=== PATIENT | male | born 1960 | race Caucasian/White ===

== ENCOUNTER → 2018-02-15 13:38 | Outpatient (CLI) | payer SELFPAY ==
--- NOTE | 2018-02-15 13:42 | ECHOD_ITS ---
Reason For Study: Murmur Procedure This was a 2D Doppler, Color Flow transthoracic echocardiogram. Exam performed in department. Left Ventricle Normal size and thickness. The estimated ejection fraction is 65 %. Stage 1 diastolic dysfunction. No regional wall motion abnormalities noted. Right Ventricle Normal size and thickness. Normal systolic function. Atria Normal left atrium. Normal right atrium. Normal atrial septum. Mitral Valve The mitral valve is structurally normal. No prolapse or stenosis seen. Trivial mitral valve insufficiency. Tricuspid Valve Normal tricuspid valve. Trivial tricuspid valve insufficiency. Right ventricular systolic pressure estimated to be 25 mmHg. Aortic Valve Trisinus/trileaflet aortic valve. Normal aortic valve. Pulmonic Valve Normal pulmonic valve. Trivial pulmonic valve insufficiency. Great Vessels Normal aortic root. Normal arch. Normal inferior vena cava. Inferior vena cava collapse with sniff. Pericardium/Pleural No pericardial effusion. MMode/2D Measurements & Calculations LVIDd: 4.8 cm IVSd: 0.84 cm Ao root diam: 3.8 cm LVIDs: 2.7 cm LVPWd: 1.0 cm LA dimension: 3.3 cm RVDd: 3.6 cm FS: 44.1 % LAV(MOD-sp4): 38.7 ml LVAd ap4: 34.8 cm2 SV(MOD-sp4): 64.2 ml EDV(MOD-sp4): 107.3 ml EDV(sp4-el): 111.2 ml LVAs ap4: 19.2 cm2 ESV(MOD-sp4): 43.0 ml ESV(sp4-el): 41.5 ml EF(MOD-sp4): 59.9 % EF(sp4-el): 62.7 % SV(sp4-el): 69.7 ml LA A4 area: 15.9 cm2 RA A4 area: 15.2 cm2 Time Measurements MV dec time: 0.20 sec Doppler Measurements & Calculations MV E max iván: 88.8 cm/sec Lat Peak E' Iván: 7.3 cm/sec Med Peak E' Iván: 10.5 cm/sec MV A max iván: 68.3 cm/sec E/E' lat: 12.2 E/E' med: 8.4 MV E/A: 1.3 MV V2 max: 100.2 cm/sec MV P1/2t max iván: 100.2 cm/sec Ao V2 max: 114.6 cm/sec MV max P.0 mmHg MV P1/2t: 63.7 msec Ao max P.3 mmHg MV V2 mean: 46.8 cm/sec MV dec slope: 460.8 cm/sec2 Ao V2 mean: 77.7 cm/sec MV mean P.1 mmHg MVA(P1/2t): 3.5 cm2 Ao mean P.7 mmHg MV V2 VTI: 34.1 cm Ao V2 VTI: 23.5 cm LV V1 max: 89.3 cm/sec PA V2 max: 109.8 cm/sec PI dec slope: 110.0 cm/sec2 LV V1 max P.2 mmHg LV V1 mean P.4 mmHg LV V1 mean: 56.1 cm/sec LV V1 VTI: 18.7 cm TR max iván: 220.9 cm/sec TR max P.5 mmHg Interpretation Summary The estimated ejection fraction is 65 %. Stage 1 diastolic dysfunction. Right ventricular systolic pressure estimated to be 25 mmHg. Trivial tricuspid valve insufficiency. In comparison to echo report dated 12/09/2012, no appreciable changes noted. Ordering Physician: Mariano Queen Referring Physician: Mariano Queen Performed By: Hunter Wise RCS
== END ==
PROVIDERS: Family Provider Family Medicine; PCP Family Medicine; Visit Provider Internal Medicine Cardiovascular Disease
DX: I45.10 Unspecified right bundle-branch block (principal); E78.5 Hyperlipidemia, unspecified; I10 Essential (primary) hypertension
CPT/HCPCS: 93306

== ENCOUNTER → 2020-04-17 10:00 | Outpatient (CLI) | payer SELFPAY ==
[2019-05-26 11:21] VITALS: BMI 27.7
[2020-04-17 11:22] LABS: AST(SGOT) 18 U/L (15-37); Alanine Aminotransfer ALT/SGPT 25 U/L (16-61); Albumin, Serum 4.1 g/dL (3.2-5.0); Alkaline Phosphatase 56 U/L (45-117); Bilirubin, Direct 0.27 mg/dL (0.00-0.30); Cholesterol 140 mg/dL (200); Globulin 3.3 g/dL (2.2-4.2); High Density Lipoprotein 52 mg/dL; Protein, Total 7.4 g/dL (6.4-8.2); Triglycerides 86 mg/dL; Very Low Density Lipoprotein 17 mg/dL (5-40)
== END ==
PROVIDERS: PCP Family Medicine; Referring Provider Internal Medicine Cardiovascular Disease; Visit Provider Internal Medicine Cardiovascular Disease
DX: E78.00 Pure hypercholesterolemia, unspecified (principal)
CPT/HCPCS: 36415; 80061; 80076

== ENCOUNTER → 2022-06-26 | Outpatient (CLI) | payer BC, SELFPAY ==
--- NOTE | 2022-06-26 08:04 | VDLE_ITS ---
Reason For Study: LEG SWELLING RIGHT LEFT GSV is normal. CFV is compressible, spontaneous, phasic, CFV is compressible, spontaneous, phasic, competent, and demonstrates normal competent and demonstrates normal augmentation. augmentation. FV is compressible, spontaneous, phasic, competent and demonstrates normal augmentation. POP V is compressible, spontaneous, phasic, competent and demonstrates normal augmentation. T/P Trunk is compressible. PTV is compressible. RT PerV is compressible. Procedure This is a venous duplex using B-mode, color flow and spectral Doppler. Exam performed in department. The exam was diagnostic. A preliminary report was called and/or faxed to Constantino Fitch. VL/Venous Duplex US, Unilateral Interpretation Summary Deep veins of the right lower extremity are patent and compressible segmentally . There is no evidence of right lower extremity deep vein thrombosis. Valvular competence maninder ears intact within the proximal deep venous system on the right . The right great saphenous vein a ppears patent and compressible segmentally. Ordering Physician: CONSTANTINO FITCH Referring Physician: Juan Diego Barrera Performed By: Hardy Koroma RVT
== END | disposition home or self-care (01) ==
PROVIDERS: PCP Family Medicine; Visit Provider Nurse Practitioner Family
DX: L03.115 Cellulitis of right lower limb (principal); M79.89 Other specified soft tissue disorders; R23.8 Other skin changes
CPT/HCPCS: 93971

== ENCOUNTER → 2023-03-14 | Outpatient (CLI) | payer BC, SELFPAY ==
--- NOTE | 2023-03-14 08:00 | RAD_ITS ---
STUDY: X-RAY - ESOPHAGUS (BARIUM SWALLOW) WITH FLUOROSCOPY REASON FOR EXAM: Male, 62 years old. DYSPHAGIA TECHNIQUE: 13 view(s) of the esophagus were obtained following swallowing of barium. FLUOROSCOPY TIME (if supplied): (26 seconds) minutes/seconds. 7.12 mGy COMPARISON: None. FINDINGS: There is no demonstrated esophageal foreign body. There is no demonstrated stricture or mucosal abnormality. Normal gastroesophageal junction, without a demonstrated hiatal hernia. The patient ingested a 12 mm tablet of barium without any difficulty. Normal visualized aortic arch and descending thoracic aorta. Normal visualized pulmonary parenchyma. Normal visualized osseous structures of the thorax. RAD/Esophagus Dual Contrast IMPRESSION: Normal plain film x-ray examination (barium swallow) of the esophagus. Electronically Signed: Luciano Cobos MD at 8:39 EDT ,
== END | disposition home or self-care (01) ==
PROVIDERS: PCP Family Medicine; Referring Provider Family Medicine; Visit Provider Family Medicine
DX: R13.10 Dysphagia, unspecified (principal)
CPT/HCPCS: 74221

== ENCOUNTER → 2023-11-28 | Outpatient (CLI) | payer BC, SELFPAY | END | disposition home or self-care (01) | PROVIDERS: PCP Family Medicine; Referring Provider Surgery; Visit Provider Surgery | DX: Z01.818 Encounter for other preprocedural examination (principal); K40.90 Unilateral inguinal hernia, without obstruction or gangrene, not specified as recurrent | CPT/HCPCS: 87081 ==

== ENCOUNTER 2023-12-11 08:27 | Day surgery (SDC) | payer BC, SELFPAY ==
[2023-12-11] VITALS (9 sets, daily range): BP systolic 110–139; BP diastolic 61–89; PULSE 65–78; RESP 16–18; TEMP 36.4–36.9; O2SAT 98–100; BMI 27.4
--- NOTE | 2023-12-11 08:40 | EKG12_ITS ---
Test Reason : preop Blood Pressure : / mmHG Vent. Rate : 071 BPM Atrial Rate : 071 BPM P-R Int : 138 ms QRS Dur : 140 ms QT Int : 418 ms P-R-T Axes : 063 033 029 degrees QTc Int : 454 ms Normal sinus rhythm Right bundle branch block Abnormal ECG No previous ECGs available Confirmed by IGNACIO FORD, VANDANA ([id number]), offline editor LETTY STAPLES ([id number]) on 12/12/2023 1:23:28 PM Referred By: Juan Diego Barrera Confirmed By:VANDANA PIERRE MD
[2023-12-11] MEDS: Lactated Ringers 1,000 ML 15 ML IV (09:07)
[2023-12-11 09:37] LABS: Thyroid Stim Hormone (TSH) 2.11 uIU/mL (0.358-3.74)
--- NOTE | 2023-12-11 10:41 | PCM.HP.BLA ---
History and Physical Date of Admission: 12/11/23 Date of Service: 11/28/23 MR#: [id number] Acct: [id number] Name: TRUPTI MOREIRA Rep #: [id number] : 1960 Provider: Dr. Dale Sunshine MD Age/Sex: 63/M Location: [facility] Status: Signed Intake Vital Signs 02/20/2312:58 11/27/2408:42 Height 5 ft 11 in 5 ft 10 in Weight: 201 lb 8 oz BMI 28.9 BP 147/85 H Blood Pressure Location Rt brachial Position Sitting Respiration 18 Pulse 63 Pulse Source Monitor Temp 98.0 F Temp Source Temporal Pulse Oximetry (%) 97 Oxygen Delivery Method room air Intake Visit Reasons: INGUINAL HERNIA Chief Complaint: right inguinal hernia Youth Care Professional Required: No Is patient in pain?: Yes Allergies Sulfa (Sulfonamide Antibiotics) Allergy (Verified 11/28/23 09:45) Other Medications atorvastatin 20 mg tablet 20 mg PO QHS 03/02/14 [History Confirmed 11/28/23] multivitamin,[id number]-xplpsaai 27 mg-0.4 mg tablet 1 tab PO DAILY 03/02/14 [History Confirmed 11/28/23] omega-3 fatty acids-fish oil 684 mg-1,200 mg capsule,delayed release 1 ea PO DAILY 03/02/14 [History Confirmed 11/28/23] ascorbic acid (vitamin C) 1,000 mg tablet 1 g PO QDAY 01/25/18 [History Confirmed 11/28/23] cyanocobalamin (vitamin B-12) 1,000 mcg tablet 1,000 mcg PO DAILY 12/19/21 [History Confirmed 11/28/23] levothyroxine 88 mcg tablet 88 mcg PO DAILY 12/19/21 [History Confirmed 11/28/23] betamethasone dipropionate 0.05 % topical cream 1 applic topical DAILY PRN 02/19/23 [History Confirmed 11/28/23] losartan 25 mg tablet 25 mg PO DAILY #90 tabs 05/08/23 [Rx Confirmed 11/28/23] PFSH Medical History (Reviewed 02/19/23 @ 13:37 by Eliazar Guzman RESPIRATORY ASSISTANT, RESPIRATORY ASSISTANT-C) Asthma Bilateral carpal tunnel syndrome Chest pain, unspecified Essential hypertension Essential tremor GI bleed Internal hemorrhoids Pure hypercholesterolemia TMJ Surgical History History of carpal tunnel repair History of mandibular surgery History of prostate biopsy History of umbilical hernia repair Hx of colonoscopy Family History Father Myocardial infarction Diabetes CAD (coronary artery disease) CABGMother LymphomaSister CLL (chronic lymphocytic leukemia) Social History (Updated 11/28/23 @ 09:42 by Emy Espinosa LPN) Smoking Status: Former smoker quit date: 09/17/85 alcohol intake: current substance use type: former substance user Date of last use: 80s and marijuana HPI HPI HPI: Patient is a 63-year-old male who presents for concern over possible new right inguinal hernia. He is referred from Dr. Barrera. This finding was first noticed by Mr. Moreira in September. Patient is able to recall how this occurred and shares that he was diagnosed with bronchitis in August and the symptoms lasted to September when he had a particular coughing fit where he felt as though he had ripped something. He shares that he has pain that goes down in the crease. This is associated also with some right testicle pain. He notes it to be a dull ache and denies explicitly any sharp pain. He states that this discomfort is particularly noticeable later in the day and it feels like things are dropping resulting in some bulging of his right groin. He does confirm that his bowel movements are normal in frequency but that there is some pain when he does have to defecate. He shares that there is a history of prostate growth but he denies any related urinary issues. Additionally, he makes mention of some periumbilical discomfort and potentially some bulging at that location. He does also state that he has fasted for today's visit just in case. 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 More directly, however, it is precluding him from being able to square dance which he enjoys as his hobby. Lastly, he shares that he is caring for his mother who is in a group home and occasionally tries to bring her home in a wheelchair and sees potential issues postoperatively with this recovery and this priority. Patient has a personal history of smoking, but states that it was greater than 20 years ago. Patient also has a personal history of recurrent cutaneous infections?most recently he describes right lower extremity cellulitis (in the past 6 months). Pertinent surgical history includes: Open umbilical hernia repair with onlay mesh placement by Dr. Talamantes in 2014. ROS General General: No weight change, appetite, fatigue, colon cancer, breast cancer or weakness HEENT HEENT: Yes difficulty swallowing; No eye injury, eye surgery, swollen glands or hoarseness Endo Endocrine: No thyroid disease, diabetes mellitus, thyroid cancer, Hair loss, heat intolerance or cold intolerance Skin Skin: No rash or changing moles Musc Musculoskeletal: Yes back problems; No arthritis, rheumatoid arthritis, gout or joint pain Cardio Cardiovascular: Yes high blood pressure; No murmur, pacemaker, heart disease, atrial fibrillation, heart attack, heart stent, palpitations, shortness of breat with exertion or chest pain Psych Psychiatric: Yes depression and anxiety; No hearing voices Resp Respiratory: Yes shortness of breath, No sleep apnea, No cough, No COPD, No asthma, No emphysema and No wheezing Gastro Gastrointestinal: Yes abdominal pain, No nausea or vomiting, No diarrhea, No constipation, Yes blood in stool, Yes acid reflux, Yes hemorrhoids, No ulcers, No gallbladder problem and No black,tarry stools Alo Hematologic: No blood thinners, No blood disorders, No bleeding, No anemia and No blood clots Neuro Neurologic: Yes numbness, Yes tingling and No weakness Exam Const General: cooperative and anxious Orientation: alert, awake and oriented x3 Resp Effort & Inspection: normal respiratory effort GI Other: Well-healed umbilical hernia repair with no signs of recurrence. There is no pain upon palpation. Patient denies any tenderness with palpation of the 4 abdominal quadrants. Other: Bilaterally descended testicles. Unremarkable left side exam. Significant tenderness on the right with a apparent indirect inguinal hernia defect Assessment and Plan Assessment and Plan (1) Right inguinal hernia: Status: Acute Comment: This is a 63-year-old, otherwise healthy, male who presents with signs and symptoms of a new right inguinal hernia. By exam this is an indirect?type inguinal hernia. He is symptomatic with progressive discomfort. It is also secondarily interfering with his ability to partake in his hobbies and square dancing. I held a lengthy conversation with him today regarding the hernias probable origin as well as my recommendation to pursue a minimally invasive inguinal hernia repair with mesh. Details of the procedure included postoperative expectations and preoperative prehabilitation. To this latter end I recommended he reinstate his use of tamsulosin for urinary retention and work to minimize any perioperative coughing or sneezing. Additionally, I have cautioned him against proceeding amidst any present cellulitis concerns. He denies any present concerns, but confirms his understanding for possible mesh translocation. Today a nasal swab was obtained to screen for MRSA and we will plan to treat accordingly if present. Lastly, patient is cautioned on activity restrictions and I have recommended no lifting greater than 10 pounds for 5 weeks postoperatively. He suggest this is longer than he had anticipated and is concerned about its impact on both his work schedule as well as his ability to care for his mother. I have encouraged him to speak with his employer directly about this and see how we might minimize the impact to him. I have also suggested that we may consider a light duty status 2 to 3 weeks postop and resume unrestricted physical activity following the 5-week pham. He seems pleased with this approach. Plan: ? Recommend robot-assisted right inguinal hernia repair with mesh ? Follow-up MRSA swab of nares and treat if indicated ? Resume tamsulosin 0.4 mg at least 2 weeks prior to surgery I have examined the patient the following changes are noted: Patient reports that he has had more discomfort and bulging that was less reducible in the past week. Today he states that he is doing well as he has been taking it easier. He also notes that his employer has been accommodating at work but he has now off for his postoperative recovery. Procedure and post procedure activity restrictions were reviewed and patient denies any further questions. Will now proceed to the operating room for planned robot-assisted right (possible bilateral) inguinal hernia repair with mesh
[2023-12-11] MEDS: Cefazolin 2 GM in 0.9% Normal Saline (100mL Bag) 100 ML IV (11:00)
--- NOTE | 2023-12-11 12:33 | OP.PCM_ITS ---
Report of Operation Date of Procedure: 12/11/23 Pre-Operative Diagnosis: Right inguinal hernia Post-Operative Diagnosis: Right indirect inguinal hernia Surgery/Procedure Performed:: Robot-assisted transabdominal preperitoneal repair of right inguinal hernia with mesh placement Description of Surgical Findings:: ? Clear evidence of a moderately large indirect right inguinal hernia ? Medium size cord lipoma ? Irregularity of the peritoneum but appeared secondary to attachment of the sigmoid colon and no definitive hernia on the left Surgeon: Dale Sunshine plater printed circuit board panels: Amilcar Lim Type of Anesthesia: General/Supplemental Anesthesiologist: Beny Lagos Specimen's removed: None Estimated Blood Loss (mL): 5 Description of Procedure: After appropriate identification in the preoperative holding area the patient was brought to the operating room where he was positioned supine on the operating table. Preoperative antibiotics were completed and the patient was administered a general anesthetic. Patient's abdomen was then prepped and draped in usual sterile fashion. Formal timeout followed to confirm patient and procedure. Procedure was begun with an optical entry facilitated by Veress insufflation at Conley's point. Once pneumoperitoneum reached a set point pressure of 15 mmHg the Veress needle was withdrawn and an optical entry was made with a robotic trocar. Laparoscopic visualization confirmed no inadvertent injury to the viscera below and 2 additional ports were placed in the right upper quadrant and paramedian positions, respectively, after instillation of local anesthetic. Patient was positioned in slight Trendelenburg and I performed a local block of the ilioinguinal nerves using 3 mL local anesthetic under laparoscopic visualization. It was initially difficult to discern if there was a indirect hernia defect present on the left because of a irregularity of the peritoneum caused by adhesions with the adjacent sigmoid colon. I thus resolved to assess this better once the robot could be used. The robot was docked in standard fashion. In this positioning I could visualize a indirect abdominal wall defect on the right but the left appeared intact. Robotically, a peritoneal flap was created on the right extending from the medial umbilical ligament to the level of the ASIS (external) and was bluntly dissected inferiorly to expose the medial parietal compartment and lateral visceral compartments. Medially I could visualize the pubic tubercle and Aldair's ligament while laterally I extended the dissection down to the level of the psoas musculature. The indirect hernia sac was identified and from the cord structures deeply with selective use of monopolar energy. A small cord lipoma was identified and removed with monopolar energy. Beyond this, I visualized a fatty cord with significant fat also in the space of Retzius. Not wanting to incur bleeding or damage to the cord structures the fatty cord was left undisturbed, however, to permit appropriate mesh placement I did feather out the fat coursing over the femoral vasculature and adjacent to the bladder with very careful blunt dissection and selective electrocautery. The peritoneal flap was inspected to ensure that cord was appropriately parietalized and there was no pulling of the cord structures or the viscera deeply over the psoas using the pull test. Once satisfied, a Bard 3D max, size large, mid weight mesh was placed into the abdomen along with suture. It was positioned within the preperitoneal pocket so that there was good medial and inferior overlap. It was then tacked to Aldair's ligament as well as the adminiculum of the linea alba just superior to the pubic tubercle, medially, and laterally in a partial- thickness bite of the abdominal wall using a 3-0 Vicryl suture. The peritoneal flap was then closed with a running 3-0 V-Loc suture taking care to conceal the barbs of the suture beneath the peritoneum. Once the flap closure was complete, I undertook repair of a small peritoneal defect overlying the area of the cord with 3-0 Vicryl. With the peritoneal defects closed, sutures were systematically removed from the peritoneum and the pneumoperitoneum was evacuated before removing the trocars. The port sites were closed at the skin with running 4-0 Monocryl in a subcuticular fashion. Steri-Strips and OpSite's were used as dressings. Patient's testicles were confirmed within the scrotum. Patient was then awoken from anesthetic and transferred to PACU for ongoing recovery. Grafts/Implants Used: 3D max mid LOT: [id number], reference: [id number] Complications None Admit VTE Documentation VTE Mechan Device Prophylaxis: SCD's Procedures Digestive 40xxx-49xxx: 44864 Lap ing hernia repair init
--- NOTE | 2023-12-11 12:36 | DCINST_ITS ---
Discharge Instructions Diet Discharge Diet: No restrictions Activity Discharge Activity: May Not Drive (While taking narcotic pain medication) and May Shower May shower in (days): 2 Ice area for (Minutes): 20 Lifting Restrictions: No lifting greater than 10 pounds for the next 5 weeks Dressing / Incision Call your doctor if your incision/area has: Continuous Slow Oozing, Increased Pain/ Swelling, Increased Redness, Foul Smelling Discharge and Swelling at the incision site Call your doctor if you observe: Fever of 101 or Higher, Inability to urinate and Inability to have a bowel movement Change Dressing in: 2 days (Please leave Steri-Strips intact until they fall off spontaneously or are taken off at your follow-up visit) Remove Dressing in: 2 days Cleanse incision/area with: Soap & Water and Keep Dressing Clean & Dry Follow Up Care Please Follow Up With: Dale Sunshine MD When: 10 to 14 days postop Test Results: Test results from this visit will be discussed in further detail at your follow- up appointment, if applicable. Discharge Plan Admission Primary Reason for Your Visit: Repair of right inguinal hernia Attending Provider: Dale Sunshine Primary Care Provider: Juan Diego Barrera Discharge Orders/Prescriptions Prescriptions: New oxycodone 5 mg tablet 5 mg PO Q6H PRN (Reason: pain) 3 Days Qty: 10 0RF No Action ascorbic acid (vitamin C) 1,000 mg tablet 1 g PO QDAY levothyroxine 88 mcg tablet 88 mcg PO SUMOTUWETHFR Rx Instructions: 88 mcg orally; 88 MCG ROJAS FR THEN ON SA 44 MCG cyanocobalamin (vitamin B-12) 1,000 mcg tablet 1,000 mcg PO DAILY betamethasone dipropionate 0.05 % cream 1 applic topical DAILY PRN (Reason: itching) atorvastatin 20 MG tablet 20 mg PO QHS Patient Comments: FOR HI CHOL omega-3 fatty acids-fish oil 1 EACH capsule,delayed release(DR/EC) 1 ea PO DAILY levothyroxine 44 mcg capsule 44 mcg PO SA losartan 100 mg tablet 100 mg PO DAILY loratadine [Allergy Relief (loratadine)] 10 mg tablet 10 mg PO DAILY omeprazole 20 mg capsule,delayed release(DR/EC) 20 mg PO PRN tamsulosin 0.4 mg capsule 0.4 mg PO DAILY Qty: 14 0RF Rx Instructions: Take one tablet by mouth daily for two weeks prior to surgery Referrals / Follow Up: Juan Diego Barrera MD [Primary Care Provider] - Disposition Disposition (needs filled in before D/C Order can be placed): Home, Self Care
[2023-12-11] MEDS: Bupiv/Epi 0.25% 30 ML Vial (12:40)
== END 2023-12-11 15:39 | disposition home or self-care (01) ==
LOC: SDC 08:31 → AC 08:31
PROVIDERS: Anesthesiology; PCP Family Medicine; Referring Provider Family Medicine; Visit Provider Surgery
PROC: (CPT 49650; principal; 2023-12-11 10:10)
DX: K40.90 Unilateral inguinal hernia, without obstruction or gangrene, not specified as recurrent (principal); E78.00 Pure hypercholesterolemia, unspecified; I10 Essential (primary) hypertension; K21.9 Gastro-esophageal reflux disease without esophagitis; E07.9 Disorder of thyroid, unspecified; Z79.899 Other long term (current) drug therapy; Z87.891 Personal history of nicotine dependence
CPT/HCPCS: 49650; S2900; 00840; 84443; 93005; J7120; J2405

== ENCOUNTER → 2024-05-24 | Outpatient (CLI) | payer BC, SELFPAY ==
[2024-05-24 11:36] LABS: Absolute Lymphocyte Count 2.44 X10^3/uL (0.83-4.51); Absolute Neutrophil Count 3.1 X10^3/uL (2.0-7.7); Basophil# 0.05 X10^3/uL; Basophil% 0.8 % (0-1); Eosinophils% 3.2 % (0-5); Hematocrit 39.1 % (40-54); Hemoglobin 13.4 g/dL (13.0-16.5); Lymphocyte # 2.44 X10^3/ul (0.83-4.51); Lymphocyte % 38.5 % (19-41); Mean Corp Hgb Conc 34.3 g/dL (32-36); Mean Corpuscular Hgb 31.5 pg (27.0-32.0); Mean Platelet Vol. 10.9 fl (6.2-12.0); Monocyte# 0.51 X10^3/uL; NRBC Flagged by Analyzer 0 % (0-5); Neutrophil # 3.09 X10^3/uL (2.7-7.7); Neutrophil % 48.7 % (47-70); Platelet Count 260 K/mm3 (150-450); RBC Distribution Width CV 13.7 % (11.6-14.6); RBC Distribution Width SD 46.3 fl (35.1-43.9); Red Blood Count 4.25 M/mm3 (4.6-6.2); White Blood Count 6.3 K/mm3 (4.4-11.0)
[2024-05-24 11:47] LABS: ALB/GLOB Ratio 1.3 RATIO (0.9-2.4); AST(SGOT) 24 U/L (15-37); Alanine Aminotransfer ALT/SGPT 36 U/L (16-61); Albumin, Serum 3.9 g/dL (3.2-5.0); Alkaline Phosphatase 59 U/L (45-117); Anion Gap 3 (5-15); BUN 17 mg/dL (7-18); BUN/Creat Ratio 15.2 RATIO (10-20); Calcium,Total 9.5 mg/dL (8.5-10.1); Chloride 107 mmol/L (98-107); Cholesterol 181 mg/dL (200); Creatinine, Serum 1.12 mg/dL (0.70-1.30); EST Glomerular Filtration Rate 70 mL/min (>60); Est Glom Filt Rate - Afr Amer 85 mL/min (>60); Glucose 103 mg/dL (74-106); High Density Lipoprotein 53 mg/dL; Potassium 4.2 mmol/L (3.5-5.1); Protein, Total 6.9 g/dL (6.4-8.2); Sodium Level 139 mmol/L (136-145); Triglycerides 111 mg/dL; Very Low Density Lipoprotein 22 mg/dL (5-40)
[2024-05-26 08:03] LABS: Hemoglobin A1c 5.8 % (3.8-5.6)
== END | disposition home or self-care (01) ==
LOC: LAB 10:49
PROVIDERS: PCP Family Medicine; Referring Provider Family Medicine; Visit Provider Family Medicine
DX: E78.5 Hyperlipidemia, unspecified (principal); R73.9 Hyperglycemia, unspecified
CPT/HCPCS: 36415; 80053; 80061; 83036; 85025

== ENCOUNTER → 2025-01-29 | Outpatient (CLI) | payer BC, SELFPAY ==
[2025-01-29 11:32] LABS: Absolute Lymphocyte Count 2.28 X10^3/uL (0.83-4.51); Absolute Neutrophil Count 2.6 X10^3/uL (2.0-7.7); Basophil# 0.04 X10^3/uL; Basophil% 0.7 % (0-1); Eosinophil# 0.21 X10^3/uL; Eosinophils% 3.7 % (0-5); Hematocrit 40.9 % (40-54); Hemoglobin 14.3 g/dL (13.0-16.5); Lymphocyte # 2.28 X10^3/ul (0.83-4.51); Lymphocyte % 40.4 % (19-41); Mean Corpuscular Hgb 31.6 pg (27.0-32.0); Mean Corpuscular Volume 90.3 fL (80-94); Mean Platelet Vol. 10.7 fl (6.2-12.0); Monocyte# 0.55 X10^3/uL; Monocyte% 9.8 % (0-10); NRBC Flagged by Analyzer 0 % (0-5); Neutrophil # 2.55 X10^3/uL (2.7-7.7); Neutrophil % 45.2 % (47-70); Platelet Count 276 K/mm3 (150-450); RBC Distribution Width CV 13.4 % (11.6-14.6); RBC Distribution Width SD 44.1 fl (35.1-43.9); Red Blood Count 4.53 M/mm3 (4.6-6.2); White Blood Count 5.6 K/mm3 (4.4-11.0)
[2025-01-29 12:12] LABS: ALB/GLOB Ratio 1.8 RATIO (0.9-2.4); AST(SGOT) 27 U/L (<=37); Alanine Aminotransfer ALT/SGPT 21 U/L (<=46); Albumin, Serum 4.4 g/dL (3.4-4.8); Alkaline Phosphatase 55 U/L (40-129); Anion Gap 10 (5-15); BUN 15 mg/dL (4-19); BUN/Creat Ratio 14.7 RATIO (10-20); Calcium,Total 9.4 mg/dL (7.6-11.0); Carbon Dioxide 25.5 mmol/L (21.0-32.0); Chloride 105 mmol/L (98-108); Creatinine, Serum 0.99 mg/dL (0.70-1.20); EST Glomerular Filtration Rate 85 (>60); Globulin 2.5 g/dL (2.2-4.2); Glucose 104 mg/dL (70-99); Potassium 4.2 mmol/L (3.3-5.1); Protein, Total 6.9 g/dL (5.9-8.4); Sodium Level 140 mmol/L (133-145)
[2025-01-29 12:36] LABS: Cholesterol 239 mg/dL (<=200); High Density Lipoprotein 48 mg/dL; Low Density Lipoprotein Calc. 164 mg/dL; Triglycerides 139 mg/dL; Very Low Density Lipoprotein 28 mg/dL (5-40); cholesterol:hdl ratio screen 5.01
== END | disposition home or self-care (01) ==
LOC: LAB 10:39
PROVIDERS: PCP Family Medicine; Referring Provider Family Medicine; Visit Provider Family Medicine
DX: E03.9 Hypothyroidism, unspecified (principal); R73.03 Prediabetes; I10 Essential (primary) hypertension
CPT/HCPCS: 36415; 80053; 80061; 83036; 84443; 85025

== ENCOUNTER 2025-08-01 01:18 | Emergency (ER) | payer BC, SELFPAY ==
[2025-08-01 01:20] VITALS: BP 152/82; PULSE 94; RESP 19; TEMP 36.9; O2SAT 100; BMI 26.4
[2025-08-01 01:38] VITALS: BP 145/80; PULSE 79; RESP 18; TEMP 36.9; O2SAT 100
--- OUTSIDE RECORDS SUMMARY | 2025-08-01 01:41 | XMS RPT_ITS | CCD ---
Author Organization [facility] ion Partnership [facility] Care Team Providers Care Preparole Counseling Aide Name Role Phone Manjula RN, Paula Cook Unavailable Sarah Croft RN, Allison A Unavailable Unavailable Stormy Locke Unavailable Stormy Locke Unavailable HOLLI Fair, Paula Cook Unavailable Sarah Croft RN, Allison A Unavailable Unavailable Magy Hodge Unavailable Milagro GARCIA MD, JUAN DIEGO Primary Care Physician RADHA FORD, JUAN DIEGO Primary Care Physician [phone] Juan Diego Garcia MD Primary Care Provider Juan Diego Garcia MD Primary Care Provider Juan Diego Garcia MD Primary Care Provider Juan Diego Garcia MD Primary Care Provider Dr. Juan Diego Garcia Primary Care Provider Radha, Dr. Adamson Referring Provider Megan SYSTEMS CHECKOUT MECHANIC, ALEJA Payton Attending Provider Dr. Juan Diego Garcia Primary Care Provider Dr. Juan Diego Garcia Referring Provider Dr. Dale Sunshine Attending Provider [phone] Dale Sunshine Other Provider Juan Diego Garcia MD Primary Care Provider [phone] ROSA MARIA FORD, DR FRIAS Attending Mat GARCIA MD, JUAN DIEGO Primary Care Unavailable ROSAM ARIA FORD, DR FRIAS Attending JUAN DIEGO Fernandez MD Primary Care Unavailable ROSA MARIA FORD, DR FRIAS Attending Mat GARCIA MD, JUAN DIEGO Primary Care Unavailable JUAN DIEGO GARCIA MD Primary Care Unavailable SUMMER FORD, REHANA Consulting Unavailable ROSA MARIA FORD, DR FRIAS Attending Unavailbeverly CRANE MD, DR FRIAS Consulting UnavailFRANCISCA Herr DO Consulting Unavail able RADHA FORD, JUAN DIEGO Primary Care Unavailable ROSA MARIA FORD, DR FRIAS Attending Unavailbeverly GARCIA MD, JUAN DIEGO Primary Care Unavailable DAVON DEWATERER OPERATOR-CARDROOM PLASTIC CARD GRADER, JUVENTINO Palomino Attending Miguel GARCIA MD, JUAN DIEGO Primary Care Unavailable ROSA MARIA FORD, DR FRIAS Attending Unavaila kenny MAYS DEWATERER OPERATOR-CARDROOM PLASTIC CARD GRADER, JUVENTINO Palomino Attending Miguel GARCIA MD, JUAN DIEGO Primary Care Unavailable Haagen 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, Lisa Unavailable Suppan 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, Clementina A Unavailable Suppan 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, Clementina A Unavailable Suppan 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, Clementina A Unavailable Dr. Juan Diego Garcia MD Primary Care Provider Dr. Juan Diego Garcia MD Referring Provider [facility] Eliazar MASTERSON Attending Provider Radha FORD, Dr. Adamson Attending Provider Dr. Dale Way MD Other Provider Rosa Maria FORD, Dr. Frias Other Provider JUAN DIEGO GARCIA Primary Care Unavailable JUAN DIEGO GARCIA Referring Unavailable JUAN DIEGO GARCIA Attending Unavailable JUAN DIEGO GARCIA Primary Care Unavailable CLEMENTINA CARROLL Attending Unavailable JUAN DIEGO GARCIA Referring Unavailable JUAN DIEGO GARCIA Primary Care Unavailable JUAN DIEGO GARCIA Attending Unavailable Dr. Juan Diego Garcia MD Primary Care Provider Dr. Juan Diego Garcia MD Referring Provider Marilee [place] Attending Provider Juan Diego Garcia Referring Unavailable Juan Diego Garcia Unavailable Dale Way Unavailable Juan Diego Garcia Primary Care Unavailable Rodriguez Crane Unavailable Juan Diego Garcia Referring Unavailable Juan Diego Garcia Attending Unavailable Juan Diego Garcia Primary Care Unavailable Juan Diego Garcia Attending Unavailable Juan Diego Garcia Primary Care Unavailable Juan Diego Garcia Referring Unavailable Megan SYSTEMS CHECKOUT MECHANIC, Eliazar Payton Attending Unavailable Juan Diego Garcia Primary Care Unavailable Juan Diego Garcia Referring Unavailable Marilee [place] Attending Unavail able Juan Diego Garcia Primary Care Unavailable ROSA MARIA FORD, DR FRIAS Attending Unavailbeverly GARCIA MD, JUAN DIEGO Primary Care Unavailable Allergies Allergy Classification Reported Allergen(s) Allergy Type Date of Onset Reaction(s) Facility (17 sources) Sulfonamides (Antibiotic); Translations: [sulfa drugs] drug allergy 4 anaphylaxis, [facility] Work Phone: (9 sources) Sulfonamides; Translations: [sulfonamides] Drug allergy [facility] [place] (20 sources) Sulfonamides (Antibiotic); Translations: [SULFA (SULFONAMIDE ANTIBIOTICS)] Propensity to adverse reactions 5 Anaphylaxis [facility] Work Phone: (6 sources) Sulfonamides (Antibiotic) Allergy to substance 2 Other [facility] (5 sources) Sulfonamide; Translations: [sulfa drugs] Drug allergy Leukopenia (disorder) [facility] (1 source) Sulfonamides (Antibiotic) Drug allergy (disorder) 5 [facility] Medications Current Medications Medication Drug Class(es) Dates Sig (Normalized) Sig (Original) ALOE VERA ORAL (2 sources) ALOE VERA ORAL Take by mouth. Juice Active amoxicillin 875 mg oral tablet (1 source) Penicillin-class Antibacterial Start: 09-03-2023 End: 09-13-2023 take 1 tablet by mouth twice daily amoxicillin (AMOXIL) 875 mg tablet Indications: Bacterial sinusitis Take 1 tablet by mouth two times a day for 10 days. 20 tablet 0 09/03/2023 09/13/2023 Active Comment on above: Take 1 tablet by maureen th two times a day for 10 days. Ascorbic Acid (20 sources) Vitamin C Start: 07-09-2020 Vitamin C qDay, 0 Refill(s) Start Date: 07/09/20 Status: Ordered Start: 01-25-2018 take 1 g by mouth once daily A scorbic Acid (Vitamin C) Active 1 GM PO daily January 25, 2018 12:00am Start: 03-02-2014 End: 01-25-2018 take 2 tablets by mouth once daily Ascorbic Acid (Vitamin C) 500 MG tablet Discontinued 1000 mg PO DAILY@0800 March 02, 2014 12:00am January 25, 2018 2:19pm Start: 03-02-2014 End: 01-25-2018 take 1000 mg by mouth once daily Ascorbic Acid (Vitamin C) Discontinued 1000 MG PO DAILY@0800 March 02, 2014 12:00am January 25, 2018 2:19pm Start: 05-24-2011 End: 02-13-2024 take 1 tablet by mouth once daily Ascorbic Acid 1,000 mg tablet Take 1 tablet by mouth once daily. 0 05/24/2011 Active Comment on above: Take 1 tablet by maureen th once daily. atorvastatin 20 mg oral tablet (20 sources) HMG-CoA Reductase Inhibitor Start: 014 End: atorvastatin 20 mg oral tablet Dose : 20 mg = 1 tab(s), Oral, qHS, Take 1 tablet by mouth daily at bedtime for cholesterol. Start Date: 07/09/20 Status: Ordered Medication Dispense Status: Completed Total Allowed Fills: 1 Fills Dispensed: 0 Comment on above: Take 1 tablet by maureen th daily at bedtime. For cholesterol. betamethasone 0.5 mg/ml topical cream (5 sources) Corticosteroid Start: Betamethasone Dipropionate 0.05 % cream Active 1 NMA TOPICAL DAILY as needed for itching February 19, 2023 12:00am calcium carbonate 250 mg / magnesium oxide 155 mg oral tablet (20 sources) Start: 012 take 1 tablet by mouth once daily calcium carbonate-mag oxide 250-155 mg Tab Take 1 tablet by mouth once daily. 0 03/25/2012 Active Comment on above: Take 1 tablet by maureen th once daily. CASTOR OIL ORAL (2 sources) CASTOR OIL ORAL Take by mouth. Tablets Active cholecalciferol 0.025 mg oral tablet (20 sources) Vitamin D take 2 tablets by mouth once daily cholecalciferol (VITAMIN D3) 1,000 unit tab tablet Take 2,000 Units by mouth once daily. Active Comment on above: Take 2,000 Units by mouth once daily. doxycycline hyclate 100 mg oral tablet (4 sources) Tetracycline-class Drug Start: End: 025 take 1 tablet by mouth twice daily doxycycline (VIBRA-TABS) 100 mg tablet Indications: Bacterial pneumonia Take 1 tablet by mouth two times a day for 10 days. 20 tablet 11/06/2024 11/16/2024 Active Start: 06-14-2022 End: 06-24-2022 take 1 tablet by mouth twice daily doxycycline (VIBRA-TABS) 100 mg tablet Indications: Cellulitis of right lower extremity , Redness and swelling of lower leg Take 1 tablet by mouth twice daily for 10 days. 20 tablet 0 06/14/2022 06/24/2022 Active Comment on above: Take 1 tablet by muareen twice daily for 10 days. fluticasone propionate 0.05 mg/actuat metered dose nasal spray (4 sources) Corticosteroid Start: 03-03-2025 Fluticasone Propionate 50 mcg/actuation spray,suspension Active 2 NMA INTRANASAL daily March 03, 2025 12:00am Start: 02-12-2025 take 2 spray(s) nasa l route once daily fluticasone (FLONASE) 50 mcg/actuation nasal spray Indications: Cough Use 2 sprays in each nostril once daily. 1 each 5 02/12/2025 Active Ginseng 250 mg cap (8 sources) take 1 tablet by mouth once daily Ginseng 250 mg cap Take 1 tablet by mouth once daily. Active ginseng preparation 250 mg oral capsule (20 sources) take 1 tablet by mouth once daily Ginseng 250 mg cap Take 1 tablet by mouth once daily. Active Comment on above: Take 1 tablet by [facility] once daily. LACTOBAC CMB #3/FOS/PANTETHINE (PROBIOTIC & ACIDOPHILUS ORAL) (20 sources) LACTOBAC CMB #3/FOS/PANTETHINE (PROBIOTIC & ACIDOPHILUS ORAL) Take by mouth once daily. Active LACTOBAC CMB #3/ FOS/PANTETHINE (PROBIOTIC & ACIDOPHILUS ORAL) Take by mouth once daily. 0 Active Comment on above: Take by mouth once d aily. levothyroxine sodium 0.088 mg oral tablet (20 sources) l-Thyroxine Start: 12-10-2023 Levothyroxine 44 mcg capsule Active 44 ug PO SA December 10, 2023 12:00am Start: 12-10-2023 Levothyroxine Active 44 MCG PO SA December 10, 2023 12:00am Start: 12-19-2021 Levothyroxine 88 mcg tablet Active 88 ug PO SUMOTUWETHFR December 19, 2021 12:00am 88 mcg orally; 88 MCG ROJAS MO TU WE TH FR THEN ON SA 44 MCG Start: 01-19-2021 End: 04-16-2025 levothyroxine (SYNTHROID) 88 mcg tablet Indications: Hypothyroidism, acquired Take 1 tablet by mouth once daily. Take on empty stomach. For Thyroid, except 1/2 pill on Sat 30 tablet 11 04/16/2025 Active Start: 12-20-2020 End: 12-19-2021 Levothyroxine 25 mcg capsule Discontinued 88 ug PO DAILY December 20, 2020 12:49pm December 19, 2021 1:03pm Start: 12-20-2020 End: 12-19-2021 take 88 ug by mouth once daily Levothyroxine Discontin ued 88 MCG PO DAILY December 20, 2020 12:49pm December 19, 2021 1:03pm Start: 07-09-2020 levothyroxine 88 mcg (0.088 mg) oral tablet Dose : 88 mcg = 1 tab(s), Oral, acBreakfast Start Date: 07/09/20 Status: Ordered Medication Dispense Status: Completed Total Allowed Fills: 1 Fills Dispensed: 0 Start: 09-13-2018 End: 12-20-2020 take 1 capsule by mouth once daily Levothyroxine 25 mcg capsule Discontinued 25 ug PO DAILY September 13, 2018 1:00am December 20, 2020 12:49pm Comment on above: Take 1 tablet by maureen th once daily. Take on empty stomach. For Thyroid, except 1/2 pill on Sat loratadine 10 mg oral tablet (20 sources) Start: 12-10-2023 End: 03-03-2025 loratadine 10 mg oral tablet Dose : 10 mg = 1 tab(s), Oral, qAM Start Date: 07/15/24 Status: Ordered Medication Dispense Status: Completed Total Allowed Fills: 1 Fills Dispensed: 0 Start: 03-05-2023 loratadine qDa y, 0 Refill(s) Start Date: 03/05/23 Status: Ordered take 1 capsule by mo wih once daily loratadine 10 mg cap Take 10 mg by mouth once daily. Active Comment on above: Take 10 mg by mouth once daily. losartan potassium 100 mg oral tablet (20 sources) Angiotensin 2 Receptor Angelia Start: 10-22-2023 End: 10-21-2025 losartan 100 mg oral tablet Dose : 100 mg = 1 tab(s), Oral, qAM Start Date: 07/15/24 Status: Ordered Medication Dispense Status: Completed Total Allowed Fills: 1 Fills Dispensed: 0 Start: 09-03-2023 End: 09-02-2024 take 1 tablet by mouth once daily losartan (COZAAR) 50 mg tablet Indications: Primary hypertension Take 1 tablet by mouth once daily. 90 tablet 3 09/03/2023 10/22/2023 Discontinued Start: 05-26-2019 End: 09-03-2023 take 1 tablet by mouth once daily Losartan 25 mg tablet Discontinued 25 mg PO DAILY May 12, 2022 4:20pm May 08, 2023 10:04am Comment on above: Take 25 mg by mouth once daily. Take 1 tablet by maureen th once daily. Multivitamin preparation (15 sources) Start: 07-09-2020 take 1 tablet by mouth once daily Multivitamin Dose = 1 tab(s), Oral, Daily, 0 Refill(s) Start Date: 07/09/20 Status: Ordered Medication Dispense Status: Completed Total Allowed Fills: 1 Fills Dispensed: 0 Start: 07-09-2020 take 1 tablet by maureen th once daily Multivitamin Dose = 1 tab(s), Oral, Daily, 0 Refill(s) Start Date: 07/09/20 Status: Ordered Multivitamin,Ps-Eqwd-Satvite s (3 sources) Start: 03-02-2014 take 1 tablet by mouth once daily Multivitamin,Rt-Libp-Xbxfmdqj Active 1 TABLET PO DAILY March 02, 2014 12:00am multivitamin,nh-rnrf-kfdexny s (THERAGRAN M) tab (20 sources) Start: 05-24-2011 take 1 tablet by mouth once daily multivitamin,gb-nikc-mdfgwklj (THERAGRAN M) tab Take 1 tablet by mouth once daily. 0 05/24/2011 Active Comment on above: Take 1 tablet by maureen th once daily. Azhivqyfubas-Oj-Jwna-Mineral s tablet (1 source) Start: 03-03-2025 Avqzktyrbmwl-Es-Vkra-Mineral s tablet Active 1 {tbl} PO daily March 03, 2025 12:00am [place]-3 Fatty Acids (FISH OI L) 500 mg Cap (20 sources) Start: 02-15-2012 take 2 capsules by mouth once daily [place]-3 Fatty Acids (FISH OIL) 500 mg Cap Indications: Hyperlipidemia Take 2 capsules by mouth once daily. 180 capsule 3 02/15/2012 Active Comment on above: Take 2 capsules by m out once daily. [place]-3 Fatty Acids-Fish Oil (4 sources) Start: 03-02-2014 [place]-3 Fatty Acids-Fish Oil Active 1 EACH PO DAILY March 02, 2014 12:00am [place]-3 Fatty Acids-Fish Oil 1 EACH capsule,delayed release(DR/EC) (2 sources) Start: 03-02-2014 [place]-3 Fatty Acids-Fish Oil 1 EACH capsule,delayed release(DR/EC) Active 1 NMA PO DAILY March 02, 2014 12:00am omeprazole 20 mg delayed release oral capsule (20 sources) Rowena n Pump Inhib itor Start: 03-12-2023 End: 02-20-2025 omeprazole 20 mg oral delaye d release capsule Dose : 20 mg = 1 cap(s), Oral, qDay, PRN acid reflux Start Date: 03/10/24 Status: Ordered Medication Dispense Status: Completed Total Allowed Fills: 1 Fills Dispensed: 0 Comment on above: Take 1 capsule by mo [facility] daily before breakfast. 1/2 hr before meal. tamsulosin hydrochloride 0.4 mg oral capsule (20 sources) alpha -Adre nergi c Block er Start: 07-15-2024 End: 07-29-2024 Flomax 0.4 mg oral capsule Dose : 0.4 mg = 1 cap(s), Oral, qDay, Take 7 days prior to procedure and 7 days after, # 14 cap(s), 0 Refill(s), Pharmacy: [id number], Benign prostatic hypertrophy (BPH) with weak urinary stream; 45cc in Oct [address] Padilla; trial of Flomax was not helpful, 177.8, cm, 07/15/24 9:10:00 EDT, Height, kg, 07/15/24 9:10:00 EDT, Dosing Weight Start Date: 07/15/24 Stop Date: 07/29/24 Status: Ordered Start: 11-28-2023 End: 02-13-2024 take 1 tablet by mouth once daily Tamsulosin 0.4 mg capsule Discontinued 0.4 mg PO DAILY November 28, 2023 12:00am February 13, 2024 2:08pm Take one tablet by mouth daily for two weeks prior to surgery Start: 02-07-2016 End: 02-19-2023 take 1 capsule by mouth once daily Tamsulosin 0.4 mg capsule,extended release 24hr Discontinued 0.4 mg PO daily January 25, 2018 12:00am February 19, 2023 12:57pm Comment on above: Take 1 capsule by [facility] once daily. Vitamin D3 25 mcg (1000 intl units) oral capsule (5 sources) Start: 07-15-2024 Vitamin D3 25 mcg (1000 intl units) oral capsule Dose : 25 mcg = 1 cap(s), Oral, Daily Start Date: 07/15/24 Status: Ordered Medication Dispense Status: Completed Total Allowed Fills: 1 Fills Dispensed: 0 Start: 07-15-2024 Vitamin D3 25 mcg (1000 intl units) oral capsule Dose : 25 mcg = 1 cap(s), Oral, Daily Start Date: 07/15/24 Status: Ordered Completed/Discontinued Medications Medication Drug Class(es) Dates Sig (Normalized) Sig (Original) acetaminophen 325 mg / HYDROcodone bitartrate 5 mg oral tablet (6 sources) Opioid Agonist Start: 03-09-2014 End: 01-25-2018 Hydrocodone-Acetami nophen 1 TABLET tablet Discontinued 1 {tbl} PO EVERY 4 HOURS NEEDED as needed for Pain March 09, 2014 12:00am January 25, 2018 2:20pm Start: 03-09-2014 End: 01-25-2018 take 1 tablet by mouth every four hours as needed Hydrocodone-Acetaminophen Discontinued 1 TABLET PO EVERY 4 HOURS NEEDED March 09, 2014 12:00am January 25, 2018 2:20pm amoxicillin 875 mg / clavulanate 125 mg oral tablet (6 sources) Penicillin-class Antibacterial Start: 03-09-2014 End: 01-25-2018 Amoxicillin-Pot Clavulanate 875 MG tablet Discontinued 1 {tbl} PO Q12H March 09, 2014 12:00am January 25, 2018 2:21pm brompheniramine maleate 0.4 mg/ml / dextromethorphan hydrobromide 2 mg/ml / pseudoephedrine hydrochloride 6 mg/ml oral solution (1 source) alpha-Adrenergic Agonist, Uncompetitive Y-sarxfc-Q-aspartate Receptor Antagonist, Sigma-1 Agonist Start: 08-28-2023 End: 09-03-2023 take 10 mL by mouth at bedtime Brompheniramine-Pse udoeph-DM 2-30-10 mg/5 mL syrup Take 10 mL (Oral) at bedtime for 5 days 0 08/28/2023 09/03/2023 Discontinued Comment on above: Take 10 mL (Oral) at bedtime for 5 days Ca Carb-Ca Gluc-Mg Ox-Mg Gluco (4 sources) Start: 03-02-2014 End: 12-19-2021 take 1 mg by mouth once daily Ca Carb-Ca Gluc-Mg Ox-Mg Gluco Discontinued 1 EACH PO DAILY March 02, 2014 12:00am December 19, 2021 1:04pm Calcium Carb,Gluc-Mag Gluc,Ox 1 EACH tablet (2 sources) Start: 03-02-2014 End: 12-19-2021 take 1 tablet by mouth once daily Calcium Carb,Gluc-Mag Gluc,Ox 1 EACH tablet Discontinued 1 NMA PO DAILY March 02, 2014 12:00am December 19, 2021 1:04pm CALCIUM-MAGNESIUM TABS (1 source) Start: 01-20-2014 take 1 tablet by mouth once daily CHAD-MAG TABS One tablet by mouth daily CALCIUM-MAGNESIUM TABS [id number] Allison Croft RN CALCIUM-MAGNESIUM TABS (6 sources) Start: 01-20-2014 take 1 tablet by mouth once daily CHAD-MAG TABS One tablet by mouth daily CALCIUM-MAGNESIUM TABS [id number] Allison Croft RN cephalexin 500 mg oral capsule (3 sources) Cephalosporin Antibacterial Start: 02-13-2024 End: 03-03-2025 take 1 capsule by mouth twice daily Cephalexin 500 mg capsule Discontinued 500 mg PO TWICE A DAY February 13, 2024 12:00am March 03, 2025 3:19pm Start: 02-10-2024 End: 02-15-2024 take 1 capsule by mouth four times daily cephALEXin (KEFLEX) 500 mg capsule Indications: Cellulitis of left lower leg Take 1 capsule by mouth four times daily for 5 days. 20 capsule 0 02/10/2024 02/15/2024 Active clindamycin 150 mg oral capsule (17 sources) Lincosamide Antibacterial Start: 08-08-2022 End: 11-06-2024 take 1 capsule by mouth four times daily clindamycin (CLEOCIN) 150 mg capsule Indications: Acute right ankle pain , Cellulitis of skin Take 1 capsule by mouth four times daily. 40 capsule 08/08/2022 11/06/2024 Discontinued (Course of therapy completed) Comment on above: Take 1 capsule by mo [facility] four times daily. ubidecarenone 200 mg oral capsule (20 sources) Start: 01-25-2018 End: 12-19-2021 take 10 capsules by mouth once daily Coenzyme Q10 200 mg capsule Discontinued 200 mg PO daily January 25, 2018 12:00am December 19, 2021 1:04pm Start: 02-01-2015 take 1 tablet by maureen once daily CO Q-10 200 MG CAPS One tablet by mouth daily COENZYME Q10 [id number] Mariano Queen MD Comment on above: Take by mouth. ipratropium bromide 0.042 mg/actuat metered dose nasal spray (19 sources) Anticholinergic Start: 01-25-2018 End: 01-28-2018 Ipratropium Waite 42 mcg (0.06 %) spray,non-aerosol Discontinued 2 NMA INTRANASAL .3x/day January 25, 2018 2:19pm January 28, 2018 1:08pm Start: 01-25-2018 End: 01-28-2018 Ipratropium Waite Disconti nued 2 SPRAY INTRANASAL .3x/day January 25, 2018 2:19pm January 28, 2018 1:08pm Start: 03-02-2014 End: 01-25-2018 Ipratropium Wa[place] 1 SPRAY spray,non-aerosol Discontinued 2 NMA NASAL 4 TIMES DAILY March 02, 2014 12:00am January 25, 2018 2:22pm Start: 03-02-2014 End: 01-25-2018 Ipratropium Waite Disconti nued 2 SPRAY NASAL 4 TIMES DAILY March 02, 2014 12:00am January 25, 2018 2:22pm Start: 01-26-2014 take 1 spray(s) nasa l route three times daily as needed ATROVENT 0.06 % SOLN sprays each nostril Three times a day, as needed IPRATROPIUM BROMIDE [id number] Mariano Queen MD Start: 01-26-2014 take 1 spray(s) nasa l route three times daily as needed ATROVENT 0.06 % SOLN sprays each nostril Three times a day, as needed IPRATROPIUM BROMIDE [id number] Mariano Queen MD Lactobacillus Combo No.11 (4 sources) Start: 03-02-2014 End: 01-25-2018 Lactobacillus Combo No.11 Discontinued 1 EACH PO DAILY March 02, 2014 12:00am January 25, 2018 2:20pm Lactobacillus Combo No.11 1 EACH capsule, sprinkle (2 sources) Start: 03-02-2014 End: 01-25-2018 take 1 capsule by mouth once daily Lactobacillus Combo No.11 1 EACH capsule, sprinkle Discontinued 1 NMA PO DAILY March 02, 2014 12:00am January 25, 2018 2:20pm MULTIPLE VITAMIN (7 sources) Start: 01-20-2014 take 1 tablet by mouth once daily MULTIVITAMINS TABS One tablet by mouth daily MULTIPLE VITAMIN Allison Croft RN multivitamin,tx-iro n-minerals (COMPLETE MULTIVITAMIN) ORAL Tab (6 sources) Start: 05-24-2011 take 1 tablet by mouth once daily multivitamin,tx-ir on-minerals (COMPLETE MULTIVITAMIN) ORAL Tab Take 1 tablet by mouth once daily. 0 05/24/2011 Active Comment on above: Take 1 tablet by maureen th once daily. OMEGA-3 FATTY ACIDS CPDR (1 source) Start: 01-20-2014 take 2 tablets by mouth once daily OMEGA 3 CPDR Two tablets by mouth daily OMEGA-3 FATTY ACIDS CPDR [id number] Allison Croft RN OMEGA-3 FATTY ACIDS CPDR (6 sources) Start: 01-20-2014 take 2 tablets by mouth once daily OMEGA 3 CPDR Two tablets by mouth daily OMEGA-3 FATTY ACIDS CPDR [id number] Allison Croft RN oseltamivir 75 mg oral capsule (2 sources) Neuraminidase Inhibitor Start: 10-05-2024 End: 10-10-2024 take 1 capsule by mouth every twelve hours Oseltamivir (Tamiflu) 75 mg capsule Discontinued 75 mg PO Q12H 10 5 October 05, 2024 1:00am October 09, 2024 1:00am October 10, 2024 1:11am oxyCODONE hydrochloride 5 mg oral tablet (3 sources) Opioid Agonist Start: 12-11-2023 End: 02-13-2024 take 1 tablet by mouth every six hours as needed for pain Oxycodone 5 mg tablet Discontinued 5 mg PO EVERY 6 HOURS as needed for pain 10 3 December 11, 2023 February 13, 2024 2:08pm raNITIdine 150 mg oral tablet (20 sources) Histamine-2 Receptor Antagonist Start: 01-28-2018 End: 04-27-2020 take 1 capsule by mouth once daily as needed Ranitidine Hcl 150 mg capsule Discontinued 150 mg PO daily as needed January 28, 2018 12:00am April 27, 2020 11:57am Start: 01-28-2018 End: 04-27-2020 take 1 capsule by mouth once daily ranitidine 150 mg capsule Discontinued 150 MG PO daily January 28, 2018 12:00am April 27, 2020 11:57am Start: 01-26-2014 End: 01-25-2018 take 1 tablet by mouth twice daily Ranitidine Hcl 150 MG tablet Discontinued 150 mg PO TWICE A DAY March 02, 2014 12:00am January 25, 2018 2:20pm Vitamin B Complex (11 sources) Start: 03-02-2014 End: 12-19-2021 Vitamin B Complex Discontinu ed 1 EACH PO DAILY March 02, 2014 12:00am December 19, 2021 1:04pm Start: 01-26-2014 take 1 tablet by maureen th once daily VITAMIN B COMPLEX TABS One tablet by mouth daily B COMPLEX VITAMINS [id number] Mariano Queen MD Vitamin B Complex 1 EACH capsule (2 sources) Start: 03-02-2014 End: 12-19-2021 Vitamin B Complex 1 EACH cap francia Discontinued 1 NMA PO DAILY March 02, 2014 12:00am December 19, 2021 1:04pm VITAMIN B COMPLEX NO.12-NIAC IN ORAL (2 sources) End: 02-06-2022 VITAMIN B COMPLEX NO.12-NIAC IN ORAL Take by mouth. 0 02/06/2022 Discontinued VITAMIN B COMPLE X NO.12-NIACIN ORAL Take by mouth. 0 Active Comment on above: Take by mouth. vitamin b12 1 mg oral tablet (20 sources) Vitamin B12 Start: 12-19-2021 End: 03-03-2025 take 1 tablet by mouth once daily Cyanocobalamin (Vitamin B-12) 1,000 mcg tablet Discontinued 1000 ug PO DAILY December 19, 2021 12:00am March 03, 2025 3:21pm Cyanocobalamin 2 ,500 mcg subl Dissolve under the tongue. Active End: 02-06-2022 cyanocobalamin, vitamin B-12 , (VITAMIN B-12) 5,000 mcg subl Dissolve under the tongue. 0 02/06/2022 Discontinued Comment on above: Dissolve under the t ongue. Problems Active Problems Problem Classification Problem Date Documented Date Episodic/Chronic Abdominal hernia (20 sources) Inguinal hernia; Translations: [Unilateral inguinal hernia, without obstruction or gangrene, not specified as recurrent] Onset: 4 Resolved: 7 11-26-2023 Episodic Comment on above: This is a 63-year-ol d, otherwise healthy, male who presents with signs and symptoms of a new right inguinal hernia. By exam this is an indirect type inguinal hernia. He is symptomatic with progressive discomfort. It is also secondarily interfering with his ability to partake in his hobbies and square dancing. I held a lengthy conversation with him today regarding the hernias probable origin as well as my recommendation to pursue a minimally invasive inguinal hernia repair with mesh. Details of the procedure included postoperative expectations and preoperative "prehabilitation". To this latter end I recommended he reinstate his use of tamsulosin for urinary retention and work to minimize any perioperative coughing or sneezing. Additionally, I have cautioned him against proceeding amidst any present cellulitis concerns. He denies any present concerns, but confirms his understanding for possible mesh translocation. Today a nasal swab was obtained to screen for MRSA and we will plan to treat accordingly if present. Lastly, patient is cautioned on activity restrictions and I have recommended no lifting greater than 10 pounds for 5 weeks postoperatively. He suggest this is longer than he had anticipated and is concerned about its impact on both his work schedule as well as his ability to care for his mother. I have encouraged him to speak with his employer directly about this and see how we might minimize the impact to him. I have also suggested that we may consider a light duty status 2 to 3 weeks postop and resume unrestricted physical activity following the 5-week pham. He seems pleased with this approach. Anxiety disorders (10 sources) Anxiety; Translations: [Claustrophobia] 07-15-2024 Chronic Coma; stupor; and brain damage (1 source) Daytime somnolence; Translations: [Somnolence] Episodic Conduction disorders (20 sources) Right bundle branch block; Translations: [Unspecified right bundle-branch block] Onset: 3 01-20-2014 Chronic Comment on above: Patient has a chroni c right bundle branch block. Prior structural evaluation was negative. Diabetes mellitus without complication (20 sources) Hyperglycemia; Translations: [Hyperglycemia, unspecified] Onset: 7 02-14-2017 Episodic Disorders of lipid metabolism (20 sources) Hyperlipidemia; Translations: [Hypercholesterolemia] Onset: 4 01-20-2014 Chronic Comment on above: Patient's lipids are managed through the primary service he is on atorvastatin 20 mg daily. The patient does not have any known coronary artery disease. He has no known atherosclerotic disease. Esophageal disorders (5 sources) Gastroesophageal reflux disease 07-15-2024 Chronic Essential hypertension (20 sources) Hypertensive disorder; Translations: [Essential (primary) hypertension] Onset: 3 01-20-2014 Chronic Comment on above: Blood pressure is fa irly well-controlled. He is 145/85 with a heart rate of 52 in the office today. If more aggressive therapy is indicated I would consider adding a thiazide diuretic to his losartan. Splitting his losartan dose to 50 mg twice daily with hydrochlorothiazide 12.5 mg twice daily may have a better effect in lowering his systolic pressures. Genitourinary symptoms and ill-defined conditions (20 sources) Dribbling of urine; Translations: [Post-micturition incontinence ] 07-09-2020 Chronic Genitourinary symptoms and ill-defined conditions (20 sources) Microscopic hematuria; Translations: [Delay when starting to pass urine] Onset: 4 07-09-2020 Episodic Hemorrhoids (5 sources) External hemorrhoids 07-15-2024 Episodic Hyperplasia of prostate (20 sources) Benign prostatic hyperplasia; Translations: [Benign prostatic hypertrophy with outflow obstruction] Onset: 6 07-09-2020 Chronic Comment on above: 45cc [place] Oct [address] Padilla Flomax; may trial coming off medication in 2018 Immunizations and screening for infectious disease (3 sources) Vaccination needed; Translations: [Encounter for immunization] Episodic Nonspecific chest pain (12 sources) Chest pain; Translations: [Chest pain, unspecified] Onset: 7 01-29-2017 Episodic Comment on above: RESOLVED Other circulatory disease (1 source) Raynaud's disease; Translations: [Raynaud's syndrome without gangrene] 02-20-2025 Chronic Other circulatory disease (1 source) Raynaud's syndrome without gangrene; Translations: [Raynaud's disease without gangrene] Onset: Chronic Other connective tissue disease (1 source) Swelling of lower leg; Translations: [Other specified soft tissue disorders] Episodic Other diseases of veins and lymphatics (15 sources) Varicocele 07-09-2020 Episodic Other ear and sense organ disorders (5 sources) Tinnitus 07-15-2024 Episodic Other eye disorders (1 source) Ptosis of eyelid; Translations: [Unspecified ptosis of bilateral eyelids] 02-20-2025 Episodic Other eye disorders (1 source) Unspecified ptosis of bilateral eyelids; Translations: [Ptosis of both eyelids] Onset: Episodic Other hereditary and degenerative nervous system conditions (7 sources) Essential tremor; Translations: [Essential tremor] Chronic Other liver diseases (1 source) Elevated liver enzymes level; Translations: [Abnormal levels of other serum enzymes] 09-03-2023 Episodic Other lower respiratory disease (1 source) Cough; Translations: [Cough] 02-12-2025 Episodic Other nervous system disorders (20 sources) Carpal tunnel syndrome of left wrist; Translations: [Carpal tunnel syndrome, left upper limb] Onset: 3 11-04-2012 Chronic Other nervous system disorders (20 sources) Carpal tunnel syndrome of right wrist; Translations: [Carpal tunnel syndrome, right upper limb] Onset: 3 11-04-2012 Chronic Other nervous system disorders (1 source) Paresthesia; Translations: [Paresthesia of skin] Episodic Other non-traumatic joint disorders (2 sources) Acute ankle pain; Translations: [Pain in right ankle and joints of right foot] Episodic Other nutritional; endocrine; and metabolic disorders (14 sources) Body mass index 25-29 - overweight 12-08-2021 Episodic Other nutritional; endocrine; and metabolic disorders (9 sources) History of hypercholesterolemia 12-08-2021 Episodic Other nutritional; endocrine; and metabolic disorders (14 sources) Overweight 12-08-2021 Episodic Other screening for suspected conditions (not mental disorders or infectious disease) (20 sources) Raised prostate specific antigen; Translations: [Elevated prostate specific antigen [PSA]] Onset: 6 07-09-2020 Episodic Comment on above: neg bx by Dr. Terrence pierce Oct 2015 Other skin disorders (2 sources) Skin lesion; Translations: [Disorder of the skin and subcutaneous tissue, unspecified] Episodic Other upper respiratory infections (1 source) Bacterial sinusitis; Translations: [Chronic sinusitis, unspecified] 09-03-2023 Chronic Pneumonia (except that caused by tuberculosis or sexually transmitted disease) (1 source) Bacterial pneumonia; Translations: [Unspecified bacterial pneumonia] 11-06-2024 Episodic Residual codes; unclassified (1 source) Edema of right lower leg; Translations: [Localized edema] Episodic Screening and history of mental health and substance abuse codes (7 sources) Ex-smoker; Translations: [Patient encounter status] Onset: 5 07-15-2024 Episodic Skin and subcutaneous tissue infections (8 sources) Cellulitis of right lower limb; Translations: [Cellulitis of right lower limb] Episodic Spondylosis; intervertebral disc disorders; other back problems (5 sources) Backache 07-15-2024 Episodic Thyroid disorders (20 sources) Acquired hypothyroidism; Translations: [Hypothyroidism, unspecified] Onset: 8 08-16-2018 Chronic Unclassified (6 sources) Long-term drug therapy; Translations: [Other snf (current) drug therapy] Onset: 6 02-10-2016 Unclassified (5 sources) Pharyngeal gag reflex finding 07-15-2024 Unclassified (1 source) Cough, unspecified; Translations: [Cough, unspecified] Onset: Past or Other Problems Problem Classification Problem Date Documented Date Episodic/Chronic Other aftercare (1 source) 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; Translations: [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] Onset: 02-10-2016 02-10-2016 Episodic Other and unspecified benign neoplasm (20 sources) Dysplastic nevus of skin; Translations: [Melanocytic nevi, unspecified] Onset: 03-13-2022 Episodic Other and unspecified benign neoplasm (10 sources) Neoplasm of soft tissue; Translations: [Other benign neoplasm of skin, unspecified] Onset: 03-13-2022 Episodic Other nervous system disorders (20 sources) Tremor; Translations: [Tremor, unspecified] Onset: 02-06-2022 Episodic Other nervous system disorders (1 source) Tremor, unspecified; Translations: [Tremor] Onset: 02-06-2022 Episodic Other nutritional; endocrine; and metabolic disorders (7 sources) Body mass index (BMI) 26.0-26.9, adult; Translations: [Body mass index (BMI) 26.0-26.9, adult] Onset: 01-26-2014 01-26-2014 Episodic Other nutritional; endocrine; and metabolic disorders (15 sources) Overweight in adulthood with body mass index of 25 or more but less than 30; Translations: [Body mass index (BMI) 28.0-28.9, adult] Onset: 09-03-2023 Resolved: 02-20-2025 09-03-2023 Episodic Other screening for suspected conditions (not mental disorders or infectious disease) (7 sources) Abnormal electrocardiogram [ECG] [EKG]; Translations: [Abnormal electrocardiogram [ECG] [EKG]] Onset: 02-01-2016 02-01-2016 Episodic Other skin disorders (13 sources) Sebaceous cyst of skin; Translations: [Sebaceous cyst] Onset: 02-05-2014 Resolved: 02-14-2017 02-14-2017 Episodic Other upper respiratory infections (6 sources) Upper respiratory infection; Translations: [Acute upper respiratory infection, unspecified] Onset: 10-13-2024 10-05-2024 Episodic Results Test Name Value Interpretation Reference Range Facility LABORATORYOrdered By: SYSTEM SYSTEM on 07-25-2025 Prostate specific Ag [Mass/Vol] 12.23 ng/mL High 0.00 - 4.00 ng/mL AO ADM SS PSAon 07-25-2025 Prostate Specific Antigen 12.23 ng/mL High 0.00-4.00 [facility] Comment on above: Performed By: #### P #### [facility] [address] [place], [place] [address] Cardiology Visit Reporton Cardiology Visit Report [facility] [address] [place] [address] OFFICE VISIT Date of Service: 03/03/25 MR#: [id number] Acct: [id number] Name: MARIANO BROWN Rep #: [id number] : 1960 Provider: NEPTALI Rebollar Age/Sex: 64/M Location: [facility] Status: Signed HPI HPI History of Present Illness Details: This is a 64-year-old white male who presents for an outpatient cardiovascular follow-up of a history of an underlying right bundle branch block, hyperlipidemia, and hypertension. The patient reports she has had some issues with anxiety. From a cardiac standpoint, patient is doing well. He does not have any chest discomfort/heaviness/tight ness. His exercise tolerance is stable for his age. He does not have any worsening symptoms of shortness of breath. He denies any PND. He does not have any orthopnea. He does not have any symptoms of congestive heart failure. He does not have any palpitations that he is aware of. He does not have any lightheadedness or dizziness. He does not have any near-syncope or syncope. He does not have any lower extremity edema. He does not have any symptoms of claudication. 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 Accompanied by: Self Is patient in pain?: No Allergies Sulfa (Sulfonamide Antibiotics) Allergy (Verified 03/03/25 15:18) Other Medications ???Medication ???Instructions ???Recorded ???Confirmed ???Type atorvastatin 20 mg tablet 20 mg PO QHS 03/02/14 03/03/25 His tory omega-3 fatty acids-fish oil 684 1 ea PO DAILY 03/02/14 03/03/25 Hi story mg-1,200 mg capsule,delayed release levothyroxine 88 mcg tablet 88 mcg PO SUMOTUWETHFR 12/19/21 History betamethasone dipropionate 0.05 % 1 applic topical DAILY PRN itchin g 02/19/23 03/03/25 History topical cream levothyroxine 44 mcg capsule 44 mcg PO SA 12/10/23 03/03/25 His tory losartan 100 mg tablet 100 mg PO DAILY 12/10/23 03/03/25 History omeprazole 20 mg capsule,delayed 20 mg PO PRN GERD 12/10/23 5 History release fluticasone propionate 50 2 spray intranasal QDAY 03/03/25 0 03/03/25 History mcg/actuation nasal spray,suspension [id number]-Xn-vpgj-ampoule examiner als 1 tab PO QDAY 03/03/25 03/03/25 Hi story Have you fallen in the past year?: No PFSH Medical History Wears glasses Enlarged prostate Anxiety Alcohol use History of steroid therapy Thyroid disease Arthritis High cholesterol Back pain Essential tremor Difficulty swallowing History of hiatal hernia Gastric reflux Former smoker Leg cramps Normal stress echocardiogram History of stress test History of echocardiogram Cardiology follow-up encounter History of irregular heartbeat Essential tremor Pure hypercholesterolemia Essential hypertension Internal hemorrhoids Bilateral carpal tunnel syndrome GI bleed TMJ Chest pain, unspecified Surgical History S/P inguinal hernia repair Hx of colonoscopy History of mandibular surgery History of prostate biopsy History of umbilical hernia repair History of carpal tunnel repair Family History Father Myocardial infarction Diabetes CAD (coronary artery disease) CABG Mother Lymphoma Sister CLL (chronic lymphocytic leukemia) Social History Smoking Status: Former smoker quit date: 09/17/85 alcohol intake: current substance use type: former substance user Date of last use: 80s and marijuana ROS Const Const: Negative for fatigue or weakness Eyes Eyes: Negative for change in vision ENT ENT: Negative for dizziness or balance problems Cardio Chest Pain: No Palpitations: No Edema: Bilateral Resp Respiratory: Negative for SOB with activity, SOB at rest or SOB orthopnea SOB lying down GI GI: Positive for Difficulty Swallowing; Negative nausea or heartburn Musc Musc: Negative for balance problems Neuro Neuro: Negative for dizziness, lightheadedness, near syncope, syncope or weakness Endo Endo: Negative for fatigue Cardiology Exam Const Appearance: cooperative, comfortable and well developed Head Head: normal to inspection Eyes General: appearance normal, both eyes and all related structures Neck Neck: no JVD Carotids: Negative bruit Chest Chest inspection: normal inspection of the chest Ausculta (more content not included)... Normal [facility] 02-20-2025 [facility] Office Visit ([facility] ) -- MARIANO BROWN ([id number]) 1960 M Date Time Provider Department 02/20/25 3:00 PM JUAN DIEGO GARCIA [facility] During your visit today, we recorded the following information about you: Pulse Blood pressure Weight 71/minute 138/72 91.6 kg Juan Diego Garcia MD 02/20/2025 4:46 PM Signed Mariano Danielsricks is a 64-year-old male with a history of hyperlipidemia, hypothyroidism, and BPH, presenting for an annual wellness visit, with additional concerns about eyelid ptosis, Raynaud's phenomenon, and a skin lesion on the left buttock. HPI Annual Wellness Exam: - Recent lab work reviewed. - Glucose: 104 mg/dL. - BUN: 15 mg/dL. - Creatinine: 0.99 mg/dL. - GFR: 85 mL/min/1.73 m?. - Cholesterol: 239 mg/dL. - Triglycerides: 139 mg/dL. - Sodium: 140 mmol/L. - Potassium: 4.2 mmol/L. - HDL: 48 mg/dL. - LDL: 164 mg/dL. - TSH: 1.660 microIU/mL. - Hemoglobin A1c: 6.0%. - CBC: Normal. - Denies changes in energy, hair, or skin. - Weight stable; no significant changes. - No chest pain or dyspnea. - Denies headaches or changes in eyes, ears, or throat. - No cough currently. - Denies heartburn or changes in bowel movements. - No ulcers or lesions on fingers. - No pain associated with Raynaud's phenomenon. - No issues with cardiology appointments; has an upcoming appointment. - Denies any issues with breathing or swallowing. - No issues with lung function reported by other doctors. - No significant changes in health status since last visit. Hyperlipidemia: - Stopped taking atorvastatin in September due to influenza A and sleep issues. - Noticed elevated cholesterol levels in recent lab work. - Resumed atorvastatin a couple of weeks ago. Hypothyroidism: - Taking thyroid medication in the morning. - Waits an hour before taking Flonase for nasal congestion. - No changes in energy, hair, or skin. BPH: - Taking an herbal supplement with turmeric for inflammation. - Reports improvement in urine flow. - Taking aloe vera juice and castor oil tablets. - No issues with liver function reported in recent lab work. Eyelid Ptosis: - Eyelids drooping, causing eyelashes to curl down and hit the eyeball. - Denies dry eyes. Raynaud's Phenomenon: - Reports episodes of fingers turning pale and cold, worse in cold or air-conditioned environments. - No ulcers or lesions on fingers. - No pain associated with Raynaud's phenomenon. - Shows me a photo that is classic for Raynaud's Skin Lesion on Left Buttock: - Noticed a lesion on the left buttock earlier this week. - Describes it as a "sore" that is not hot or very painful. - Has been cleaning it with alcohol. MEDICATIONS: Current Outpatient Medications Medication Sig ALOE VERA ORAL Take by mouth. Juice CASTOR OIL ORAL Take by mouth. Tablets fluticasone (FLONASE) 50 mcg/actuation nasal spray Use 2 sprays in each nostril once daily. losartan (COZAAR) 100 mg tablet Take 1 tablet by mouth once daily. levothyroxine (SYNTHROID) 88 mcg tablet Take 1 tablet by mouth once daily. Take on empty stomach. For Thyroid, except 1/2 pill on Sat calcium carbonate-mag oxide 250-155 mg Tab Take 1 tablet by mouth once daily. multivitamin,te-zbga-ofydt als (THERAGRAN M) tab Take 1 tablet by mouth once daily. atorvastatin (LIPITOR) 20 mg tablet Take 1 tablet by mouth daily at bedtime. For cholesterol. (Patient not taking: Reported on 02/20/2025) loratadine 10 mg cap Take 10 mg by mouth once daily. Cyanocobalamin 2,500 mcg subl Dissolve under the tongue. cholecalciferol (VITAMIN D3) 1,000 unit tab tablet Take 2,000 Units by mouth once daily. Ginseng 250 mg cap Take 1 tablet by mouth once daily. Coenzyme Q10 200 mg cap Take by mouth. LACTOBAC CMB #3/FOS/PANTETHINE (PROBIOTIC AND ACIDOPHILUS ORAL) Take by mouth once daily. [place]-3 Fatty Acids (FISH OIL) 500 mg Cap Take 2 capsules by mouth once daily. Ascorbic Acid 1,000 mg tablet Take 1 tablet by mouth once daily. No current facility-administered medications for this visit. ALLERGIES: ALLERGIES Allergen Reactions Sulfa (Sulfonamide * Anaphylaxis PAST MEDICAL HISTORY Diagnosis Date Elevated blood pressure 2011 Hemorrhage of gastrointestinal tract, unspecified Hyperglycemia Hyperlipidemia Internal hemorrhoids without mention of complication Low back pain [address] Queen Temporomandibular joint disorders, unspecified Unspecified asthma(493.90) PAST SURGICAL HISTORY Procedure Laterality Date COLONOSCOPY FLX DX W/COLLJ SPEC WHEN PFRMD 08/21/2011 ESOPHAGOGASTRODUODENOSCOPY TRANSORAL DIAGNOSTIC 07/03/2013 EGD INGUINAL HERNIA REPAIR HX Right 2023 INT REPAIR FACE,EAR,EYE <2.5CM 03/09/2014 PAST SURGICAL HISTORY OF 01/24/2013 left carpal tunnel release PROSTATE BIOPSY negative. REM LESION FACE,EAR,EYE 0.6-1CM 03/09/2014 RPR UMBILICAL HRNA 5 (more content not included)... Normal [facility] Absolute lymphocyte countOrd ered By: Juan Diego Garcia on 01-29-2025 Lymphocytes Auto (Unsp spec) [#/Vol] 2.28 10*3/uL 0.83-4.51 [facility] Absolute neutrophil countOrd ered By: Juan Diego Garcia on 01-29-2025 Neutrophils (Bld) [#/Vol] 2.6 10*3/uL 2.0-7.7 [facility] Anion gap in Serum or Plasma Ordered By: Juan Diego Garcia on 01-29-2025 Anion gap [Moles/Vol] 10 mmol/L 01-29 [facility] Automated lymphocyte count a s percentage of total leukocytesOrdered By: Juan Diego Garcia on 01-29-2025 Lymphocytes/100 WBC Auto (Unsp spec) 40.4 % [facility] BUN/creatinine ratioOrdered By: Juan Diego [place] on 01-29-2025 Urea nitrogen/Creatinine [Mass ratio] 14.7 mg/mg 07-06 [facility] Basophil percentageOrdered B y: Juan Diego Red Banks on 01-29-2025 Basophils/100 WBC (Bld) 0.7 % 0- [facility] Bilirubin, totalOrdered By: Juan Diego Red Banks on 01-29-2025 Bilirubin [Mass/Vol] 1.10 mg/dL 0.00-1.30 [facility] CBC W/Diff, Automatedon 01-15 Absolute Lymph 2.28 X10 3/uL Normal 0.83-4.51 [facility] Comment on above: Performed By: #### L 500.4100, L501.9520, L501.9985, L500.4050, L100.0100 #### [facility] [address] [place], [address] Absolute Neut 2.6 X10 3/uL Normal 2.0-7.7 [facility] Comment on above: Performed By: #### L 500.4100, [id number], L501.9985, L500.4050, L100.0100 #### [facility] [address] [place], [address] Basophils/100 WBC (Bld) 0.7 % Normal 0-1 [facility] Comment on above: Performed By: #### L 500.4100, [id number], L501.9985, L500.4050, L100.0100 #### [facility] [address] [place], [address] Eosinophils/100 WBC (Bld) 3.7 % Normal 0-5 [facility] Comment on above: Performed By: #### L 500.4100, [id number], L501.9985, L500.4050, L100.0100 #### [facility] [address] [place], [address] Erythrocyte distribution width (RBC) [Ratio] 13.4 % Normal 11.6-14.6 [facility] Comment on above: Performed By: #### L 500.4100, [id number], L501.9985, L500.4050, L100.0100 #### [facility] [address] [place], [address] Hematocrit (Bld) [Volume fraction] 40.9 % Normal 40-54 [facility] Comment on above: Performed By: #### L 500.4100, [id number], L501.9985, L500.4050, L100.0100 #### [facility] [address] [place], [address] Hemoglobin (Bld) [Mass/Vol] 14.3 g/dL Normal 13.0-16.5 [facility] Comment on above: Performed By: #### L 500.4100, [id number], L501.9985, L500.4050, L100.0100 #### [facility] [address] [place], [address] IG% 0.200 Normal 0.0-0.9 [facility] Comment on above: Result Comment: IG% - Immature Granulocytes (promyelocytes, myelocytes and metamyelocytes) > 1% indicates that a LEFT SHIFT is Present. Performed By: #### L 500.4100, [id number], L501.9985, L500.4050, L100.0100 #### [facility] [address] [place], [address] Lymphocytes/100 WBC (Bld) 40.4 % Normal 19-41 [facility] Comment on above: Performed By: #### L 500.4100, [id number], L501.9985, L500.4050, L100.0100 #### [facility] [address] [place], [address] MCH (RBC) [Entitic mass] 31.6 pg Normal 27.0-32.0 [facility] Comment on above: Performed By: #### L 500.4100, [id number], L501.9985, L500.4050, L100.0100 #### [facility] [address] [place], [address] MCHC (RBC) [Mass/Vol] 35.0 g/dL Normal 32-36 [facility] Comment on above: Performed By: #### L 500.4100, [id number], L501.9985, L500.4050, L100.0100 #### [facility] [address] [place], [address] MCV (RBC) [Entitic vol] 90.3 fL Normal 80-94 [facility] Comment on above: Performed By: #### L 500.4100, [id number], L501.9985, L500.4050, L100.0100 #### [facility] [address] [place], [address] Monocytes/100 WBC (Bld) 9.8 % Normal 0-10 [facility] Comment on above: Performed By: #### L 500.4100, [id number], L501.9985, L500.4050, L100.0100 #### [facility] [address] [place], [address] Neutrophils/100 WBC (Bld) 45.2 % Low 47-70 [facility] Comment on above: Performed By: #### L 500.4100, [id number], L501.9985, L500.4050, L100.0100 #### [facility] [address] [place], [address] Nucleated RBC (Bld) [#/Vol] 0 10*3/uL Normal 0-5 [facility] Comment on above: Performed By: #### L 500.4100, [id number], L501.9985, L500.4050, L100.0100 #### [facility] [address] [place], [address] Platelet mean volume (Bld) [Entitic vol] 10.7 fL Normal 6.2-12.0 [facility] Comment on above: Performed By: #### L 500.4100, L501.9520, L501.9985, L500.4050, L100.0100 #### [facility] [address] [place], [address] Platelets (Bld) [#/Vol] 276 10*3/uL Normal 150-450 [facility] Comment on above: Performed By: #### L 500.4100, L501.9520, L501.9985, L500.4050, L100.0100 #### [facility] [address] [place], [address] RBC (Bld) [#/Vol] 4.53 10*6/uL Low 4.6-6.2 [facility] Comment on above: Performed By: #### L 500.4100, L501.9520, L501.9985, L500.4050, L100.0100 #### [facility] [address] [place], [address] RDW SD 44.1 fl High 35.1-43.9 [facility] Comment on above: Performed By: #### L 500.4100, [id number], L501.9985, L500.4050, L100.0100 #### [facility] [address] [place], [address] WBC (Bld) [#/Vol] 5.6 10*3/uL Normal 4.4-11.0 [facility] Comment on above: Performed By: #### L 500.4100, L501.9520, L501.9985, L500.4050, L100.0100 #### [facility] [address] [place], [address] Calculated very low density lipoprotein (VLDL) cholesterol measurementOrdered By: Juan Diego Garcia on 01-29-2025 Calculated very low density lipoprotein (VLDL) cholesterol measurement 28 mg/dL 5-40 [facility] Carbon dioxide, total [Moles /volume] in Central venous bloodOrdered By: Juan Diego Garcia on 01-29-2025 CO2 [Moles/Vol] 25.5 mmol/L 21.0-32.0 [facility] Chloride assayOrdered By: Holly Garcia on 01-29-2025 Chloride [Moles/Vol] 105 mmol/L 98-108 [facility] Comprehensive Metabolic Prof ilon 01-29-2025 Albumin [Mass/Vol] 4.4 g/dL Normal 3.4-4.8 [facility] Comment on above: Performed By: #### L 500.4100, L501.9520, L501.9985, L500.4050, L100.0100 #### [facility] [address] [place], [address] Albumin/Globulin [Mass ratio] 1.8 {ratio} Normal 0.9-2.4 [facility] Comment on above: Performed By: #### L 500.4100, L501.9520, L501.9985, L500.4050, L100.0100 #### [facility] [address] [place], [address] ALK PHOS 55 U/L Normal 40-129 [facility] Comment on above: Performed By: #### L 500.4100, L501.9520, L501.9985, L500.4050, L100.0100 #### [facility] [address] [place], [address] ALT [Catalytic activity/Vol] 21 U/L Normal <=46 [facility] Comment on above: Performed By: #### L 500.4100, L501.9520, L501.9985, L500.4050, L100.0100 #### [facility] [address] [place], [address] AST [Catalytic activity/Vol] 27 U/L Normal <=37 [facility] Comment on above: Performed By: #### L 500.4100, L501.9520, L501.9985, L500.4050, L100.0100 #### [facility] [address] [place], [address] Bilirubin [Mass/Vol] 1.10 mg/dL Normal 0.00-1.30 [facility] Comment on above: Performed By: #### L 500.4100, [id number], L501.9985, L500.4050, L100.0100 #### [facility] [address] [place], [address] BUN/CRE 14.7 RATIO Normal 10-20 [facility] Comment on above: Performed By: #### L 500.4100, [id number], L501.9985, L500.4050, L100.0100 #### [facility] [address] [place], [address] Calcium [Mass/Vol] 9.4 mg/dL Normal 7.6-11.0 [facility] Comment on above: Performed By: #### L 500.4100, [id number], L501.9985, L500.4050, L100.0100 #### [facility] [address] [place], [address] Chloride [Moles/Vol] 105 mmol/L Normal 98-108 [facility] Comment on above: Performed By: #### L 500.4100, L501.9520, L501.9985, L500.4050, L100.0100 #### [facility] [address] [place], [address] CO2 [Moles/Vol] 25.5 mmol/L Normal 21.0-32.0 [facility] Comment on above: Performed By: #### L 500.4100, L501.9520, L501.9985, L500.4050, L100.0100 #### [facility] [address] [place], [address] Creatinine [Mass/Vol] 0.99 mg/dL Normal 0.70-1.20 [facility] Comment on above: Performed By: #### L 500.4100, [id number], L501.9985, L500.4050, L100.0100 #### [facility] [address] [place], [address] GAP 10 Normal 5-15 [facility] Comment on above: Performed By: #### L 500.4100, L501.9520, L501.9985, L500.4050, L100.0100 #### [facility] [address] [place], [address] GFR/1.73 sq M.predicted among non-blacks MDRD (S/P/Bld) [Vol rate/Area] 85 mL/min/{1.73_m2} Normal >60 [facility] Comment on above: Result Comment: mL/m in/1.73m2 CKD-EPI Creatinine Equation (2020) Performed By: #### L 500.4100, L501.9520, L501.9985, L500.4050, L100.0100 #### [facility] [address] [place], [address] Globulin (S) [Mass/Vol] 2.5 g/dL Normal 2.2-4.2 [facility] Comment on above: Performed By: #### L 500.4100, L501.9520, L501.9985, L500.4050, L100.0100 #### [facility] [address] [place], [address] Glucose [Mass/Vol] 104 mg/dL High 70-99 [facility] Comment on above: Performed By: #### L 500.4100, L501.9520, L501.9985, L500.4050, L100.0100 #### [facility] [address] [place], [address] Potassium [Moles/Vol] 4.2 mmol/L Normal 3.3-5.1 [facility] Comment on above: Performed By: #### L 500.4100, L501.9520, L501.9985, L500.4050, L100.0100 #### [facility] [address] [place], [address] Sodium [Moles/Vol] 140 mmol/L Normal 133-145 [facility] Comment on above: Performed By: #### L 500.4100, L501.9520, L501.9985, L500.4050, L100.0100 #### [facility] [address] [place], [address] T PROT 6.9 g/dL Normal 5.9-8.4 [facility] Comment on above: Performed By: #### L 500.4100, L501.9520, L501.9985, L500.4050, L100.0100 #### [facility] [address] [place], [address] Urea nitrogen [Mass/Vol] 15 mg/dL Normal 4-19 [facility] Comment on above: Performed By: #### L 500.4100, L501.9520, L501.9985, L500.4050, L100.0100 #### [facility] [address] [place], [address] Eosinophil percentageOrdered By: Juan Diego Garcia on 01-29-2025 Eosinophils/100 WBC (Bld) 3.7 % 0-5 [facility] Erythrocyte distribution wid th ratioOrdered By: Juan Diego Garcia on 01-29-2025 Erythrocyte distribution width (RBC) [Ratio] 13.4 % 11.6-14.6 [facility] Erythrocyte distribution wid th standard deviationOrdered By: Juan Diego Radha on 01-29-2025 Erythrocyte distribution width (RBC) [Ratio] 44.1 fl High 35.1-43.9 [facility] Glomerular filtration rate ( GFR) estimation/1.73 sq m using serum, plasma, or whole bOrdered By: Juan Diego Garcia on 01-29-2025 GFR/1.73 sq M.predicted among non-blacks MDRD (S/P/Bld) [Vol rate/Area] 85 mL/min/{1.73_m2} >60 [facility] Comment on above: mL/min/1.73m2 CKD-EP I Creatinine Equation (2020) Hematocrit Auto (Bld) [Volum e fraction]Ordered By: Juan Diego Garcia on 01-29-2025 Hematocrit (Bld) [Volume fraction] 40.9 % 40-54 [facility] Hemoglobin A1con 01-29-2025 HbA1c (Bld) [Mass fraction] 6.0 % High <=5.6 [facility] Comment on above: Result Comment: Norm al < 5.7 % Prediabetic 5.7 - 6.4 % Diabetic >or= 6.5 % Please note range changes. Performed By: #### L 500.4100, L501.9520, L501.9985, L500.4050, L100.0100 #### [facility] [address] [place], [address] Hemoglobin A1c percentageOrd ered By: Juan Diego Mcallistero on 01-29-2025 HbA1c (Bld) [Mass fraction] 6.0 % High <5.7 [facility] Comment on above: Normal < 5.7 % Predi abetic 5.7 - 6.4 % Diabetic >or= 6.5 % Please note range changes. Hemoglobin measurementOrdere d By: Juan Diego Radha on 01-29-2025 Hemoglobin (Bld) [Mass/Vol] 14.3 g/dL 13.0-16.5 [facility] Immature granulocytes/100 WB C Auto (Bld)Ordered By: Juan Diego Mcallistero on 01-29-2025 Immature granulocytes/100 WBC (Bld) 0.200 % 0.0-0.9 [facility] Comment on above: IG% - Immature Granu locytes (promyelocytes, myelocytes and metamyelocytes) > 1% indicates that a LEFT SHIFT is Present. LDL calc ser/plasOrdered By: Juan Diego [place] Banks on 01-29-2025 Cholesterol in LDL [Mass/Vol] 164 mg/dL [facility] Comment on above: Yzqmohazki=259-595 m g/dL & Higher Akkf=850 mg/dL or greater Laboratory - Chemistry and C hemistry - challengeOrdered By: Juan Diego Radha on 01-29-2025 AST [Catalytic activity/Vol] 27 U/L <38 [facility] Lipid Profileon 01-29-2025 CHOL:HDL 5.01 Normal [facility] Comment on above: Performed By: #### L 500.4100, L501.9520, L501.9985, L500.4050, L100.0100 #### [facility] [address] [place], [address] Cholesterol [Mass/Vol] 239 mg/dL High <=200 [facility] Comment on above: Result Comment: Chol esterol level, Desirable <200 mg/dL Borderline high cholesterol 200-239 mg/dL High cholesterol >=240 mg/dL Recommendations of the NCEP Adult Treatment Panel for the following risk-cutoff thresholds for the [place] population. Performed By: #### L 500.4100, L501.9520, L501.9985, L500.4050, L100.0100 #### [facility] [address] [place], [address] Cholesterol in HDL [Mass/Vol] 48 mg/dL Normal [facility] Comment on above: Result Comment: Elizabeth onal Cholesterol Education Program (NCEP) guidelines: <40 mg/dL: Low HDL-cholesterol (major risk factor for CHD) >= 60 mg/dL: High HDL-cholesterol (negative risk factor for CHD) HDL-cholesterol is affected by a number of factors, e.g. smoking, exercise, hormones, sex and age. Performed By: #### L 500.4100, L501.9520, L501.9985, L500.4050, L100.0100 #### [facility] [address] [place], [address] Cholesterol in LDL [Mass/Vol] 164 mg/dL Normal [facility] Comment on above: Result Comment: Bord mfjjrn=144-886 mg/dL Higher Limk=127 mg/dL or greater Performed By: #### L 500.4100, L501.9520, L501.9985, L500.4050, L100.0100 #### [facility] [address] [place], [address] Cholesterol in VLDL [Mass/Vol] 28 mg/dL Normal 5-40 [facility] Comment on above: Performed By: #### L 500.4100, L501.9520, L501.9985, L500.4050, L100.0100 #### [facility] [address] [place], [address] Triglyceride [Mass/Vol] 139 mg/dL Normal [facility] Comment on above: Result Comment: The drugs N-Acetylcysteine and Metamizole may falsely depress this assay. Normal range: <150 mg/dL Borderline High: 150-199 mg/dL High: 200-499 mg/dL Very High: >500 mg/dL Performed By: #### L 500.4100, L501.9520, L501.9985, L500.4050, L100.0100 #### [facility] [place], [address] MCV (mean corpuscular volume ) determinationOrdered By: Juan Diego Garcia on 01-29-2025 MCV (RBC) [Entitic vol] 90.3 fL 80-94 [facility] Mean corpuscular hemoglobin (MCH) determinationOrdered By: Juan Diego Garcia on 01-29-2025 MCH (RBC) [Entitic mass] 31.6 pg 27.0-32.0 [facility] Mean corpuscular hemoglobin concentration (MCHC) determinationOrdered By: Juan Diego Garcia on 01-29-2025 MCHC (RBC) [Mass/Vol] 35.0 g/dL 32-36 [facility] Mean platelet volume determi nationOrdered By: Juan Diego Garcia on 01-29-2025 Platelet mean volume (Bld) [Entitic vol] 10.7 fL 6.2-12.0 [facility] Monocyte percentageOrdered B y: Juan Diego Garcia on 01-29-2025 Monocytes/100 WBC (Bld) 9.8 % 0-10 [facility] Neutrophil percentageOrdered By: Juan Diego Garcia on 01-29-2025 Neutrophils/100 WBC (Bld) 45.2 % Low 47-70 [facility] Nucleated red blood cell per centageOrdered By: Juan Diego Garcia on 01-29-2025 Nucleated RBC/100 WBC (Bld) [Ratio] 0 % 0-5 [facility] Platelet countOrdered By: Holly Garcia on 01-29-2025 Platelets (Bld) [#/Vol] 276 10*3/uL 150-450 [facility] Potassium measurement (mass/ volume)Ordered By: Juan Diego Garcia on 01-29-2025 Potassium (Unsp spec) [Mass/Vol] 4.2 mmol/L 3.3-5.1 [facility] RBC Auto (Bld) [#/Vol]Ordere d By: Juan Diego Garcia on 01-29-2025 RBC (Bld) [#/Vol] 4.53 10*6/uL Low 4.6-6.2 [facility] Screening total cholesterol/ high density lipoprotein (HDL) cholesterol ratioOrdered By: Juan Diego Garcia on 01-29-2025 Cholesterol.total/Chol esterol in HDL [Mass ratio] 5.01 {ratio} [facility] Serum creatinine measurement (mass/volume)Ordered By: Juan Diego Garcia on 01-29-2025 Creatinine [Mass/Vol] 0.99 mg/dL 0.70-1.20 [facility] Serum globulin measurementOr dered By: Juan Diego Garcia on 01-29-2025 Globulin (S) [Mass/Vol] 2.5 g/dL 2.2-4.2 [facility] Serum glucose measurement (m ass/volume)Ordered By: Juan Diego Garcia on 01-29-2025 Glucose [Mass/Vol] 104 mg/dL High 70-99 [facility] Serum or plasma alanine muniz otransferase (ALT) measurementOrdered By: Juan Diego Garcia on 01-29-2025 ALT [Catalytic activity/Vol] 21 U/L <47 [facility] Serum or plasma albumin nette urement (mass/volume)Ordered By: Juan Diego Garcia on 01-29-2025 Albumin [Mass/Vol] 4.4 g/dL 3.4-4.8 [facility] Serum or plasma albumin/glob ulin mass ratioOrdered By: Juan Diego Garcia on 01-29-2025 Albumin/Globulin [Mass ratio] 1.8 {ratio} 0.9-2.4 [facility] Serum or plasma alkaline karen sphatase measurementOrdered By: Juan Diego Garcia 01-29-2025 ALP [Catalytic activity/Vol] 55 U/L 40-129 [facility] Serum or plasma calcium nette urement (mass/volume)Ordered By: Juan Diego Garcia on 01-29-2025 Calcium [Mass/Vol] 9.4 mg/dL 7.6-11.0 [facility] Serum or plasma cholesterol in HDL measurement (mass/volume)Ordered By: Juan Diego Garcia on 01-29-2025 Cholesterol in HDL [Mass/Vol] 48 mg/dL >40 [facility] Comment on above: National Cholesterol Education Program (NCEP) guidelines:<40 mg/dL: Low HDL-cholesterol (major risk factor for CHD)>= 60 mg/dL: High HDL-cholesterol (negative risk factor for CHD)HDL-cholesterol is affected by a number of factors, e.g. smoking, exercise, hormones, sex and age. Serum or plasma cholesterol measurement (mass/volume)Ordered By: Juan Diego Garcia on 01-29-2025 Cholesterol [Mass/Vol] 239 mg/dL High <201 [facility] Comment on above: Cholesterol level, D esirable <200 mg/dLBorderline high cholesterol 200-239 mg/dLHigh cholesterol >=240 mg/dLRecommendations of the NCEP Adult Treatment Panel for the following risk-cutoff thresholds for the [place] population. Serum or plasma urea nitroge n measurement (mass/volume)Ordered By: Juan Diego Garcia on 01-29-2025 Urea nitrogen [Mass/Vol] 15 mg/dL 4-19 [facility] Sodium levelOrdered By: Dick Garcia on 01-29-2025 Sodium [Moles/Vol] 140 mmol/L 133-145 [facility] TSH DL <= 0.005 mIU/L QnOrde red By: Juan Diego Garcia on 01-29-2025 TSH Qn 1.660 uIU/mL 0.300-4.20 0 [facility] Thyroid Stim Hormone (TSH)on 01-29-2025 TSH 1.660 uIU/mL Normal 0.300-4.20 0 [facility] Comment on above: Performed By: #### L 500.4100, L501.9520, L501.9985, L500.4050, L100.0100 #### [facility] [address] [place] [address], [address] Total proteinOrdered By: Patrick Garcia on 01-29-2025 Protein [Mass/Vol] 6.9 g/dL 5.9-8.4 [facility] Triglycerides measurementOrd ered By: Juan Diego Garcia on 01-29-2025 Triglyceride [Mass/Vol] 139 mg/dL <199 [facility] Comment on above: The drugs N-Acetylcy steine and Metamizole may falsely depress this assay. 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 Patient presents with: Cough: Continued cough, worse at night Dx. With influenza A 10/05. Then last week started with head congestion. Some chest congestion- coughing. Mostly upper part of throat with mucus. Hasn't had chills No body aches. Sleeping better Some nausea- has to watch what he eats. No headaches. PAST MEDICAL HISTORY: PAST MEDICAL HISTORY Diagnosis Date Elevated blood pressure 2011 Hemorrhage of gastrointestinal tract, unspecified Hyperglycemia Hyperlipidemia Internal hemorrhoids without mention of complication Low back pain [address] Queen Temporomandibular joint disorders, unspecified Unspecified asthma(493.90) PAST SURGICAL HISTORY Procedure Laterality Date COLONOSCOPY FLX DX W/COLLJ SPEC WHEN PFRMD 08/21/2011 ESOPHAGOGASTRODUODENOSCOPY TRANSORAL DIAGNOSTIC 07/03/2013 EGD INGUINAL HERNIA REPAIR HX Right 2023 INT REPAIR FACE,EAR,EYE <2.5CM 03/09/2014 PAST SURGICAL HISTORY OF 01/24/2013 left carpal tunnel release PROSTATE BIOPSY negative. REM LESION FACE,EAR,EYE 0.6-1CM 03/09/2014 RPR UMBILICAL HRNA 5 YRS/> REDUCIBLE 03/09/2014 UNLISTED PROCEDURE DENTOALVEOLAR STRUCTURES jaw realignment ALLERGIES Sulfa (Sulfonamide Antibiotics) MEDICATIONS Current Outpatient Medications Medication Sig losartan (COZAAR) 100 mg tablet Take 1 tablet by mouth once daily. atorvastatin (LIPITOR) 20 mg tablet Take 1 tablet by mouth daily at bedtime. For cholesterol. levothyroxine (SYNTHROID) 88 mcg tablet Take 1 tablet by mouth once daily. Take on empty stomach. For Thyroid, except 1/2 pill on Sat omeprazole (PRILOSEC) 20 mg capsule Take 1 capsule by mouth daily before breakfast. 1/2 hr before meal. (Patient not taking: Reported on 10/10/2024) loratadine 10 mg cap Take 10 mg by mouth once daily. clindamycin (CLEOCIN) 150 mg capsule Take 1 capsule by mouth four times daily. Cyanocobalamin 2,500 mcg subl Dissolve under the tongue. cholecalciferol (VITAMIN D3) 1,000 unit tab tablet Take 2,000 Units by mouth once daily. Ginseng 250 mg cap Take 1 tablet by mouth once daily. Coenzyme Q10 200 mg cap Take by mouth. LACTOBAC CMB #3/FOS/PANTETHINE (PROBIOTIC AND ACIDOPHILUS ORAL) Take by mouth once daily. calcium carbonate-mag oxide 250-155 mg Tab Take 1 tablet by mouth once daily. [place]-3 Fatty Acids (FISH OIL) 500 mg Cap Take 2 capsules by mouth once daily. multivitamin,tw-fllm-jpfne als (THERAGRAN M) tab Take 1 tablet by mouth once daily. Ascorbic Acid 1,000 mg tablet Take 1 tablet by mouth once daily. No current facility-administered medications for this visit. FAMILY HISTORY Problem Relation Age of Onset other (htn, athritis) Mother Heart Father other (dm,) Father Social History Tobacco Use Smoking status: Former Current packs/day: 0.00 Average packs/day: 0.5 packs/day for 10.0 years (5.0 ttl pk-yrs) Types: Cigarettes, Cigars Start date: 09/17/1975 Quit date: 09/17/1985 Years since quittin.1 Smokeless tobacco: Never Tobacco comments: quit 1987 Substance Use Topics Alcohol use: Yes Comment: occasionally Drug use: No Types: Marijuana Comment: Past history EXAM: BP 128/74 Pulse 70 Temp 36.4 ?C (97.6 ?F) (Left Tympanic) Wt 88.9 kg (196 lb) SpO2 100% BMI 29.16 kg/m? PHYSICAL EXAM: Physical Exam Vitals reviewed. Constitutional: Appearance: Normal appearance. HENT: Head: Normocephalic. Right Ear: Tympanic membrane, ear canal and external ear normal. There is no impacted cerumen. Left Ear: Tympanic membrane, ear canal and external ear normal. There is no impacted cerumen. Nose: Congestion present. No rhinorrhea. Mouth/Throat: Pharynx: Oropharyngeal exudate present. No posterior oropharyngeal erythema. Cardiovascular: Rate and Rhythm: Normal rate and regular rhythm. Pulses: Normal pulses. Heart sounds: Normal heart sounds. Pulmonary: Effort: Pulmonary effort is normal. Breath sounds: Rhonchi present. Comments: RAMILA rhonchi that partially clears with cough Musculoskeletal: General: Normal range of motion. Right lower leg: No edema. Left lower leg: No edema. Skin: General: Skin is warm and dry. Neurological: Mental Status: He is alert and oriented to person, place, and time. LABS: reviewed last labs ASSESSMENT/PLAN: 1. Bacterial pneumonia - (more content not included)... Normal [facility] CNOVon 10-10-2024 CNOV Office Visit (FAMPWS ) -- MARIANO BROWN ([id number]) 1960 M Date Time Provider Department 10/10/24 4:00 PM JUAN DIEGO GARCIA During your visit today, we recorded the following information about you: Pulse Blood pressure Weight Height 54/minute 124/70 91.2 kg 1.746 m Juan Diego Garcia MD 10/10/2024 4:44 PM Signed Patient presents with: Follow Up HPI: Patient presents today for office visit for routine follow up. Tested positive for Influenza A on 10/05/24. Feeling much better. Completed Tamiflu. Worried about possible pneumonia. Has occasional cough. Overall feeling well. No fever or chills. HLD: No myalgias GERD: No longer taking omeprazole Worried about snf side effects HTN: Denies chest pain No new or worsening shortness of breath THYROID: No energy, hair or skin changes. Mentions he still chokes very easily on food or while drinking anything. Had swallowing study. Has a sensitive gag reflex Had prostate biopsy which was ok. Had hernia repair. Mother is on hospice due to her dementia. Feeling stressed. Red flags for re-assessment reviewed with patient in detail. MEDICATIONS: Current Outpatient Medications Medication Sig atorvastatin (LIPITOR) 20 mg tablet Take 1 tablet by mouth daily at bedtime. For cholesterol. levothyroxine (SYNTHROID) 88 mcg tablet Take 1 tablet by mouth once daily. Take on empty stomach. For Thyroid, except 1/2 pill on Sat losartan (COZAAR) 100 mg tablet Take 1 tablet by mouth once daily. loratadine 10 mg cap Take 10 mg by mouth once daily. Cyanocobalamin 2,500 mcg subl Dissolve under the tongue. cholecalciferol (VITAMIN D3) 1,000 unit tab tablet Take 2,000 Units by mouth once daily. Ginseng 250 mg cap Take 1 tablet by mouth once daily. Coenzyme Q10 200 mg cap Take by mouth. LACTOBAC CMB #3/FOS/PANTETHINE (PROBIOTIC AND ACIDOPHILUS ORAL) Take by mouth once daily. calcium carbonate-mag oxide 250-155 mg Tab Take 1 tablet by mouth once daily. [place]-3 Fatty Acids (FISH OIL) 500 mg Cap Take 2 capsules by mouth once daily. multivitamin,ac-zein-hvgke als (THERAGRAN M) tab Take 1 tablet by mouth once daily. Ascorbic Acid 1,000 mg tablet Take 1 tablet by mouth once daily. omeprazole (PRILOSEC) 20 mg capsule Take 1 capsule by mouth daily before breakfast. 1/2 hr before meal. (Patient not taking: Reported on 10/10/2024) clindamycin (CLEOCIN) 150 mg capsule Take 1 capsule by mouth four times daily. (Patient not taking: Reported on 02/10/2024) No current facility-administered medications for this visit. ALLERGIES: ALLERGIES Allergen Reactions Sulfa (Sulfonamide * Anaphylaxis PAST MEDICAL HISTORY Diagnosis Date Elevated blood pressure 2011 Hemorrhage of gastrointestinal tract, unspecified Hyperglycemia Hyperlipidemia Internal hemorrhoids without mention of complication Low back pain [address] Queen Temporomandibular joint disorders, unspecified Unspecified asthma(493.90) PAST SURGICAL HISTORY Procedure Laterality Date COLONOSCOPY FLX DX W/COLLJ SPEC WHEN PFRMD 08/21/11 ESOPHAGOGASTRODUODENOSCOPY TRANSORAL DIAGNOSTIC 07/03/2013 EGD INT REPAIR FACE,EAR,EYE <2.5CM 03-09-14 PAST SURGICAL HISTORY OF 01/24/2013 left carpal tunnel release REM LESION FACE,EAR,EYE 0.6-1CM 03-09-14 RPR UMBILICAL HRNA 5 YRS/> REDUCIBLE 03-09-14 UNLISTED PROCEDURE DENTOALVEOLAR STRUCTURES jaw realignment FAMILY HISTORY Problem Relation Age of Onset other (htn, athritis) Mother Heart Father other (dm,) Father Social History Tobacco Use Smoking status: Former Current packs/day: 0.00 Average packs/day: 0.5 packs/day for 10.0 years (5.0 ttl pk-yrs) Types: Cigarettes, Cigars Start date: 09/17/1975 Quit date: 09/17/1985 Years since quittin.0 Smokeless tobacco: Never Tobacco comments: quit 1987 Substance Use Topics Alcohol use: Yes Comment: occasionally Drug use: No Types: Marijuana Comment: Past history Reviewed current medications, allergies, past medical history, surgical history, family history and social history today. REVIEW OF SYSTEMS All other reviewed and negative other than HPI. HEALTH MAINTENANCE: Reviewed health maintenance issues today and recommended the following in detail. Depression Screening Never done Anxiety Screening Never done Pneumococcal Vaccine: 50+(2 of 2 - PCV) due on 08/11/2017 Influenza Vaccine(1) due on 05/18/2024 Covid-19 Vaccine(2023- season) due on 05/18/2024 VITALS: BP 124/70 Pulse (!) 54 Ht 174.6 cm (5' 8.75") Wt 91.2 kg (201 lb) SpO2 98% BMI 29.90 kg/m? Last 4 Encounter Wt Readings: Date: Wt: 10/10/2024 91.2 kg (201 lb) 02/10/2024 91.4 kg (201 lb 8 oz) 10/22/2023 92.5 kg (204 lb) 09/03/2023 89.7 kg (197 lb 12.8 oz) PHYSICAL EXAMINATION: General appearance: Well appearing, alert, in no acute distress, well-hydrated, (more content not included)... Normal [facility] - Microbiology an d Antimicrobial susceptibilityon 10-05-2024 SARS-CoV-2 (COVID-19) RNA INDU+probe Ql (Unsp spec) Not detected [facility] No Panel Informationon 10-05 Influenza Types A,B Rapid (Clinic) Detected [facility] Urgent Care Visit Reporton 0 10-05-2024 Urgent Care Visit Report [facility] [address], [address] [place] [address] OFFICE VISIT Date of Service: 10/05/24 MR#: [id number] Acct: [id number] Name: MARIANO BROWN Rep #: [id number] : [id number] Provider: [facility] Self Schedule Age/Sex: 64/M Location: [facility] Status: Signed Intake Vital Signs 02/13/24 14:07 10/05/24 10:33 Height 5 ft 11 in Weight: 198 lb BMI 27.6 BP 145/85 H 122/78 H Blood Pressure Location Lt brachial Lt brachial Position Sitting Sitting Respiration 18 12 Pulse 52 L 96 Pulse Source Monitor Palpation Temp 99.6 F H Temp Source Oral Pulse Oximetry (%) 96 Intake Visit Reasons: FEVER, SORE THROAT, COUGH Chief Complaint: fever, sore throat, cough 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 Is patient in pain?: No Allergies Sulfa (Sulfonamide Antibiotics) Allergy (Verified 10/05/24 10:35) Other Medications ???Medication ???Instructions ???Recorded ???Confirmed ???Type atorvastatin 20 mg tablet 20 mg PO QHS 03/02/14 10/05/24 History omega-3 fatty acids-fish oil 684 1 ea PO DAILY 03/02/14 10/05/24 History mg-1,200 mg capsule,delayed release cyanocobalamin (vitamin B-12) 1,000 mcg PO DAILY 12/19/21 10/05/24 History 1,000 mcg tablet levothyroxine 88 mcg tablet 88 mcg PO SUMOTUWETHFR 12/19/21 10/05/24 History betamethasone dipropionate 0.05 % 1 applic topical DAILY PRN itching 02/19/23 10/05/24 History topical cream levothyroxine 44 mcg capsule 44 mcg PO SA 12/10/23 10/05/24 History loratadine 10 mg tablet (Allergy 10 mg PO DAILY 12/10/23 10/05/24 History Relief (loratadine)) losartan 100 mg tablet 100 mg PO DAILY 12/10/23 10/05/24 History omeprazole 20 mg capsule,delayed 20 mg PO PRN GERD 12/10/23 10/05/24 History release cephalexin 500 mg capsule 500 mg PO BID 02/13/24 10/05/24 History oseltamivir 75 mg capsule (Tamiflu) 75 mg PO Q12H 5 days #10 caps 10/05/24 10/05/24 Rx PFSH Medical History Wears glasses Enlarged prostate Anxiety Alcohol use History of steroid therapy Thyroid disease Arthritis High cholesterol Back pain Essential tremor Difficulty swallowing History of hiatal hernia Gastric reflux Former smoker Leg cramps Normal stress echocardiogram History of stress test History of echocardiogram Cardiology follow-up encounter History of irregular heartbeat Essential tremor Pure hypercholesterolemia Essential hypertension Internal hemorrhoids Bilateral carpal tunnel syndrome GI bleed TMJ Chest pain, unspecified Surgical History S/P inguinal hernia repair Hx of colonoscopy History of mandibular surgery History of prostate biopsy History of umbilical hernia repair History of carpal tunnel repair Family History Father Myocardial infarction Diabetes CAD (coronary artery disease) CABG Mother Lymphoma Sister CLL (chronic lymphocytic leukemia) Social History Smoking Status: Former smoker quit date: 09/17/85 alcohol intake: current substance use type: former substance user Date of last use: 80s and marijuana HPI HPI Chief Complaint: fever, sore throat, cough Details: MARIANO BROWN, is a 64 M who presents to the office today for fever, sore throat, hands trembling and very cold since yesterday. He states his cold extremities has been ongoing for years. He states getting these symptoms typically this time a year, once a year. He did a home COVID-19 that was negative, yesterday. ROS Const Constitutional: Positive for body ache, chills and fever(s); No fatigue, headache(s) or change in appetite Eyes Eyes: No blurry vision, change in vision, double vision, irritation, discharge, vision loss, dry eyes, bulging eyes, floaters, visual disturbances, eye pain, Light sensitivity, spots in vision, tunnel vision or other ENT ENT: Positive for sore throat; No ear or mastoid pain, ear discharge, ear pressure, tinnitus, dizziness/vertigo, nosebleed/epistaxis, nasal congestion, nose pain, sinus pressure, sinus pain, nasal discharge, post nasal drip, headache(s), facial pain, dental pain, difficulty swallowing, bad breath, hoarseness, lip swelling, mouth lesions, mouth pain, neck pain, tongue swelling or throat swelling Resp Respiratory: No cough, change in phlegm color, chest congestion, hemoptysis, pain on inspiration, shortness of breath, pain with cough, stridor or wheezing Cardio Cardiology: No chest pain at rest, chest pain with exertion, shortness of breath, dyspnea on exertion or lightheadedness Gastro GI: No abdominal pain, change in bowel habits or difficulty swallowing Suzy (more content not included)... Normal [facility] 08-11-2024 [facility] Telephone (UCWSTR) -- MARIANO BROWN ([id number]) 1960 M Date Time Provider Department 08/11/24 JUAN DIEGO GARCIA [facility] During your visit today, we recorded the following information about you: Vivian Gutiérrez 08/11/2024 10:15 AM Signed Pt requesting lab orders to be faxed to [facility]. Please advise. Thank you Ruddy Fuentes LPN 08/11/2024 10:28 AM Signed Asking for lab orders for Oct 10 visit. Juan Diego Garcia MD 08/11/2024 12:18 PM Signed He just had labs two months ago. We should be ok. Ruddy Fuentes LPN 08/11/2024 12:48 PM Signed Patient notified. Allergies As of Date: 08/11/2024 Noted Allergy Reaction SULFA (SULFONAMIDE ANTIBIOTICS) 07/25/2005 10 - Anaphylaxis Date Reviewed: 02/10/2024 Reviewed by: Ousmane Nicole, JORGE.CARDROOM PLASTIC CARD GRADER - Fully Assessed Reason for Visit: Orders [681] Prescriptions as of 08/11/2024 - atorvastatin (LIPITOR) 20 mg tablet Take 1 tablet by mouth daily at bedtime. For cholesterol. - levothyroxine (SYNTHROID) 88 mcg tablet Take 1 tablet by mouth once daily. Take on empty stomach. For Thyroid, except 1/2 pill on Sat - losartan (COZAAR) 100 mg tablet Take 1 tablet by mouth once daily. - omeprazole (PRILOSEC) 20 mg capsule Take 1 capsule by mouth daily before breakfast. 1/2 hr before meal. - loratadine 10 mg cap Take 10 mg by mouth once daily. - clindamycin (CLEOCIN) 150 mg capsule Take 1 capsule by mouth four times daily. - Cyanocobalamin 2,500 mcg subl Dissolve under the tongue. - cholecalciferol (VITAMIN D3) 1,000 unit tab tablet Take 2,000 Units by mouth once daily. - Ginseng 250 mg cap Take 1 tablet by mouth once daily. - Coenzyme Q10 200 mg cap Take by mouth. - LACTOBAC CMB #3/FOS/PANTETHINE (PROBIOTIC AND ACIDOPHILUS ORAL) Take by mouth once daily. - calcium carbonate-mag oxide 250-155 mg Tab Take 1 tablet by mouth once daily. - [place]-3 Fatty Acids (FISH OIL) 500 mg Cap Take 2 capsules by mouth once daily. - multivitamin,bp-uzec-hdewc als (THERAGRAN M) tab Take 1 tablet by mouth once daily. - Ascorbic Acid 1,000 mg tablet Take 1 tablet by mouth once daily. Meds Comments as of 03/01/2015: Problem List As Of Date 08/11/2024 Noted Resolved Hypertension [I10] 11/04/2012 Left carpal tunnel syndrome [G56.02] 11/04/2012 Right carpal tunnel syndrome [G56.01] 11/04/2012 Right bundle branch block [I45.10] 12/04/2012 Umbilical hernia without mention of obstruction*02/05/2014 02/14/2017 Sebaceous cyst [L72.3] 02/05/2014 02/14/2017 Hyperlipidemia [E78.5] 12/21/2014 Benign non-nodular prostatic hyperplasia with l*09/28/2015 Elevated PSA [R97.20] 09/28/2015 Hyperglycemia [R73.9] Hypothyroidism, acquired [E03.9] 08/16/2018 Tremor [R25.1] 02/06/2022 Atypical nevus [D22.9] 03/13/2022 Dysplastic nevus [D23.9] 03/13/2022 BMI 28.0-28.9,adult [Z68.28] 09/03/2023 Diagnosed: 09/03/2023 Prediabetes [R73.03] 10/22/2023 Encounter Status:Closed by RUDDY FUENTES on 08/11/24 [facility] Final Surgical Pathology Rep [facility] 07-24-2024 Final Surgical Pathology Report . Pathology Reports Accession: Collected Date/Time: Received Date/Time: Pathologist: [id number] 07/23/2024 10:52 EST 07/23/2024 11:14 EST MONICA LEVIN MD Final Surgical Pathology Report DIAGNOSIS: PROSTATE, NEEDLE CORE BIOPSIES: A. RIGHT POSTEROMEDIAL APEX: - FOCAL CHRONIC INFLAMMATION B. RIGHT POSTEROMEDIAL BASE: - FOCAL ACUTE AND CHRONIC INFLAMMATION C. RIGHT POSTEROLATERAL APEX: - BENIGN PROSTATIC TISSUE AND SKELETAL MUSCLE D. RIGHT POSTEROLATERAL BASE: - FOCAL CHRONIC INFLAMMATION E. RIGHT LATERAL: - BENIGN PROSTATIC TISSUE F. RIGHT ANTERIOR: - BENIGN PROSTATIC TISSUE G. LEFT POSTEROMEDIAL APEX: - BENIGN PROSTATIC TISSUE H. LEFT POSTEROMEDIAL BASE: - BENIGN PROSTATIC TISSUE I. LEFT POSTEROLATERAL APEX: - BENIGN PROSTATIC TISSUE J. LEFT POSTEROLATERAL BASE: - BENIGN PROSTATIC TISSUE K. LEFT LATERAL: - FOCAL ACUTE AND CHRONIC INFLAMMATION L. LEFT ANTERIOR: - BENIGN PROSTATIC TISSUE CLINICAL INFORMATION: Procedure: TRANSPERINEAL ULTRASOUND-GUIDED PROSTATE BIOPSY Preoperative diagnosis: ELEVATED PROSTATE-SPECIFIC ANTIGEN Postoperative diagnosis: ELEVATED PROSTATE-SPECIFIC ANTIGEN SPECIMEN: A RIGHT POSTEROMEDIAL APEX B RIGHT POSTEROMEDIAL BASE C RIGHT POSTEROLATERAL APEX D RIGHT POSTEROLATERAL BASE E RIGHT LATERAL F RIGHT ANTERIOR G LEFT POSTEROMEDIAL APEX H LEFT POSTEROMEDIAL BASE I LEFT POSTEROLATERAL APEX Pathology Reports Accession: Collected Date/Time: Received Date/Time: Pathologist: [id number] 07/23/2024 10:52 EST 07/23/2024 11:14 EST MONICA LEVIN MD SPECIMEN: J LEFT POSTEROLATERAL BASE K LEFT LATERAL L LEFT ANTERIOR GROSS DESCRIPTION: All parts labelled with patient name and [id number] A. Received in formalin labelled "Right posteromedial apex" two liz-white cylindrical prostate cores measuring 0.6 and 0.8cm. B. Received in formalin labelled "Right posteromedial base" one liz-white cylindrical prostate core measuring 1.0cm. C. Received in formalin labelled "Right posterolateral apex" two liz-white cylindrical prostate cores measuring 0.2 and 0.3cm. D. Received in formalin labelled "Right posterolateral base" two liz-white cylindrical prostate cores measuring 0.3 and 0.4cm. E. Received in formalin labelled "Right lateral" two liz-white cylindrical prostate cores measuring 0.1 and 0.2cm. F. Received in formalin labelled "Right anterior" two liz-white cylindrical prostate cores measuring 0.2 and 0.4cm. G. Received in formalin labelled "Left posteromedial apex" one liz-white cylindrical prostate core measuring 0.5cm. H. Received in formalin labelled "Left posteromedial base" two liz-white cylindrical prostate cores measuring 0.4 and 1.1cm. I. Received in formalin labelled "Left posterolateral apex" one liz-white cylindrical prostate core measuring 0.7cm. J. Received in formalin labelled "Left posterolateral base" one liz-white cylindrical prostate core measuring 0.9cm. K. Received in formalin labelled "Left lateral" two liz-white cylindrical prostate cores measuring 0.4 and 0.7cm. L. Received in formalin labelled "Left anterior" one liz-white cylindrical prostate core measuring 0.6cm. Mya Lopez, Grossing Hedis Abstractor/ Dr. Mariano Pak, Pathologist Performed by Mya Lopez MICROSCOPIC DESCRIPTION: The microscopic examination is performed, except in the case of Gross Only. Electronically Signed by Pathology Report verified by [facility] MONICA LEVIN Sign out Date: 07/24/2024 09:45 Performing Lab: [facility], [address] [place], [place] [id number] [facility] Pathology Dept Disclaimer If ancillary studies were utilized, the following Laboratory Developed Test (LDT) disclaimer will apply: Pathology Reports Accession: Collected Date/Time: Received Date/Time: Pathologist: [id number] 07/23/2024 10:52 EST 07/23/2024 11:14 MONICA HART MD Disclaimer Under CLIA requirements, [facility]ology Laboratory is qualified to perform high complexity testing. For all ancillary stains, positive and negative controls stain appropriately. Performance characteristics of immunohistochemical and chromogenic in-situ hybridization tests have been determined by [facility]. These tests are used for clinical purposes, They should not be regarded as investigational or for research. Normal [facility] .Auto Diffon 07-15-2024 Basophil, Absolute 0.0 10 3/mcL Normal 0.0-0.3 [facility] Comment on above: Performed By: #### A DIFF, ANEU, GFR, CBC, BMP #### [address] [address] Basophils/100 WBC (Bld) 0.8 % Normal 0.0-2.5 [facility] Comment on above: Performed By: #### A DIFF, ANEU, GFR, CBC, BMP #### [address] [address] Eosinophil, Absolute 0.2 10 3/mcL Normal 0.0-0.7 [facility] Comment on above: Performed By: #### A DIFF, ANEU, GFR, CBC, BMP #### [address] [address] Eosinophils/100 WBC (Bld) 3.2 % Normal 0.0-6.0 [facility] Comment on above: Performed By: #### A DIFF, ANEU, GFR, CBC, BMP #### [address] [address] Lymphocyte, Absolute 2.0 10 3/mcL Normal 0.9-4.3 [facility] Comment on above: Performed By: #### A DIFF, ANEU, GFR, CBC, BMP #### [address] [address] Lymphocytes/100 WBC (Bld) 32.7 % Normal 20.0-40.0 [facility] Comment on above: Performed By: #### A DIFF, ANEU, GFR, CBC, BMP #### [address] [address] Monocyte, Absolute 0.5 10 3/mcL Normal 0.1-1.4 [facility] Comment on above: Performed By: #### A DIFF, ANEU, GFR, CBC, BMP #### [address] [address] Monocytes/100 WBC (Bld) 8.1 % Normal 2.0-13.0 [facility] Comment on above: Performed By: #### A DIFF, ANEU, GFR, CBC, BMP #### [address] [address] Neutrophils/100 WBC (Bld) 55.2 % Normal 50.0-75.0 [facility] Comment on above: Performed By: #### A DIFF, ANEU, GFR, CBC, BMP #### [address] [address] .GFRon 07-15-2024 GFR >60 Normal [facility] Comment on above: Result Comment: GFR Population mean for , Non- Americans Ages 20-29 = 116 mL/min/1.73 sq.m. Ages 30-39 = 107 mL/min/1.73 sq.m. Ages 40-49 = 99 mL/min/1.73 sq.m. Ages 50-59 = 93 mL/min/1.73 sq.m. Ages 60-69 = 85 mL/min/1.73 sq.m. Ages 70+ = 75 mL/min/1.73 sq.m. Chronic Kidney Disease: Less than 60 mL/min/1.73 square meters End Stage Renal Disease: Less than 15 mL/min/1.73 square meters Performed By: #### A DIFF, ANEU, GFR, CBC, BMP #### [address] [address] GFR Non- >60 Normal [facility] Comment on above: Result Comment: GFR Population mean for , Non- Americans Ages 20-29 = 116 mL/min/1.73 sq.m. Ages 30-39 = 107 mL/min/1.73 sq.m. Ages 40-49 = 99 mL/min/1.73 sq.m. Ages 50-59 = 93 mL/min/1.73 sq.m. Ages 60-69 = 85 mL/min/1.73 sq.m. Ages 70+ = 75 mL/min/1.73 sq.m. Chronic Kidney Disease: Less than 60 mL/min/1.73 square meters End Stage Renal Disease: Less than 15 mL/min/1.73 square meters Performed By: #### A DIFF, ANEU, GFR, CBC, BMP #### [address] [address] .NEUABSon 07-15-2024 Neutrophil, Absolute 3.4 10 3/mcL Normal 2.3-8.1 [facility] Comment on above: Performed By: #### A DIFF, ANEU, GFR, CBC, BMP #### [address] [address] [facility] 07-15-2024 BUN/Creatinine Ratio 18.3 ratio Normal 10.0-22.0 [facility] Comment on above: Performed By: #### A DIFF, ANEU, GFR, CBC, BMP #### [address] [address] Calcium [Mass/Vol] 10.1 mg/dL Normal 8.7-10.4 [facility] Comment on above: Performed By: #### A DIFF, ANEU, GFR, CBC, BMP #### [address] [address] Chloride [Moles/Vol] 106 mmol/L Normal 98-110 [facility] Comment on above: Performed By: #### A DIFF, ANEU, GFR, CBC, BMP #### [address] [address] CO2 [Moles/Vol] 28 mmol/L Normal 22-32 [facility] Comment on above: Performed By: #### A DIFF, ANEU, GFR, CBC, BMP #### [address] [address] Creatinine [Mass/Vol] 0.93 mg/dL Normal 0.60-1.40 [facility] Comment on above: Result Comment: Test ing performed on [employer] analyzer using enzymatic creatinine methodology. Performed By: #### A DIFF, ANEU, GFR, CBC, BMP #### [address] [address] Electrolyte Balance 8.0 mEq/L Normal 4.0-15.0 [facility] Comment on above: Performed By: #### A DIFF, ANEU, GFR, CBC, BMP #### [address] [address] Glucose [Mass/Vol] 105 mg/dL Normal 82-115 [facility] Comment on above: Performed By: #### A DIFF, ANEU, GFR, CBC, BMP #### [address] [address] Potassium [Moles/Vol] 4.5 mmol/L Normal 3.5-5.0 [facility] Comment on above: Performed By: #### A DIFF, ANEU, GFR, CBC, BMP #### [address] [address] Sodium [Moles/Vol] 142 mmol/L Normal 136-145 [facility] Comment on above: Performed By: #### A DIFF, ANEU, GFR, CBC, BMP #### [address] [address] Urea nitrogen [Mass/Vol] 17.0 mg/dL Normal 8.0-22.0 [facility] Comment on above: Performed By: #### A DIFF, ANEU, GFR, CBC, BMP #### [address] [address] CBCon 07-15-2024 Erythrocyte distribution width (RBC) [Ratio] 13.1 % Normal 11.5-15.5 [facility] Comment on above: Performed By: #### A DIFF, ANEU, GFR, CBC, BMP #### [address] [address] Hematocrit (Bld) [Volume fraction] 41.1 % Normal 40.0-52.0 [facility] Comment on above: Performed By: #### A DIFF, ANEU, GFR, CBC, BMP #### [place] [address] Hgb 14.0 G/dL Normal 13.0-17.5 [facility] Comment on above: Performed By: #### A DIFF, ANEU, GFR, CBC, BMP #### [place] [address] MCH (RBC) [Entitic mass] 32.0 pg Normal 27.0-33.0 [facility] Comment on above: Performed By: #### A DIFF, ANEU, GFR, CBC, BMP #### [place] [address] MCHC 34.1 G/dL Normal 32.0-36.0 [facility] Comment on above: Performed By: #### A DIFF, ANEU, GFR, CBC, BMP #### [place] [address] MCV (RBC) [Entitic vol] 93.8 fL Normal 81.0-100.0 [facility] Comment on above: Performed By: #### A DIFF, ANEU, GFR, CBC, BMP #### [place] [address] Platelet 234 10 3/mcL Normal 150-450 [facility] Comment on above: Performed By: #### A DIFF, ANEU, GFR, CBC, BMP #### [place] [address] Platelet mean volume (Bld) [Entitic vol] 9.1 fL Normal 6.4-10.5 [facility] Comment on above: Performed By: #### A DIFF, ANEU, GFR, CBC, BMP #### [place] [address] RBC 4.38 10 6/mcL Low 4.50-6.00 [facility] Comment on above: Performed By: #### A DIFF, ANEU, GFR, CBC, BMP #### [place] [id number] WBC 6.1 10 3/mcL Normal 4.5-10.8 [facility] Comment on above: Performed By: #### A DIFF, ANEU, GFR, CBC, BMP #### [place] [id number] [address] [place] [address] LABORATORYOrdered By: SYSTEM SYSTEM on 07-15-2024 Basophils (Bld) [#/Vol] 0.0 103/mcL Normal 0.0 - 0.3 10^3/mcL Workflow SS Basophils/100 WBC (Bld) 0.8 % Normal 0.0 - 2.5 % Workflow SS Calcium [Mass/Vol] 10.1 mg/dL Normal 8.7 - 10. 4 mg/dL ADM SS Chloride [Moles/Vol] 106 mmol/L Normal 98 - 11 0 mEq/L ADM SS CO2 [Moles/Vol] 28 mmol/L Normal 22 - 32 mEq/L ADM SS Creatinine [Mass/Vol] 0.93 mg/dL Normal 0.60 - 1.40 mg/dL ADM SS Comment on above: Interpretive Data: T esting performed on [employer] analyzer using enzymatic creatinine methodology. Electrolyte Balance 8.0 mEq/L Normal 4.0 - 15 .0 mEq/L ADM SS Eosinophils (Bld) [#/Vol] 0.2 103/mcL Normal 0.0 - 0.7 10^3/mcL Workflow SS Eosinophils/100 WBC (Bld) 3.2 % Normal 0.0 - 6.0 % Workflow SS Erythrocyte distribution width (RBC) [Ratio] 13.1 % Normal 11.5 - 15.5 % Workflow SS GFR/1.73 sq M.predicted among blacks MDRD (S/P/Bld) [Vol rate/Area] ml/min/1.73sqm Invalid Interpretation Code Chemistry S Comment on above: Interpretive Data: GFR Population mean for , Non- Americans Ages 20-29 = 116 mL/min/1.73 sq.m. Ages 30-39 = 107 mL/min/1.73 sq.m. Ages 40-49 = 99 mL/min/1.73 sq.m. Ages 50-59 = 93 mL/min/1.73 sq.m. Ages 60-69 = 85 mL/min/1.73 sq.m. Ages 70+ = 75 mL/min/1.73 sq.m. Chronic Kidney Disease: Less than 60 mL/min/1.73 square meters End Stage Renal Disease: Less than 15 mL/min/1.73 square meters GFR/1.73 sq M.predicted among non-blacks MDRD (S/P/Bld) [Vol rate/Area] ml/min/1.73sqm Invalid Interpretation Code Chemistry S Comment on above: Interpretive Data: GFR Population mean for , Non- Americans Ages 20-29 = 116 mL/min/1.73 sq.m. Ages 30-39 = 107 mL/min/1.73 sq.m. Ages 40-49 = 99 mL/min/1.73 sq.m. Ages 50-59 = 93 mL/min/1.73 sq.m. Ages 60-69 = 85 mL/min/1.73 sq.m. Ages 70+ = 75 mL/min/1.73 sq.m. Chronic Kidney Disease: Less than 60 mL/min/1.73 square meters End Stage Renal Disease: Less than 15 mL/min/1.73 square meters Glucose [Mass/Vol] 105 mg/dL Normal 82 - 115 mg/dL ADM SS Hematocrit (Bld) [Volume fraction] 41.1 % Normal 40.0 - 52.0 % AH Workflow SS Hemoglobin (Bld) [Mass/Vol] 14.0 G/dL Normal 13.0 - 17.5 G/dL AH Workflow SS Lymphocytes (Bld) [#/Vol] 2.0 103/mcL Normal 0.9 - 4.3 10^3/mcL AH Workflow SS Lymphocytes/100 WBC (Bld) 32.7 % Normal 20.0 - 40.0 % AH Workflow SS MCH (RBC) [Entitic mass] 32.0 pg Normal 27.0 - 33.0 pg AH Workflow SS MCHC 34.1 G/dL Normal 32.0 - 36.0 G/dL AH Workflow SS MCV (RBC) [Entitic vol] 93.8 fL Normal 81.0 - 100.0 fL AH Workflow SS Monocytes (Bld) [#/Vol] 0.5 103/mcL Normal 0.1 - 1.4 10^3/mcL AH Workflow SS Monocytes/100 WBC (Bld) 8.1 % Normal 2.0 - 13.0 % AH Workflow SS Neutrophils (Bld) [#/Vol] 3.4 103/mcL Normal 2.3 - 8.1 10^3/mcL AH Workflow SS Neutrophils/100 WBC (Bld) 55.2 % Normal 50.0 - 75.0 % AH Workflow SS Platelet mean volume (Bld) [Entitic vol] 9.1 fL Normal 6.4 - 10.5 fL AH Workflow SS Platelets (Bld) [#/Vol] 234 103/mcL Normal 150 - 450 10^3/mcL AH Workflow SS Potassium [Moles/Vol] 4.5 mmol/L Normal 3.5 - 5.0 mEq/L AH ADM SS RBC (Bld) [#/Vol] 4.38 106/mcL Low 4.50 - 6.00 10^6/mcL AH Workflow SS Sodium [Moles/Vol] 142 mmol/L Normal 136 - 145 mEq/L AH ADM SS Urea nitrogen [Mass/Vol] 17.0 mg/dL Normal 8.0 - 22.0 mg/dL AH ADM SS Urea nitrogen/Creatinine [Mass ratio] 18.3 ratio Normal 10.0 - 22.0 ratio AH ADM SS WBC (Bld) [#/Vol] 6.1 103/mcL Normal 4.5 - 10.8 10^3/mcL AH Workflow SS CNPNon 05-26-2024 CNPN Telephone (FAMWS) -- MARIANO BROWN ([id number]) 1960 M Date Time Provider Department 05/26/24 JUAN DIEGO GARCIA [facility] During your visit today, we recorded the following information about you: Sol Licona MA 05/26/2024 1:29 PM Signed Pt had labs completed at [facility] on 05/24/24 as ordered by PCP. Please review scanned links below and advise. No appt currently setup. Did update HM (Lipid/Glucose screening). View External Labs - Chemistry [ID [id number]] View External Labs - Miscellaneous Lab [ID [id number]] SolREE Don Rilee, MA 09/29/2024 6:11 PM Signed Provider sent Eko message to pt to update on lab results. Sol Licona MA Allergies As of Date: 05/26/2024 Noted Allergy Reaction SULFA (SULFONAMIDE ANTIBIOTICS) 07/25/2005 10 - Anaphylaxis Date Reviewed: 02/10/2024 Reviewed by: Ousmane Nicole APRN.CARDROOM PLASTIC CARD GRADER - Fully Assessed Reason for Visit: Results [95] Order(s):LIPID PANEL (EXTERNAL) [6581089] Order #: [id number] HEMOGLOBIN (HGB) (FOR REMOTE COUNT INCLUDES THE [facility] USE) [SQRHGB] Order #: [id number] Prescriptions as of 09/29/2024 - atorvastatin (LIPITOR) 20 mg tablet Take 1 tablet by mouth daily at bedtime. For cholesterol. - levothyroxine (SYNTHROID) 88 mcg tablet Take 1 tablet by mouth once daily. Take on empty stomach. For Thyroid, except 1/2 pill on Sat - losartan (COZAAR) 100 mg tablet Take 1 tablet by mouth once daily. - omeprazole (PRILOSEC) 20 mg capsule Take 1 capsule by mouth daily before breakfast. 1/2 hr before meal. - loratadine 10 mg cap Take 10 mg by mouth once daily. - clindamycin (CLEOCIN) 150 mg capsule Take 1 capsule by mouth four times daily. - Cyanocobalamin 2,500 mcg subl Dissolve under the tongue. - cholecalciferol (VITAMIN D3) 1,000 unit tab tablet Take 2,000 Units by mouth once daily. - Ginseng 250 mg cap Take 1 tablet by mouth once daily. - Coenzyme Q10 200 mg cap Take by mouth. - LACTOBAC CMB #3/FOS/PANTETHINE (PROBIOTIC AND ACIDOPHILUS ORAL) Take by mouth once daily. - calcium carbonate-mag oxide 250-155 mg Tab Take 1 tablet by mouth once daily. - [place]-3 Fatty Acids (FISH OIL) 500 mg Cap Take 2 capsules by mouth once daily. - multivitamin,re-afpi-yhpsp als (THERAGRAN M) tab Take 1 tablet by mouth once daily. - Ascorbic Acid 1,000 mg tablet Take 1 tablet by mouth once daily. Meds Comments as of 03/01/2015: Problem List As Of Date 05/26/2024 Noted Resolved Hypertension [I10] 11/04/2012 Left carpal tunnel syndrome [G56.02] 11/04/2012 Right carpal tunnel syndrome [G56.01] 11/04/2012 Right bundle branch block [I45.10] 12/04/2012 Umbilical hernia without mention of obstruction*02/05/2014 02/14/2017 Sebaceous cyst [L72.3] 02/05/2014 02/14/2017 Hyperlipidemia [E78.5] 12/21/2014 Benign non-nodular prostatic hyperplasia with l*09/28/2015 Elevated PSA [R97.20] 09/28/2015 Hyperglycemia [R73.9] Hypothyroidism, acquired [E03.9] 08/16/2018 Tremor [R25.1] 02/06/2022 Atypical nevus [D22.9] 03/13/2022 Dysplastic nevus [D23.9] 03/13/2022 BMI 28.0-28.9,adult [Z68.28] 09/03/2023 Diagnosed: 09/03/2023 Prediabetes [R73.03] 10/22/2023 Encounter Status:Closed by SOL LICONA on 09/29/24 Normal [facility] Hemoglobin A1con 05-26-2024 HbA1c (Bld) [Mass fraction] 5.8 % High 3.8-5.6 [facility] Comment on above: Result Comment: Norm al < 5.7 % Prediabetic 5.7 - 6.4 % Diabetic >or= 6.5 % Please note range changes. Performed By: #### L 500.4100, L501.9520, L501.9985, L500.4050, L100.0100 #### [facility] [address] [place], [address] CBC W/Diff, Automatedon Absolute Lymph 2.44 X10 3/uL Normal 0.83-4.51 [facility] Comment on above: Performed By: #### L 500.4100, L501.9985, L100.0100, L500.4050 #### [facility] [address] [place], [address] Absolute Neut 3.1 X10 3/uL Normal 2.0-7.7 [facility] Comment on above: Performed By: #### L 500.4100, L501.9985, L100.0100, L500.4050 #### [facility] [address] [place], [address] Basophils/100 WBC (Bld) 0.8 % Normal 0-1 [facility] Comment on above: Performed By: #### L 500.4100, L501.9985, L100.0100, L500.4050 #### [facility] [address] [place], [address] Eosinophils/100 WBC (Bld) 3.2 % Normal 0-5 [facility] Comment on above: Performed By: #### L 500.4100, L501.9985, L100.0100, L500.4050 #### [facility] [address] [place], [address] Erythrocyte distribution width (RBC) [Ratio] 13.7 % Normal 11.6-14.6 [facility] Comment on above: Performed By: #### L 500.4100, L501.9985, L100.0100, L500.4050 #### [facility] [address] [place], [address] Hematocrit (Bld) [Volume fraction] 39.1 % Low 40-54 [facility] Comment on above: Performed By: #### L 500.4100, L501.9985, L100.0100, L500.4050 #### [facility] [address] [place], [address] Hemoglobin (Bld) [Mass/Vol] 13.4 g/dL Normal 13.0-16.5 [facility] Comment on above: Performed By: #### L 500.4100, L501.9985, L100.0100, L500.4050 #### [facility] [address] [place], [address] IG% 0.800 Normal 0.0-0.9 [facility] Comment on above: Result Comment: IG% - Immature Granulocytes (promyelocytes, myelocytes and metamyelocytes) > 1% indicates that a LEFT SHIFT is Present. Performed By: #### L 500.4100, L501.9985, L100.0100, L500.4050 #### [facility] [address] [place], [address] Lymphocytes/100 WBC (Bld) 38.5 % Normal 19-41 [facility] Comment on above: Performed By: #### L 500.4100, L501.9985, L100.0100, L500.4050 #### [facility] [address] [place], [address] MCH (RBC) [Entitic mass] 31.5 pg Normal 27.0-32.0 [facility] Comment on above: Performed By: #### L 500.4100, L501.9985, L100.0100, L500.4050 #### [facility] [address] [place], [address] MCHC (RBC) [Mass/Vol] 34.3 g/dL Normal 32-36 [facility] Comment on above: Performed By: #### L 500.4100, L501.9985, L100.0100, L500.4050 #### [facility] [address] [place], [address] MCV (RBC) [Entitic vol] 92.0 fL Normal 80-94 [facility] Comment on above: Performed By: #### L 500.4100, L501.9985, L100.0100, L500.4050 #### [facility] [address] [place], [address] Monocytes/100 WBC (Bld) 8.0 % Normal 0-10 [facility] Comment on above: Performed By: #### L 500.4100, L501.9985, L100.0100, L500.4050 #### [facility] [address] [place], [address] Neutrophils/100 WBC (Bld) 48.7 % Normal 47-70 [facility] Comment on above: Performed By: #### L 500.4100, L501.9985, L100.0100, L500.4050 #### [facility] [address] [place], [address] Nucleated RBC (Bld) [#/Vol] 0 10*3/uL Normal 0-5 [facility] Comment on above: Performed By: #### L 500.4100, L501.9985, L100.0100, L500.4050 #### [facility] [address] [place], [address] Platelet mean volume (Bld) [Entitic vol] 10.9 fL Normal 6.2-12.0 [facility] Comment on above: Performed By: #### L 500.4100, L501.9985, L100.0100, L500.4050 #### [facility] [address] [place], [address] Platelets (Bld) [#/Vol] 260 10*3/uL Normal 150-450 [facility] Comment on above: Performed By: #### L 500.4100, L501.9985, L100.0100, L500.4050 #### [facility] [address] [place], [address] RBC (Bld) [#/Vol] 4.25 10*6/uL Low 4.6-6.2 [facility] Comment on above: Performed By: #### L 500.4100, L501.9985, L100.0100, L500.4050 #### [facility] [address] [place], [address] RDW SD 46.3 fl High 35.1-43.9 [facility] Comment on above: Performed By: #### L 500.4100, L501.9985, L100.0100, L500.4050 #### [facility] [address] [place], [address] WBC (Bld) [#/Vol] 6.3 10*3/uL Normal 4.4-11.0 [facility] Comment on above: Performed By: #### L 500.4100, L501.9985, L100.0100, L500.4050 #### [facility] [address] [place], [address] Comprehensive Metabolic Prof [facility] 05-24-2024 Albumin [Mass/Vol] 3.9 g/dL Normal 3.2-5.0 [facility] Comment on above: Performed By: #### L 500.4100, L501.9985, L100.0100, L500.4050 #### [facility] [address] [place], [address] Albumin/Globulin [Mass ratio] 1.3 {ratio} Normal 0.9-2.4 [facility] Comment on above: Performed By: #### L 500.4100, L501.9985, L100.0100, L500.4050 #### [facility] [address] [place], [address] ALK P 59 U/L Normal 45-117 [facility] Comment on above: Performed By: #### L 500.4100, L501.9985, L100.0100, L500.4050 #### [facility] [address] [place], [address] ALT [Catalytic activity/Vol] 36 U/L Normal 16-61 [facility] Comment on above: Performed By: #### L 500.4100, L501.9985, L100.0100, L500.4050 #### [facility] [address] [place], [address] AST [Catalytic activity/Vol] 24 U/L Normal 15-37 [facility] Comment on above: Performed By: #### L 500.4100, L501.9985, L100.0100, L500.4050 #### [facility] [address] [place], [address] Bilirubin [Mass/Vol] 1.00 mg/dL Normal 0.20-1.00 [facility] Comment on above: Result Comment: For patients on eltrombopag therapy, use of Dimension [place] TBIL is not recommended. Performed By: #### L 500.4100, L501.9985, L100.0100, L500.4050 #### [facility] [address] [place], [address] BUN/CRE 15.2 RATIO Normal 10-20 [facility] Comment on above: Performed By: #### L 500.4100, L501.9985, L100.0100, L500.4050 #### [facility] [address] [place], [address] CA,Total 9.5 mg/dL Normal 8.5-10.1 [facility] Comment on above: Performed By: #### L 500.4100, L501.9985, L100.0100, L500.4050 #### [facility] [address] [place], [address] Chloride [Moles/Vol] 107 mmol/L Normal 98-107 [facility] Comment on above: Performed By: #### L 500.4100, L501.9985, L100.0100, L500.4050 #### [facility] [address] [place], [address] CO2 [Moles/Vol] 29.0 mmol/L Normal 21.0-32.0 [facility] Comment on above: Performed By: #### L 500.4100, L501.9985, L100.0100, L500.4050 #### [facility] [address] [place], [address] Creatinine [Mass/Vol] 1.12 mg/dL Normal 0.70-1.30 [facility] Comment on above: Result Comment: The validity of the calculated GFR GFRAA in patients over 70 years has not been determined. Clinical correlation is essential. Performed By: #### L 500.4100, L501.9985, L100.0100, L500.4050 #### [facility] [address] [place], [address] EST GFR - AA 85 mL/min Normal >60 [facility] Comment on above: Result Comment: Afri can [place] GFR Calc Performed By: #### L 500.4100, L501.9985, L100.0100, L500.4050 #### [facility] [address] [place], [address] GAP 3 Low 5-15 [facility] Comment on above: Performed By: #### L 500.4100, L501.9985, L100.0100, L500.4050 #### [facility] [address] [place], [address] GFR/1.73 sq M.predicted among non-blacks MDRD (S/P/Bld) [Vol rate/Area] 70 mL/min/{1.73_m2} Normal >60 [facility] Comment on above: Result Comment: Non- GFR Calc Performed By: #### L 500.4100, L501.9985, L100.0100, L500.4050 #### [facility] [address] [place], [address] Globulin (S) [Mass/Vol] 3.0 g/dL Normal 2.2-4.2 [facility] Comment on above: Performed By: #### L 500.4100, L501.9985, L100.0100, L500.4050 #### [facility] [address] [place], [address] Glucose [Mass/Vol] 103 mg/dL Normal 74-106 [facility] Comment on above: Result Comment: Fast ing Glucose result from 100 to 125 mg/dL suggests IMPAIRED HOMEOSTASIS per A.D.A. criteria. Performed By: #### L 500.4100, L501.9985, L100.0100, L500.4050 #### [facility] [address] [place], [address] Potassium [Moles/Vol] 4.2 mmol/L Normal 3.5-5.1 [facility] Comment on above: Performed By: #### L 500.4100, L501.9985, L100.0100, L500.4050 #### [facility] [address] [place], [address] Sodium [Moles/Vol] 139 mmol/L Normal 136-145 [facility] Comment on above: Performed By: #### L 500.4100, L501.9985, L100.0100, L500.4050 #### [facility] [address] [place], [address] T PROT 6.9 g/dL Normal 6.4-8.2 [facility] Comment on above: Performed By: #### L 500.4100, L501.9985, L100.0100, L500.4050 #### [facility] [address] [place], [address] Urea nitrogen [Mass/Vol] 17 mg/dL Normal 7-18 [facility] Comment on above: Performed By: #### L 500.4100, L501.9985, L100.0100, L500.4050 #### [facility] [address] [place], [address] HEMOGLOBIN (HGB) (FOR REMOTE COUNT INCLUDES THE [facility] USE)on 05-24-2024 HbA1c (Bld) [Mass fraction] 5.8 % 4.8 - 5.9 % [facility] Comment on above: [facility] spital LIPID PANEL (EXTERNAL)on HDC-L 53 mg/dL Abnormal - 41 mg/dL [facility] Interpretation and review of laboratory results Abnormal [facility] LDL Chol, calculated 106 [facility] Lipid Profileon 05-24-2024 Cholesterol [Mass/Vol] 181 mg/dL Normal 200 Cl [facility] Comment on above: Result Comment: <200 mg/dL Desirable 200-240 mg/dL Borderline >240 mg/dL High Risk Performed By: #### L 500.4100, L501.9985, L100.0100, L500.4050 #### [facility] [address] [place], [address] Cholesterol in HDL [Mass/Vol] 53 mg/dL Normal [facility] Comment on above: Result Comment: The drugs N-Acetylcysteine and Metamizole may falsely depress this assay. Reference Range HDL <40 mg/dL Low HDL Cholesterol HDL >or= 60 mg/dL High HDL Cholesterol Performed By: #### L 500.4100, L501.9985, L100.0100, L500.4050 #### [facility] [address] [place], [address] Cholesterol in LDL [Mass/Vol] 106 mg/dL Normal 0-130 [facility] Comment on above: Performed By: #### L 500.4100, L501.9985, L100.0100, L500.4050 #### [facility] [address] [place], [address] Cholesterol in VLDL [Mass/Vol] 22 mg/dL Normal 5-40 [facility] Comment on above: Performed By: #### L 500.4100, L501.9985, L100.0100, L500.4050 #### [facility] [address] [place], [place], [address] Triglyceride [Mass/Vol] 111 mg/dL Normal [facility] Comment on above: Result Comment: The drugs N-Acetylcysteine and Metamizole may falsely depress this assay. Serum Triglycerides Reference Interval Normal <150 mg/dL Borderline high 150 - 199 mg/dL High 200 - 499 mg/dL Very High > or = 500 mg/dL Performed By: #### L 500.4100, L501.9985, L100.0100, L500.4050 #### [facility] [address] [place], [place], [address] No Panel Informationon 05-24 [facility] 05-14-2024 [facility] Telephone ([facility]) -- MARIANO BROWN ([id number]) 1960 M Date Time Provider Department 05/14/24 JUAN DIEGO GARCIA During your visit today, we recorded the following information about you: Oksana Parisi 05/14/2024 3:26 PM Signed Mariano is calling Juan Diego Garcia MD today to request lab orders to be sent to [facility] for blood work to be drawn due to per patient his insurance does not cover our lab at our [facility] facility. Please fax to them when provider agrees to order those labs for patient. Patient will call back to schedule an appointment with PCP Patient has been identified by name and birthdate. Duration of symptoms: N/A Person calling: self Call patient at: on cell [phone] (home) [phone] (cell) Was an appointment scheduled: No Closing statement: Results or non-symptom based questions: Thank you for calling [facility], your call will be returned within the next business day. Oksana Salas [facility] Juan Diego Garcia MD 05/14/2024 4:51 PM Signed Orders placed Ruddy Fuentes LPN 05/14/2024 5:04 PM Signed Orders faxed as requested. Allergies As of Date: 05/14/2024 Noted Allergy Reaction SULFA (SULFONAMIDE ANTIBIOTICS) 07/25/2005 10 - Anaphylaxis Date Reviewed: 02/10/2024 Reviewed by: Ousmane Nicole, JORGE.CARDROOM PLASTIC CARD GRADER - Fully Assessed Reason for Visit: Orders [681] Primary Visit Diagnosis:Hyperlipidemia, unspecified hyperlipidemia type [E78.5] Other Visit Diagnoses:Hypothyroidism, acquired [E03.9] Hyperglycemia [R73.9] Order(s):COMPLETE BLOOD COUNT AND DIFFERENTIAL [SQCBCDIF] Order #: [id number] FUTURE COMPREHENSIVE METABOLIC PANEL [SQCMP] Order #: [id number] FUTURE LIPID PANEL BASIC [SQLIPB] Order #: [id number] FUTURE HEMOGLOBIN A1C [LIMFH9C] Order #: [id number] FUTURE Prescriptions as of 05/14/2024 - atorvastatin (LIPITOR) 20 mg tablet Take 1 tablet by mouth daily at bedtime. For cholesterol. - levothyroxine (SYNTHROID) 88 mcg tablet Take 1 tablet by mouth once daily. Take on empty stomach. For Thyroid, except 1/2 pill on Sat - losartan (COZAAR) 100 mg tablet Take 1 tablet by mouth once daily. - omeprazole (PRILOSEC) 20 mg capsule Take 1 capsule by mouth daily before breakfast. 1/2 hr before meal. - loratadine 10 mg cap Take 10 mg by mouth once daily. - clindamycin (CLEOCIN) 150 mg capsule Take 1 capsule by mouth four times daily. - Cyanocobalamin 2,500 mcg subl Dissolve under the tongue. - cholecalciferol (VITAMIN D3) 1,000 unit tab tablet Take 2,000 Units by mouth once daily. - Ginseng 250 mg cap Take 1 tablet by mouth once daily. - Coenzyme Q10 200 mg cap Take by mouth. - LACTOBAC CMB #3/FOS/PANTETHINE (PROBIOTIC AND ACIDOPHILUS ORAL) Take by mouth once daily. - calcium carbonate-mag oxide 250-155 mg Tab Take 1 tablet by mouth once daily. - [place]-3 Fatty Acids (FISH OIL) 500 mg Cap Take 2 capsules by mouth once daily. - multivitamin,gw-kbik-yifuz als (THERAGRAN M) tab Take 1 tablet by mouth once daily. - Ascorbic Acid 1,000 mg tablet Take 1 tablet by mouth once daily. Meds Comments as of 03/01/2015: Problem List As Of Date 05/14/2024 Noted Resolved Hypertension [I10] 11/04/2012 Left carpal tunnel syndrome [G56.02] 11/04/2012 Right carpal tunnel syndrome [G56.01] 11/04/2012 Right bundle branch block [I45.10] 12/04/2012 Umbilical hernia without mention of obstruction*02/05/2014 02/14/2017 Sebaceous cyst [L72.3] 02/05/2014 02/14/2017 Hyperlipidemia [E78.5] 12/21/2014 Benign non-nodular prostatic hyperplasia with l*09/28/2015 Elevated PSA [R97.20] 09/28/2015 Hyperglycemia [R73.9] Hypothyroidism, acquired [E03.9] 08/16/2018 Tremor [R25.1] 02/06/2022 Atypical nevus [D22.9] 03/13/2022 Dysplastic nevus [D23.9] 03/13/2022 BMI 28.0-28.9,adult [Z68.28] 09/03/2023 Diagnosed: 09/03/2023 Prediabetes [R73.03] 10/22/2023 Encounter Status:Closed by RUDDY FUENTES on 05/14/24 Normal [facility] PSAFon 03-04-2024 % Free PSA 16.7 % Normal [facility] ([place]) Comment on above: Result Comment: The table below lists the probability of prostate cancer for men with non-suspicious DANAY results and total PSA between 4 and 10 ng/mL, by patient age (Derek et al, GOLDIE 1998, 279:1542). % Free PSA 50-64 yr 65-75 yr 0.00-10.00% 56% 55% 10.01-15.00% 24% 35% 15.01-20.00% 17% 23% 20.01-25.00% 10% 20% >25.00% 5% 9% Please note: Derek et al did not make specific recommendations regarding the use of percent free PSA for any other population of men. Performed At: [facility] [id number] Issamercystephanie Ruiz PhD Ph:[phone] Performed By: #### 4 [id number] #### [address] [place], [place] [address] PSA Free 1.90 ng/mL Normal N/A [facility] ([place]) Comment on above: Result Comment: Alo orona ECLIA methodology. Performed By: #### 4 [id number] #### [address] [place], [place] [address] Serum or plasma thyroid stim ulating hormone (TSH) measurement (units/volume)Ordered By: Chencho Cheek on 12-11-2023 TSH Qn 2.11 uIU/mL 0.358-3.74 [facility] No Panel InformationOrdered By: Dale Sunshine on 11-28-2023 Nasal Screen MRSA/MSSA [facility] LABORATORYOrdered By: MARTIN XIMENA CONTRIBUTOR_SYSTEM on 02-17-2023 PSA, % Free 21 1 Invalid Interpretation Code AO [facility] SS Comment on above: Result Comment: Tota l and free PSA test methodology used is the Electrochemiluminescence Immunoassay by [employer]. Total or free PSA values by differing methodologies cannot be interchanged. The below table lists the probability of finding prostate cancer upon needle biopsy, for men 50 years or older and total PSA concentrations from 4.0-10.0 ng/mL. Results should be interpreted within the broader clinical context. Free PSA(%) 50-59 years 60-69 years >69 years <11 49.2% 57.5% 64.5% 11-18 26.9% 33.9% 40.8% 19-25 18.3% 23.9% 29.7% >25 9.1% 12.2% 15.8% Performed By: [facility] [address] [place] [address] Scrap Preparation Supervisor: Catalino Woodruff III, M.D. CLIA#: [id number] PSA, Diagnostic 6.69 ng/mL Invalid Interpretation Code <2.60ng/mL AO [facility]outs SS Comment on above: Result Comment: Tota l PSA test methodology used is the Electrochemiluminescence Immunoassay by [employer]. Total PSA values by differing methodologies cannot be interchanged. For an individual patient, the significance of a PSA level should be interpreted in a broad clinical context, including age, race, family history, digital rectal exam, prostate size, results of prior testing (prostate biopsy, free PSA, PCA3), and use of 5-alpha reductase inhibitors. Considering the high incidence of asymptomatic cancer in the general population that may not pose an ultimate risk to a patient, the decision to recommend urological evaluation or prostate biopsy should be individualized after consideration of all these factors. REFERENCE: Karina Briceno M.D., M.P.H., Rodney Phan M.D., Ph.D., Juan Diego Benson M.D., Emy Nicholas, M.P.H., Alaina Rogers, Sc.D. Effect of Verification Bias on Screening for Prostate Cancer by Measurement of Prostatic Specific Antigen. N Engl J Med 2003,349:335-42. Performed By: [place] [address] Scrap Preparation Supervisor: Catalino Woodruff III, M.D. [facility]#: [id number] LABORATORYOrdered By: MARTIN BUENO CONTRIBUTOR_SYSTEM on 12-09-2022 PSA, % Free 14 1 Invalid Interpretation Code [facility] Comment on above: Result Comment: Tota l and free PSA test methodology used is the Electrochemiluminescence Immunoassay by [employer]. Total or free PSA values by differing methodologies cannot be interchanged. The below table lists the probability of finding prostate cancer upon needle biopsy, for men 50 years or older and total PSA concentrations from 4.0-10.0 ng/mL. Results should be interpreted within the broader clinical context. Free PSA(%) 50-59 years 60-69 years >69 years <11 49.2% 57.5% 64.5% 11-18 26.9% 33.9% 40.8% 19-25 18.3% 23.9% 29.7% >25 9.1% 12.2% 15.8% Performed By: [place] [id number] Scrap Preparation Supervisor: Catalino Woodruff III, M.D. CLIA#: [id number] PSA, Diagnostic 12.48 ng/mL Invalid Interpretation Code <2.60ng/mL AO Sendouts SS Comment on above: Result Comment: Gianfranco mclaughlin PSA test methodology used is the Electrochemiluminescence Immunoassay by [employer]. Total PSA values by differing methodologies cannot be interchanged. For an individual patient, the significance of a PSA level should be interpreted in a broad clinical context, including age, race, family history, digital rectal exam, prostate size, results of prior testing (prostate biopsy, free PSA, PCA3), and use of 5-alpha reductase inhibitors. Considering the high incidence of asymptomatic cancer in the general population that may not pose an ultimate risk to a patient, the decision to recommend urological evaluation or prostate biopsy should be individualized after consideration of all these factors. REFERENCE: Karina Briceno M.D., M.P.H., Rodney Phan M.D., Ph.D., Juan Diego Benson M.D., Emy Nicholas, M.P.H., Alaina Rogers, Sc.D. Effect of Verification Bias on Screening for Prostate Cancer by Measurement of Prostatic Specific Antigen. N Engl J Med 2003,349:335-42. Performed By: [facility] [address] [id number] Scrap Preparation Supervisor: Catalino Woodurff III, M.D. CLIA#: [id number] XR Ankle - right AP and Late ral and obliqueon 08-09-2022 IMPRESSION: Soft tissue swelling without radiographic evidence of acute abnormality. Project Portfolio Analyst: CASTRO Transcribe Date/Time: Aug 09 2022 11:01A Dictated by : SINDY NORTH MD This examination was interpreted and the report reviewed and electronically signed by: SINDY NORTH MD on Aug 09 2022 11:02AM [facility] DIVISION OF RADIOLOGY * * *Final Report* * * DATE OF EXAM: Aug 08 2022 7:14PM WOX 5297 - XR ANKLE 3V AP/LAT/OBL RT / PROCEDURE REASON: Acute right ankle pain * * * * Physician Interpretation * * * * CLINICAL INDICATION: Ankle pain TECHNIQUE: 3 view radiographic study of the right ankle COMPARISON: None FINDINGS: Soft tissue swelling. No acute fracture or dislocation identified. No radiographic evidence of destructive osseous lesion. Plantar and miniscule dorsal calcaneal enthesophytes. DIVISION OF RADIOLOGY Provider, Shara Biggs - 08/09/2022 * * *Final Report* * * DATE OF EXAM: Aug 08 2022 7:14PM WOX 5297 - XR ANKLE 3V AP/LAT/OBL RT / PROCEDURE REASON: Acute right ankle pain * * * * Physician Interpretation * * * * CLINICAL INDICATION: Ankle pain TECHNIQUE: 3 view radiographic study of the right ankle COMPARISON: None FINDINGS: Soft tissue swelling. No acute fracture or dislocation identified. No radiographic evidence of destructive osseous lesion. Plantar and miniscule dorsal calcaneal enthesophytes. IMPRESSION IMPRESSION: Soft tissue swelling without radiographic evidence of acute abnormality. Project Portfolio Analyst: CASTRO Transcribe Date/Time: Aug 09 2022 11:01A Dictated by : SINDY NORTH MD This examination was interpreted and the report reviewed and electronically signed by: SINDY NORTH MD on Aug 09 2022 11:02AM EST [facility] XR Ankle - right AP and Late ral and obliqueOrdered By: Ccf Provider on 08-09-2022 [facility] XR Ankle - right AP and Late ral and obliqueon 08-08-2022 Radiology Study observation (narrative) [facility] LABORATORYOrdered By: MARTIN BEUNO CONTRIBUTOR_SYSTEM on 07-23-2021 PSA, % Free 20 1 Invalid Interpretation Code AO Sendouts SS Comment on above: Result Comment: Less than 11% suggestive of prostate cancer. Greater than 23% suggestive of benign condition. Performed By: [facility] [address] [place] [address] Scrap Preparation Supervisor: Nurys Elias III#: [id number] Phone#: PSA, Diagnostic 7.47 ng/mL Invalid Interpretation Code 0.00-2.59n g/mL AO Sendouts SS Comment on above: Result Comment: Tota l PSA test methodology used is the Electrochemiluminescence Immunoassay. For an individual patient, the significance of a PSA level should be interpreted in a broad clinical context, including age, race, family history, digital rectal exam, prostate size, results of prior testing (prostate biopsy, free PSA, PCA3), and use of 5-alpha reductase inhibitors. Considering the high incidence of asymptomatic cancer in the general population that may not pose an ultimate risk to a patient, the decision to recommend urological evaluation or prostate biopsy should be individualized after consideration of all these factors. REFERENCE: Karina Briceno M.D., M.P.H., Rodney Phan M.D., Ph.D., Juan Diego Benson M.D., Emy Nicholas, M.P.H., Alaina Rogers Sc.D. Effect of Verification Bias on Screening for Prostate Cancer by Measurement of Prostatic Specific Antigen. N Engl J Med 2003,349:335-42. Performed By: [facility] [address] [place] [address] Scrap Preparation Supervisor: Catalino Woodruff III, M.D. 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 Albumin [Mass/Vol] 4.2 g/dL [facility] Work Phone: Alkaline phosphatase (ALP) 51 U/L Invalid Interpretation Code [facility] Work Phone: ) ALP (Bld) [Catalytic activity/Vol] 51 U/L [facility] Work Phone: ) ALT [Catalytic activity/Vol] 26 U/L [facility] Work Phone: ) AST [Catalytic activity/Vol] 30 U/L [facility] Work Phone: ) Bilirubin [Mass/Vol] 1.0 mg/dL [facility] Work Phone: ) Bilirubin.direct [Mass/Vol] 0.2 mg/dL High [facility] Work Phone: ) Cholesterol [Mass/Vol] 147 mg/dL [facility] Work Phone: Cholesterol in HDL [Mass/Vol] 47 mg/dL [facility] Work Phone: [phone] Cholesterol in LDL [Mass/Vol] 78 mg/dL [facility] Work Phone: [phone] Cholesterol in LDL/Cholesterol in HDL [Mass ratio] 1.66 [facility] Work Phone: [phone] Cholesterol.total/Chol esterol in HDL [Mass ratio] 3.13 {ratio} [employer] [facility] Work Phone: [phone] HbA1c (Bld) [Mass fraction] 5.8 % High [facility] Work Phone: [phone] Lipoprotein.pre-beta [Mass/Vol] 22 mg/dL [facility] Work Phone: [phone] Protein [Mass/Vol] 7.0 g/dL [facility] Work Phone: [phone] Triglyceride [Mass/Vol] 109 mg/dL [facility] Work Phone: [phone] Office Visiton 01-29-2017 Dietary management education, guidance, and counseling (procedure) yes Invalid Interpretation Code [facility] Work Phone: [phone] Documentation of current medications (procedure) Done Invalid Interpretation Code [facility] Work Phone: [phone] Protein mass conc Done [facility] Work Phone: [phone] Clinical Lists Update: Prelo 01-26-2017 Left ventricular Ejection fraction 55 % [facility] Work Phone: [phone] Office Visiton 02-07-2016 Protein mass conc Done [facility] Work Phone: [phone] Tobacco smoking status NHIS Former smoker [facility] Work Phone: [phone] Tobacco use CPHS Former smoker Invalid Interpretation Code [facility] Work Phone: [phone] Clinical Lists 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: 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 Albumin mass conc 4.5 g/dL [facility] Work Phone: [phone] ALP enzyme act/vol (Bld) 54 U/L [facility] Work Phone: [phone] ALT enzyme act/vol 37 U/L [facility] Work Phone: [phone] AST enzyme act/vol 30 U/L [facility] Work Phone: [phone] Bilirubin mass conc 0.9 mg/dL [facility] Work Phone: [phone] Bilirubin.direct mass conc mg/dL [facility] Work Phone: [phone] Cholesterol in HDL mass conc 47 mg/dL [facility] Work Phone: [phone] Cholesterol in LDL mass conc 91 mg/dL [facility] Work Phone: [phone] Cholesterol in LDL/Cholesterol in HDL mass ratio 1.94 [facility] Work Phone: [phone] Cholesterol mass conc 167 mg/dL [facility] Work Phone: [phone] Cholesterol.total/Chol esterol in HDL mass ratio 3.55 {ratio} [facility] Work Phone: [phone] Lipoprotein.pre-beta mass conc 29 mg/dL [facility] Work Phone: [phone] Protein mass conc 6.9 g/dL [facility] Work Phone: [phone] Triglyceride mass conc 146 mg/dL [facility] Work Phone: [phone] Office Visiton 02-01-2015 cardiac risk group B [facility] Work Phone: [phone] General cardiovascular disease 10Y risk [#] [place]D'Agostvir[place] Not enough information [facility] Work Phone: [phone] EKG Report: [facility] ECG Obse rvationson 01-26-2014 GE use only - for [employer] import when terms are not otherwise specified 417 ms Invalid Interpretation Code [facility] Work Phone: [phone] QTc Tong 417 ms [facility] Work Phone: [phone] Replaced Document: [facility] E CG Observationson 01-26-2014 BUN (urea nitrogen) Sinus Rhythm -With r ate variation cv = 11.-Right bundle branch block . ABNORMAL Invalid Interpretation Code [facility] Work Phone: [phone] EKG QRS axis 21 deg [facility] Work Phone: [phone] Interpretation Sinus Rhythm -With r ate variation cv = 11.-Right bundle branch block . ABNORMAL [facility] Work Phone: [phone] P [place] 67 deg [facility] Work Phone: [phone] P wave axis, electrocardiogram 67 deg Invalid Interpretation Code [facility] Work Phone: [phone] HI Interval 128 ms [facility] Work Phone: HI interval, electrocardiogram 128 ms Invalid Interpretation Code [facility] Work Phone: Pulse (Heart Rate) 418 ms Invalid Interpretation Code [facility] Work Phone: Pulse (Heart Rate) 71 /min Invalid Interpretation Code [facility] Work Phone: [phone] QRS axis, electrocardiogram 21 deg Invalid Interpretation Code [facility] Work Phone: [phone] QRS Duration 144 ms [facility] Work Phone: [phone] QRS duration, electrocardiogram 144 ms Invalid Interpretation Code [facility] Work Phone: [phone] QT Interval new path ms [facility] Work Phone: [phone] QT interval, electrocardiogram new path ms Invalid Interpretation Code [facility] Work Phone: [phone] T [place] 17 deg [facility] Work Phone: [phone] T wave axis, electrocardiogram 17 deg Invalid Interpretation Code [facility] Work Phone: [phone] Vital Signs Date Time Vital Sign Value Performing Clinician Facility 03-03-2025 15:17-0400 Body height 180.[address] Juan Diego Garcia MD Work Phone: [facility] 03-03-2025 15:17-0400 Body mass index (BMI) [Ratio] 28.1 kg/m2 Dr. Juan Diego Garcia MD Work Phone: [facility] 03-03-2025 15:17-0400 Body weight 91.[address] Juan Diego Garcia MD Work Phone: [facility] 03-03-2025 15:17-0400 Diastolic blood pressure 75 mm[Hg] Dr. Juan Diego Garcia MD Work Phone: [facility] 03-03-2025 15:17-0400 Heart rate 55 /min Dr. Juan Diego Garcia MD Work Phone: [facility] 03-03-2025 15:17-0400 Respiratory rate 18 /min Dr. Juan Diego Garcia MD Work Phone: [facility] 03-03-2025 15:17-0400 Systolic blood pressure 134 mm[Hg] Dr. Juan Diego Garcia MD Work Phone: [facility] 02-20-2025 14:56-0400 Body mass index (BMI) [Ratio] 30.05 kg/m2 Juan Diego Garcia MD Work Phone: [facility] 02-20-2025 14:56-0400 Body weight 91.63 kg Juan Diego Garcia MD Work Phone: [facility] 02-20-2025 14:56-0400 Diastolic blood pressure 72 mm[Hg] Juan Diego Garcia MD Work Phone: [facility] 02-20-2025 14:56-0400 Heart rate 71 /min Juan Diego Garcia MD Work Phone: [facility] 02-20-2025 14:56-0400 SaO2% (BldA) [Mass fraction] 96 % Juan Diego Garcia MD Work Phone: [facility] 02-20-2025 14:56-0400 Systolic blood pressure 138 mm[Hg] Juan Diego Garcia MD Work Phone: [facility] 11-06-2024 11:27-0500 Body mass index (BMI) [Ratio] 29.16 kg/m2 Clementina Carroll 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 Work Phone: [facility] 11-06-2024 11:27-0500 Body temperature 97.59 [degF] Clementina Suppan 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 Work Phone: [facility] 11-06-2024 11:27-0500 Body weight 88.91 kg Clementina Suppan 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 Work Phone: [facility] 11-06-2024 11:27-0500 Diastolic blood pressure 74 mm[Hg] Clementina Suppan 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 Work Phone: [facility] 11-06-2024 11:27-0500 Heart rate 70 /min Clementina Scottan 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 Work Phone: [facility] 11-06-2024 11:27-0500 SaO2% (BldA) [Mass fraction] 100 % Clementina Suppan 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 Work Phone: [facility] 11-06-2024 11:27-0500 Systolic blood pressure 128 mm[Hg] Clementina Suppan 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 Work Phone: [facility] 10-10-2024 16:11-0500 Body height 174.6 cm Juan Diego Garcia MD Work Phone: [facility] 10-10-2024 16:11-0500 Body mass index (BMI) [Ratio] 29.9 kg/m2 Juan Diego Garcia MD Work Phone: [facility] 10-10-2024 16:11-0500 Body weight 91.17 kg Juan Diego Garcia MD Work Phone: [facility] 10-10-2024 16:11-0500 Diastolic blood pressure 70 mm[Hg] Juan Diego Garcia MD Work Phone: [facility] 10-10-2024 16:11-0500 Heart rate 54 /min Juan Diego Garcia MD Work Phone: [facility] 10-10-2024 16:11-0500 SaO2% (BldA) [Mass fraction] 98 % Juan Diego Garcia MD Work Phone: [facility] 10-10-2024 16:11-0500 Systolic blood pressure 124 mm[Hg] Juan Diego Garcia MD Work Phone: [facility] 10-05-2024 10:33-0500 Body temperature 99.6 [degF] Dr. Juan Diego Garcia MD Work Phone: [facility] 10-05-2024 10:33-0500 Diastolic blood pressure 78 mm[Hg] Dr. Juan Diego Garcia MD Work Phone: [facility] 10-05-2024 10:33-0500 Heart rate 96 /min Dr. Juan Diego Garcia MD Work Phone: [facility] 10-05-2024 10:33-0500 Respiratory rate 12 /min Dr. Juan Diego Garcia MD Work Phone: [facility] 10-05-2024 10:33-0500 SaO2% (BldA) [Mass fraction] 96 % Dr. Juan Diego Garcia MD Work Phone: [facility] 10-05-2024 10:33-0500 Systolic blood pressure 122 mm[Hg] Dr. Juan Diego Garcia MD Work Phone: [facility] 07-23-2024 12:35-0500 Diastolic Blood Pressure Non-Invasive 70 mm[Hg] DR RODRIGUEZ CRANE MD [facility] 07-23-2024 12:35-0500 Heart rate 68 /min DR RODRIGUEZ CRANE MD [facility] 07-23-2024 12:35-0500 Respiratory rate 18 /min DR RODRIGUEZ CRANE MD [facility] 07-23-2024 12:35-0500 Systolic Blood Pressure Non-Invasive 122 mm[Hg] DR RODRIGUEZ CRANE MD [facility] 07-23-2024 11:31-0500 Body temperature 96.98 [degF] DR RODRIGUEZ CRANE MD [facility] 07-23-2024 11:31-0500 Diastolic Blood Pressure Non-Invasive 66 mm[Hg] DR RODRIGUEZ CRANE MD [facility] 07-23-2024 11:31-0500 Heart rate 70 /min DR RODRIGUEZ CRANE MD [facility] 07-23-2024 11:31-0500 Respiratory rate 18 /min DR RODRIGUEZ CRANE MD [facility] 07-23-2024 11:31-0500 Systolic Blood Pressure Non-Invasive 121 mm[Hg] DR RODRIGUEZ CRANE MD [facility] 07-23-2024 11:10-0500 Body temperature 97.16 [degF] DR RODRIGUEZ CRANE MD [facility] 07-23-2024 11:10-0500 Diastolic Blood Pressure Non-Invasive 79 mm[Hg] DR RODRIGUEZ CRANE MD [facility] 07-23-2024 11:10-0500 Heart rate 78 /min DR RODRIGUEZ CRANE MD [facility] 07-23-2024 11:10-0500 Mean blood pressure 92 mm[Hg] DR RODRIGUEZ CRANE MD [facility] 07-23-2024 11:10-0500 Respiratory rate 18 /min DR RODRIGUEZ CRANE MD [facility] 07-23-2024 11:10-0500 Systolic Blood Pressure Non-Invasive 126 mm[Hg] DR RODRIGUEZ CRANE MD [facility] 07-23-2024 10:54-0500 Body temperature 96.8 [degF] DR RDORIGUEZ CRANE MD [facility] 07-23-2024 10:54-0500 Heart rate 85 /min DR RODRIGUEZ CRANE MD [facility] 07-23-2024 10:54-0500 Mean blood pressure 69 mm[Hg] DR RODRIGUEZ CRANE MD [facility] 07-23-2024 10:50-0500 Respiratory Rate - Anes 14 br/min DR RODRIGUEZ CRANE MD [facility] 07-23-2024 10:45-0500 Body temperature 96.8 [degF] DR RODRIGUEZ CRANE MD [facility] 07-23-2024 10:45-0500 Heart rate 75 /min DR RODRIGUEZ CRANE MD [facility] 07-23-2024 10:45-0500 Respiratory Rate - Anes 13 br/min DR RODRIGUEZ CRANE MD [facility] 07-23-2024 10:40-0500 Body temperature 96.8 [degF] DR RODRIGUEZ CRANE MD [facility] 07-23-2024 10:40-0500 Respiratory Rate - Anes 16 br/min DR RODRIGUEZ CRANE MD [facility] 07-23-2024 08:53-0500 Body height 176.[address] RODRIGUEZ CRANE MD [facility] 07-23-2024 08:53-0500 Body weight 87.[address] RODRIGUEZ CRANE MD [facility] 07-23-2024 08:53-0500 Heart rate 74 /min DR RODRIGUEZ CRANE MD [facility] 07-15-2024 10:27-0400 Blood Pressure Cuff Size DR RODRIGUEZ CRANE MD [facility] 07-15-2024 10:27-[address] RODRIGUEZ CRANE MD [facility] 07-15-2024 10:27-[address] RODRIGUEZ Winters MD [facility] 07-15-2024 10:27-0400 Body height [address] RODRIGUEZ CRANE MD [facility] 07-15-2024 10:27-0400 Body temperature 97.7 [degF] DR RODRIGUEZ CRANE MD [facility] 07-15-2024 10:27-0400 Body weight 90.[address] RODRIGUEZ CRANE MD [facility] 07-15-2024 10:27-0400 Body weight 29.65 kg/m2 DR RODRIGUEZ CRANE MD [facility] 07-15-2024 10:27-0400 Diastolic Blood Pressure Non-Invasive 75 mm[Hg] DR RODRIGUEZ CRANE MD [facility] 07-15-2024 10:27-0400 Heart rate 56 /min DR RODRIGUEZ CRANE MD [facility] 07-15-2024 10:27-0400 Systolic Blood Pressure Non-Invasive 118 mm[Hg] DR RODRIGUEZ CRANE MD [facility] 02-10-2024 08:49-0400 Body mass index (BMI) [Ratio] 29.97 kg/m2 Ousmane Moomaw 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 Work Phone: [facility] 02-10-2024 08:49-0400 Body temperature 96.69 [degF] Ousmane Moomaw 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 Work Phone: [facility] 02-10-2024 08:49-0400 Body weight 91.4 kg Ousmane Moomaw 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 Work Phone: [facility] 02-10-2024 08:49-0400 Diastolic blood pressure 74 mm[Hg] Ousmane Moomaw 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 Work Phone: [facility] 02-10-2024 08:49-0400 Heart rate 72 /min Ousmane Moomaw 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 Work Phone: [facility] 02-10-2024 08:49-0400 Respiratory rate 21 /min Ousmane Moomaw 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 Work Phone: [facility] 02-10-2024 08:49-0400 SaO2% (BldA) [Mass fraction] 98 % Ousmane Moomaw 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 Work Phone: [facility] 02-10-2024 08:49-0400 Systolic blood pressure 122 mm[Hg] Ousmane Moomaw 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 Work Phone: [facility] 12-11-2023 15:01-0400 Body temperature 97.6 [degF] Dr. Juan Diego Garcia Work Phone: [facility] 12-11-2023 15:01-0400 Diastolic blood pressure 87 mm[Hg] Dr. Juan Diego Garcia Work Phone: [phone](708)896-218801 [place] [address] 12-11-2023 15:01-0400 Heart rate 66 /min Dr. Juan Diego Garcia Work Phone: 3(038)154-202301 [place] [address] 12-11-2023 15:01-0400 Respiratory rate 17 /min Dr. Juan Diego Garcia Work Phone: 8(257)125-812401 [place] [address] 12-11-2023 15:01-0400 SaO2% (BldA) [Mass fraction] 100 % Dr. Juan Diego Garcia Work Phone: 3(787)943-486701 [place] [address] 12-11-2023 15:01-0400 Systolic blood pressure 139 mm[Hg] Dr. Juan Diego Garcia Work Phone: 9(363)733-253801 [place] [address] 12-11-2023 09:08-0400 Body height 180.[address] Juan Diego Garcia Work Phone: 6(354)017-373001 [place] [address] 12-11-2023 09:08-0400 Body mass index (BMI) [Ratio] 27.4 kg/m2 Dr. Juan Diego Garcia Work Phone: 8(948)724-455801 [place] [address] 12-11-2023 09:08-0400 Body weight 89.[address] Juan Diego Garcia Work Phone: 8(094)660-364601 [place] [address] 11-28-2023 09:42-0400 Body height 177.[address] Juan Diego Garcia Work Phone: 8(510)755-371401 [place] [address] 11-28-2023 09:42-0400 Body mass index (BMI) [Ratio] 28.9 kg/m2 Dr. Juan Diego Garcia Work Phone: 7(423)725-416501 [place] [address] 11-28-2023 09:42-0400 Body temperature 98 [degF] Dr. Juan Diego Garcia Work Phone: 5(519)956-284101 [place] [address] 11-28-2023 09:42-0400 Body weight 91.[address] Juan Diego Garcia Work Phone: 9(999)319-861801 [place] [address] 11-28-2023 09:42-0400 Diastolic blood pressure 85 mm[Hg] Dr. Juan Diego Garcia Work Phone: [facility] 11-28-2023 09:42-0400 Heart rate 63 /min Dr. Juan Diego Garcia Work Phone: [facility] 11-28-2023 09:42-0400 Respiratory rate 18 /min Dr. Juan Diego Garcia Work Phone: [facility] 11-28-2023 09:42-0400 SaO2% (BldA) [Mass fraction] 97 % Dr. Juan Diego Garcia Work Phone: [facility] 11-28-2023 09:42-0400 Systolic blood pressure 147 mm[Hg] Dr. Juan Diego Garcia Work Phone: [facility] 10-22-2023 14:58-0500 Body height 174.6 cm Juan Diego Garcia MD Work Phone: [facility] 10-22-2023 14:58-0500 Body weight 92.53 kg Juan Diego Garcia MD Work Phone: [facility] 10-22-2023 14:58-0500 Diastolic blood pressure 77 mm[Hg] Juan Diego Garcia MD Work Phone: [facility] 10-22-2023 14:58-0500 Heart rate 59 /min Juan Diego Garcia MD Work Phone: [facility] 10-22-2023 14:58-0500 Systolic blood pressure 148 mm[Hg] Juan Diego Garcia MD Work Phone: [facility] 09-03-2023 13:15-0500 Body height 174.6 cm Juan Diego Garcia MD Work Phone: [facility] 09-03-2023 13:15-0500 Body weight 89.72 kg Juan Diego Garcia MD Work Phone: [facility] 09-03-2023 13:15-0500 Diastolic blood pressure 88 mm[Hg] Juan Diego Garcia MD Work Phone: [facility] 09-03-2023 13:15-0500 Heart rate 66 /min Juan Diego Garcia MD Work Phone: [facility] 09-03-2023 13:15-0500 SaO2% (BldA) [Mass fraction] 96 % Juan Diego Garcia MD Work Phone: [facility] 09-03-2023 13:15-0500 Systolic blood pressure 160 mm[Hg] Juan Diego Garcia MD Work Phone: [facility] 02-19-2023 12:58-0400 Body height 180.[address] Juan Diego Garcia Work Phone: [facility] 02-19-2023 12:54-0400 Body mass index (BMI) [Ratio] 27.8 kg/m2 Dr. Juan Diego Garcia Work Phone: [facility] 02-19-2023 12:54-0400 Body weight 90.[address] Juan Diego Garcia Work Phone: [facility] 02-19-2023 12:54-0400 Diastolic blood pressure 88 mm[Hg] Dr. Juan Diego Garcia Work Phone: [facility] 02-19-2023 12:54-0400 Heart rate 54 /min Dr. Juan Diego Garcia Work Phone: [facility] 02-19-2023 12:54-0400 Respiratory rate 18 /min Dr. Juan Diego Garcia Work Phone: [facility] 02-19-2023 12:54-0400 Systolic blood pressure 134 mm[Hg] Dr. Juan Diego Garcia Work Phone: [facility] 08-08-2022 16:19-0500 Body height 174.6 cm Juan Diego Garcia MD Work Phone: [facility] 08-08-2022 16:19-0500 Body weight 91.35 kg Juan Diego Garcia MD Work Phone: [facility] 08-08-2022 16:19-0500 Diastolic blood pressure 78 mm[Hg] Juan Diego Garcia MD Work Phone: [facility] 08-08-2022 16:19-0500 Heart rate 64 /min Juan Diego Garcia MD Work Phone: [facility] 08-08-2022 16:19-0500 SaO2% (BldA) [Mass fraction] 97 % Juan Diego Garcia MD Work Phone: [facility] 08-08-2022 16:19-0500 Systolic blood pressure 134 mm[Hg] Juan Diego Garcia MD Work Phone: [facility] 06-19-2022 15:07-0400 Body weight 90.45 kg Carly Zurawick 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 Work Phone: [facility] 06-19-2022 15:07-0400 Diastolic blood pressure 64 mm[Hg] Carly Zurawick 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 Work Phone: [facility] 06-19-2022 15:07-0400 Heart rate 68 /min Carly Zurawick 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 Work Phone: [facility] 06-19-2022 15:07-0400 Respiratory rate 16 /min Carly Zurawick 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 Work Phone: [facility] 06-19-2022 15:07-0400 Systolic blood pressure 120 mm[Hg] Carly Zurawick 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 Work Phone: [facility] 06-14-2022 14:55-0400 Diastolic blood pressure 78 mm[Hg] Carly Zurawick 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 Work Phone: [facility] 06-14-2022 14:55-0400 Systolic blood pressure 138 mm[Hg] Carly Zurawick 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 Work Phone: [facility] 06-14-2022 14:52-0400 Body temperature 97.81 [degF] Carly Zurawick 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 Work Phone: [facility] 06-14-2022 14:52-0400 Body weight 90.72 kg Carly Zurawick 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 Work Phone: [facility] 06-14-2022 14:52-0400 Heart rate 72 /min Carly Zurawick 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 Work Phone: [facility] 06-14-2022 14:52-0400 Respiratory rate 16 /min Carly Zurawick 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 Work Phone: [facility] 06-14-2022 14:52-0400 SaO2% (BldA) [Mass fraction] 98 % Carly Zurawick 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 Work Phone: [facility] 03-09-2022 13:00-0400 Body weight 88 kg Juan Diego Garcia MD Work Phone: [facility] 03-09-2022 13:00-0400 Diastolic blood pressure 62 mm[Hg] Juan Diego Garcia MD Work Phone: [facility] 03-09-2022 13:00-0400 Heart rate 56 /min Juan Diego Garcia MD Work Phone: [facility] 03-09-2022 13:00-0400 Systolic blood pressure 102 mm[Hg] Juan Diego Garcia MD Work Phone: [facility] 02-06-2022 14:23-0400 Body weight 91.17 kg Juan Diego Garcia MD Work Phone: [facility] 02-06-2022 14:23-0400 Diastolic blood pressure 72 mm[Hg] Juan Diego Garcia MD Work Phone: [facility] 02-06-2022 14:23-0400 Heart rate 56 /min Juan Diego Garcia MD Work Phone: [facility] 02-06-2022 14:23-0400 Systolic blood pressure 110 mm[Hg] Juan Diego Garcia MD Work Phone: [facility] 01-20-2022 15:21-0400 Body temperature 99 [degF] Juan Diego Magana Jr., MD Work Phone: [facility] 01-20-2022 15:21-0400 Body weight 91.63 kg Juan Diego Magana Jr., MD Work Phone: [facility] 01-20-2022 15:21-0400 Diastolic blood pressure 68 mm[Hg] Juan Diego Magana Jr., MD Work Phone: [facility] 01-20-2022 15:21-0400 Heart rate 67 /min Juan Diego Magana Jr., MD Work Phone: [facility] 01-20-2022 15:21-0400 Respiratory rate 18 /min Juan Diego Magana Jr., MD Work Phone: [facility] 01-20-2022 15:21-0400 SaO2% (BldA) [Mass fraction] 96 % Juan Diego Magana Jr., MD Work Phone: [facility] 01-20-2022 15:21-0400 Systolic blood pressure 110 mm[Hg] Juan Diego Magana Jr., MD Work Phone: [facility] 04-23-2017 17:22-0400 BP Diastolic 85 mm[Hg] [facility] Work Phone: 04-23-2017 17:22-0400 BP Systolic 122 mm[Hg] Paula Fair RN [facility] Work Phone: 04-23-2017 17:22-0400 Pulse (Heart Rate) 65 /min [facility] Work Phone: 01-29-2017 13:06-0400 BMI (Body Mass Index) 28.03 kg/m2 Stormy [facility] Work Phone: 01-29-2017 13:06-0400 Body weight 91.17 kg Magy Hodge [facility] Work Phone: 01-29-2017 13:06-0400 BP Diastolic 68 mm[Hg] Stormy Locke [facility] Work Phone: 01-29-2017 13:06-0400 BP Systolic 116 mm[Hg] Stormy Olcke [facility] Work Phone: 01-29-2017 13:06-0400 Height 180.34 cm Stormy Locke [facility] Work Phone: 01-29-2017 13:06-0400 Pulse (Heart Rate) 58 /min [facility] Work Phone: 01-29-2017 13:06-0400 Respiratory Rate 18 /min Stormy [facility] Work Phone: 01-29-2017 13:06-0400 Weight 91.17 kg Stormy [facility] Work Phone: 02-07-2016 09:01-0400 BMI (Body Mass Index) 28.03 kg/m2 Allison [facility] Work Phone: 02-07-2016 09:01-0400 BP Diastolic 78 mm[Hg] Allison Croft RN [facility] Work Phone: 02-07-2016 09:01-0400 BP Systolic 116 mm[Hg] Allison Croft RN [facility] Work Phone: 02-07-2016 09:01-0400 BSA (Body Surface Area) 2.12 m2 Allison Croft RN [facility] Work Phone: 02-07-2016 09:01-0400 Height 180.34 cm Allison [facility] Work Phone: 02-07-2016 09:01-0400 Pulse (Heart Rate) 66 /min Allison Croft RN [facility] Work Phone: 02-07-2016 09:01-0400 Respiratory Rate 18 /min Allison Croft RN [facility] Work Phone: 02-07-2016 09:01-0400 Weight 91.17 kg Allison [facility] Work Phone: 01-26-2014 10:45-0400 Heart rate 418 ms Allison Croft RN [facility] Work Phone: 01-26-2014 10:45-0400 Heart rate 71 /min Allison [facility] Work Phone: Encounters Encounter Date Encounter Type Care Provider Facility Start: 07-25-2025 End: 07-25-[address] RODRIGUEZ CRANE MD Facility[facility] Start: 07-25-2025 End: 07-25-[address] RODRIGUEZ CRANE MD [facility] Start: 04-16-2025 End: 04-16-2025 Refill Juan Diego Garcia MD Work Phone: [facility] Comment on above: Refill Request Start: 03-03-2025 End: 03-03-2025 [facility] Work Phone: Start: 03-03-2025 End: 03-03-[address] Juan Diego Garcia MD Work Phone: [facility] Work Phone: Start: 02-20-2025 End: 02-20-2025 Patient encounter procedure [facility] Comment on above: Well adult exam (Adelaide shira Dx); Screening for depression; Primary hypertension; Hyperlipidemia, unspecified hyperlipidemia type; Benign non-nodular prostatic hyperplasia with lower urinary tract symptoms; Hypothyroidism, acquired; Elevated PSA; Prediabetes; RBBB; Ptosis of both eyelids; Raynaud's disease without gangrene; Postnasal drip Start: 02-20-2025 End: 02-20-2025 Patient encounter status Juan Diego Garcia MD Work Phone: [facility] Work Phone: Start: 02-20-2025 End: 02-20-2025 ambulatory JUAN DIEGO GARCIA Facility:[facility] Start: 02-20-2025 Encounter for genera l adult medical examination without abnormal findings JUAN DIEGO GARCIA [facility] Start: 02-12-2025 End: 02-12-2025 Refill Juan Diego Garcia MD [facility] Comment on above: Refill Request Start: 01-29-2025 End: 01-29-[address] Juan Diego Garcia MD Work Phone: [facility] Work Phone: Start: 01-29-2025 End: 01-29-[address] Juan Diego Garcia MD -Laboratory Work Phone: Start: 01-29-2025 End: 01-29-2025 ambulatory [facility] Facility:[facility] Start: 11-06-2024 End: 11-06-2024 ambulatory [facility] Facility:[facility] Start: 11-06-2024 End: 11-06-2024 Office outpatient visit 15 minutes Clementina Carroll 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 Work Phone: [facility] Comment on above: Bacterial pneumonia (Primary Dx) Start: 10-21-2024 End: 10-21-2024 Refill Juan Diego Garcia MD Work Phone: [address] [place] [address] Comment on above: Refill Request Start: 10-10-2024 End: 10-10-2024 Patient encounter procedure Juan Diego Garcia MD Work Phone: [facility] Comment on above: Primary hypertension (Primary Dx); Hyperlipidemia, unspecified hyperlipidemia type; Benign non-nodular prostatic hyperplasia with lower urinary tract symptoms; Hypothyroidism, acquired; Hyperglycemia; Elevated PSA; Prediabetes; Tremor Start: 10-10-2024 End: 10-10-2024 ambulatory [facility] Facility:[facility] Start: 10-05-2024 End: 10-05-2024 Patient encounter procedure Eliazar Guzman SYSTEMS CHECKOUT MECHANIC-C -[facility] Work Phone: Start: 10-05-2024 End: 10-05-2024 ambulatory [facility] Facility:[facility] Start: 08-11-2024 End: 08-11-2024 Telephone encounter Juan Diego Garcia MD Work Phone: [facility] Comment on above: Orders Start: 08-04-2024 End: 08-04-[address] RODRIGUEZ CRANE MD Facility:[facility] Start: 08-04-2024 End: 08-04-[address] RODRIGUEZ CRANE MD [facility] Start: 07-23-2024 End: 07-23-2024 ambulatory JUAN DIEGO GARCIA MD Facility:[facility] Start: 07-23-2024 End: 07-23-[address] RODRIGUEZ CRANE MD [facility] Start: 07-15-2024 End: 07-15-[address] RODRIGUEZ CRANE MD [facility] Start: 07-15-2024 End: 07-19-2024 ambulatory JUAN DIEGO GARCIA MD Facility:[facility] Start: 07-15-2024 End: 07-15-2024 ambulatory JUVENTINO MAYS DEWATERER OPERATOR-CARDROOM PLASTIC CARD GRADER Facility:[facility] Start: 07-15-2024 End: 07-15-2024 Patient encounter procedure JUVENTINO MAYS DEWATERER OPERATOR-CARDROOM PLASTIC CARD GRADER [facility] Start: 06-09-2024 End: 06-09-2024 ambulatory JUAN DIEGO GARCIA MD Facility:[facility] Start: 06-09-2024 End: 06-09-[address] RODRIGUEZ CRANE MD [facility] Start: 05-31-2024 End: 05-31-[address] RODRIGUEZ CRANE MD [facility] Start: 05-26-2024 End: 09-29-2024 Telephone encounter Juan Diego Garcia MD Work Phone: [facility] Comment on above: Results Start: 05-24-2024 End: 05-24-2024 ambulatory Juan Diego Garcia Facility:[facility] Start: 05-14-2024 End: 05-14-2024 Refill Juan Diego Gracia MD Work Phone: [facility] Comment on above: Refill Request Orders Start: 03-27-2024 Refnico Garcia MD Work Phone: [facility] Comment on above: Refill Request Start: 03-10-2024 End: 03-10-[address] RODRIGUEZ CRANE MD Facility:[facility] Start: 03-10-2024 End: 03-10-[address] RODRIGUEZ CRANE MD [facility] Start: 03-03-2024 End: 03-03-[address] RODRIGUEZ CRANE MD Facility:[facility] Start: 03-03-2024 End: 03-03-[address] RODRIGUEZ CRANE MD [facility] Start: 02-10-2024 End: 02-10-2024 Patient encounter procedure Ousmane Nicole CARDROOM PLASTIC CARD GRADER Work Phone: [facility] Comment on above: Cellulitis of left l ower leg (Primary Dx) Start: 12-11-2023 Non-patient / Non-visit Dr. Holly Garcia Work Phone: [facility] Start: 12-11-2023 End: 12-11-2023 Admission to same day surgery center Dr. Juan Diego Garcia Work Phone: [facility] Start: 12-11-2023 End: 12-11-[address] Juan Diego Garcia Work Phone: [facility] Work Phone: Start: 11-28-2023 End: 11-28-[address] Juan Diego Garcia Work Phone: [facility] Work Phone: Start: 11-28-2023 End: 11-28-[address] Juan Diego Garcia Work Phone: [facility]Laboratory, Specimen Work Phone: Start: 11-28-2023 End: 11-28-[address] Juan Diego Garcia Work Phone: [facility] Work Phone: Start: 11-26-2023 Telephone encounter Juan Diego Garcia MD Work Phone: [facility] Comment on above: Hernia / patient que stion Start: 10-22-2023 End: 10-22-2023 Patient encounter procedure Juan Diego Garcia MD Work Phone: [facility] Comment on above: Primary hypertension (Primary Dx); Prediabetes; Hyperlipidemia, unspecified hyperlipidemia type; Hypothyroidism, acquired Start: 09-03-2023 End: 09-03-2023 Patient encounter procedure Juan Diego Garcia MD Work [facility]: [facility] Comment on above: Primary hypertension (Primary Dx); Hyperlipidemia, unspecified hyperlipidemia type; Hypothyroidism, acquired; Elevated PSA; Hyperglycemia; Elevated liver enzymes; Bacterial sinusitis Start: 08-18-2023 Telephone encounter Juan Diego Garcia MD Work Phone: [facility] Comment on above: Results Start: 03-14-2023 End: 03-14-[address] Juan Diego Garcia Work Phone: [facility] Work Phone: Start: 03-14-2023 End: 03-14-[address] Juan Diego Garcia Work Phone: [facility]Rad[facility], [facility] Work Phone: Start: 03-05-2023 End: 03-05-[address] RODRIGUEZ CRANE MD [facility] Start: 02-27-2023 Refill Juan Diego Garcia MD Work Phone: [facility] Comment on above: Refill Request Start: 02-19-2023 End: 02-19-[address] Juan Diego Garcia Work Phone: [facility] Work Phone: Start: 02-17-2023 End: 02-17-[address] RODRIGUEZ CRANE MD [facility] Start: 12-09-2022 End: 12-09-[address] RODRIGUEZ CRANE MD [facility] Start: 11-20-2022 Telephone encounter Juan Diego Garcia MD Work Phone: [facility] Comment on above: Dermatolgy Dr Tuan Clay needs records Start: 08-08-2022 End: 08-08-2022 Subsequent hospital visit by physician Xr [facility] Work Phone: Radiology Comment on above: Acute right ankle pa in [M25.571] Start: 08-08-2022 End: 08-08-2022 Patient encounter procedure Juan Diego Garcia MD Work Phone: [facility] Comment on above: Acute right ankle pa in (Primary Dx); Cellulitis of skin; Tremor; Primary hypertension; Hyperlipidemia, unspecified hyperlipidemia type; Benign non-nodular prostatic hyperplasia with lower urinary tract symptoms; Hyperglycemia; Hypothyroidism, acquired; Elevated PSA; Screening for colon cancer; Screening for HIV (human immunodeficiency virus) Start: 06-26-2022 End: 06-26-2022 ambulatory [facility] Work Phone: Start: 06-26-2022 End: 06-26-2022 Patient encounter procedure [facility] Start: 06-23-2022 Telephone encounter Carly nagy APRN.CARDROOM PLASTIC CARD GRADER Work Phone: [facility] Comment on above: stat US apt (Was to be scheduled thru [facility]) Start: 06-19-2022 End: 06-19-2022 Patient encounter procedure Carly Hernandez APRN.CARDROOM PLASTIC CARD GRADER Work Phone: [facility] Comment on above: Edema of right lower leg (Primary Dx); Encounter for immunization Start: 06-14-2022 End: 06-14-2022 Patient encounter procedure Carly Hernandez APRN.CARDROOM PLASTIC CARD GRADER Work Phone: [facility] Comment on above: Cellulitis of right lower extremity (Primary Dx); Redness and swelling of lower leg Start: 04-25-2022 Telephone encounter Juan Diego Garcia MD Work Phone: [facility] Comment on above: Release Of Medical R ecords Start: 03-31-2022 Refill Juan Diego Garcia MD Work Phone: [facility] Comment on above: Refill Request Start: 03-13-2022 Telephone encounter Juan Diego Garcia MD Work Phone: [facility] Comment on above: Results Start: 03-09-2022 End: 03-09-2022 Patient encounter procedure Juan Diego Garcia MD Work Phone: [facility] Comment on above: Skin lesion (Primary Dx) Start: 02-06-2022 End: 02-06-2022 Patient encounter procedure Juan Diego Garcia MD Work Phone: [facility] Comment on above: Hypothyroidism, acqu ired (Primary Dx); Need for vaccination; Hyperglycemia; Elevated PSA; Primary hypertension; Hyperlipidemia, unspecified hyperlipidemia type; Screening for colon cancer; Skin lesion; Tremor Start: 01-20-2022 End: 01-20-2022 Patient encounter procedure Juan Diego Magana MD Work Phone: Neurology Comment on above: Essential tremor (Pr imary Dx); Daytime sleepiness; Paresthesia of skin Start: 12-23-2021 End: 12-23-[address] RODRIGUEZ CRANE MD [facility] Start: 12-10-2021 End: 12-10-[address] RODRIGUEZ CRANE MD [facility] Start: 07-23-2021 End: 07-23-[address] RODRIGUEZ CRANE MD [facility] Procedures Date Procedure Procedure Detail Performing Clinician Start: 02-20-2025 Adult depression scr eening assessment Juan Diego Garcia MD Work Phone: Start: 01-29-2025 Lipid 1995 panel - S kaylee or Plasma Juan Diego Garcia MD Work Phone: Start: 05-24-2024 Blood count hemoglobin Juan Diego Garcia MD Work Phone: Start: 05-24-2024 Lipid panel Juan Diego Garcia MD Work Phone: Start: 05-24-2024 Lipid 1996 panel - S kaylee or Plasma [facility] Work Phone: Start: 03-04-[address] MARCELINA CRANE MD Comment on above: Result Comment: Alo orona ECLIA methodology. According to the [employer], Serum PSA should decrease and remain at undetectable levels after radical prostatectomy. The AUA defines biochemical recurrence as an initial PSA value 0.2 ng/mL or greater followed by a subsequent confirmatory PSA value 0.2 ng/mL or greater. Values obtained with different assay methods or kits cannot be used interchangeably. Results cannot be interpreted as absolute evidence of the presence or absence of malignant disease. Performed By: #### [id number] #### Reynold [address] [address] Start: 12-11-2023 Lap Robotic Inguinal Hernia (Right) Dr. Juan Diego Garcia Work Phone: Start: 11-28-2023 Nasal Screen MRSA/MSSA Dr. Juan Diego Garcia Work Phone: Start: 11-16-[address] MARCELINA CRANE MD Start: 08-28-2023 Lipid 1995 panel - S kaylee or Plasma Juan Diego Garcia MD Work Phone: Start: 03-14-[address] Juan Diego Gacria Work Phone: Start: 02-24-2023 Lipid 1996 panel - S kaylee or Plasma Juan Diego Garcia MD Work Phone: Start: 08-08-2022 Radex ankle complete minimum 3 views Juan Diego Garcia MD Work Phone: Start: 06-19-2022 INFLUENZA VACCINE QUADRIVALENT 6 MO - 64 YRS IM Carly Hernandez 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 Work Phone: Start: 03-08-2022 Adult depression scr eening assessment Juan Diego Garcia MD Work Phone: Start: 01-29-2017 End: 01-29-2017 Dietary management education, guidance, and counseling Stormy Locke Start: 01-29-2017 End: 01-29-2017 Documentation of current medications Magy Naveen Start: 01-29-2017 End: 01-29-2017 JONY Queen MD Work Phone: Start: 01-29-2017 End: 01-29-2017 Follow Up Appt 6 months Mariano Queen MD Work Phone: Start: 01-29-2017 End: 03-28-2017 Stress Echocardiogram (treadmill) Mariano Queen MD Work Phone: Start: 08-11-2016 Adult depression scr eening assessment Juan Diego Magana Jr., MD Work Phone: Start: 08-10-2016 End: 01-26-2017 *Hepatic Function Panel Mariano Queen MD Work Phone: Start: 08-10-2016 End: 01-26-2017 Lipid panel [AGGREGATE] Mariano Queen MD Work Phone: Start: 02-07-2016 End: 02-07-2016 Dietary management education, guidance, and counseling Allison Croft RN Start: 02-07-2016 End: 02-07-2016 JONY Queen MD Work Phone: Start: 02-07-2016 End: 02-07-2016 Follow Up Appt 1 year Joyce Maya Work Phone: Start: 08-17-2015 End: 02-08-2016 *Hepatic Function Panel Mariano Queen MD Work Phone: Start: 08-17-2015 End: 02-08-2016 Lipid panel [AGGREGATE] Mariano Queen MD Work Phone: Start: 02-25-2015 Prostate biopsy pascale holguin (specimen) DR RODRIGUEZ CRANE MD Start: 02-01-2015 End: 01-20-2016 JONY Queen MD Work Phone: Start: 02-01-2015 End: 01-20-2016 Follow Up Appt 1 year Joyce Maya Work Phone: Start: 01-26-2014 End: 01-26-2014 JONY Queen MD Work Phone: Start: 01-26-2014 End: 01-26-2014 Follow Up Appt 1 year Joyce Maya Work Phone: Start: 09-17-2013 Carpal tunnel syndro me (disorder) DR RODRIGUEZ CRANE MD Start: 09-17-2013 Repair of umbilical hernia DR RODRIGUEZ CRANE MD Start: 08-21-2011 Colonoscopy Juan Diego thompson Jr., MD Work Phone: Carpal tunnel syndro me (disorder) DR RODRIGUEZ CRANE MD Extraction of wisdom tooth D R RODRIGUEZ CRANE MD History of repair of inguinal hernia S/P right inguinal hernia repair Dr. Juan Diego Garcia MD Work Phone: Oral surgery (qualif ier value) DR RODRIGUEZ CRANE MD Umbilical hernia (disorder) DR RODRIGUEZ CRANE MD Plan of Treatment Date Care Activity Detail Author Start: 2035 RSV Vaccine (1 - 1-d ose 75+ series) RSV Vaccine (1 - 1-dose 75+ series) [facility] Start: 02-07-2032 Urine microalbumin profile [facility] Start: 01-29-2030 Lipid panel Lipid Screening [facility] Start: 06-01-2029 Prostate specific antigen measurement Prostate Cancer Screening Discussion [facility] Start: 05-24-2029 Lipid panel Lipid Screening [facility] Start: 08-28-2028 Lipid panel Lipid Screening [facility] Start: 02-25-2028 Lipid 1996 panel - S kaylee or Plasma Lipid Screening [facility] Start: 02-25-2028 LIPID SCREEN LIPID SCREEN [facility] Start: 02-18-2028 PROSTATE CANCER SCREENING DISCUSSION PROSTATE CANCER SCREENING DISCUSSION [facility] Start: 02-18-2028 Prostate specific antigen measurement Prostate Cancer Screening Discussion [facility] Start: 07-29-2027 LIPID SCREEN LIPID SCREEN [facility] Start: 12-10-2026 PROSTATE CANCER SCREENING DISCUSSION PROSTATE CANCER SCREENING DISCUSSION [facility] Start: 09-29-2026 Diabetes Screening Diabetes Screenin g [facility] Start: 09-03-2026 LIPID SCREEN LIPID SCREEN [facility] Start: 08-28-2026 Diabetes Screening Diabetes Screenin g [facility] Start: 02-24-2026 DIABETES SCREEN DIABETES SCREEN [facility] Start: 02-24-2026 Diabetes Screening Diabetes Screenin g [facility] Start: 02-20-2026 Annual PCP Team Ultrason[employer] Solderer morgan Disease Visit Annual PCP Team Chronic Disease Visit [facility] Start: 02-20-2026 Anxiety Screening Anxiety Screening [facility] Start: 02-20-2026 Depression Screening Depression Scre ing [facility] Start: 11-06-2025 Annual PCP Team [employer] Solderer morgan Disease Visit Annual PCP Team Chronic Disease Visit [facility] Start: 11-06-2025 BP Controlled (<130/80) BP Controlle d (<130/80) [facility] Start: 10-10-2025 Annual PCP Team Ultrason[employer] Solderer morgan Disease Visit Annual PCP Team Chronic Disease Visit [facility] Start: 10-10-2025 Anxiety Screening Anxiety Screening [facility] Comment on above: Postponed from 08/30 (Declined at this time) Start: 10-10-2025 BP Controlled (<130/80) BP Controlle d (<130/80) [facility] Start: 10-10-2025 Covid-19 Vaccine () Covid-19 Vaccine () [facility] Comment on above: Postponed from 05/18 (Declined at this time) Start: 10-10-2025 Pneumococcal Vaccine : 50+ (2 of 2 - PCV) Pneumococcal Vaccine: 50+ (2 of 2 - PCV) [facility] Comment on above: Postponed from 08/11 (Declined at this time) Start: 08-25-2025 End: 08-25-2025 Patient encounter procedure 08/25/2025 2:40 PM EST Office Visit Family Ludy Crandall [address] [place] [place], [place] [id number] Juan Diego Garcia MD [address] [address] 6 month follow up [facility] Ludy Crandall Comment on above: 6 month follow up Start: 08-23-2025 COLOGUARD (FIT-DNA) COLOGUARD (FIT-D NA) [facility] Start: 08-23-2025 Colorectal Cancer Screening Colorectal Cancer Screening [facility] Start: 08-23-2025 Screening for malign ant neoplasm of colon [facility] Start: 08-22-2025 End: 11-21-2025 Hemoglobin A1c in Blood HEMOGLOBIN A1C Lab Routine Prediabetes Expected: 08/22/2025, Expires: 11/21/2025 [facility] Work Phone: Comment on above: Expected: 08/22/2025 , Expires: 11/21/2025 Start: 07-29-2025 DIABETES SCREEN DIABETES SCREEN [facility] Start: 05-18-2025 Influenza vaccination [facility] Start: 03-16-2025 Influenza vaccination Influenza Vacc ine (#1) [facility] Comment on above: Postponed from 05/18 (Declined at this time) Start: 02-20-2025 End: 02-20-2025 Patient encounter procedure 02/20/2025 3:00 PM EDT Office Visit Family Ludy Crandall [address] [place] [address] Juan Diego Garcia MD [address] [facility] [place] [place] [address] Wellness check [facility] Ludy Crandall Comment on above: Wellness check Start: 02-09-2025 BP Controlled (<130/80) BP Controlle d (<130/80) [facility] Start: 01-28-2025 DIABETES SCREEN DIABETES SCREEN [facility] Start: 01-15-2025 End: 04-16-2025 CBC W Auto Differential panel - Blood COMPLETE BLOOD COUNT AND DIFFERENTIAL Lab Routine Primary hypertension Expected: 01/15/2025, Expires: 04/16/2025 [facility] Work Phone: Comment on above: Expected: 01/15/2025 , Expires: 04/16/2025 Start: 01-15-2025 End: 04-16-2025 Comprehensive metabolic 2000 panel - Serum or Plasma COMPREHENSIVE METABOLIC PANEL Lab Routine Primary hypertension Expected: 01/15/2025, Expires: 04/16/2025 [facility] Comment on above: Expected: 01/15/2025 , Expires: 04/16/2025 Start: 01-15-2025 End: 04-16-2025 Hemoglobin A1c in Blood HEMOGLOBIN A1C Lab Routine Hyperglycemia Prediabetes Expected: 01/15/2025, Expires: 04/16/2025 [facility] Comment on above: Expected: 01/15/2025 , Expires: 04/16/2025 Start: 01-15-2025 End: 04-16-2025 Lipid 1996 panel - Serum or Plasma LIPID PANEL BASIC Lab Routine Primary hypertension Expected: 01/15/2025, Expires: 04/16/2025 [facility] Comment on above: Expected: 01/15/2025 , Expires: 04/16/2025 Start: 10-22-2024 Annual PCP Team [employer] morgan Disease Visit Annual PCP Team Chronic Disease Visit [facility] Start: 10-10-2024 End: 10-10-2024 Patient encounter procedure 10/10/2024 4:00 PM EST Office Visit Family Ludy Crandall [address] [place] [address] Juan Diego Garcia MD [address] [place] [address] 6m f/u Family [facility] Comment on above: 6m f/u Start: 10-10-2024 [facility] above: Postponed from 08/30 (Declined at this time) Start: 10-10-2024 End: 01-15-2025 Thyrotropin [Units/volume] in Serum or Plasma THYROID STIMULATING HORMONE Lab Routine Hypothyroidism, acquired Expected: 10/10/2024, Expires: 01/15/2025 [facility] Comment on above: Expected: 10/10/2024 , Expires: 01/15/2025 Start: 09-03-2024 Annual PCP Team [employer] morgan Disease Visit Annual PCP Team Chronic Disease Visit [facility] Start: 09-03-2024 DIABETES SCREEN DIABETES SCREEN [facility] Start: 05-18-2024 Covid-19 Vaccine () Covid-19 Vaccine () [facility] Start: 05-18-2024 Influenza vaccination Influenza Vacc ine (#1) [facility] Start: 05-14-2024 End: 08-13-2024 CBC W Auto Differential panel - Blood COMPLETE BLOOD COUNT AND DIFFERENTIAL Lab Routine Hyperlipidemia, unspecified hyperlipidemia type Hyperglycemia Expected: 05/14/2024, Expires: 08/13/2024 [facility] Work Phone: Comment on above: Expected: 05/14/2024 , Expires: 08/13/2024 Start: 05-14-2024 End: 08-13-2024 Comprehensive metabolic 2000 panel - Serum or Plasma COMPREHENSIVE METABOLIC PANEL Lab Routine Hyperlipidemia, unspecified hyperlipidemia type Expected: 05/14/2024, Expires: 08/13/2024 [facility] Comment on above: Expected: 05/14/2024 , Expires: 08/13/2024 Start: 05-14-2024 End: 08-13-2024 Hemoglobin A1c in Blood HEMOGLOBIN A1C Lab Routine Hyperglycemia Expected: 05/14/2024, Expires: 08/13/2024 [facility] Comment on above: Expected: 05/14/2024 , Expires: 08/13/2024 Start: 05-14-2024 End: 08-13-2024 Lipid 1996 panel - Serum or Plasma LIPID PANEL BASIC Lab Routine Hyperlipidemia, unspecified hyperlipidemia type Expected: 05/14/2024, Expires: 08/13/2024 [facility] Comment on above: Expected: 05/14/2024 , Expires: 08/13/2024 Start: 03-12-2024 Annual PCP Team [employer] Sol[employer] morgan Disease Visit Annual PCP Team Chronic Disease Visit [facility] Start: 12-11-2023 Patient discharge [facility] Start: 09-17-2023 Behavioral Health Screening Behavioral Health Screening [facility] Start: 09-17-2023 Depression Assessment Depression Ass essment [facility] Start: 09-03-2023 End: 12-03-2023 Hemoglobin A1c in Blood HGB A1C Lab Routine Hyperglycemia Expected: 09/03/2023, Expires: 12/03/2023 [facility] Work Phone: Comment on above: Expected: 09/03/2023 , Expires: 12/03/2023 Start: 09-03-2023 End: 09-03-2024 HEP ACUTE PANEL/RNA HEP ACUTE PANEL/RNA Lab Routine Elevated liver enzymes Expected: 09/03/2023, Expires: 09/03/2024 [facility] Work Phone: Comment on above: Expected: 09/03/2023 , Expires: 09/03/2024 Start: 09-03-2023 End: 09-03-2024 Hepatic function 2000 panel - Serum or Plasma HEPATIC FUNCTION PNL Lab Routine Elevated liver enzymes Expected: 09/03/2023, Expires: 09/03/2024 [facility] Work Phone: Comment on above: Expected: 09/03/2023 , Expires: 09/03/2024 Start: 08-18-2023 End: 11-17-2023 Comprehensive metabolic 2000 panel - Serum or Plasma COMP METABOLIC PANEL Lab Routine Hyperlipidemia, unspecified hyperlipidemia type Expected: 08/18/2023, Expires: 11/17/2023 [facility] Work Phone: Comment on above: Expected: 08/18/2023 , Expires: 11/17/2023 Start: 08-18-2023 End: 11-17-2023 Lipid 1996 panel - Serum or Plasma LIPID PANEL BASIC Lab Routine Hyperlipidemia, unspecified hyperlipidemia type Expected: 08/18/2023, Expires: 11/17/2023 [facility] Work Phone: Comment on above: Expected: 08/18/2023 , Expires: 11/17/2023 Start: 08-08-2023 ANNUAL PCP TEAM PUBLIC RELATIONS ANALYST MORGAN DISEASE VISIT ANNUAL PCP TEAM CHRONIC DISEASE VISIT [facility] Start: 06-19-2023 ANNUAL PCP TEAM PUBLIC RELATIONS ANALYST MORGAN DISEASE VISIT ANNUAL PCP TEAM CHRONIC DISEASE VISIT [facility] Start: 06-19-2023 BP CONTROLLED (<130/80) BP CONTROLLE D (<130/80) [facility] Start: 06-14-2023 ANNUAL PCP TEAM PUBLIC RELATIONS ANALYST MORGAN DISEASE VISIT ANNUAL PCP TEAM CHRONIC DISEASE VISIT [facility] Start: 05-18-2023 Covid-19 Vaccine ( season) Covid-19 Vaccine () [facility] Start: 05-18-2023 Influenza vaccination Influenza Vacc ine (#1) [facility] Start: 03-09-2023 ANNUAL PCP TEAM PUBLIC RELATIONS ANALYST MORGAN DISEASE VISIT ANNUAL PCP TEAM CHRONIC DISEASE VISIT [facility] Start: 03-09-2023 BP CONTROLLED (<130/80) BP CONTROLLE D (<130/80) [facility] Start: 03-08-2023 Adult depression screening assessment DEPRESSION SCREENING [facility] Start: 02-06-2023 ANNUAL PCP TEAM PUBLIC RELATIONS ANALYST MORGAN DISEASE VISIT ANNUAL PCP TEAM CHRONIC DISEASE VISIT [facility] Start: 02-06-2023 BP CONTROLLED (<130/80) BP CONTROLLE D (<130/80) [facility] Start: 01-20-2023 BP CONTROLLED (<130/80) BP CONTROLLE D (<130/80) [facility] Start: 09-17-2022 DEPRESSION ASSESSMENT DEPRESSION ASS ESSMENT [facility] Start: 09-13-2022 ANNUAL PCP TEAM PUBLIC RELATIONS ANALYST MORGAN DISEASE VISIT ANNUAL PCP TEAM CHRONIC DISEASE VISIT [facility] Start: 08-24-2022 COLORECTAL CANCER SCREENING COLORECTAL CANCER SCREENING [facility] Start: 08-09-2022 End: 10-09-2022 CBC W Auto Differential panel - Blood CBC + DIFF Lab Routine Primary hypertension Expected: 08/09/2022, Expires: 10/09/2022 [facility] Work Phone: Comment on above: Expected: 08/09/2022 , Expires: 10/09/2022 Start: 08-09-2022 End: 10-09-2022 Comprehensive metabolic 2000 panel - Serum or Plasma COMP METABOLIC PANEL Lab Routine Primary hypertension Expected: 08/09/2022, Expires: 10/09/2022 [facility] Work Phone: Comment on above: Expected: 08/09/2022 , Expires: 10/09/2022 Start: 08-09-2022 End: 10-09-2022 Hemoglobin A1c/Hemoglobin.total in Blood HGB A1C Lab Routine Hyperglycemia Expected: 08/09/2022, Expires: 10/09/2022 [facility] Work Phone: Comment on above: Expected: 08/09/2022 , Expires: 10/09/2022 Start: 08-09-2022 End: 10-09-2022 LIPID PANEL BASIC LIPID PANEL BASIC Lab Routine Hyperlipidemia, unspecified hyperlipidemia type Expected: 08/09/2022, Expires: 10/09/2022 [facility] Work Phone: Comment on above: Expected: 08/09/2022 , Expires: 10/09/2022 Start: 08-08-2022 End: 10-08-2022 CBC W Auto Differential panel - Blood CBC + DIFF Lab Routine Acute right ankle pain Expected: 08/08/2022, Expires: 10/08/2022 [facility] Work Phone: Comment on above: Expected: 08/08/2022 , Expires: 10/08/2022 Start: 08-08-2022 End: 10-08-2022 Erythrocyte sedimentation rate SED RATE WESTERGREN Lab Routine Acute right ankle pain Expected: 08/08/2022, Expires: 10/08/2022 [facility] Work Phone: Comment on above: Expected: 08/08/2022 , Expires: 10/08/2022 Start: 08-08-2022 End: 10-08-2022 HIV 1+2 Ab [Presence] in Serum or Plasma by Immunoassay HIV 1 2 COMBO(AG/AB),WITH REFLEX TO DIFFERENTIATION Lab Routine Screening for HIV (human immunodeficiency virus) Expected: 08/08/2022, Expires: 10/08/2022 [facility] Work Phone: Comment on above: Expected: 08/08/2022 , Expires: 10/08/2022 Start: 08-08-2022 End: 10-08-2022 Urate [Mass/volume] in Serum or Plasma URIC ACID BLOOD Lab Routine Acute right ankle pain Expected: 08/08/2022, Expires: 10/08/2022 [facility] [employer] Work Phone: Comment on above: Expected: 08/08/2022 , Expires: 10/08/2022 Start: 05-18-2022 Influenza vaccination INFLUENZA (#1) [facility] Start: 02-02-2022 COVID-19 VACCINE (4 - Booster for Pfizer series) COVID-19 VACCINE (4 - Booster for Pfizer series) [facility] Start: 11-30-2021 COVID-19 VACCINE (4 - Booster for Pfizer series) COVID-19 VACCINE (4 - Booster for Pfizer series) [facility] Start: 08-21-2021 Colonoscopy COLONOSCOPY [facility] Start: 08-21-2021 COLORECTAL CANCER SCREENING COLORECTAL CANCER SCREENING [facility] Start: 05-24-2021 Urine microalbumin profile DTAP,TDAP,TD (2 - Td or Tdap) [facility] Start: 2020 RSV Vaccine (1 - 1-d ose 60+ series) RSV Vaccine (1 - 1-dose 60+ series) [facility] Start: 01-28-2018 End: 01-28-2018 Appointment Appointment [employer] Work Phone: Start: 08-11-2017 Adult depression screening assessment DEPRESSION SCREENING [facility] Start: 08-11-2017 Pneumococcal Vaccine : 50+ (2 of 2 - PCV) Pneumococcal Vaccine: 50+ (2 of 2 - PCV) [facility] Start: 01-29-2017 End: 01-29-2017 Appointment Appointment [employer] Work Phone: Start: 01-29-2017 End: 01-29-2017 JONY BORGES [employer] Work Phone: Start: 01-29-2017 End: 01-29-2017 Follow Up Appt 6 months Follow Up Appt 6 months [employer] Phone: Start: 01-29-2017 End: 01-31-2017 Stress Echocardiogram (treadmill) Stress Echocardiogram (treadmill) [employer] Phone: Start: 08-10-2016 End: 01-26-2017 *Hepatic Function Panel *Hepatic Function Panel [employer] Phone: Start: 08-10-2016 End: 01-26-2017 Lipid panel [AGGREGATE] *Lipid Profile CC PCP [facility] Work Phone: Start: 02-07-2016 End: 02-07-2016 DJN DJN [facility] Work Phone: Start: 02-07-2016 End: 02-07-2016 Follow Up Appt 1 year Follow Up Appt 1 year [facility] Work Phone: Start: 08-17-2015 End: 02-08-2016 *Hepatic Function Panel *Hepatic Function Panel [facility] Work Phone: Start: 08-17-2015 End: 02-08-2016 Lipid panel [AGGREGATE] *Lipid Profile CC PCP [facility] Work Phone: Start: 02-01-2015 End: 01-20-2016 DJN DJN [facility] Work Phone: Start: 02-01-2015 End: 01-20-2016 Follow Up Appt 1 year Follow Up Appt 1 year [facility] Work Phone: Start: 01-26-2014 End: 01-26-2014 DJN DJN [facility] Work Phone: Start: 01-26-2014 End: 01-26-2014 Follow Up Appt 1 year Follow Up Appt 1 year [facility] Work Phone: Start: 08-21-2012 Colonoscopy Colonoscopy [facility] Start: 08-21-2012 Screening for malign ant neoplasm of colon Colonoscopy [facility] Start: 2010 SHINGRIX VACCINE (1 of 2) SHINGRIX VACCINE (1 of 2) [facility] Start: 2005 COLOGUARD (FIT-DNA) COLOGUARD (FIT-D NA) [facility] Start: [address] COLONOGRAPHY [facility] Start: 2005 FECAL OCCULT BLOOD FECAL OCCULT BLOO D [facility] Start: 2005 Screening for malign ant neoplasm of colon [facility] Start: 2005 SIGMOIDOSCOPY SIGMOIDOSCOPY [facility] Start: 1978 Anxiety Screening Anxiety Screening [facility] Start: 1978 BP CONTROLLED (<130/80) BP CONTROLLE D (<130/80) [facility] Start: 1978 Depression Screening Depression Scre ening [facility] Start: 1978 HIV SCREENING HIV SCREENING [facility] COLOGUARD COLOGUARD Lab Ro utine Screening for colon cancer Ordered: 08/08/2022 [facility] Work Phone: Comment on above: Ordered: 08/08/2022 End: 07-14-2023 Dup-scan xtr veins unilateral/limited study US DVT LOWER RT Radiology Routine Cellulitis of right lower extremity Redness and swelling of lower leg 1 Occurrences starting 06/14/2022 until 07/14/2023 [facility] Work Phone: Comment on above: 1 Occurrences starti ng 06/14/2022 until 07/14/2023 End: 07-19-2023 Dup-scan xtr veins unilateral/limited study US DVT LOWER RT Radiology STAT Edema of right lower leg 1 Occurrences starting 06/19/2022 until 07/19/2023 [facility] Work Phone: Comment on above: 1 Occurrences starti ng 06/19/2022 until 07/19/2023 Patient Education HOW%20TO%20TAK E%20A%20PUL SE, HYPERLIPIDEMIA, HYPERTENSION [facility] Work Phone: Patient referral [facility] Work Phone: SURGICAL PATHOLOGY SURGICAL PATH OLOGY Lab Routine Skin lesion 03/09/2022 1:43 PM EDT [facility] Work Phone: End: 09-07-2023 XR ANKLE GENERAL 3V AP/LAT/OBL RIGHT XR ANKLE GENERAL 3V AP/LAT/OBL RIGHT Radiology Routine Acute right ankle pain 1 Occurrences starting 08/08/2022 until 09/07/2023 [facility] Work Phone: Comment on above: 1 Occurrences starti ng 08/08/2022 until 09/07/2023 XR ANKLE GENERAL 3V AP/LAT/OBL RIGHT XR ANKLE GENERAL 3V AP/LAT/OBL RIGHT Radiology Routine Acute right ankle pain 08/08/2022 7:14 PM EST [facility] Work Phone: [facility] Immunizations Immunization Date Immunization Notes Care Provider Eusebio bajwa 07-13-2023 influenza, injectabl e, quadrivalent, preservative free Juan Diego Garcia MD Work Phone: [facility] 07-13-2023 influenza virus vacc ine, unspecified formulation Juan Diego Garcia MD Work Phone: [facility] 01-11-2023 zoster vaccine recombinant Juan Diego Garcia MD Work Phone: [facility] 08-08-2022 zoster vaccine recombinant Juan Diego Garcia MD Work Phone: [facility] 06-19-2022 influenza, injectabl e, quadrivalent, contains preservative 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 Work Phone: [facility] 06-19-2022 influenza virus vacc ine, unspecified formulation Juan Diego Garcia MD Work Phone: [facility] 02-06-2022 tetanus toxoid, redu seun diphtheria toxoid, and acellular pertussis vaccine, adsorbed Juan Diego Garcia MD Work Phone: [facility] 10-05-2021 SARS-CoV-2 mRNA ([id number] ) vaccine DR RODRIGUEZ CRANE MD [facility] 05-30-2021 influenza virus vacc ine, unspecified formulation DR RODRIGUEZ CRANE MD [facility] 05-30-2021 influenza, injectabl e, quadrivalent, preservative free Juan Diego Magana Jr., MD Work Phone: [facility] 01-06-2021 COVID-19 vaccine, ag e 12+ yr (Xero-Fish Nature - [facility]) Juan Diego Magana Jr., MD Work Phone: [facility] 12-18-2020 SARS-CoV-2 mRNA (tozinameran) vaccine DR RODRIGUEZ CRANE MD [facility] 12-16-2020 COVID-19 vaccine, ag e 12+ yr (Xero-Fish Nature - PURPLE TOP) Juan Diego Magaan Jr., MD Work Phone: [facility] 06-18-2020 influenza virus vacc ine, unspecified formulation DR RODRIGUEZ CRAEN MD [facility] 06-18-2020 influenza, injectabl e, quadrivalent, preservative free Juan Diego Magana Jr., MD Work Phone: [facility] 06-18-2020 influenza, seasonal, injectable Juan Diego Magana Jr., MD Work Phone: [facility] 06-21-2019 influenza virus vacc ine, unspecified formulation Juan Diego Magana Jr., MD Work Phone: [facility] 06-21-2019 influenza, injectabl e, quadrivalent, preservative free Juan Diego Magana Jr., MD Work Phone: [facility] 06-21-2019 influenza, seasonal, injectable Juan Diego Magana Jr., MD Work Phone: [facility] 07-09-2018 influenza, injectabl e, quadrivalent, preservative free Juan Diego Magana Jr., MD Work Phone: [facility] 06-22-2017 influenza virus vacc ine, unspecified formulation DR RODRIGUEZ CRANE MD [facility] 06-22-2017 influenza, seasonal, injectable Juan Diego Magana Jr., MD Work Phone: [facility] 08-11-2016 pneumococcal polysaccharide vaccine, 23 valent Juan Diego Magana Jr., MD Work Phone: [facility] 07-01-2016 influenza, seasonal, injectable Juan Diego Magana Jr., MD Work Phone: [facility] 05-31-2014 influenza virus vacc ine, unspecified formulation DR RODRIGUEZ CRANE MD [facility] 05-31-2014 influenza, seasonal, injectable Juan Diego Magana Jr., MD Work Phone: [facility] 07-13-2013 influenza virus vacc ine, unspecified formulation Juan Diego Magana Jr., MD Work Phone: [facility] 05-24-2011 tetanus toxoid, redu seun diphtheria toxoid, and acellular pertussis vaccine, adsorbed Juan Diego Magana Jr., MD Work Phone: [facility] Payers Date Payer Category Payer Private Health Insurance [id number] 2024 Self-pay [id number] [address] [facility] [id number] 2021 Unknown [facility] [id number] 2021-Present [phone] [address] [place] [address] [facility] [id number] 2021 Unknown [id number] 2021 Unknown [id number] 2012 Unknown [facility] [id number] 1960 Unknown [id number] [id number] 1960 Unknown [id number]. [id number] 1960 Unknown [id number]. [id number] 1960 Unknown [id number] [id number]. [id number] 1960 Unknown [id number]. [id number] 1960 Unknown [id number]. [id number] 1960 Unknown [id number]. [id number] 1960 Unknown [id number] [id number]. [id number] 1960 Unknown [id number] [id number] Unknown [facility] [employer] [id number] Unknown [id number] Unknown [id number] Unknown [id number] Unknown [id number] Unknown [id number] Social History Date Type Detail Facility Start: 07-09-2020 End: 07-15-2024 Ex-smoker (finding) [facility] Start: 1960 Sex Assigned At Male [facility] Start: 09-17-1975 End: 09-17-1985 History of tobacco use Current smoker [facility] Work Phone: Start: 09-17-1975 End: 09-17-1985 History of tobacco use Cigarette Smoker [facility] Work Phone: End: 09-17-1985 History of tobacco use Cigar Smoker [facility] Work Phone: Start: 01-20-2022 End: 02-20-2025 Alcohol intake Current drinker of alcohol (finding) [facility] Start: 05-24-2011 End: 06-14-2022 Tobacco Comment quit 1988 [facility] Start: 01-10-2022 End: 08-08-2022 Exposure to SARS-CoV-2 (event) Not sure [facility] Start: 03-08-2022 End: 08-08-2022 History SDOH Alcohol Frequency 2 [facility] Start: 03-08-2022 End: 08-08-2022 History SDOH Alcohol Std Drinks 1 [facility] Start: 03-08-2022 End: 08-08-2022 History SDOH Social Connections Phone 5 [facility] Start: 03-08-2022 End: 08-08-2022 History SDOH Social Connections Get Together 4 [facility] Start: 03-08-2022 End: 08-08-2022 History SDOH Social Connections Jehovah'S Witness 3 [facility] Start: 03-08-2022 End: 08-08-2022 History SDOH Social Connections Living 7 [facility] Start: 12-04-2012 End: 03-12-2023 Cigarettes smoked current (pack per day) - Reported 0.5 [facility] Start: 12-04-2012 End: 10-10-2024 Tobacco use and exposure Smokeless tobacco non-user [facility] Start: 12-19-2021 End: 12-10-2023 Tobacco smoking status NHIS Unknown if ever smoked [facility] Start: 11-22-2022 History SDOH Physical Activity MPS 6 [facility] Start: 08-08-2022 End: 03-12-2023 Social connection and isolation panel [facility] Do you belong to any clubs or organizations such as mormonism groups, unions, fraternal or athletic groups, or school groups? Yes [facility] Are you now , , , , never or living with a partner? Never [facility] How often to you hav e a drink containing alcohol? 2-4 times a month [facility] How many standard dr inks containing alcohol do you have on a typical day? 1 or 2 [facility] How often do you hav e 6 or more drinks on 1 occasion? Never [facility] How hard is it for y ou to pay for the very basics like food, housing, medical care, and heating Not very hard [facility] Adult Depression Screening Assessment 1 [facility] Work Phone: Do you feel stress - tense, restless, nervous, or anxious, or unable to sleep at night because your mind is troubled all the time - these days [OSQ] To some extent [facility] (I/We) worried susy er (my/our) food would run out before (I/we) got money to buy more. Never true [facility] In the past 12 month s, was there a time when you were not able to pay the mortgage or rent on time? No [facility] Start: 08-23-2021 Gender identity Identifies as male gender (finding) [facility] Start: 08-23-2021 Sexual orientation Heterosexual (finding) [facility] How hard is it for y ou to pay for the very basics like food, housing, medical care, and heating Somewhat hard [facility] Sexual Orientation Reynold H vaibhav [facility] Start: 05-11-2020 Sex Male (finding) [facility] Medical Equipment Procedure Code Equipment Code Equipment Origin al Text Equipment Identifier Dates Extra-gynaecolog ical surgical mesh, synthetic polymer, non-bioabsorbable [id number] FDA Start: 12-11-2023 Goals Date Patient Goal Desired Activity /State Functional Status Date Assessment Result Facility 07-23-2024 Functional Status Activity Daryn tance Independent [facility] 07-23-2024 Functional Status [facility] 07-23-2024 Functional Status Maintained [facility] 07-15-2024 Functional Status Sensory Deficits None A [facility] 03-01-2015 Are you deaf, or do you have serious difficulty hearing No 03/01/2015 10:34 AM EDT Ruddy Fuentes LPN No [facility] 03-01-2015 Are you blind, or do you have serious difficulty seeing, even when wearing glasses No 03/01/2015 10:34 AM EDT Ruddy Fuentes LPN No [facility] 03-01-2015 Do you have serious difficulty walking or climbing stairs No 03/01/2015 10:34 AM EDT Ruddy Fuentes LPN No [facility] 03-01-2015 Do you have difficul ty dressing or bathing No 03/01/2015 10:34 AM Ruddy Combs LPN No [facility] 03-01-2015 Because of a physica l, mental, or emotional condition, do you have difficulty doing errands alone such as visiting a physician's office or shopping No 03/01/2015 10:34 AM EDRuddy Mendoza LPN No [facility] Mental Status Date Assessment Result Facility 07-23-2024 Mental Status Orientation Oriented x 4 [facility] 07-23-2024 Mental Status [facility] 12-11-2023 Cognitive function Voice/Name [facility] Work Phone: 03-01-2015 Because of a physica l, mental, or emotional condition, do you have serious difficulty concentrating, remembering, or making decisions No 03/01/2015 10:34 AM EDT Ruddy Fuentes LPN No [facility] Clinical Notes 02-05-2014 to 04-16-2025 Telephone Encounter - Izabela Ch LPN - 04/16/2025 4:34 PM EDTTelephone Encounter - Izabela Ch LPN - 04/16/2025 4:34 PM Juan Diego Galloway MD - 02/20/2025 4:44 PM EDT Note Date & Type Note Facility 04-16-2025 Telephone encounter Note The patient has been identified by name and date of : Yes Caregiver verified no other encounters exist for this prescription request: Yes Caregiver confirmed with patient/requestor that no other refills are due, in the near future, with this provider at this time: Yes The last office visit in the department: 02/20/2025 Does the patient have a future office visit with this provider/department: Yes 08/25/2025 Requested Prescriptions Pending Prescriptions Disp Refills levothyroxine (SYNTHROID) 88 mcg tablet 30 tablet 11 Sig: Take 1 tablet by mouth once daily. Take on empty stomach. For Thyroid, except 1/2 pill on Sat atorvastatin (LIPITOR) 20 mg tablet 30 tablet 11 Sig: Take 1 tablet by mouth daily at bedtime. For cholesterol. Izabela Ch LPN April 16, 2025 4:35 PM [facility] 04-16-2025 Miscellaneous Notes The patient has been identified by name and date of : Yes Caregiver verified no other encounters exist for this prescription request: Yes Caregiver confirmed with patient/requestor that no other refills are due, in the near future, with this provider at this time: Yes The last office visit in the department: 02/20/2025 Does the patient have a future office visit with this provider/department: Yes 08/25/2025 Requested Prescriptions Pending Prescriptions Disp Refills levothyroxine (SYNTHROID) 88 mcg tablet 30 tablet 11 Sig: Take 1 tablet by mouth once daily. Take on empty stomach. For Thyroid, except 1/2 pill on Sat atorvastatin (LIPITOR) 20 mg tablet 30 tablet 11 Sig: Take 1 tablet by mouth daily at bedtime. For cholesterol. Izabela Ch LPN April 16, 2025 4:35 PM documented in this encounter [facility] 02-20-2025 Note HNO ID: [id number] Author: JUAN DIEGO GARCIA MD Service: ? Author Type: Physician Type: Progress Notes Filed: 02/20/2025 16:46 Note Text: Mariano Brown is a 64-year-old male with a history of hyperlipidemia, hypothyroidism, and BPH, presenting for an annual wellness visit, with additional concerns about eyelid ptosis, Raynaud's phenomenon, and a skin lesion on the left buttock. HPI Annual Wellness Exam: - Recent lab work reviewed. - Glucose: 104 mg/dL. - BUN: 15 mg/dL. - Creatinine: 0.99 mg/dL. - GFR: 85 mL/min/1.73 m?. - Cholesterol: 239 mg/dL. - Triglycerides: 139 mg/dL. - Sodium: 140 mmol/L. - Potassium: 4.2 mmol/L. - HDL: 48 mg/dL. - LDL: 164 mg/dL. - TSH: 1.660 microIU/mL. - Hemoglobin A1c: 6.0%. - CBC: Normal. - Denies changes in energy, hair, or skin. - Weight stable; no significant changes. - No chest pain or dyspnea. - Denies headaches or changes in eyes, ears, or throat. - No cough currently. - Denies heartburn or changes in bowel movements. - No ulcers or lesions on fingers. - No pain associated with Raynaud's phenomenon. - No issues with cardiology appointments; has an upcoming appointment. - Denies any issues with breathing or swallowing. - No issues with lung function reported by other doctors. - No significant changes in health status since last visit. Hyperlipidemia: - Stopped taking atorvastatin in September due to influenza A and sleep issues. - Noticed elevated cholesterol levels in recent lab work. - Resumed atorvastatin a couple of weeks ago. Hypothyroidism: - Taking thyroid medication in the morning. - Waits an hour before taking Flonase for nasal congestion. - No changes in energy, hair, or skin. BPH: - Taking an herbal supplement with turmeric for inflammation. - Reports improvement in urine flow. - Taking aloe vera juice and castor oil tablets. - No issues with liver function reported in recent lab work. Eyelid Ptosis: - Eyelids drooping, causing eyelashes to curl down and hit the eyeball. - Denies dry eyes. Raynaud's Phenomenon: - Reports episodes of fingers turning pale and cold, worse in cold or air-conditioned environments. - No ulcers or lesions on fingers. - No pain associated with Raynaud's phenomenon. - Shows me a photo that is classic for Raynaud's Skin Lesion on Left Buttock: - Noticed a lesion on the left buttock earlier this week. - Describes it as a "sore" that is not hot or very painful. - Has been cleaning it with alcohol. MEDICATIONS: Current Outpatient Medications Medication Sig ALOE VERA ORAL Take by mouth. Juice CASTOR OIL ORAL Take by mouth. Tablets fluticasone (FLONASE) 50 mcg/actuation nasal spray Use 2 sprays in each nostril once daily. losartan (COZAAR) 100 mg tablet Take 1 tablet by mouth once daily. levothyroxine (SYNTHROID) 88 mcg tablet Take 1 tablet by mouth once daily. Take on empty stomach. For Thyroid, except 1/2 pill on Sat calcium carbonate-mag oxide 250-155 mg Tab Take 1 tablet by mouth once daily. multivitamin,eu-balo-khppupac (THERAGRAN M) tab Take 1 tablet by mouth once daily. atorvastatin (LIPITOR) 20 mg tablet Take 1 tablet by mouth daily at bedtime. For cholesterol. (Patient not taking: Reported on 02/20/2025) loratadine 10 mg cap Take 10 mg by mouth once daily. Cyanocobalamin 2,500 mcg subl Dissolve under the tongue. cholecalciferol (VITAMIN D3) 1,000 unit tab tablet Take 2,000 Units by mouth once daily. Ginseng 250 mg cap Take 1 tablet by mouth once daily. Coenzyme Q10 200 mg cap Take by mouth. LACTOBAC CMB #3/FOS/PANTETHINE (PROBIOTIC AND ACIDOPHILUS ORAL) Take by mouth once daily. [place]-3 Fatty Acids (FISH OIL) 500 mg Cap Take 2 capsules by mouth once daily. Ascorbic Acid 1,000 mg tablet Take 1 tablet by mouth once daily. No current facility-administered medications for this visit. ALLERGIES: ALLERGIES Allergen Reactions Sulfa (Sulfonamide * Anaphylaxis PAST MEDICAL HISTORY Diagnosis Date Elevated blood pressure 2011 Hemorrhage of gastrointestinal tract, unspecified Hyperglycemia Hyperlipidemia Internal hemorrhoids without mention of complication Low back pain [address] Queen Temporomandibular joint disorders, unspecified Unspecified asthma(493.90) PAST SURGICAL HISTORY Procedure Laterality Date COLONOSCOPY FLX DX W/COLLJ SPEC WHEN PFRMD 08/21/2011 ESOPHAGOGASTRODUODENOSCOPY TRANSORAL DIAGNOSTIC 07/03/2013 EGD INGUINAL HERNIA REPAIR HX Right 2023 INT REPAIR FACE,EAR,EYE <2.5CM 03/09/2014 PAST SURGICAL HISTORY OF 01/24/2013 left carpal tunnel release PROSTATE BIOPSY negative. REM LESION FACE,EAR,EYE 0.6-1CM 03/09/2014 RPR UMBILICAL HRNA 5 YRS/> REDUCIBLE 03/09/2014 UNLISTED PROCEDURE DENTOALVEOLAR STRUCTURES jaw realignment FAMILY HISTORY Problem Relation Age of Onset other (htn, athritis) Mother Heart Father other (dm,) Father Social History Tobacco Use Smoking statu (more content not included)... [facility] 02-20-2024 History of Presen t illness Narrative Mariano Brown is a 64-year-old male with a history of hyperlipidemia, hypothyroidism, and BPH, presenting for an annual wellness visit, with additional concerns about eyelid ptosis, Raynaud's phenomenon, and a skin lesion on the left buttock. HPI Annual Wellness Exam: - Recent lab work reviewed. - Glucose: 104 mg/dL. - BUN: 15 mg/dL. - Creatinine: 0.99 mg/dL. - GFR: 85 mL/min/1.73 m . - Cholesterol: 239 mg/dL. - Triglycerides: 139 mg/dL. - Sodium: 140 mmol/L. - Potassium: 4.2 mmol/L. - HDL: 48 mg/dL. - LDL: 164 mg/dL. - TSH: 1.660 microIU/mL. - Hemoglobin A1c: 6.0%. - CBC: Normal. - Denies changes in energy, hair, or skin. - Weight stable; no significant changes. - No chest pain or dyspnea. - Denies headaches or changes in eyes, ears, or throat. - No cough currently. - Denies heartburn or changes in bowel movements. - No ulcers or lesions on fingers. - No pain associated with Raynaud's phenomenon. - No issues with cardiology appointments; has an upcoming appointment. - Denies any issues with breathing or swallowing. - No issues with lung function reported by other doctors. - No significant changes in health status since last visit. Hyperlipidemia: - Stopped taking atorvastatin in September due to influenza A and sleep issues. - Noticed elevated cholesterol levels in recent lab work. - Resumed atorvastatin a couple of weeks ago. Hypothyroidism: - Taking thyroid medication in the morning. - Waits an hour before taking Flonase for nasal congestion. - No changes in energy, hair, or skin. BPH: - Taking an herbal supplement with turmeric for inflammation. - Reports improvement in urine flow. - Taking aloe vera juice and castor oil tablets. - No issues with liver function reported in recent lab work. Eyelid Ptosis: - Eyelids drooping, causing eyelashes to curl down and hit the eyeball. - Denies dry eyes. Raynaud's Phenomenon: - Reports episodes of fingers turning pale and cold, worse in cold or air-conditioned environments. - No ulcers or lesions on fingers. - No pain associated with Raynaud's phenomenon. - Shows me a photo that is classic for Raynaud's Skin Lesion on Left Buttock: - Noticed a lesion on the left buttock earlier this week. - Describes it as a "sore" that is not hot or very painful. - Has been cleaning it with alcohol. MEDICATIONS: Current Outpatient Medications Medication Sig ALOE VERA ORAL Take by mouth. Juice CASTOR OIL ORAL Take by mouth. Tablets fluticasone (FLONASE) 50 mcg/actuation nasal spray Use 2 sprays in each nostril once daily. losartan (COZAAR) 100 mg tablet Take 1 tablet by mouth once daily. levothyroxine (SYNTHROID) 88 mcg tablet Take 1 tablet by mouth once daily. Take on empty stomach. For Thyroid, except 1/2 pill on Sat calcium carbonate-mag oxide 250-155 mg Tab Take 1 tablet by mouth once daily. multivitamin,gy-utpy-ksfszodi (THERAGRAN M) tab Take 1 tablet by mouth once daily. atorvastatin (LIPITOR) 20 mg tablet Take 1 tablet by mouth daily at bedtime. For cholesterol. (Patient not taking: Reported on 02/20/2025) loratadine 10 mg cap Take 10 mg by mouth once daily. Cyanocobalamin 2,500 mcg subl Dissolve under the tongue. cholecalciferol (VITAMIN D3) 1,000 unit tab tablet Take 2,000 Units by mouth once daily. Ginseng 250 mg cap Take 1 tablet by mouth once daily. Coenzyme Q10 200 mg cap Take by mouth. LACTOBAC CMB #3/FOS/PANTETHINE (PROBIOTIC & ACIDOPHILUS ORAL) Take by mouth once daily. [place]-3 Fatty Acids (FISH OIL) 500 mg Cap Take 2 capsules by mouth once daily. Ascorbic Acid 1,000 mg tablet Take 1 tablet by mouth once daily. No current facility-administered medications for this visit. ALLERGIES: ALLERGIES Allergen Reactions Sulfa (Sulfonamide * Anaphylaxis PAST MEDICAL HISTORY Diagnosis Date Elevated blood pressure 2011 Hemorrhage of gastrointestinal tract, unspecified Hyperglycemia Hyperlipidemia Internal hemorrhoids without mention of complication Low back pain [address] Queen Temporomandibular joint disorders, unspecified Unspecified asthma(493.90) PAST SURGICAL HISTORY Procedure Laterality Date COLONOSCOPY FLX DX W/COLLJ SPEC WHEN PFRMD 08/21/2011 ESOPHAGOGASTRODUODENOSCOPY TRANSORAL DIAGNOSTIC 07/03/2013 EGD INGUINAL HERNIA REPAIR HX Right 2023 INT REPAIR FACE,EAR,EYE <2.5CM 03/09/2014 PAST SURGICAL HISTORY OF 01/24/2013 left carpal tunnel release PROSTATE BIOPSY negative. REM LESION FACE,EAR,EYE 0.6-1CM 03/09/2014 RPR UMBILICAL HRNA 5 YRS/> REDUCIBLE 03/09/2014 UNLISTED PROCEDURE DENTOALVEOLAR STRUCTURES jaw realignment FAMILY HISTORY Problem Relation Age of Onset other (htn, athritis) Mother Heart Father other (dm,) Father Social History Tobacco Use Smoking status: Former Current packs/day: 0.00 Average packs/day: 0.5 packs/day for 10.0 years (5.0 ttl pk-yrs) Types: Cigarettes, Cigars Start date: 09/17/1975 Quit date: 09/17/1985 Years since quittin.4 Smokeless tobacco: Never Tobacco comments: quit 1987 Substance Use Topics Alcohol use: Yes Comment: occasionally Drug use: No Types: Marijuana Comment: Past history Reviewed current medications, allergies, past medical history, surgical history, family history and social history today. REVIEW OF SYSTEMS Constitutional: (-) fatigue Eyes: (+) eyelid drooping, (+) foreign body sensation Ears/Nose/Mouth/Throat: (+) clear nasal drainage, (+) postnasal drip, (+) right ear bleeding Neck: (-) neck pain Cardiovascular: (-) chest pain Respiratory: (-) shortness of breath, (-) cough Gastrointestinal: (+) dysphagia, (+) choking during swallowing, (-) heartburn, (-) bowel habit changes Skin: (+) left buttock abrasion, (-) digital ulcers Neurological: (-) headache Endocrine: (-) hair changes HEALTH MAINTENANCE: Reviewed health maintenance issues today and recommended the following in detail. BP Controlled (<130/80) Never done LAB REVIEWED: Labs: (01/29/25) - Glucose: 104 mg/dL - BUN: 15 mg/dL - Creatinine: 0.99 mg/dL - GFR: 85 - Cholesterol: 239 mg/dL (elevated) - Triglycerides: 139 mg/dL - HDL: 48 mg/dL - LDL: 164 mg/dL (elevated) - TSH: 1.66 - A1c: 6.0% (slightly elevated) - RBC: Flagged as low, clinically insignificant - Hemoglobin: Normal - MCV: Normal - MCH: Normal (No date) - LDL: 106 mg/dL (previous reading) - A1c: 5.9% (previous reading) Imaging: (No date) - Barium Swallow: Normal Tests: (No date) - Prostate Biopsy: Negative for malignancy; inflammation noted VITALS: BP 138/72 Pulse 71 Wt 91.6 kg (202 lb) SpO2 96% BMI 30.05 kg/m Last 4 Encounter Wt Readings: Date: Wt: 02/20/2025 91.6 kg (202 lb) 11/06/2024 88.9 kg (196 lb) 10/10/2024 91.2 kg (201 lb) 02/10/2024 91.4 kg (201 lb 8 oz) PHYSICAL EXAMINATION: GENERAL: NAD, alert and oriented. SKIN: Unremarkable, no rash or skin lesions. Healing abrasion on the left buttock. HEAD: Normocephalic. EYES: PERRLA, EOMI, conjunctiva clear. EARS: External ears normal, canals clear, TM's normal. Small scab noted on the left ear canal. NOSE/SINUSES: Nares normal. Septum midline. OROPHARYNX: Lips, mucosa, and tongue normal, good dentition. No oral lesions noted. NECK: Supple, no lymphadenopathy, normal thyroid, no carotid bruits. LUNGS: Clear to auscultation bilaterally, no wheezes/rhonchi/rales. HEART: Regular rate and rhythm, no murmurs. No ectopy. EXTREMITIES: Normal, No deformities, No skin discoloration, No edema. Normal capillary refill, pulses intact. ABDOMEN: Soft, non-tender, no masses. Diastasis recti noted. Normal bowel sounds. NEURO: Awake, alert and oriented x3, cranial nerves II-XII grossly intact, normal gait, no involuntary motions. ASSESSMENT AND PLAN 1. Well adult exam (Z00.00) - Conducted comprehensive physical examination; no significant abnormalities noted. - Reviewed recent lab results from 01/29/25: Glucose 104 mg/dL, BUN 15 mg/dL, Creatinine 0.99 mg/dL, GFR 85 mL/min/1.73m , Sodium 140 mmol/L, Potassium 4.2 mmol/L, TSH 1.660 microIU/mL, CBC within normal limits. - Discussed dietary habits and lifestyle modifications. - Scheduled follow-up in 6 months. 2. Screening for depression (Z13.31) - No signs of depression observed or reported during the visit. 3. Primary hypertension (I10) - Blood pressure readings stable. - Continue current antihypertensive medication regimen. 4. Hyperlipidemia, unspecified hyperlipidemia type (E78.5) - Recent labs show total cholesterol 239 mg/dL, LDL 164 mg/dL, HDL 48 mg/dL, triglycerides 139 mg/dL. - Patient had discontinued atorvastatin but has since resumed therapy. - Reinforced the importance of medication adherence. 5. Benign non-nodular prostatic hyperplasia with lower urinary tract symptoms (N40.1) - Patient reports improvement in urinary flow with the use of turmeric supplements. - Continue current management; follow-up with urology in the fall. 6. Hypothyroidism, acquired (E03.9) - TSH levels within normal range. - No changes in energy levels, hair, or skin reported. - Continue current thyroid medication regimen. 7. Elevated PSA (R97.20) - Recent biopsy by Dr. Ledezma showed no malignancy. - Patient taking turmeric supplements for inflammation. - Continue monitoring; follow-up with urology in the fall. 8. Prediabetes (R73.03) - Recent A1c 6.0%, previous A1c 5.9%. - Discussed dietary modifications and regular exercise. - Recheck A1c in 6 months. 9. RBBB (I45.10) - No new symptoms reported. - Continue annual follow-ups with cardiology at [facility]. 10. 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 - Advised consultation with an half section ironer for further evaluation and potential surgical intervention. 11. Raynaud's disease without gangrene (I73.00) - Patient reports episodes of digital pallor and coldness, exacerbated by cold temperatures. - Advised keeping hands warm and using gloves in cold environments. - Monitor symptoms; consider further evaluation if condition worsens. - Offered rheum studies and vascular studies. 12. Postnasal drip (R09.82) - Symptoms managed with Flonase; patient reports improvement. - Continue current treatment. - Monitor for any worsening symptoms; consider ENT referral if necessary. (See patient after visit summary for additional instructions to patient) Juan Diego Garcia MD Recording using [employer] software for draft documentation of the visit was discussed with the patient/authorized career services representative; all questions welcomed and answered. Patient/authorized career services representative agreed to proceed documented in this encounter [facility] 02-12-2025 Telephone encounter Note Pt has not had Flonase refilled since [id number]. He states he has been taking Nanette for years for clear mucus in the morning and it had stopped working. Pt states he had the old Flonase in his medicine cabinet and he started using that and it has been helping. He reports the Flonase in 2021. Please let Pt know if you will refill the Flonase, otherwise he has an appointment coming up on 02/20/25. The patient has been identified by name and date of : Yes Caregiver verified no other encounters exist for this prescription request: Yes Caregiver confirmed with patient/requestor that no other refills are due, in the near future, with this provider at this time: Yes The last office visit in the department: 11/06/2024 Does the patient have a future office visit with this provider/department: Yes 02/20/2025 Requested Prescriptions Pending Prescriptions Disp Refills fluticasone (FLONASE) 50 mcg/actuation nasal spray Sig: Use 2 sprays in each nostril once daily. Shanika Rosenberg RN February 12, 2025 9:03 AM [facility] 02-12-2025 Miscellaneous Notes Pt has not had Flonase refilled since . He states he has been taking Nanette for years for clear mucus in the morning and it had stopped working. Pt states he had the old Flonase in his medicine cabinet and he started using that and it has been helping. He reports the Flonase in 2021. Please let Pt know if you will refill the Flonase, otherwise he has an appointment coming up on 02/20/25. The patient has been identified by name and date of : Yes Caregiver verified no other encounters exist for this prescription request: Yes Caregiver confirmed with patient/requestor that no other refills are due, in the near future, with this provider at this time: Yes The last office visit in the department: 11/06/2024 Does the patient have a future office visit with this provider/department: Yes 02/20/2025 Requested Prescriptions Pending Prescriptions Disp Refills fluticasone (FLONASE) 50 mcg/actuation nasal spray Sig: Use 2 sprays in each nostril once daily. Shanika Rosenberg RN February 12, 2025 9:03 AM documented in this encounter [facility] 11-06-2024 Instructions Clementina Carroll APRN.CNP - 11/06/2024 12:06 PM EST 1) doxycycline 100 mg 2 x day for 10 days 2) Follow up if not resolved for 10 days documented in this encounter [facility] 11-06-2024 Note HNO ID: [id number] Author: CLEMENTINA CARROLL APRN.CNP Service: ? Author Type: Nurse Practitioner Type: Progress Notes Filed: 11/06/2024 12:06 Note Text: This is a 64 year old male who presents today with: Patient presents with: Cough: Continued cough, worse at night HISTORY OF PRESENT ILLNESS: Mariano Brown is a 64 year old male. Patient presents with: Cough: Continued cough, worse at night Dx. With influenza A 10/05. Then last week started with head congestion. Some chest congestion- coughing. Mostly upper part of throat with mucus. Hasn't had chills No body aches. Sleeping better Some nausea- has to watch what he eats. No headaches. PAST MEDICAL HISTORY: PAST MEDICAL HISTORY Diagnosis Date Elevated blood pressure 2011 Hemorrhage of gastrointestinal tract, unspecified Hyperglycemia Hyperlipidemia Internal hemorrhoids without mention of complication Low back pain [address] Queen Temporomandibular joint disorders, unspecified Unspecified asthma(493.90) PAST SURGICAL HISTORY Procedure Laterality Date COLONOSCOPY FLX DX W/COLLJ SPEC WHEN PFRMD 08/21/2011 ESOPHAGOGASTRODUODENOSCOPY TRANSORAL DIAGNOSTIC 07/03/2013 EGD INGUINAL HERNIA REPAIR HX Right 2023 INT REPAIR FACE,EAR,EYE <2.5CM 03/09/2014 PAST SURGICAL HISTORY OF 01/24/2013 left carpal tunnel release PROSTATE BIOPSY negative. REM LESION FACE,EAR,EYE 0.6-1CM 03/09/2014 RPR UMBILICAL HRNA 5 YRS/> REDUCIBLE 03/09/2014 UNLISTED PROCEDURE DENTOALVEOLAR STRUCTURES jaw realignment ALLERGIES Sulfa (Sulfonamide Antibiotics) MEDICATIONS Current Outpatient Medications Medication Sig losartan (COZAAR) 100 mg tablet Take 1 tablet by mouth once daily. atorvastatin (LIPITOR) 20 mg tablet Take 1 tablet by mouth daily at bedtime. For cholesterol. levothyroxine (SYNTHROID) 88 mcg tablet Take 1 tablet by mouth once daily. Take on empty stomach. For Thyroid, except 1/2 pill on Sat omeprazole (PRILOSEC) 20 mg capsule Take 1 capsule by mouth daily before breakfast. 1/2 hr before meal. (Patient not taking: Reported on 10/10/2024) loratadine 10 mg cap Take 10 mg by mouth once daily. clindamycin (CLEOCIN) 150 mg capsule Take 1 capsule by mouth four times daily. Cyanocobalamin 2,500 mcg subl Dissolve under the tongue. cholecalciferol (VITAMIN D3) 1,000 unit tab tablet Take 2,000 Units by mouth once daily. Ginseng 250 mg cap Take 1 tablet by mouth once daily. Coenzyme Q10 200 mg cap Take by mouth. LACTOBAC CMB #3/FOS/PANTETHINE (PROBIOTIC AND ACIDOPHILUS ORAL) Take by mouth once daily. calcium carbonate-mag oxide 250-155 mg Tab Take 1 tablet by mouth once daily. [place]-3 Fatty Acids (FISH OIL) 500 mg Cap Take 2 capsules by mouth once daily. multivitamin,lp-nwdb-sdxvnekx (THERAGRAN M) tab Take 1 tablet by mouth once daily. Ascorbic Acid 1,000 mg tablet Take 1 tablet by mouth once daily. No current facility-administered medications for this visit. FAMILY HISTORY Problem Relation Age of Onset other (htn, athritis) Mother Heart Father other (dm,) Father Social History Tobacco Use Smoking status: Former Current packs/day: 0.00 Average packs/day: 0.5 packs/day for 10.0 years (5.0 ttl pk-yrs) Types: Cigarettes, Cigars Start date: 09/17/1975 Quit date: 09/17/1985 Years since quittin.1 Smokeless tobacco: Never Tobacco comments: quit 1987 Substance Use Topics Alcohol use: Yes Comment: occasionally Drug use: No Types: Marijuana Comment: Past history EXAM: BP 128/74 Pulse 70 Temp 36.4 ?C (97.6 ?F) (Left Tympanic) Wt 88.9 kg (196 lb) SpO2 100% BMI 29.16 kg/m? PHYSICAL EXAM: Physical Exam Vitals reviewed. Constitutional: Appearance: Normal appearance. HENT: Head: Normocephalic. Right Ear: Tympanic membrane, ear canal and external ear normal. There is no impacted cerumen. Left Ear: Tympanic membrane, ear canal and external ear normal. There is no impacted cerumen. Nose: Congestion present. No rhinorrhea. Mouth/Throat: Pharynx: Oropharyngeal exudate present. No posterior oropharyngeal erythema. Cardiovascular: Rate and Rhythm: Normal rate and regular rhythm. Pulses: Normal pulses. Heart sounds: Normal heart sounds. Pulmonary: Effort: Pulmonary effort is normal. Breath sounds: Rhonchi present. Comments: RAMILA rhonchi that partially clears with cough Musculoskeletal: General: Normal range of motion. Right lower leg: No edema. Left lower leg: No edema. Skin: General: Skin is warm and dry. Neurological: Mental Status: He is alert and oriented to person, place, and time. LABS: reviewed last labs ASSESSMENT/PLAN: 1. Bacterial pneumonia - ICD9: 482.9, ICD10: J15.9 - Treat with doxycyline 100 mg 2 x day for 10 days - Occurred as a residual to influenza Discussed treatment plan and patient voices understanding. Patient's questions answered appropriately. Medications and potential side effects were discus (more content not included)... [facility] 11-06-2024 History of Presen t illness Narrative This is a 64 year old male who presents today with: Patient presents with: Cough: Continued cough, worse at night HISTORY OF PRESENT ILLNESS: Mariano Brown is a 64 year old male. Patient presents with: Cough: Continued cough, worse at night Dx. With influenza A 10/05. Then last week started with head congestion. Some chest congestion- coughing. Mostly upper part of throat with mucus. Hasn't had chills No body aches. Sleeping better Some nausea- has to watch what he eats. No headaches. PAST MEDICAL HISTORY: PAST MEDICAL HISTORY Diagnosis Date Elevated blood pressure 2011 Hemorrhage of gastrointestinal tract, unspecified Hyperglycemia Hyperlipidemia Internal hemorrhoids without mention of complication Low back pain [address] Queen Temporomandibular joint disorders, unspecified Unspecified asthma(493.90) PAST SURGICAL HISTORY Procedure Laterality Date COLONOSCOPY FLX DX W/COLLJ SPEC WHEN PFRMD 08/21/2011 ESOPHAGOGASTRODUODENOSCOPY TRANSORAL DIAGNOSTIC 07/03/2013 EGD INGUINAL HERNIA REPAIR HX Right 2023 INT REPAIR FACE,EAR,EYE <2.5CM 03/09/2014 PAST SURGICAL HISTORY OF 01/24/2013 left carpal tunnel release PROSTATE BIOPSY negative. REM LESION FACE,EAR,EYE 0.6-1CM 03/09/2014 RPR UMBILICAL HRNA 5 YRS/> REDUCIBLE 03/09/2014 UNLISTED PROCEDURE DENTOALVEOLAR STRUCTURES jaw realignment ALLERGIES Sulfa (Sulfonamide Antibiotics) MEDICATIONS Current Outpatient Medications Medication Sig losartan (COZAAR) 100 mg tablet Take 1 tablet by mouth once daily. atorvastatin (LIPITOR) 20 mg tablet Take 1 tablet by mouth daily at bedtime. For cholesterol. levothyroxine (SYNTHROID) 88 mcg tablet Take 1 tablet by mouth once daily. Take on empty stomach. For Thyroid, except 1/2 pill on Sat omeprazole (PRILOSEC) 20 mg capsule Take 1 capsule by mouth daily before breakfast. 1/2 hr before meal. (Patient not taking: Reported on 10/10/2024) loratadine 10 mg cap Take 10 mg by mouth once daily. clindamycin (CLEOCIN) 150 mg capsule Take 1 capsule by mouth four times daily. Cyanocobalamin 2,500 mcg subl Dissolve under the tongue. cholecalciferol (VITAMIN D3) 1,000 unit tab tablet Take 2,000 Units by mouth once daily. Ginseng 250 mg cap Take 1 tablet by mouth once daily. Coenzyme Q10 200 mg cap Take by mouth. LACTOBAC CMB #3/FOS/PANTETHINE (PROBIOTIC & ACIDOPHILUS ORAL) Take by mouth once daily. calcium carbonate-mag oxide 250-155 mg Tab Take 1 tablet by mouth once daily. [place]-3 Fatty Acids (FISH OIL) 500 mg Cap Take 2 capsules by mouth once daily. multivitamin,lk-odar-mdnbeaxa (THERAGRAN M) tab Take 1 tablet by mouth once daily. Ascorbic Acid 1,000 mg tablet Take 1 tablet by mouth once daily. No current facility-administered medications for this visit. FAMILY HISTORY Problem Relation Age of Onset other (htn, athritis) Mother Heart Father other (dm,) Father Social History Tobacco Use Smoking status: Former Current packs/day: 0.00 Average packs/day: 0.5 packs/day for 10.0 years (5.0 ttl pk-yrs) Types: Cigarettes, Cigars Start date: 09/17/1975 Quit date: 09/17/1985 Years since quittin.1 Smokeless tobacco: Never Tobacco comments: quit 1987 Substance Use Topics Alcohol use: Yes Comment: occasionally Drug use: No Types: Marijuana Comment: Past history EXAM: BP 128/74 Pulse 70 Temp 36.4 C (97.6 F) (Left Tympanic) Wt 88.9 kg (196 lb) SpO2 100% BMI 29.16 kg/m PHYSICAL EXAM: Physical Exam Vitals reviewed. Constitutional: Appearance: Normal appearance. HENT: Head: Normocephalic. Right Ear: Tympanic membrane, ear canal and external ear normal. There is no impacted cerumen. Left Ear: Tympanic membrane, ear canal and external ear normal. There is no impacted cerumen. Nose: Congestion present. No rhinorrhea. Mouth/Throat: Pharynx: Oropharyngeal exudate present. No posterior oropharyngeal erythema. Cardiovascular: Rate and Rhythm: Normal rate and regular rhythm. Pulses: Normal pulses. Heart sounds: Normal heart sounds. Pulmonary: Effort: Pulmonary effort is normal. Breath sounds: Rhonchi present. Comments: RAMILA rhonchi that partially clears with cough Musculoskeletal: General: Normal range of motion. Right lower leg: No edema. Left lower leg: No edema. Skin: General: Skin is warm and dry. Neurological: Mental Status: He is alert and oriented to person, place, and time. LABS: reviewed last labs ASSESSMENT/PLAN: 1. Bacterial pneumonia - ICD9: 482.9, ICD10: J15.9 - Treat with doxycyline 100 mg 2 x day for 10 days - Occurred as a residual to influenza Discussed treatment plan and patient voices understanding. Patient's questions answered appropriately. Medications and potential side effects were discussed and patient voices understanding. Return to the office as scheduled or as needed for worsening/no improvement. Clementina Carroll APRN.CNP documented in this encounter [facility] 10-21-2024 Telephone encounter Note The following approved medication requests have been transmitted electronically. Requested Prescriptions Pending Prescriptions Disp Refills losartan (COZAAR) 100 mg tablet 90 tablet 3 Sig: Take 1 tablet by mouth once daily. Clementina Carroll APRN.CNP [facility] 10-21-2024 Miscellaneous Notes The following approved medication requests have been transmitted electronically. Requested Prescriptions Pending Prescriptions Disp Refills losartan (COZAAR) 100 mg tablet 90 tablet 3 Sig: Take 1 tablet by mouth once daily. Clementina Carroll APRN.CNP Prescription Refill Information The patient has been identified by name and date of : Yes Caregiver verified no other encounters exist for this prescription request: Yes Caregiver confirmed with patient/requestor that no other refills are due, in the near future, with this provider at this time: Yes The last office visit in the department: 10/10/24 Does the patient have a future office visit with this provider/department: No Requested Prescriptions Pending Prescriptions Disp Refills losartan (COZAAR) 100 mg tablet 90 tablet 3 Sig: Take 1 tablet by mouth once daily. Vivian Gutiérrez October 21, 2024 9:54 AM documented in this encounter [facility] 10-21-2024 Telephone encounter Note Prescription Refill Information The patient has been identified by name and date of : Yes Caregiver verified no other encounters exist for this prescription request: Yes Caregiver confirmed with patient/requestor that no other refills are due, in the near future, with this provider at this time: Yes The last office visit in the department: 10/10/24 Does the patient have a future office visit with this provider/department: No Requested Prescriptions Pending Prescriptions Disp Refills losartan (COZAAR) 100 mg tablet 90 tablet 3 Sig: Take 1 tablet by mouth once daily. Vivian Gutiérrez October 21, 2024 9:54 AM [facility] 10-10-2024 Note HNO ID: [id number] Author: JUAN DIGEO GARCIA MD Service: ? Author Type: Physician Type: Progress Notes Filed: 10/10/2024 16:44 Note Text: Patient presents with: Follow Up HPI: Patient presents today for office visit for routine follow up. Tested positive for Influenza A on 10/05/24. Feeling much better. Completed Tamiflu. Worried about possible pneumonia. Has occasional cough. Overall feeling well. No fever or chills. 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 Mentions he still chokes very easily on food or while drinking anything. Had swallowing study. Has a sensitive gag reflex Had prostate biopsy which was ok. Had hernia repair. Mother is on hospice due to her dementia. Feeling stressed. Red flags for re-assessment reviewed with patient in detail. MEDICATIONS: Current Outpatient Medications Medication Sig atorvastatin (LIPITOR) 20 mg tablet Take 1 tablet by mouth daily at bedtime. For cholesterol. levothyroxine (SYNTHROID) 88 mcg tablet Take 1 tablet by mouth once daily. Take on empty stomach. For Thyroid, except 1/2 pill on Sat losartan (COZAAR) 100 mg tablet Take 1 tablet by mouth once daily. loratadine 10 mg cap Take 10 mg by mouth once daily. Cyanocobalamin 2,500 mcg subl Dissolve under the tongue. cholecalciferol (VITAMIN D3) 1,000 unit tab tablet Take 2,000 Units by mouth once daily. Ginseng 250 mg cap Take 1 tablet by mouth once daily. Coenzyme Q10 200 mg cap Take by mouth. LACTOBAC CMB #3/FOS/PANTETHINE (PROBIOTIC AND ACIDOPHILUS ORAL) Take by mouth once daily. calcium carbonate-mag oxide 250-155 mg Tab Take 1 tablet by mouth once daily. [place]-3 Fatty Acids (FISH OIL) 500 mg Cap Take 2 capsules by mouth once daily. multivitamin,if-ndrp-xmxrwgjp (THERAGRAN M) tab Take 1 tablet by mouth once daily. Ascorbic Acid 1,000 mg tablet Take 1 tablet by mouth once daily. omeprazole (PRILOSEC) 20 mg capsule Take 1 capsule by mouth daily before breakfast. 1/2 hr before meal. (Patient not taking: Reported on 10/10/2024) clindamycin (CLEOCIN) 150 mg capsule Take 1 capsule by mouth four times daily. (Patient not taking: Reported on 02/10/2024) No current facility-administered medications for this visit. ALLERGIES: ALLERGIES Allergen Reactions Sulfa (Sulfonamide * Anaphylaxis PAST MEDICAL HISTORY Diagnosis Date Elevated blood pressure 2011 Hemorrhage of gastrointestinal tract, unspecified Hyperglycemia Hyperlipidemia Internal hemorrhoids without mention of complication Low back pain [address] Queen Temporomandibular joint disorders, unspecified Unspecified asthma(493.90) PAST SURGICAL HISTORY Procedure Laterality Date COLONOSCOPY FLX DX W/COLLJ SPEC WHEN PFRMD 08/21/11 ESOPHAGOGASTRODUODENOSCOPY TRANSORAL DIAGNOSTIC 07/03/2013 EGD INT REPAIR FACE,EAR,EYE <2.5CM 03-09-14 PAST SURGICAL HISTORY OF 01/24/2013 left carpal tunnel release REM LESION FACE,EAR,EYE 0.6-1CM 03-09-14 RPR UMBILICAL HRNA 5 YRS/> REDUCIBLE 03-09-14 UNLISTED PROCEDURE DENTOALVEOLAR STRUCTURES jaw realignment FAMILY HISTORY Problem Relation Age of Onset other (htn, athritis) Mother Heart Father other (dm,) Father Social History Tobacco Use Smoking status: Former Current packs/day: 0.00 Average packs/day: 0.5 packs/day for 10.0 years (5.0 ttl pk-yrs) Types: Cigarettes, Cigars Start date: 09/17/1975 Quit date: 09/17/1985 Years since quittin.0 Smokeless tobacco: Never Tobacco comments: quit 1987 Substance Use Topics Alcohol use: Yes Comment: occasionally Drug use: No Types: Marijuana Comment: Past history Reviewed current medications, allergies, past medical history, surgical history, family history and social history today. REVIEW OF SYSTEMS All other reviewed and negative other than HPI. HEALTH MAINTENANCE: Reviewed health maintenance issues today and recommended the following in detail. Depression Screening Never done Anxiety Screening Never done Pneumococcal Vaccine: 50+(2 of 2 - PCV) due on 08/11/2017 Influenza Vaccine(1) due on 05/18/2024 Covid-19 Vaccine(2023- season) due on 05/18/2024 VITALS: BP 124/70 Pulse (!) 54 Ht 174.6 cm (5' 8.75") Wt 91.2 kg (201 lb) SpO2 98% BMI 29.90 kg/m? Last 4 Encounter Wt Readings: Date: Wt: 10/10/2024 91.2 kg (201 lb) 02/10/2024 91.4 kg (201 lb 8 oz) 10/22/2023 92.5 kg (204 lb) 09/03/2023 89.7 kg (197 lb 12.8 oz) PHYSICAL EXAMINATION: General appearance: Well appearing, alert, in no acute distress, well-hydrated, well nourished. Skin: Skin color, texture, turgor normal, no suspicious rashes or lesions Head: Normocephalic, no masses, lesions, tenderness or abnormalities Lungs: Lungs clear to auscultation. No wheezing, rhonchi, rales Heart: RRR without murmur, gallop, o (more content not included)... [facility] 10-10-2024 History of Presen t illness Narrative Patient presents with: Follow Up HPI: Patient presents today for office visit for routine follow up. Tested positive for Influenza A on 10/05/24. Feeling much better. Completed Tamiflu. Worried about possible pneumonia. Has occasional cough. Overall feeling well. No fever or chills. 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 Mentions he still chokes very easily on food or while drinking anything. Had swallowing study. Has a sensitive gag reflex Had prostate biopsy which was ok. Had hernia repair. Mother is on hospice due to her dementia. Feeling stressed. Red flags for re-assessment reviewed with patient in detail. MEDICATIONS: Current Outpatient Medications Medication Sig atorvastatin (LIPITOR) 20 mg tablet Take 1 tablet by mouth daily at bedtime. For cholesterol. levothyroxine (SYNTHROID) 88 mcg tablet Take 1 tablet by mouth once daily. Take on empty stomach. For Thyroid, except 1/2 pill on Sat losartan (COZAAR) 100 mg tablet Take 1 tablet by mouth once daily. loratadine 10 mg cap Take 10 mg by mouth once daily. Cyanocobalamin 2,500 mcg subl Dissolve under the tongue. cholecalciferol (VITAMIN D3) 1,000 unit tab tablet Take 2,000 Units by mouth once daily. Ginseng 250 mg cap Take 1 tablet by mouth once daily. Coenzyme Q10 200 mg cap Take by mouth. LACTOBAC CMB #3/FOS/PANTETHINE (PROBIOTIC & ACIDOPHILUS ORAL) Take by mouth once daily. calcium carbonate-mag oxide 250-155 mg Tab Take 1 tablet by mouth once daily. [place]-3 Fatty Acids (FISH OIL) 500 mg Cap Take 2 capsules by mouth once daily. multivitamin,iu-eksy-htputwog (THERAGRAN M) tab Take 1 tablet by mouth once daily. Ascorbic Acid 1,000 mg tablet Take 1 tablet by mouth once daily. omeprazole (PRILOSEC) 20 mg capsule Take 1 capsule by mouth daily before breakfast. 1/2 hr before meal. (Patient not taking: Reported on 10/10/2024) clindamycin (CLEOCIN) 150 mg capsule Take 1 capsule by mouth four times daily. (Patient not taking: Reported on 02/10/2024) No current facility-administered medications for this visit. ALLERGIES: ALLERGIES Allergen Reactions Sulfa (Sulfonamide * Anaphylaxis PAST MEDICAL HISTORY Diagnosis Date Elevated blood pressure 2012 Hemorrhage of gastrointestinal tract, unspecified Hyperglycemia Hyperlipidemia Internal hemorrhoids without mention of complication Low back pain [address] Queen Temporomandibular joint disorders, unspecified Unspecified asthma(493.90) PAST SURGICAL HISTORY Procedure Laterality Date COLONOSCOPY FLX DX W/COLLJ SPEC WHEN PFRMD 08/21/11 ESOPHAGOGASTRODUODENOSCOPY TRANSORAL DIAGNOSTIC 07/03/2013 EGD INT REPAIR FACE,EAR,EYE <2.5CM 03-09-14 PAST SURGICAL HISTORY OF 01/24/2013 left carpal tunnel release REM LESION FACE,EAR,EYE 0.6-1CM 03-09-14 RPR UMBILICAL HRNA 5 YRS/> REDUCIBLE 03-09-14 UNLISTED PROCEDURE DENTOALVEOLAR STRUCTURES jaw realignment FAMILY HISTORY Problem Relation Age of Onset other (htn, athritis) Mother Heart Father other (dm,) Father Social History Tobacco Use Smoking status: Former Current packs/day: 0.00 Average packs/day: 0.5 packs/day for 10.0 years (5.0 ttl pk-yrs) Types: Cigarettes, Cigars Start date: 09/17/1975 Quit date: 09/17/1985 Years since quittin.0 Smokeless tobacco: Never Tobacco comments: quit 1987 Substance Use Topics Alcohol use: Yes Comment: occasionally Drug use: No Types: Marijuana Comment: Past history Reviewed current medications, allergies, past medical history, surgical history, family history and social history today. REVIEW OF SYSTEMS All other reviewed and negative other than HPI. HEALTH MAINTENANCE: Reviewed health maintenance issues today and recommended the following in detail. Depression Screening Never done Anxiety Screening Never done Pneumococcal Vaccine: 50+(2 of 2 - PCV) due on 08/11/2017 Influenza Vaccine(1) due on 05/18/2024 Covid-19 Vaccine( - 2023- season) due on 05/18/2024 VITALS: BP 124/70 Pulse (!) 54 Ht 174.6 cm (5' 8.75") Wt 91.2 kg (201 lb) SpO2 98% BMI 29.90 kg/m Last 4 Encounter Wt Readings: Date: Wt: 10/10/2024 91.2 kg (201 lb) 02/10/2024 91.4 kg (201 lb 8 oz) 10/22/2023 92.5 kg (204 lb) 09/03/2023 89.7 kg (197 lb 12.8 oz) PHYSICAL EXAMINATION: General appearance: Well appearing, alert, in no acute distress, well-hydrated, well nourished. Skin: Skin color, texture, turgor normal, no suspicious rashes or lesions Head: Normocephalic, no masses, lesions, tenderness or abnormalities Lungs: Lungs clear to auscultation. No wheezing, rhonchi, rales Heart: RRR without murmur, gallop, or rubs. No ectopy Abdomen: Normal abdominal exam, Abdomen soft, non-tender. Bowel sounds normal. No masses, organomegaly Extremities: No deformities, edema, skin discoloration, clubbing or cyanosis. Good capillary refill. ASSESSMENT/PLAN: 1. Primary hypertension - ICD9: 401.9, ICD10: I10 (primary diagnosis) - Controlled - Continue current medications - COMPLETE BLOOD COUNT AND DIFFERENTIAL - COMPREHENSIVE METABOLIC PANEL - LIPID PANEL BASIC 2. Hyperlipidemia, unspecified hyperlipidemia type - ICD9: 272.4, ICD10: E78.5 - Controlled - Continue current medications 3. Benign non-nodular prostatic hyperplasia with lower urinary tract symptoms - ICD9: 600.91, ICD10: N40.1 - stable 4. Hypothyroidism, acquired - ICD9: 244.9, ICD10: E03.9 - THYROID STIMULATING HORMONE 5. Hyperglycemia - ICD9: 790.29, ICD10: R73.9 - HEMOGLOBIN A1C 6. Elevated PSA - ICD9: 790.93, ICD10: R97.20 - per urology 7. Prediabetes - ICD9: 790.29, ICD10: R73.03 - HEMOGLOBIN A1C 8. Tremor - ICD9: 781.0, ICD10: R25.1 - stable. Saw neurology. Dx as essential tremor Juan Diego Garcia MD documented in this encounter [facility] 10-05-2024 Evaluation note Diagnosis Onset Date Resolution URI (upper respiratory infection) acute October 05 10:06am [facility] Work Phone: 1(791) 518-144701-13-2025 Telephone encounter Note* Telephone Encounter - Sol Licona MA - 09/29/2024 6:11 PM EST Provider sent [employer] message to pt to update on lab results. Sol Licona MA [facility]01-13-2025 Miscellaneous Notes* Telephone Encounter - Sol Licona MA - 09/29/2024 6:11 PM EST Provider sent [employer] message to pt to update on lab results. Sol Licona MA * Telephone Encounter - Sol Licona MA - 05/26/2024 1:21 PM EDT Pt had labs completed at [facility] on 05/24/24 as ordered by PCP. Please review scanned links below and advise. No appt currently setup. Did update HM (Lipid/Glucose screening). View External Labs - Chemistry [ID [id number]] View External Labs - Miscellaneous Lab [ID [id number]] Sol Licona MA [facility] Telephone encounter Note * Telephone Encounter - Ruddy Fuentes LPN - 08/11/2024 12:46 PM EST Patient notified. [facility]11-25-2024 Miscellaneous Notes* Telephone Encounter - Ruddy Fuentes LPN - 08/11/2024 12:46 PM EST Patient notified. * Telephone Encounter - Juan Diego Garcia MD - 08/11/2024 12:17 PM EST He just had labs two months ago. We should be ok. * Telephone Encounter - Ruddy Fuentes LPN - 08/11/2024 10:27 AM EST Asking for lab orders for Oct 10 visit. * Telephone Encounter - Vivian Gutiérrez - 08/11/2024 10:15 AM EST Pt requesting lab orders to be faxed to [facility]. Please advise. Thank you [facility] Telephone encounter Note * Telephone Encounter - Juan Diego Garcia MD - 08/11/2024 12:17 PM EST He just had labs two months ago. We should be ok. [facility]11-25-2024 Telephone encounter Note* Telephone Encounter - Ruddy Fuentes LPN - 08/11/2024 10:27 AM EST Asking for lab orders for Oct 10 visit. [facility]11-25-2024 Telephone encounter Note* Telephone Encounter - Vivian Gutiérrez - 08/11/2024 10:15 AM EST Pt requesting lab orders to be faxed to [facility]. Please advise. Thank you [facility]11-06-2024 Hospital Discharge instructions Patient Education 07/23/2024 11:41:02 [facility] Discharge Instructions Template (06/2018)(CUSTOM) [facility] SAME DAY SURGERY DISCHARGE INSTRUCTIONS PLEASE FOLLOW THE INSTRUCTIONS BELOW MARKED WITH AN X: _x__ Regular Diet: Start with clear liquids, then soup and crackers and gradually add other foods. _x__ Drink extra fluids. ___ Special Diet Instructions: ___ ACTIVITY: _x__ Avoid stress to suture line. Since you have had an anesthetic, it would be advisable not to drive, drink alcohol, or make major decisions over the next 24 hours. You may require more rest tonight and tomorrow. ___ May resume regular activity as tolerated. ___ Restrict activity as follows: ___ ___ Walk Only ___ ___ Do not go up and down stairs. ___ Do not ride in car until ___ ___ Do not drive car. ___ Do not have sexual intercourse. ___ No heavy lifting, pushing or straining. ___ Other: ___ BATHING/SHOWERING: ___ Sponge bathe until office visit. ___ Sitting in tub of warm water may relieve discomfort. ___ May tub bathe ___ May shower ___ On day after surgery sit in tub of warm water to soak off dressing. DRESSING: ___ Keep operative area dry and clean for ___ ___ Check the operative area for signs of bleeding. Apply pressure to the bleeding site if necessary and call your physician. ___ Change dressing as necessary using sterile dressing material or bandaid. ___ Reinforce dressing as necessary. ___ Change and care for wound as follows: ___ ___ Wear bra for ___ days following breast surgery for comfort. ___ Change drip pad as needed. ___ Wear scrotal support for comfort. WATCH FOR SIGNS OF INFECTION: (Usually appears 36-48 hours after surgery) Increased temperature (101 degrees Fahrenheit or higher) Redness or swelling Increased pain Foul odor or drainage. If you have any questions, please call your doctor at the number listed on your follow up instructions. Follow all instructions given to you by your physician. Please complete and return the survey you will be receiving in the mail to help us better serve our patients. Form: 1522 ([id number]) R: 12/2407/23/2024 11:39:40 1-SDS Prostate Biopsy [facility] Instructions(07/2022)(CUSTOM) DESCRIPTION OF PROSTATE ULTRASOUND AND TRANSPERINEAL BIOPSY: Ultrasound uses harmless sound waves to give us pictures of the prostate and allows us to accurately guide a biopsy needle to areas of the concern. Indications for prostatic biopsy include suspicion of cancer either by suspicious finger exam of the prostate or by elevation of a prostatic cancer screening blood test (PSA). The procedure is done in the operating room with general anesthesia. Initially, a complete finger examination is done. Next the ultrasound probe, finger-like in size and shape, is placed into the rectum. With slight movement of the probe many different views are obtained. A needle is inserted into the prostate through the skin below the scrotum to take biopsies. 12 or morebiopsies are usually taken from the insertion sites. The entire exam takes 20-30 minutes. You may have some soreness around the rectum and biopsy area for several hour. You may also note blood in theurine and stool for a few days and in the semen for up to a month. We will not have the biopsies results for one to two weeks, so be patient. POSSIBLE RISKS OF PROSTATE ULTRASOUND AND TRANSPERINEAL BIOPSY: Blood may be noted in the stool and urine for a few days and in the semen for up to a month. Infection of the prostate or in the urine can occur even with the antibiotic preparation. You should call if you develop fever, chills, severe pain or have continuous or significant bleeding PREPARATION FOR PROSTATE ULTRASOUND AND TRANSPERINEAL BIOPSY: 1.No dietary restrictions on the day before the procedure. Nothing by mouth after midnight. 2.Medications will be reviewed by [facility] pre-test clinic and you will be notified either at pre-test visit or by telephone if any medications need to be taken the morning of surgery. 3.Blood thinners to be held 7 days prior to procedure. A list of medications that need to be held will be given. 4.A Fleets enema should be administered 2 hours prior to arrival to hospital. 5.You will be given antibiotics while in the operating room. FOLLOW-UP INSTRUCTIONS: Follow-up instructions will be given the day of your procedure. Follow Up Care 06/25/2024 10:20:20 With:RODRIGUEZ CRANE MD, [facility] Address: [address] [place] [phone] [phone] When: Unknown Comments:Follow-up as scheduled With:RODRIGUEZ CRANE MD, [facility], Urology Service Address: [address] [place] [address] [address] [place] [address] [phone] When: Unknown [facility] 11-06-2024 Anesthesiology Consult note Patient: MARIANO BROWN Age: 63 years Sex: Male : 1960 Associated Diagnoses: None Author: FRANCISCA HENAO DO Postoperative Information Post Operative Info: Post op day: Post Anesthesia Care Unit. Patient location: PACU. Assessment Postanesthesia assessment Vitals. Mental status: at preoperative baseline. Respiratory function: respirations are non-labored. Respiratory support: oxygen room air. CV function: stable. Cardiovascular support: none. Pain: satisfactory. Nausea status: satisfactory. Postoperative hydration status: within normal limits. Notes: Patient sufficiently recovered from anesthesia to participate in the evaluation. No follow-up needed. No post-anesthesia complications.. Digitally Signed by FRANCISCA HENAO DO on 07/23/2024 11:49 AM [id number] Summary of episode note Discharge Instructions Thank you for allowing [facility] to assist you with your healthcare needs. The following is importantdischarge information regarding your hospital visit. Your Care Team JUAN DIEGO GARCIA MD Your Diagnosis Elevated PSA; neg bx by Dr. Padilla Oct 2015 Benign prostatic hypertrophy (BPH) with weak urinary stream; 45cc in Oct [address] Padilla; trialof Flomax was not helpful; 76mL by TRUS 2023 What to do next Instructions From Your Doctor Expect blood in the urine and blood in the semen. If unable to urinate, please call the [facility] office and/or go to the [facility] hospital emergency department. Scheduled Follow-Up Appointments Appointment Type When With Where Contact Information StatusURO OV Talk 08/04/2024 03:40 PM EST RODRIGUEZ CRANE MD [facility] Confirmed Follow Up Appointments Follow Up with RODRIGUEZ CRANE MD, [facility] [employer], Urology Service Where:[facility] [address] [place] [address] [phone] Additional Information: Follow-up as scheduled Follow Up with RODRIGUEZ CRANE MD, [facility], Urology Service Where:[address] [facility] [address] [place] [address]- [phone] The Following Activity and Diet Have Been Ordered for You Discharge Activity - Ordered -- Lifting Restricted less than 10 pounds, 2 days, 07/23/24 11:35:00 EST Discharge Driving Restrictions - Ordered -- No driving until pain-free, 07/23/24 11:35:00 EST Discharge Diet - Ordered -- No changes were made to your diet during your hospital stay. Please resume your pre hospitalization diet on discharge., 07/23/24 11:35:00 EST The Following Equipment Has Been Ordered for You Discharge Home Equipment Discharge Wound Care - Ordered -- Expect some blood at the perineum. You may shower 24 hours after the biopsy., 07/23/24 11:35:00 EST Allergies sulfa drugs Leukopenia Medications Please ask your primary doctor or pharmacist before taking any other medication not listed, including over the counter drugs, herbal medications, vitamins and or supplements as they may interact withyour home medications. What How Much When Why Instructions Last Dose Unchanged atorvastatin (atorvastatin 20 mg oral tablet) 1 tab(s) by mouth Daily at bedtime Take 1 tablet by mouth daily at bedtime for cholesterol. Unchanged cholecalciferol (Vitamin D3 25 mcg (1000 intl units) oral capsule) 1 cap by mouth Every day Unchanged levothyroxine (levothyroxine 88 mcg (0.088 mg) oral tablet) 1 tab(s) by mouth Before breakfast Unchanged loratadine (loratadine 10 mg oral tablet) 1 tab(s) by mouth Once a day (in the morning) Unchanged losartan (losartan 100 mg oral tablet) 1 tab(s) by mouth Once a day (in the morning) Unchanged multivitamin (Multivitamin) 1 tab(s) by mouth Every day Unchanged omeprazole (omeprazole 20 mg oral delayed release capsule) 1 cap by mouth Once a day as needed for acid reflux Unchanged tamsulosin (Flomax 0.4 mg oral capsule) 1 cap by mouth Once a day Benign prostatic hypertrophy (BPH) with weak urinary stream; 45cc in Oct [address] Padilla; trialof Flomax was not helpful Duration: 14 Days Take 7 days prior to procedure and 7 days after Please take this list to your next doctor s visit. Bring all medications you take, including over the counter medications, herbals and other supplements with you to your doctor s visit. Patients and families are reminded to discard old lists and to update any records with all medication providers or retail pharmacies. Education Materials [facility] SAME DAY SURGERY DISCHARGE INSTRUCTIONS PLEASE FOLLOW THE INSTRUCTIONS BELOW MARKED WITH AN X: _x__ Regular Diet: Start with clear liquids, then soup and crackers and gradually add other foods. _x__ Drink extra fluids. ___ Special Diet Instructions: ___ ACTIVITY: _x__ Avoid stress to suture line. Since you have had an anesthetic, it would be advisable not to drive, drink alcohol, or make major decisions over the next 24 hours. You may require more rest tonight and tomorrow. ___ May resume regular activity as tolerated. ___ Restrict activity as follows: ___ ___ Walk Only ___ ___ Do not go up and down stairs. ___ Do not ride in car until ___ ___ Do not drive car. ___ Do not have sexual intercourse. ___ No heavy lifting, pushing or straining. ___ Other: ___ BATHING/SHOWERING: ___ Sponge bathe until office visit. ___ Sitting in tub of warm water may relieve discomfort. ___ May tub bathe ___ May shower ___ On day after surgery sit in tub of warm water to soak off dressing. DRESSING: ___ Keep operative area dry and clean for ___ ___ Check the operative area for signs of bleeding. Apply pressure to the bleeding site if necessary and call your physician. ___ Change dressing as necessary using sterile dressing material or bandaid. ___ Reinforce dressing as necessary. ___ Change and care for wound as follows: ___ ___ Wear bra for ___ days following breast surgery for comfort. ___ Change drip pad as needed. ___ Wear scrotal support for comfort. WATCH FOR SIGNS OF INFECTION: (Usually appears 36-48 hours after surgery) Increased temperature (101 degrees Fahrenheit or higher) Redness or swelling Increased pain Foul odor or drainage. If you have any questions, please call your doctor at the number listed on your follow up instructions. Follow all instructions given to you by your physician. Please complete and return the survey you will be receiving in the mail to help us better serve our patients. Form: 1522 ([id number]) R: 12/24 DESCRIPTION OF PROSTATE ULTRASOUND AND TRANSPERINEAL BIOPSY: Ultrasound uses harmless sound waves to give us pictures of the prostate and allows us to accurately guide a biopsy needle to areas of the concern. Indications for prostatic biopsy include suspicion of cancer either by suspicious finger exam of the prostate or by elevation of a prostatic cancer screening blood test (PSA). The procedure is done in the operating room with general anesthesia. Initially, a complete finger examination is done. Next the ultrasound probe, finger-like in size and shape, is placed into the rectum. With slight movement of the probe many different views are obtained. A needle is inserted into the prostate through the skin below the scrotum to take biopsies. 12 or morebiopsies are usually taken from the insertion sites. The entire exam takes 20-30 minutes. You may have some soreness around the rectum and biopsy area for several hour. You may also note blood in theurine and stool for a few days and in the semen for up to a month. We will not have the biopsies results for one to two weeks, so be patient. POSSIBLE RISKS OF PROSTATE ULTRASOUND AND TRANSPERINEAL BIOPSY: Blood may be noted in the stool and urine for a few days and in the semen for up to a month. Infection of the prostate or in the urine can occur even with the antibiotic preparation. You should call if you develop fever, chills, severe pain or have continuous or significant bleeding PREPARATION FOR PROSTATE ULTRASOUND AND TRANSPERINEAL BIOPSY: 1. No dietary restrictions on the day before the procedure. Nothing by mouth after midnight. 2. Medications will be reviewed by [facility] pre-test clinic and you will be notified either at pre-testvisit or by telephone if any medications need to be taken the morning of surgery. 3. Blood thinners to be held 7 days prior to procedure. A list of medications that need to be held will be given. 4. A Fleets enema should be administered 2 hours prior to arrival to hospital. 5. You will be given antibiotics while in the operating room. FOLLOW-UP INSTRUCTIONS: Follow-up instructions will be given the day of your procedure. Additional Information VACCINATE! IT SAVES LIVES! Members of the community who have not yet received the COVID-19 vaccine and would like to receive it can visit one of [facility] vaccine clinics. There are many vaccine clinic locations within the [facility]. For locations and available times, please visit [email or web address].[email or web address] It is important to note that some COVID mobile vaccine clinics are held outdoors and may be canceled in rainy or stormy conditions. To learn more about pediatric vaccinations (ages 5-11), we invite you to visit the [facility] webpage. [email or web address] learn more about the COVID-19 vaccine, we invite you to visit the CDC website for a list of frequently asked questions.https://www.cdc.gov/coronavirus/2019-ncov/vaccines/faq.html [email or web address] Patient Portal Access Instructions: Stay connected with your healthcare team and access your personal medical information anytime with the [email or web address] Patient Portal. Please follow the directions below to create your [email or web address] account: 1.Access the email account you provided upon registration to the hospital/physician office.2.Look for an invitation email from [facility].3.Open the email and access the invitation link: AcceptInvitation to [email or web address].4.Fill in the required rodrigez to create your account. To access your account, visit [email or web address]. Click the blue button labeled "Access Patient Portal" and then log in with the username and password that you created in the steps above. You will be able to view your test results, lab results, a summary of your visits, upcoming appointments and more. There is also a convenient messaging option where you can send secure messages to your p Schedule C System[employer]. In addition, you will have the ability to download any documents or summaries to your computer and/or send the information securely to a physician. Remember that your healthcare information is confidential, so carefully consider who you will allowto register on the [email or web address] Patient Portal for access to your information. You can also access the [email or web address] Patient Portal on the [facility] maninder. Simply click on "Patient Portal" and then log into your account. If you would like to receive a full copy of your medical records, please contact the [facility] Medical Records Department by calling [phone], Sunday through Sunday between 8 a.m. and 4:30 p.m. HOW TO SAFELY DISPOSE OF PRESCRIPTION MEDICATIONS Please use one of the following methods to safely dispose of your unused medications. 1.Use a drug disposal kit: the drug disposal pouch allows you to safely discard your old and unuseddrugs. Ask your nurse to give you one when you are discharged.2.Visit a local take-back location: Many local pharmacies and police departments have programs that collect old and unwanted prescriptiondrugs. Call your local pharmacy or go to http://Periscape/2V6Cs4a to find one close to you.3.Make use of household items: Use cat litter or old coffee grounds to dispose medications if other options arenot available. Mix your drugs with these household products, seal them in an airtight container andthrow it into the garbage. Call [facility]: [phone] to be sure your drugs can be disposed of in this way. Some medicines may require a different approach.4.Never flush your medications down the toilet. IF YOU HAVE BEEN PRESCRIBED AN OPIOID FOR PAIN If you have been prescribed an opioid (such as hydrocodone, oxycodone or morphine), it is critical to understand the possible side effects and risks of opioid pain medications. Even when taken as directed, opioids can have several side effects including: Tolerance, meaning you might need to take more of a medication for the same pain relief. Nausea, vomiting and/or constipation. Sleepiness, dizziness, dry mouth, confusion, depression or itching. Physical dependence, meaning you have withdrawal symptoms when a medication is stopped, can develop within a few days. KNOW YOUR RESPONSIBILITIES It is important to know exactly how much and how often to take the opioid pain medications you are prescribed. Never take opioids in higher amounts or more often than prescribed. Do not combine opioids with alcohol or other drugs that cause drowsiness, such as benzodiazepines, also known as benzos, including diazepam and alprazolam, muscle relaxants or sleep aids. Never sell or share prescription opioids. This is illegal. Store opioids in a secure place and out of reach of others (including children, family, friends and visitors). The last page of this document has been signed and retained as a CHART COPY. Signatures Patient Education Materials 1-SDS Discharge Instructions Template (06/2018)(CUSTOM) 1-SDS Prostate Biopsy [facility] Hospital Instructions(07/2022)(CUSTOM) Medication Leaflets My discharge plan and instructions have been reviewed and explained to me and I,MARIANO BROWN Jacobeditashalondad my current condition and have read and understand these discharge instructions. I have received a written copy of the plan/instructions. If I have questions, I am aware that I should contact my doctor. Patient/Rag Willow Operator Signature: Date/Time: Relationship to Patient: Witness Name/Signature: [facility]Time: [id number] Anesthesiology Consult note Patient: MARIANO BROWN Age: 63 years Sex: Male : 1960 Associated Diagnoses: None Author: REHANA WHEELER MD Preoperative Information NPO >8 hours food >2hours clear liqiods Anesthesia history Patient's history: negative. Health Status Allergies: Allergic Reactions (Selected) Severity Not Documented Sulfa drugs- Leukopenia., Allergies (1) ActiveSeverityReaction sulfa drugsLeukopenia Current medications: (Selected) Inpatient Medications Ordered lidocaine 1% preservative-free injectable solution: Start: 07/23/24 5:00:00 EST, Dose = 2.5 mg, = 0.25 mL, Intradermal, prep pharm, 0, 07/23/24 5:00:00 EST Prescriptions Prescribed Flomax 0.4 mg oral capsule: Dose : 0.4 mg = 1 cap(s), Oral, qDay, Take 7 days prior to procedure and 7 days after, # 14 cap(s), 0 Refill(s), Pharmacy: [id number], Benign prostatic hypertrophy (BPH) with weak urinary stream; 45cc in Oct [address] Padilla; trial... Documented Medications Documented Multivitamin: Dose = 1 tab(s), Oral, Daily, 0 Refill(s) Vitamin D3 25 mcg (1000 intl units) oral capsule: Dose : 25 mcg = 1 cap(s), Oral, Daily atorvastatin 20 mg oral tablet: Dose : 20 mg = 1 tab(s), Oral, qHS, Take 1 tablet by mouth daily atbedtime for cholesterol. levothyroxine 88 mcg (0.088 mg) oral tablet: Dose : 88 mcg = 1 tab(s), Oral, acBreakfast loratadine 10 mg oral tablet: Dose : 10 mg = 1 tab(s), Oral, qAM losartan 100 mg oral tablet: Dose : 100 mg = 1 tab(s), Oral, qAM omeprazole 20 mg oral delayed release capsule: Dose : 20 mg = 1 cap(s), Oral, qDay, PRN acid reflux, Medications (1) Active Scheduled: (1) lidocaine 1% (MPF) 2 mL vial pf 2.5 mg 0.25 mL, Intradermal, prep pharm Continuous: (0) PRN: (0) Problem list: Medical Anxiety / SNOMED CT 96642883 / Confirmed Back pain / SNOMED CT 5622033686 / Confirmed BMI 28.0-28.9,adult / SNOMED CT 3430299376 / Confirmed Cellulitis / SNOMED CT 539758846 / Confirmed Claustrophobia / SNOMED CT 81031112 / Confirmed Hesitancy (Renamed from Urinary hesitancy) / SNOMED CT 497610009 / Confirmed Dribbling of urine- post void / SNOMED CT 974757045 / Confirmed Former smoker, stopped smoking many years ago / SNOMED CT 58295691 / Confirmed External hemorrhoids / SNOMED CT 70489375 / Confirmed Esophageal reflux / SNOMED CT 553627073 / Confirmed Hiatal hernia / SNOMED CT 332619294 / Confirmed Hypercholesterolemia / SNOMED CT 55937918 / Confirmed Hypothyroidism / SNOMED CT 38148232 / Confirmed MICROSCOPIC HEMATURIA / SNOMED CT 781598719 / Confirmed Increased BMI 23-30 (Renamed from Overweight) / SNOMED CT 503875202 / Confirmed Hyperactive gag reflex / SNOMED CT 897654545 / Confirmed Post-void dribbling / SNOMED CT 058265603 / Confirmed Elevated PSA; neg bx by Dr. Padilla Oct 2015 / SNOMED CT 7715474276 / Confirmed Bundle branch block, right / SNOMED CT 55654733 / Confirmed Tinnitus / SNOMED CT 118284189 / Confirmed Varicocele / SNOMED CT 21611651 / Confirmed Benign prostatic hypertrophy (BPH) with weak urinary stream; 45cc in Oct [address] Padilla; trialof Flomax was not helpful / SNOMED CT 2791568181 / Confirmed Resolved: Benign prostatic hypertrophy / SNOMED CT 825806063 Resolved: Enlarged prostate with urinary obstruction / SNOMED CT 5997751091 Resolved: Elevated PSA / SNOMED CT 9231673550 Canceled: Hypercholesterolemia / SNOMED CT 2092935675, Active Problems (23) Anxiety Back pain Benign prostatic hypertrophy (BPH) with weak urinary stream; 45cc in Oct [address] Padilla; trial BMI 28.0-28.9,adult Bundle branch block, right Cellulitis Claustrophobia Dribbling of urine- post void Elevated PSA; neg bx by Dr. Padilla Oct 2015 Esophageal reflux External hemorrhoids Former smoker, stopped smoking many years ago Glasses Hesitancy (Renamed from Urinary hesitancy) Hiatal hernia Hyperactive gag reflex Hypercholesterolemia Hypothyroidism Increased BMI 23-30 (Renamed from Overweight) MICROSCOPIC HEMATURIA Post-void dribbling Tinnitus Varicocele Histories Past Medical History: Resolved Elevated PSA (0394741017): Resolved. Benign prostatic hypertrophy (395796249): Resolved. Enlarged prostate with urinary obstruction (2739676729): Resolved. Family History: CLL - Chronic lymphocytic leukemia Sister Kidney stone Mother Heart disease Mother Heart failure Mother Abdominal aortic aneurysm Father Enlarged prostate Father Coronary artery disease Father Alzheimer disease Mother Diabetes Father Procedure history: Repair of inguinal hernia (50386123) in the month of 11/2023 at 63 Years. Prostate biopsy sample ([id number]) on 02/25/2015 at 54 Years. Carpal tunnel (426417215) in 2014 at 54 Years. Repair of umbilical hernia (37949663) in 2013 at 54 Years. Extraction of wisdom tooth (911434824). Social History: Social & Psychosocial Habits Alcohol 07/23/2024 Use: Current Frequency: 1-2 times per month 07/23/2024isk Assessment: No Risk Substance Abuse 07/23/2024 Use: Past Type: Marijuana 07/23/2024isk Assessment: No Risk Tobacco 07/23/2024 Tobacco Use: Former smoker, quit more, quit 2004 07/23/2024isk Assessment: No Risk Home/Environment 07/23/2024 Living situation: Home/Independent Safe place to go: Yes Domestic Concerns None Current Home Treatments None Special Services and Community Resources None Marital Status of Patient if Patient Independent Adult: Unmarried Physical Examination Vital Signs (last 24 hrs) Last Charted Temp Ghvoualh94 DegC (JUL 23 10:54) Heart Rate Miyclimfg13 bpm (JUL 23 10:54) SBP94 mmHg (JUL 23 10:54) DBPL 58 mmHg (JUL 23 10:54) Measurements from flowsheet : Measurements 07/23/2024 8:53 EST Height 176.5 cm Height in inches 69.5 inch(es) Admission Weight 87.5 kg Weight Lbs 192.5 lb Weight Method Actual [place] Body Weight 71.82 kg Type of Scale Used Bed scale Admission Body Mass Index 28.09 m2 General: Alert and oriented. Airway: Mallampati classification: II (soft palate, fauces, uvula visible). Dentition Evaluation: Intact. Respiratory: Lungs are clear to auscultation, Respirations are non-labored. Cardiovascular: Normal rate, Regular rhythm. Heart Sounds: Normal. Neurologic: Alert, Oriented. Review / Management Results review: No qualifying data available . Documentation reviewed: Current records. Assessment and Plan [place] [employer] Anesthesiologists (ASA) physical status classification: Class II. Anesthetic Preoperative Plan Premedication: intravenous. Anesthetic technique: MAC. Induction: intravenously. Maintenance airway. Postoperative pain management: Per surgeon. Informed consent: signed by patient. Notes: This is a late entry documentation due to involvement in patient care and inability to document prior to the start of the anesthetic. I completed my preoperative assessment, discussion of anesthetic plan and risks with the patient prior to this documentation. However, I was not able to complete the documentation until a later time.. Digitally Signed by REHANA WHEELER MD on 07/23/2024 11:09 AM [id number] History and physical note Date of Service July 23, 2024 History and Physical Update I have examined the patient; reviewed the History and Physical and there are no changes to the History and Physical unless noted below. Digitally Signed by RODRIGUEZ CRANE MD on 07/23/2024 10:05 AM [id number] Note. MICRO - Microbiology PROCEDURE: Urine Culture [*1] SOURCE: Urine, Clean Catch BODY SITE: COLLECTED DATE/TIME: 07/15/2024 09:12 EDT RECEIVED DATE/TIME: 07/15/2024 13:18 EDT START DATE/TIME: 07/15/2024 13:18 EDT FREE TEXT SOURCE: FINAL REPORTS Final Report [] Verified Date/Time/Personnel: 07/17/2024 07:57 EDT No growth at 48 hours. PRELIMINARY REPORTS Preliminary Report [] Verified Date/Time/Personnel: 07/16/2024 08:48 EDT No growth to date Performing Locations *1: This test was performed at: [facility], [address] [place] [address], [id number] , [facility]09-23-2024 Evaluation + Plan note Future Scheduled Tests Laboratory* Basic Metabolic Panel 06/09/24 * Complete Blood Count 06/09/24 [facility] 09-09-2024 Telephone encounter Note* Telephone Encounter - Sol Licona MA - 05/26/2024 1:21 PM EDT Pt had labs completed at [facility] on 05/24/24 as ordered by PCP. Please review scanned links below and advise. No appt currently setup. Did update HM (Lipid/Glucose screening). View External Labs - Chemistry [ID [id number]] View External Labs - Miscellaneous Lab [ID [id number]] Sol Licona MA [facility]08-28-2024 Telephone encounter Note* Telephone Encounter - Ruddy Fuentes LPN - 05/14/2024 5:03 PM EDT Orders faxed as requested. [facility]08-28-2024 Miscellaneous Notes* Telephone Encounter - Ruddy Fuentes LPN - 05/14/2024 5:03 PM EDT Orders faxed as requested. * Telephone Encounter - Juan Diego Garcia MD - 05/14/2024 4:51 PM EDT Orders placed * Telephone Encounter - Oksana Parisi - 05/14/2024 3:19 PM EDT Mariano is calling Juan Diego Garcia MD today to request lab orders to be sent to [facility] for blood work to be drawn due to per patient his insurance does not cover our lab at our [facility] facility. Please fax to them when provider agrees to order those labs for patient. Patient will call back to schedule an appointment with PCP Patient has been identified by name and birthdate. Duration of symptoms: N/A Person calling: self Call patient at: on cell [phone] (home) [phone] (cell) Was an appointment scheduled: No Closing statement: Results or non-symptom based questions: Thank you for calling [facility], your call will be returned within the next business day. Oksana Saunders documented in this encounterF[facility]08-28-2024 Telephone encounter Note * Telephone Encounter - Juan Diego Garcia MD - 05/14/2024 4:51 PM EDT Orders placed [facility]08-28-2024 Telephone encounter Note* Telephone Encounter - Oksana Parisi - 05/14/2024 3:19 PM EDT Mariano is calling Juan Diego Garcia MD today to request lab orders to be sent to [facility] for blood work to be drawn due to per patient his insurance does not cover our lab at our [facility] facility. Please fax to them when provider agrees to order those labs for patient. Patient will call back to schedule an appointment with PCP Patient has been identified by name and birthdate. Duration of symptoms: N/A Person calling: self Call patient at: on cell [phone] (home) [phone] (cell) Was an appointment scheduled: No Closing statement: Results or non-symptom based questions: Thank you for calling [facility], your call will be returned within the next business day. Oksana Saunders [facility]08-28-2024 Telephone encounter Note* Telephone Encounter - Oksana Parisi - 05/14/2024 3:13 PM EDT Prescription Refill Information The patient has been identified by name and date of : Yes Caregiver verified no other encounters exist for this prescription request: Yes Caregiver confirmed with patient/requestor that no other refills are due, in the near future, with this provider at this time: Yes The last office visit in the department: 10/22/2023 Does the patient have a future office visit with this provider/department: Yes Requested Prescriptions Pending Prescriptions Disp Refills atorvastatin (LIPITOR) 20 mg tablet 30 tablet 11 Sig: Take 1 tablet by mouth daily at bedtime. For cholesterol. Oksana Saunders May 14, 2024 3:13 PM T [facility]08-28-2024 Miscellaneous Notes* Telephone Encounter - Oksana Parisi - 05/14/2024 3:13 PM EDT Prescription Refill Information The patient has been identified by name and date of : Yes Caregiver verified no other encounters exist for this prescription request: Yes Caregiver confirmed with patient/requestor that no other refills are due, in the near future, with this provider at this time: Yes The last office visit in the department: 10/22/2023 Does the patient have a future office visit with this provider/department: Yes Requested Prescriptions Pending Prescriptions Disp Refills atorvastatin (LIPITOR) 20 mg tablet 30 tablet 11 Sig: Take 1 tablet by mouth daily at bedtime. For cholesterol. Oksana Saunders May 14, 2024 3:13 PM documented in this encounterFayette [facility]07-11-2024 Telephone encounter Note * Telephone Encounter - Ary Denis - 03/27/2024 9:52 AM EDT Prescription Refill Information The patient has been identified by name and date of : Yes Caregiver verified no other encounters exist for this prescription request: Yes Caregiver confirmed with patient/requestor that no other refills are due, in the near future, with this provider at this time: Yes The last office visit in the department: 10-22-23 Does the patient have a future office visit with this provider/department: No Requested Prescriptions Pending Prescriptions Disp Refills levothyroxine (SYNTHROID) 88 mcg tablet 30 tablet 11 Sig: Take 1 tablet by mouth once daily. Take on empty stomach. For Thyroid, except 1/2 pill on Sat Ary Denis March 27, 2024 9:53 AM [facility]07-11-2024 Miscellaneous Notes* Telephone Encounter - Ary Denis - 03/27/2024 9:52 AM EDT Prescription Refill Information The patient has been identified by name and date of : Yes Caregiver verified no other encounters exist for this prescription request: Yes Caregiver confirmed with patient/requestor that no other refills are due, in the near future, with this provider at this time: Yes The last office visit in the department: 10-22-23 Does the patient have a future office visit with this provider/department: No Requested Prescriptions Pending Prescriptions Disp Refills levothyroxine (SYNTHROID) 88 mcg tablet 30 tablet 11 Sig: Take 1 tablet by mouth once daily. Take on empty stomach. For Thyroid, except 1/2 pill on Sat Ary Denis March 27, 2024 9:53 AM documented in this encounterFayette County [facility] Hospital05-26-2024 History of Present illness Narrative* Ousmane Nicole APRN.CARDROOM PLASTIC CARD GRADER - 02/10/2024 8:51 AM EDT Images from the original note were not included. This note was created using [employer]. Subjective Mariano Brwon is a 63 year old male. HPI About 6 days ago pt was bitten by several mosquitoes. Two days ago he was bit by a deer fly on his left leg. He has noticed a large erythematous area on his left lower leg that has since developed. Review of Systems Constitutional: Negative for fatigue and fever. Skin: Positive for color change. Objective BP 122/74 Pulse 72 Temp (!) 35.9 C (96.7 F) Resp 21 Wt 91.4 kg (201 lb 8 oz) SpO2 98% BMI 29.97 kg/m Physical Exam Vitals and nursing note reviewed. Constitutional: General: He is not in acute distress. Appearance: Normal appearance. He is not ill-appearing. HENT: Head: Normocephalic. Mouth/Throat: Mouth: Mucous membranes are moist. Eyes: Conjunctiva/sclera: Conjunctivae normal. Cardiovascular: Rate and Rhythm: Normal rate and regular rhythm. Pulmonary: Effort: Pulmonary effort is normal. Breath sounds: Normal breath sounds. Musculoskeletal: General: Normal range of motion. Cervical back: Normal range of motion. Skin: General: Skin is warm and dry. Comments: Area of erythema to left lower leg Neurological: General: No focal deficit present. Mental Status: He is alert. Psychiatric: Mood and Affect: Mood normal. Behavior: Behavior normal. Assessment and Plan ASSESSMENT/PLAN: 1. Cellulitis of left lower leg - ICD9: 682.6, ICD10: L03.116 Patient notes a chronic history of cellulitis with any breaks in the skin. He was started on Keflex. He was encouraged to follow-up with PCP and return for any new or worsening concerns. I did not appreciate any streaking of the skin and vital signs were unremarkable other than temp of 35.9 - CEPHALEXIN 500 MG CAPSULE Ousmane Nicole APRN.CNP documented in this encounterFayette County [facility]03-26-2024 History and physical note Author Dale [facility] December 11, 2023 10:42am Note Date/Time December 11, 2023 10: 42am [facility] Medical Records Department [address] [place] [address] History & Physical Exam 12/11/23 1041 MR#: [id number] Acct: [id number] Name: BROWN,MARIANODESIRAE GOODRICH Rep #:[id number] : 1960 63 From: Dale Rangel PCP: Dr. Juan Diego Garcia MD Status:REG S RI Location: [place] [address] History and Physical Date of Admission: 12/11/23 Date of Service: 11/28/23 MR#: [id number] Acct: [id number] Name: MARIANO BROWN KP Rep #: [id number] : 1960 Provider: Dr. Dale Sunshine MD Age/Sex: 63/M Location: [facility] Status: Signed Intake Vital Signs 02/20/2312:58 11/27/2408:42 Height 5 ft 11 in 5 ft 10 in Weight: 201 lb 8 oz BMI 28.9 BP 147/85 H Blood Pressure Location Rt brachial Position Sitting Respiration 18 Pulse 63 Pulse Source Monitor Temp 98.0 F Temp Source Temporal Pulse Oximetry (%) 97 Oxygen Delivery Method room air Intake Visit Reasons: INGUINAL HERNIA Chief Complaint: right inguinal hernia 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 Is patient in pain?: Yes Allergies Sulfa (Sulfonamide Antibiotics) Allergy (Verified 11/28/23 09:45) Other Medications atorvastatin 20 mg tablet 20 mg PO QHS 03/02/14 [History Confirmed 11/28/23] multivitamin,qx-msox-pgfjzhbk 27 mg-0.4 mg tablet 1 tab PO DAILY 03/02/14 [History Confirmed 11/28/23] omega-3 fatty acids-fish oil 684 mg-1,200 mg capsule,delayed release 1 ea PO DAILY 03/02/14 [History Confirmed 11/28/23] ascorbic acid (vitamin C) 1,000 mg tablet 1 g PO QDAY 01/25/18 [History Confirmed 11/28/23] cyanocobalamin (vitamin B-12) 1,000 mcg tablet 1,000 mcg PO DAILY 12/19/21 [History Confirmed 11/28/23] levothyroxine 88 mcg tablet 88 mcg PO DAILY 12/19/21 [History Confirmed 11/28/23] betamethasone dipropionate 0.05 % topical cream 1 applic topical DAILY PRN 02/19/23 [History Confirmed 11/28/23] losartan 25 mg tablet 25 mg PO DAILY #90 tabs 05/08/23 [Rx Confirmed 11/28/23] PFSH Medical History (Reviewed 02/19/23 @ 13:37 by Eliazar Guzman SYSTEMS CHECKOUT MECHANIC, SYSTEMS CHECKOUT MECHANIC-C) Asthma Bilateral carpal tunnel syndrome Chest pain, unspecified Essential hypertension Essential tremor GI bleed Internal hemorrhoids Pure hypercholesterolemia TMJ Surgical History History of carpal tunnel repair History of mandibular surgery History of prostate biopsy History of umbilical hernia repair Hx of colonoscopy Family History Father Myocardial infarction Diabetes CAD (coronary artery disease) CABGMother LymphomaSister CLL (chronic lymphocytic leukemia) Social History (Updated 11/28/23 @ 09:42 by Emy Espinosa LPN) Smoking Status: Former smoker quit date: 09/17/85 alcohol intake: current substance use type: former substance user Date of last use: 80s and marijuana HPI HPI HPI: Patient is a 63-year-old male who presents for concern over possible new right inguinal hernia. He is referred from Dr. Garcia. This finding was first noticed by Mr. Brown in September. Patient is able to recall how this occurred and shares that he was diagnosed with bronchitis in August and the symptoms lasted1 to September when he had a particular coughing fit where he felt as though he had ripped something. He shares that he has pain that "goes down in the crease". This is associated also with some "right testicle pain". He notes it to be a "dull ache" and denies explicitly any sharp pain. He states that this discomfort is particularly noticeable later in the day and it feels like "thingsare dropping" resulting in some bulging of his right groin. He does confirm that his bowel movements are normal in frequency but that there is some pain when he does have to defecate. He shares that there is a history of prostate growth but he denies any related urinary issues. Additionally, he makes mention of some periumbilical discomfort and potentially some bulging at that location. He does also state that he has fasted for today's visit just in case. 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 More directly, however, it is precluding him from being able to square dance which he enjoys as his hobby. Lastly, he shares that he is caring for his mother who is in a alf and occasionally tries to bring her home in a wheelchair and sees potential issues postoperatively with this recovery and this priority. Patient has a personal history of smoking, but states that it was greater than 20 years ago. Patient also has a personal history of recurrent cutaneous infections?most recently he describes right lower extremity cellulitis (in the past 6 months). Pertinent surgical history includes: Open umbilical hernia repair with onlay mesh placement by Dr. Talamantes in 2014. ROS General General: No weight change, appetite, fatigue, colon cancer, breast cancer or weakness HEENT HEENT: Yes difficulty swallowing; No eye injury, eye surgery, swollen glands or hoarseness Endo Endocrine: No thyroid disease, diabetes mellitus, thyroid cancer, Hair loss, heat intolerance or cold intolerance Skin Skin: No rash or changing moles Musc Musculoskeletal: Yes back problems; No arthritis, rheumatoid arthritis, gout or joint pain Cardio Cardiovascular: Yes high blood pressure; No murmur, pacemaker, heart disease, atrial fibrillation, heart attack, heart stent, palpitations, shortness of breat with exertion or chest pain Psych Psychiatric: Yes depression and anxiety; No hearing voices Resp Respiratory: Yes shortness of breath, No sleep apnea, No cough, No COPD, No asthma, No emphysema and No wheezing Gastro Gastrointestinal: Yes abdominal pain, No nausea or vomiting, No diarrhea, No constipation, Yes blood in stool, Yes acid reflux, Yes hemorrhoids, No ulcers, No gallbladder problem and No black,tarry stools Alo Hematologic: No blood thinners, No blood disorders, No bleeding, No anemia and No blood clots Neuro Neurologic: Yes numbness, Yes tingling and No weakness Exam Const General: cooperative and anxious Orientation: alert, awake and oriented x3 Resp Effort & Inspection: normal respiratory effort GI Other: Well-healed umbilical hernia repair with no signs of recurrence. There is no pain upon palpation. Patient denies any tenderness with palpation of the 4 abdominal quadrants. Other: Bilaterally descended testicles. Unremarkable left side exam. Significant tenderness on the right with a apparent indirect inguinal hernia defect Assessment and Plan Assessment and Plan (1) Right inguinal hernia: Status: Acute Comment: This is a 63-year-old, otherwise healthy, male who presents with signs and symptoms of a new right inguinal hernia. By exam this is an indirect?type inguinal hernia. He is symptomatic with progressive discomfort. It is also secondarily interfering with his ability to partake in his hobbies and square dancing. I held a lengthy conversation with him today regarding the hernias probable origin as well as my recommendation to pursue a minimally invasive inguinal hernia repair with mesh. Details of the procedure included postoperative expectations and preoperative "prehabilitation". To this latter end I recommended he reinstate his use of tamsulosin for urinary retention and work to minimize any perioperative coughing or sneezing. Additionally, I have cautioned him against proceeding amidst any present cellulitis concerns. He denies any present concerns, but confirms his understanding for possible mesh translocation. Today a nasal swab was obtained to screen for MRSA and we will plan to treat accordingly if present. Lastly, patient is cautioned on activity restrictions and I have recommended no lifting greater than 10 pounds for 5 weeks postoperatively. He suggest this is longer than he had anticipated and isconcerned about its impact on both his work schedule as well as his ability to care for his mother. I have encouraged him to speak with his employer directly about this and see how we might minimize the impact to him. I have also suggested that we may consider a light duty status 2 to 3 weeks postop and resume unrestricted physical activity following the 5-week pham. He seems pleased with this approach. Plan: ? Recommend robot-assisted right inguinal hernia repair with mesh ? Follow-up MRSA swab of nares and treat if indicated ? Resume tamsulosin 0.4 mg at least 2 weeks prior to surgery I have examined the patient the following changes are noted: Patient reports that he has had more discomfort and bulging that was less reducible in the past week. Today he states that he is doing well as he has been taking it easier. He also notes that his employer has been accommodating at work but he has now off for his postoperative recovery. Procedure and post procedure activity restrictions were reviewed and patient denies any further questions. Will now proceed to the operating room for planned robot-assisted right (possible bilateral) inguinal hernia repair with mesh 12/11/23 1042 <Electronically signed by Dale Sunshine MD> Cosigner Signature (if applicable): CC: Dr. Dale Sunshine MD; Dr. Juan Diego Garcia MD~ Signed [facility] Work Phone: 1(455) 511-952203-11-2024 Miscellaneous Notes* Telephone Encounter - Clementina Wilson LPN - 11/26/2023 1:17 PM EDT Patient notified. Verbalized understanding. Consult faxed to [facility] * Telephone Encounter - Juan Diego Garcia MD - 11/26/2023 1:03 PM EDT If severe pain, nause or vomiting, to ER. Its an urgent, emergent condition. If not see surgeon. * Telephone Encounter - Joyce Hutchinson RN - 11/26/2023 12:54 PM EDT Patient reports he has a hernia in right groin area. Reports he tried to push it back in, but that made it more painful. Reports it is a constant ache in his testicle. He is able to work and get around, but knows he needs to see a surgeon to get it fixed. States he's "trying not to be stupid" and knows he needs to have something done, but his insurance doesn't cover [facility], it covers [facility], and he cannot afford to schedule an appt with Dr. Garcia. States "it's not that I don't want him to see him, but I get more bills, when I do." Patient states he will schedule an appt with you if you think he needs to. Asking if pcp can send a referral to a surgeon at [facility]? Please phone patient with reply: [phone] documented in this encounterFayette [facility]02-05-2024 History of Present illness Narrative* Juan Diego Garcia MD - 10/22/2023 2:58 PM EST Patient presents with: Follow Up HPI: Patient presents today for office visit for 6 week follow up. Losartan increased to 50 mg daily at last OV. Has been monitoring BP at home. States his readings started to come down a couple weeks after starting increased Losartan but have since gone back up. Denies chest pain and shortness of breath. Denies headaches and dizziness. Denies palpitations. Denies syncope. Denies edema. Component Latest Ref Rng & Units 08/28/2023 09/29/2023 Protein, Total 6.3 - 8.0 g/dL 6.8 6.8 Albumin 3.9 - 4.9 g/dL 4.3 4.5 Calcium 8.5 - 10.2 mg/dL 9.5 Bilirubin, Total 0.2 - 1.3 mg/dL 0.9 1.0 Alkaline Phosphatase 38 - 113 U/L 85 59 AST 14 - 40 U/L 40 31 ALT 10 - 54 U/L 59 (H) 41 Glucose 74 - 99 mg/dL 116 (H) BUN 9 - 24 mg/dL 14 Creatinine 0.73 - 1.22 mg/dL 1.11 Sodium 136 - 144 mmol/L 142 Potassium 3.7 - 5.1 mmol/L 4.3 Chloride 97 - 105 mmol/L 104 CO2 22 - 30 mmol/L 27 Anion Gap 9 - 18 mmol/L 11 eGFR >=60 mL/min/1.73m 75 Cholesterol, Total <200 mg/dL 183 Triglyceride <150 mg/dL 97 HDL Cholesterol >39 mg/dL 50 Non HDL Cholesterol <130 mg/dL 133 (H) Fasting Time hrs 11 VLDL Cholesterol <30 mg/dL 19 TC:HDL Ratio <5.10 3.66 LDL Cholesterol <100 mg/dL 114 (H) LDL:HDL Ratio <2.54 2.28 Bilirubin, Conjug <0.2 mg/dL 0.2 (H) Hemoglobin A1C 4.3 - 5.6 % 5.9 (H) Estimated Average Glucose mg/dL 123 HCV RNA by PCR HCV RNA not detected by PCR. HCV RNA not detected by PCR. Hep B Surface Ag Negative Negative Hep A Ab, IgM Negative Negative Hep B Core Ab, IgM Negative Negative Component Latest Ref Rng & Units 09/29/2023 Albumin 3.9 - 4.9 g/dL 4.5 Bilirubin, Total 0.2 - 1.3 mg/dL 1.0 Bilirubin, Conjug <0.2 mg/dL 0.2 (H) Alkaline Phosphatase 38 - 113 U/L 59 AST 14 - 40 U/L 31 ALT 10 - 54 U/L 41 Protein, Total 6.3 - 8.0 g/dL 6.8 Hemoglobin A1C 4.3 - 5.6 % 5.9 (H) Estimated Average Glucose mg/dL 123 HCV RNA by PCR HCV RNA not detected by PCR. HCV RNA not detected by PCR. Hep B Surface Ag Negative Negative Hep A Ab, IgM Negative Negative Hep B Core Ab, IgM Negative Negative MEDICATIONS: Current Outpatient Medications Medication Sig losartan (COZAAR) 50 mg tablet Take 1 tablet by mouth once daily. atorvastatin (LIPITOR) 20 mg tablet Take 1 tablet by mouth daily at bedtime. For cholesterol. omeprazole (PRILOSEC) 20 mg capsule Take 1 capsule by mouth daily before breakfast. 1/2 hr before meal. levothyroxine (SYNTHROID) 88 mcg tablet Take 1 tablet by mouth once daily. Take on empty stomach. For Thyroid, except 1/2 pill on Sat loratadine 10 mg cap Take 10 mg by mouth once daily. clindamycin (CLEOCIN) 150 mg capsule Take 1 capsule by mouth four times daily. Cyanocobalamin 2,500 mcg subl Dissolve under the tongue. cholecalciferol (VITAMIN D3) 1,000 unit tab tablet Take 2,000 Units by mouth once daily. Ginseng 250 mg cap Take 1 tablet by mouth once daily. Coenzyme Q10 200 mg cap Take by mouth. LACTOBAC CMB #3/FOS/PANTETHINE (PROBIOTIC & ACIDOPHILUS ORAL) Take by mouth once daily. calcium carbonate-mag oxide 250-155 mg Tab Take 1 tablet by mouth once daily. [place]-3 Fatty Acids (FISH OIL) 500 mg Cap Take 2 capsules by mouth once daily. multivitamin,zo-wfkv-ofnxuxjn (THERAGRAN M) tab Take 1 tablet by mouth once daily. Ascorbic Acid 1,000 mg tablet Take 1 tablet by mouth once daily. No current facility-administered medications for this visit. ALLERGIES: ALLERGIES Allergen Reactions Sulfa (Sulfonamide * Anaphylaxis PAST MEDICAL HISTORY Diagnosis Date Elevated blood pressure 2011 Hemorrhage of gastrointestinal tract, unspecified Hyperglycemia Hyperlipidemia Internal hemorrhoids without mention of complication Low back pain [address] Queen Temporomandibular joint disorders, unspecified Unspecified asthma(493.90) PAST SURGICAL HISTORY Procedure Laterality Date COLONOSCOPY FLX DX W/COLLJ SPEC WHEN PFRMD 08/21/11 ESOPHAGOGASTRODUODENOSCOPY TRANSORAL DIAGNOSTIC 07/03/2013 EGD INT REPAIR FACE,EAR,EYE <2.5CM 03-09-14 PAST SURGICAL HISTORY OF 01/24/2013 left carpal tunnel release REM LESION FACE,EAR,EYE 0.6-1CM 03-09-14 RPR UMBILICAL HRNA 5 YRS/> REDUCIBLE 03-09-14 UNLISTED PROCEDURE DENTOALVEOLAR STRUCTURES jaw realignment FAMILY HISTORY Problem Relation Age of Onset other (htn, athritis) Mother Heart Father other (dm,) Father Social History Tobacco Use Smoking status: Former Packs/day: 0.50 Years: 10.00 Additional pack years: 0.00 Total pack years: 5.00 Types: Cigarettes, Cigars Quit date: 09/17/1985 Years since quittin.1 Smokeless tobacco: Never Tobacco comments: quit 1987 Substance Use Topics Alcohol use: Yes Comment: occasionally Drug use: No Types: Marijuana Comment: Past history Reviewed current medications, allergies, past medical history, surgical history, family history andsocial history today. REVIEW OF SYSTEMS Had pain after coughing in suprapubic area. Now seems better. All other reviewed and negative other than HPI. VITALS: BP 148/77 Pulse (!) 59 Ht 174.6 cm (5' 8.75") Wt 92.5 kg (204 lb) BMI 30.35 kg/m Last 4 Encounter Wt Readings: Date: Wt: 09/03/2023 89.7 kg (197 lb 12.8 oz) 03/12/2023 91.6 kg (202 lb) 08/08/2022 91.4 kg (201 lb 6.4 oz) 06/19/2022 90.4 kg (199 lb 6.4 oz) PHYSICAL EXAMINATION: General appearance: Well appearing, alert, in no acute distress, well-hydrated, well nourished. Skin: Skin color, texture, turgor normal, no suspicious rashes or lesions Lungs: Lungs clear to auscultation. No wheezing, rhonchi, rales Heart: RRR without murmur, gallop, or rubs. No ectopy Abdomen: Normal abdominal exam, Abdomen soft, non-tender. Bowel sounds normal. No masses, organomegaly Extremities: No deformities, edema, skin discoloration, clubbing or cyanosis. Good capillary refill. ASSESSMENT/PLAN: 1. Primary hypertension - ICD9: 401.9, ICD10: I10 (primary diagnosis) - Controlled - Continue current medications - LOSARTAN 100 MG TABLET 2. Prediabetes - ICD9: 790.29, ICD10: R73.03 - watch diet. 3. Hyperlipidemia, unspecified hyperlipidemia type - ICD9: 272.4, ICD10: E78.5 - stable. 4. Hypothyroidism, acquired - ICD9: 244.9, ICD10: E03.9 - stable. Juan Diego Garcia MD documented in this encounterF[facility]12[facility]23 History of Present illness Narrative* Juan Diego Garcia MD - 09/03/2023 1:16 PM EST Patient presents with: 6 Month Exam HPI: Patient presents today for office visit for follow up. Was seen at [facility] on 08/27/23. Started to feel sick 08/23/23. Symptoms started with ear burning sensation. Refers to feeling like a cold was coming on but didn't have any symptoms to speak of. Biggest complaint is constant sinus drainage. Coughs to get the mucus out but doesn't have a constant cough. No nasal or chest congestion. No sore throat. Completed course of medrol dose pack as well as given Quoikhxtdvvkefa-Rbppyvqth-WW. Not taking cough syrup. He states this is too strong for him. Had negative covid test. Had sinus pressure. Still does not feel well. HLD: Continues on Atorvastatin No myalgias HTN: Continues on Losartan Monitors BP at home States his BP has been really high the past two months Denies chest pain and shortness of breath No headaches or dizziness Denies palpitations or syncopal episodes No edema Due for cardiology follow up Taking Omeprazole prn. Has hiatal hernia. No issues. Component Latest Ref Rng & Units 08/28/2023 Protein, Total 6.3 - 8.0 g/dL 6.8 Albumin 3.9 - 4.9 g/dL 4.3 Calcium 8.5 - 10.2 mg/dL 9.5 Bilirubin, Total 0.2 - 1.3 mg/dL 0.9 Alkaline Phosphatase 38 - 113 U/L 85 AST 14 - 40 U/L 40 ALT 10 - 54 U/L 59 (H) Glucose 74 - 99 mg/dL 116 (H) BUN 9 - 24 mg/dL 14 Creatinine 0.73 - 1.22 mg/dL 1.11 Sodium 136 - 144 mmol/L 142 Potassium 3.7 - 5.1 mmol/L 4.3 Chloride 97 - 105 mmol/L 104 CO2 22 - 30 mmol/L 27 Anion Gap 9 - 18 mmol/L 11 eGFR >=60 mL/min/1.73m 75 Cholesterol, Total <200 mg/dL 183 Triglyceride <150 mg/dL 97 HDL Cholesterol >39 mg/dL 50 Non HDL Cholesterol <130 mg/dL 133 (H) Fasting Time hrs 11 VLDL Cholesterol <30 mg/dL 19 TC:HDL Ratio <5.10 3.66 LDL Cholesterol <100 mg/dL 114 (H) LDL:HDL Ratio <2.54 2.28 MEDICATIONS: Current Outpatient Medications Medication Sig Tyuyiadkzuivkzz-Voswmhbok-CV 2-30-10 mg/5 mL syrup Take 10 mL (Oral) at bedtime for 5 days atorvastatin (LIPITOR) 20 mg tablet Take 1 tablet by mouth daily at bedtime. For cholesterol. omeprazole (PRILOSEC) 20 mg capsule Take 1 capsule by mouth daily before breakfast. 1/2 hr before meal. levothyroxine (SYNTHROID) 88 mcg tablet Take 1 tablet by mouth once daily. Take on empty stomach. For Thyroid, except 1/2 pill on Sat loratadine 10 mg cap Take 10 mg by mouth once daily. clindamycin (CLEOCIN) 150 mg capsule Take 1 capsule by mouth four times daily. Cyanocobalamin 2,500 mcg subl Dissolve under the tongue. losartan (COZAAR) 25 mg tablet Take 25 mg by mouth once daily. cholecalciferol (VITAMIN D3) 1,000 unit tab tablet Take 2,000 Units by mouth once daily. Ginseng 250 mg cap Take 1 tablet by mouth once daily. Coenzyme Q10 200 mg cap Take by mouth. LACTOBAC CMB #3/FOS/PANTETHINE (PROBIOTIC & ACIDOPHILUS ORAL) Take by mouth once daily. calcium carbonate-mag oxide 250-155 mg Tab Take 1 tablet by mouth once daily. [place]-3 Fatty Acids (FISH OIL) 500 mg Cap Take 2 capsules by mouth once daily. multivitamin,su-ppjz-kxronpeg (THERAGRAN M) tab Take 1 tablet by mouth once daily. Ascorbic Acid 1,000 mg tablet Take 1 tablet by mouth once daily. No current facility-administered medications for this visit. ALLERGIES: ALLERGIES Allergen Reactions Sulfa (Sulfonamide * Anaphylaxis PAST MEDICAL HISTORY Diagnosis Date Elevated blood pressure 2011 Hemorrhage of gastrointestinal tract, unspecified Hyperglycemia Hyperlipidemia Internal hemorrhoids without mention of complication Low back pain [address] Queen Temporomandibular joint disorders, unspecified Unspecified asthma(493.90) PAST SURGICAL HISTORY Procedure Laterality Date COLONOSCOPY FLX DX W/COLLJ SPEC WHEN PFRMD 08/21/11 ESOPHAGOGASTRODUODENOSCOPY TRANSORAL DIAGNOSTIC 07/03/2013 EGD INT REPAIR FACE,EAR,EYE <2.5CM 03-09-14 PAST SURGICAL HISTORY OF 01/24/2013 left carpal tunnel release REM LESION FACE,EAR,EYE 0.6-1CM 03-09-14 RPR UMBILICAL HRNA 5 YRS/> REDUCIBLE 03-09-14 UNLISTED PROCEDURE DENTOALVEOLAR STRUCTURES jaw realignment FAMILY HISTORY Problem Relation Age of Onset other (htn, athritis) Mother Heart Father other (dm,) Father Social History Tobacco Use Smoking status: Former Packs/day: 0.50 Years: 10.00 Additional pack years: 0.00 Total pack years: 5.00 Types: Cigarettes, Cigars Quit date: 09/17/1985 Years since quittin.9 Smokeless tobacco: Never Tobacco comments: quit 1987 Substance Use Topics Alcohol use: Yes Comment: occasionally Drug use: No Types: Marijuana Comment: Past history Reviewed current medications, allergies, past medical history, surgical history, family history andsocial history today. REVIEW OF SYSTEMS All other reviewed and negative other than HPI. HEALTH MAINTENANCE: Reviewed health maintenance issues today and recommended the following in detail. BP Controlled (<130/80) Never done RSV Vaccine(1 - 1-dose 60+ series) Never done Covid-19 Vaccine( season) due on 05/18/2023 VITALS: BP 160/88 Pulse 66 Ht 174.6 cm (5' 8.75") Wt 89.7 kg (197 lb 12.8 oz) SpO2 96% BMI 29.42 kg/m Last 4 Encounter Wt Readings: Date: Wt: 09/03/2023 89.7 kg (197 lb 12.8 oz) 03/12/2023 91.6 kg (202 lb) 08/08/2022 91.4 kg (201 lb 6.4 oz) 06/19/2022 90.4 kg (199 lb 6.4 oz) PHYSICAL EXAMINATION: General appearance: Well appearing, alert, in no acute distress, well-hydrated, well nourished. Skin: Skin color, texture, turgor normal, no suspicious rashes or lesions Head: Normocephalic, no masses, lesions, tenderness or abnormalities Eyes: Anicteric sclera. Pupils are equally round and reactive to light. Extraocular movements are intact. Ears: External ears normal, canals clear Nose/Sinuses: Nares normal, septum midline, mucosa normal, no drainage or sinus tenderness Oropharynx: Lips, mucosa, and tongue normal, teeth and gums normal, oropharynx normal Neck: Supple, no adenopath Lungs: Lungs clear to auscultation. No wheezing, rhonchi, rales Heart: RRR without murmur, gallop, or rubs. No ectopy Abdomen: Normal abdominal exam, Abdomen soft, non-tender. Bowel sounds normal. No masses, organomegaly Extremities: No deformities, edema, skin discoloration, clubbing or cyanosis. Good capillary refill. ASSESSMENT/PLAN: 1. Primary hypertension - ICD9: 401.9, ICD10: I10 (primary diagnosis) - Worsening control - increasing meds. Recheck in six weeks. - LOSARTAN 50 MG TABLET 2. Hyperlipidemia, unspecified hyperlipidemia type - ICD9: 272.4, ICD10: E78.5 - Controlled - Continue current medications 3. Hypothyroidism, acquired - ICD9: 244.9, ICD10: E03.9 - stable 4. Elevated PSA - ICD9: 790.93, ICD10: R97.20 - per urology 5. Hyperglycemia - ICD9: 790.29, ICD10: R73.9 - HGB A1C 6. Elevated liver enzymes - ICD9: 790.5, ICD10: R74.8 - HEPATIC FUNCTION PNL - HEP ACUTE PANEL/RNA Discussed risks and benefits of new medication with the patient. Advised them to call if any side effects or questions. Red flags for re-assessment reviewed with patient in detail. Call if symptoms worsen at all or if not better in one to two weeks Reviewed diagnosis and treatment options in detail. Questions were answered. Patient expressed understanding of treatment plan. 7. Bacterial sinusitis - ICD9: 473.9, 041.9, ICD10: J32.9, B96.89 - AMOXICILLIN 875 MG TABLET Juan Diego Garcia MD RTO in six weeks after labs and bp med change. documented in this encounterF[facility]12-04-2023 Miscellaneous Notes* Telephone Encounter - Traci Ta Ma - 08/20/2023 10:38 AM EST Pt notified. Traci Ta Ma * Telephone Encounter - Juan Diego Garcia MD - 08/18/2023 11:59 AM EST Placed. * Telephone Encounter - Komal Story - 08/18/2023 11:13 AM EST Patient came in requesting lab work to be placed before his appt on 09/03/23. Please review and advise patient once placed. Komal Story August 18, 2023 11:13 AM documented in this encounterFayette [facility]06-13-2023 Miscellaneous Notes* Telephone Encounter - Beatriz Lovell Pss - 02/27/2023 11:17 AM EDT Patient has been identified by name and date of : Yes Requested Prescriptions Pending Prescriptions Disp Refills levothyroxine (SYNTHROID) 88 mcg tablet 30 tablet 11 Sig: Take 1 tablet by mouth once daily. Take on empty stomach. For Thyroid, except 1/2 pill on Sat RX INSTRUCTIONS: Patient aware RX will be sent to pharmacy. No need to notify patient. Beatriz Lovell Pss documented in this encounterFayette [facility]03-06-2023 Miscellaneous Notes* Telephone Encounter - Izabela Ch LPN - 11/20/2022 9:23 AM EST Patient calling he has appt with Dermatology, Dr Tuan Clay this afternoon and the office needs his records from last February faxed to [phone]. Printed office notes, referral and pathology report and faxed as requested. documented in this encounterFayette [facility]11-22-2022 History of Present illness Narrative* Yasmine Tee, RT(R) - 08/08/2022 7:10 PM EST Radiology Service Progress Note PATIENT NAME: Mariano Brown DATE OF SERVICE: August 08, 2022 TIME: 7:06 PM PATIENT IDENTITY VERIFICATION COMPLETED USING TWO (2) IDENTIFIERS: Name and Date of confirmedby patient verbally. FALL SCREENING: Has the patient had 2 falls in the last year or 1 fall with injury or currently using an Ambulatory Assistive Device (Walker, Cane, Wheelchair, Crutches, etc.)? No PATIENT GENDER DATA: Male PATIENT RELEVANT IMPLANT DATA REVIEWED: Yes RADIOLOGY DEPARTMENT: General X-ray: Exam(s) Completed: Lower Extremity X- Ray(s): Ankle, Right and Wt. Bearing PERIPHERAL IV DATA: Not applicable SIGNED BY: RT Xavier(R) August 08, 2022 7:06 PM documented in this encounterFayette [facility]11-22-2022 History of Present illness Narrative* Juan Diego Garcia MD - 08/08/2022 4:19 PM EST Patient presents with: 6 Month Exam HPI: Patient presents today for office visit for follow up. Still has complaints of edema and pain to the right ankle. Saw Carly Hernandez on 06/14 and again on 06/19. Round of Doxycycline for 10 days completed. Cellulitis cleared Was running a fever. Duplex was negative. Has some chronic venous stasis. Sleeps in a recliner most of the time. HTN: BP stable. Checks at home. No chest pain No shortness of breath No dizziness No headaches HLD: No myalgias. Tolerating Atorvastatin 20 mg daily. HYPERGLYCEMIA: labs are stable TREMOR: follows neurology. On sublingual b12. Still seeing urology Just checked thyroid in the spring. Component Latest Ref Rng & Units 07/29/2022 WBC 3.70 - 11.00 k/uL 5.81 RBC 4.20 - 6.00 m/uL 4.28 Hemoglobin 13.0 - 17.0 g/dL 13.4 Hematocrit 39.0 - 51.0 % 41.0 MCV 80.0 - 100.0 fL 95.8 MCH 26.0 - 34.0 pg 31.3 MCHC 30.5 - 36.0 g/dL 32.7 RDW-CV 11.5 - 15.0 % 13.0 Platelet Count 150 - 400 k/uL 256 MPV 9.0 - 12.7 fL 11.6 Neut% % 51.9 Abs Neut (ANC) 1.45 - 7.50 k/uL 3.02 Lymph% % 34.6 Abs Lymph 1.00 - 4.00 k/uL 2.01 [place]% % 9.6 Abs [place] <0.87 k/uL 0.56 Eosin% % 2.8 Abs Eosin <0.46 k/uL 0.16 Baso% % 0.9 Abs Baso <0.11 k/uL 0.05 Immature Gran % % 0.2 IMMATURE GRANS (ABS) <0.10 k/uL <0.03 NRBC /100 WBC 0.0 Absolute nRBC <0.01 k/uL <0.01 DTYPE Auto Protein, Total 6.3 - 8.0 g/dL 6.7 Albumin 3.9 - 4.9 g/dL 4.4 Calcium 8.5 - 10.2 mg/dL 9.5 Bilirubin, Total 0.2 - 1.3 mg/dL 0.7 Alkaline Phosphatase 38 - 113 U/L 61 AST 14 - 40 U/L 26 ALT 10 - 54 U/L 26 Glucose 74 - 99 mg/dL 97 BUN 9 - 24 mg/dL 15 Creatinine 0.73 - 1.22 mg/dL 0.92 Sodium 136 - 144 mmol/L 142 Potassium 3.7 - 5.1 mmol/L 4.4 Chloride 97 - 105 mmol/L 106 (H) CO2 22 - 30 mmol/L 24 Anion Gap 9 - 18 mmol/L 12 eGFR >=60 mL/min/1.73m 95 Cholesterol, Total <200 mg/dL 153 Triglyceride <150 mg/dL 86 HDL Cholesterol >39 mg/dL 48 Non HDL Cholesterol <130 mg/dL 105 Fasting Time hrs 12 VLDL Cholesterol <30 mg/dL 17 TC:HDL Ratio <5.10 3.19 LDL Cholesterol <100 mg/dL 88 LDL:HDL Ratio <2.54 1.83 Hemoglobin A1C 4.3 - 5.6 % 5.5 Estimated Average Glucose mg/dL 111 MEDICATIONS: Current Outpatient Medications Medication Sig atorvastatin (LIPITOR) 20 mg tablet Take 1 tablet by mouth daily at bedtime. For cholesterol. levothyroxine (SYNTHROID) 88 mcg tablet Take 1 tablet by mouth once daily. Take on empty stomach. For Thyroid, except 1/2 pill on Sat Cyanocobalamin 2,500 mcg subl Dissolve under the tongue. losartan (COZAAR) 25 mg tablet Take 25 mg by mouth once daily. cholecalciferol (VITAMIN D3) 1,000 unit tab tablet Take 2,000 Units by mouth once daily. Ginseng 250 mg cap Take 1 tablet by mouth once daily. Coenzyme Q10 200 mg cap Take by mouth. LACTOBAC CMB #3/FOS/PANTETHINE (PROBIOTIC & ACIDOPHILUS ORAL) Take by mouth once daily. calcium carbonate-mag oxide 250-155 mg Tab Take 1 tablet by mouth once daily. [place]-3 Fatty Acids (FISH OIL) 500 mg Cap Take 2 capsules by mouth once daily. multivitamin,yx-rkbq-dutshpxb (THERAGRAN M) tab Take 1 tablet by mouth once daily. Ascorbic Acid 1,000 mg tablet Take 1 tablet by mouth once daily. No current facility-administered medications for this visit. ALLERGIES: ALLERGIES Allergen Reactions Sulfa (Sulfonamide * Anaphylaxis PAST MEDICAL HISTORY Diagnosis Date Elevated blood pressure 2011 Hemorrhage of gastrointestinal tract, unspecified Hyperglycemia Hyperlipidemia Internal hemorrhoids without mention of complication Low back pain [address] Queen Temporomandibular joint disorders, unspecified Unspecified asthma(493.90) PAST SURGICAL HISTORY Procedure Laterality Date COLONOSCOPY FLX DX W/COLLJ SPEC WHEN PFRMD 08/21/11 ESOPHAGOGASTRODUODENOSCOPY TRANSORAL DIAGNOSTIC 07/03/2013 EGD INT REPAIR FACE,EAR,EYE <2.5CM 03-09-14 PAST SURGICAL HISTORY OF 01/24/2013 left carpal tunnel release REM LESION FACE,EAR,EYE 0.6-1CM 03-09-14 RPR UMBILICAL HRNA 5 YRS/> REDUCIBLE 03-09-14 UNLISTED PROCEDURE DENTOALVEOLAR STRUCTURES jaw realignment FAMILY HISTORY Problem Relation Age of Onset other (htn, athritis) Mother Heart Father other (dm,) Father Social History Tobacco Use Smoking status: Former Packs/day: 0.50 Years: 10.00 Pack years: 5.00 Types: Cigarettes, Cigars Quit date: 09/17/1985 Years since quittin.9 Smokeless tobacco: Never Tobacco comments: quit 1987 Substance Use Topics Alcohol use: Yes Comment: occasionally Drug use: No Types: Marijuana Comment: Past history Reviewed current medications, allergies, past medical history, surgical history, family history andsocial history today. REVIEW OF SYSTEMS No new gi and gu issues. All other reviewed and negative other than HPI. HEALTH MAINTENANCE: Reviewed health maintenance issues today and recommended the following in detail. HIV SCREENING Never done SHINGRIX VACCINE(1 of 2) Never done COLORECTAL CANCER SCREENING due on 08/21/2021 COVID-19 VACCINE(4 - Booster for Pfizer series) due on 11/30/2021 VITALS: BP 134/78 Pulse 64 Ht 174.6 cm (5' 8.75") Wt 91.4 kg (201 lb 6.4 oz) SpO2 97% BMI 29.96 kg/m Last 4 Encounter Wt Readings: Date: Wt: 06/19/2022 90.4 kg (199 lb 6.4 oz) 06/14/2022 90.7 kg (200 lb) 03/09/2022 88 kg (194 lb) 02/06/2022 91.2 kg (201 lb) PHYSICAL EXAMINATION: General appearance: Well appearing, alert, in no acute distress, well-hydrated, well nourished. Head: Normocephalic, no masses, lesions, tenderness or abnormalities Eyes: Anicteric sclera. Pupils are equally round and reactive to light. Extraocular movements are intact. Lungs: Lungs clear to auscultation. No wheezing, rhonchi, rales Heart: RRR without murmur, gallop, or rubs. No ectopy Abdomen: Normal abdominal exam, Abdomen soft, non-tender. Bowel sounds normal. No masses, organomegaly Extremities: one plus edema. Some venous stasis changes. Slightly pink and warm over ankle. Suspecthas not completely resolved. Musculoskeletal: No joint swelling, deformity, or tenderness ASSESSMENT/PLAN: 1. Acute right ankle pain - ICD9: 719.47, 338.19, ICD10: M25.571 (primary diagnosis) - start on clinda. Red flags for re-assessment reviewed with patient in detail. Discussed risks and benefits of new medication with the patient. Advised them to call if any side effects or questions. - XR ANKLE GENERAL 3V AP/LAT/OBL RIGHT - CBC + DIFF - SED RATE WESTERGREN - URIC ACID BLOOD - CLINDAMYCIN HCL 150 MG CAPSULE 2. Cellulitis of skin - ICD9: 682.9, ICD10: L03.90 - CLINDAMYCIN HCL 150 MG CAPSULE 3. Tremor - ICD9: 781.0, ICD10: R25.1 - no change 4. Primary hypertension - ICD9: 401.9, ICD10: I10 - good control - Continue current medication(s) - Recommend home blood pressure monitoring, to bring results in on next visit - Discussed need and benefit for weight loss. - Goal of BP <130/80 5. Hyperlipidemia, unspecified hyperlipidemia type - ICD9: 272.4, ICD10: E78.5 6. Benign non-nodular prostatic hyperplasia with lower urinary tract symptoms - ICD9: 600.91, ICD10: N40.1 7. Hyperglycemia - ICD9: 790.29, ICD10: R73.9 8. Hypothyroidism, acquired - ICD9: 244.9, ICD10: E03.9 - stable 9. Elevated PSA - ICD9: 790.93, ICD10: R97.20 10. Screening for colon cancer - ICD9: V76.51, ICD10: Z12.11 - COLOGUARD 11. Screening for HIV (human immunodeficiency virus) - ICD9: V73.89, ICD10: Z11.4 - HIV 1 2 COMBO(AG/AB),WITH REFLEX TO DIFFERENTIATION Juan Diego Garcia MD documented in this encounterFayette [facility]10-07-2022 Miscellaneous Notes* Telephone Encounter - Rubina Sanchez LPN - 06/23/2022 4:26 PM EDT Spoke wit the scheduling dept at [facility] they got him in on Sunday at 8am for his ultrasound of his legHe is to be there 15 minutes early and repoet to first floor dx. Center. Left this detailed messageon pts voicemail as in note beti says would be ok he would be checking it while at work. * Telephone Encounter - Carly Hernandez APRN.CNP - 06/23/2022 2:48 PM EDT Please look into this. Have ordered twice. Is ordered as STAT. Thank you, Carly Hernandez APRN.CNP * Telephone Encounter - Donna Aguirre LPN - 06/23/2022 12:46 PM EDT Pt called back today 06-23-22 and states he has not heard back from the hospital on scheduling the stat US for right leg. Pt states he was scheduled at [facility] for 06-19-22 and then received a call back they had doubled book the time and pt was not given a new date and time. Pt concerned because there isstill swelling and pain. I contacted [facility] scheduling and left a message with above information and to call the pt at [phone]. Okay to leave a message, pt is at work and will keep checking his phone. Donna Aguirre LPN documented in this encounterFayette [facility]10-03-2022 Nurse Note* Rubina Sanchez LPN - 06/19/2022 3:43 PM EDT Pt receives flu vaccine in office as ordered. Tolerated well. documented in this encounterFayette [facility]10-03-2022 History of Present illness Narrative* Carly Hernandez APRN.[employer]ADER - 06/19/2022 2:45 PM EDT Chief Complaint Patient presents with: Follow Up: Left foot ankle ankle and leg on rt f/up cellulitis HPI Mariano Brown is a 61 year old male who presents here today for Above Complaints. Mariano is an established patient of Dr. Radha MD following up with me today following recent officevisit on 06/14. Seen on 06/14 by this provider due RLE edema and redness. Plan of care: - Begin treatment with doxycycline BID x 10 days. - US to rule out DVT or clot. Likely cellulitis due to precipitating symptoms of fever/chills and body aches. - No lymphangetic streaking, this was defined for patient to watch for and to seek medical care immediately if appears - Area of cellulitis defined with pen, seek further attention if this area continues to enlarge - in office photos taken and uploaded in to chart for comparison and re-evaluation. - Follow up for recheck in three days - DOXYCYCLINE HYCLATE 100 MG TABLET - US DVT LOWER RT Today... Redness is greatly improved. Swelling and edema still persists but improving. Unable to get US -- due to not ordered STAT has been scheduled and pushed back/cancelled numerous times. Has tried at [facility] and [facility]. Reports inguinal lymph node enlargement at last visit that has since improved. Reports mild discomfort to calf area still but otherwise pain is greatly improved. Last US of leg in 2014 - RIGHT SIDE - DEEP VEINS Spontaneous and respirophasic flow noted in the common femoral vein. Inguinal lymph node noted measuring 1.28 x 2.99 x 3.63 cm. LEFT SIDE - DEEP VEINS Negative for acute deep vein thrombosis. LEFT SIDE - SUPERFICIAL VEINS Negative for superficial thrombophlebitis in the great saphenous vein. Thickened pineda, patent small saphenous vein. Past medical history, appointments, medications, allergies reviewed. Previous Medical History PAST MEDICAL HISTORY Diagnosis Date Elevated blood pressure 2011 Hemorrhage of gastrointestinal tract, unspecified Hyperglycemia Hyperlipidemia Internal hemorrhoids without mention of complication Low back pain [address] Queen Temporomandibular joint disorders, unspecified Unspecified asthma(493.90) Previous Surgical History PAST SURGICAL HISTORY Procedure Laterality Date COLONOSCOPY FLX DX W/COLLJ SPEC WHEN PFRMD 08/21/11 ESOPHAGOGASTRODUODENOSCOPY TRANSORAL DIAGNOSTIC 07/03/2013 EGD INT REPAIR FACE,EAR,EYE <2.5CM 03-09-14 PAST SURGICAL HISTORY OF 01/24/2013 left carpal tunnel release REM LESION FACE,EAR,EYE 0.6-1CM 03-09-14 RPR UMBILICAL HRNA 5 YRS/> REDUCIBLE 03-09-14 UNLISTED PROCEDURE DENTOALVEOLAR STRUCTURES jaw realignment Family History FAMILY HISTORY Problem Relation Age of Onset other (htn, athritis) Mother Heart Father other (dm,) Father Patient Allergies ALLERGIES Allergen Reactions Sulfa (Sulfonamide * Anaphylaxis Current Medications Current Outpatient Medications on File Prior to Visit Medication Sig doxycycline (VIBRA-TABS) 100 mg tablet Take 1 tablet by mouth twice daily for 10 days. atorvastatin (LIPITOR) 20 mg tablet Take 1 tablet by mouth daily at bedtime. For cholesterol. levothyroxine (SYNTHROID) 88 mcg tablet Take 1 tablet by mouth once daily. Take on empty stomach. For Thyroid, except 1/2 pill on Sat Cyanocobalamin 2,500 mcg subl Dissolve under the tongue. losartan (COZAAR) 25 mg tablet Take 25 mg by mouth once daily. tamsulosin ER (FLOMAX) 0.4 mg cp24 Take 1 capsule by mouth once daily. cholecalciferol (VITAMIN D3) 1,000 unit tab tablet Take 2,000 Units by mouth once daily. Ginseng 250 mg cap Take 1 tablet by mouth once daily. Coenzyme Q10 200 mg cap Take by mouth. LACTOBAC CMB #3/FOS/PANTETHINE (PROBIOTIC & ACIDOPHILUS ORAL) Take by mouth once daily. calcium carbonate-mag oxide 250-155 mg Tab Take 1 tablet by mouth once daily. [place]-3 Fatty Acids (FISH OIL) 500 mg Cap Take 2 capsules by mouth once daily. multivitamin,sp-vucv-uywxhucr (THERAGRAN M) tab Take 1 tablet by mouth once daily. Ascorbic Acid 1,000 mg tablet Take 1 tablet by mouth once daily. No current facility-administered medications on file prior to visit. Social History Social History Tobacco Use Smoking status: Former Packs/day: 0.50 Years: 10.00 Pack years: 5.00 Types: Cigarettes, Cigars Quit date: 09/17/1985 Years since quittin.7 Smokeless tobacco: Never Tobacco comments: quit 1987 Substance Use Topics Alcohol use: Yes Comment: occasionally Drug use: No Types: Marijuana Comment: Past history REVIEW OF SYSTEMS: as above Reviewed relevant PMHx, PSHx, Social Hx, current medications and allergies. Review of Symptoms REVIEW OF SYSTEMS See HPI. EXAM: BP 120/64 (BP Site: Left Arm, BP Position: Sitting, BP Cuff Size: Large Adult) Pulse 68 Resp 16 Wt 90.4 kg (199 lb 6.4 oz) BMI 29.66 kg/m General Appearance: Well appearing, alert, in no acute distress, well-hydrated, well nourished.. Skin: Skin color, texture, turgor normal, no suspicious rashes or lesions, Positives: mild edema toRLE to ankle and foot. Redness improved to baseline. LLE normal. Head: Normocephalic, no masses, lesions, tenderness or abnormalities. Lungs: Lungs clear to auscultation. No wheezing, rhonchi, rales.. Heart: RRR without murmur, gallop, or rubs. No ectopy. Extremities: No deformities, edema, skin discoloration, clubbing or cyanosis. Good capillary refill. . Musculoskeletal: No joint swelling, deformity, or tenderness. Peripheral Pulses: Normal. Neurologic: Gait normal. Reflexes normal and symmetric. Sensation grossly intact.. Health Maintenance List HIV SCREENING Never done BP CONTROLLED (<130/80) Never done SHINGRIX VACCINE(1 of 2) Never done COLORECTAL CANCER SCREENING due on 08/21/2021 COVID-19 VACCINE(4 - Booster for Pfizer series) due on 11/30/2021 INFLUENZA(1) due on 05/18/2022 ANNUAL PCP TEAM CHRONIC DISEASE VISIT due on 06/14/2023 DIABETES SCREEN due on 01/28/2025 LIPID SCREEN due on 09/03/2026 PROSTATE CANCER SCREENING DISCUSSION due on 12/10/2026 DTAP,TDAP,TD(3 - Td or Tdap) due on 02/07/2032 DEPRESSION ASSESSMENT Completed HEPATITIS C SCREENING Completed ASSESSMENT/PLAN: 1. Edema of right lower leg - ICD9: 782.3, ICD10: R60.0 (primary diagnosis) Improving. US to rule out DVT in addition to cellulitis -- ordered as stat. Continue and finish antibiotic regimen - US DVT LOWER RT 2. Encounter for immunization - ICD9: V03.89, ICD10: Z23 - INFLUENZA VACCINE QUADRIVALENT 6 MO - 64 YRS IM RTO if symptoms worsen. Prescription instructions reviewed with patient as applicable. Potential red flag symptoms discussed with the patient. Reviewed appropriate action plan to take if red flag symptoms occur. Patient agreeable to treatment plan. Carly Hernandez APRN.CNP [address] [place] [address] documented in this encounterF[facility]09[facility]22 History of Present illness Narrative* Carly Hernandez APRN.CNP - 06/14/2022 2:57 PM EDT Chief Complaint Patient presents with: Cellulitis: RIGHT lower extremity x 3 days HPI Mariano Brown is a 61 year old male who presents here today for Above Complaints. Mariano is an established patient of Dr. Garcia. Mariano is a new patient to me today. Concerns today... RLE edema and redness--- RLE redness, edema, and warmth x 3-5 days. Unsure when leg started because he wears pants frequently and changes in the dark. Reports symptoms started about 6 days ago with flu-like symptoms including bodyaches, fever, and night sweats. [facility] visit on 06/10 due to these symptoms (didn't notice leg at this point). Tested for COVID x2 at home -- negative PCR COVID and flu testing in UC -- negative. Noticed redness and some mild discomfort with walking to RLE about 3 days ago. Has had cellulitis to legs in the past from mild scrapes. Unknown fall, injury, bug bite, scrape/laceration to RLE. Denies any recent exposure to COVID or COVID +. Denies recent travel or long card rides. No other concerns or complaints. Difficulty with medical compliance due to insurance issues and finical burden. Past medical history, appointments, medications, allergies reviewed. Previous Medical History PAST MEDICAL HISTORY Diagnosis Date Elevated blood pressure 2011 Hemorrhage of gastrointestinal tract, unspecified Hyperglycemia Hyperlipidemia Internal hemorrhoids without mention of complication Low back pain [address] Queen Temporomandibular joint disorders, unspecified Unspecified asthma(493.90) Previous Surgical History PAST SURGICAL HISTORY Procedure Laterality Date COLONOSCOPY FLX DX W/COLLJ SPEC WHEN PFRMD 08/21/11 ESOPHAGOGASTRODUODENOSCOPY TRANSORAL DIAGNOSTIC 07/03/2013 EGD INT REPAIR FACE,EAR,EYE <2.5CM 03-09-14 PAST SURGICAL HISTORY OF 01/24/2013 left carpal tunnel release REM LESION FACE,EAR,EYE 0.6-1CM 03-09-14 RPR UMBILICAL HRNA 5 YRS/> REDUCIBLE 03-09-14 UNLISTED PROCEDURE DENTOALVEOLAR STRUCTURES jaw realignment Family History FAMILY HISTORY Problem Relation Age of Onset other (htn, athritis) Mother Heart Father other (dm,) Father Patient Allergies ALLERGIES Allergen Reactions Sulfa (Sulfonamide * Anaphylaxis Current Medications Current Outpatient Medications on File Prior to Visit Medication Sig atorvastatin (LIPITOR) 20 mg tablet Take 1 tablet by mouth daily at bedtime. For cholesterol. levothyroxine (SYNTHROID) 88 mcg tablet Take 1 tablet by mouth once daily. Take on empty stomach. For Thyroid, except 1/2 pill on Sat Cyanocobalamin 2,500 mcg subl Dissolve under the tongue. losartan (COZAAR) 25 mg tablet Take 25 mg by mouth once daily. cholecalciferol (VITAMIN D3) 1,000 unit tab tablet Take 2,000 Units by mouth once daily. Ginseng 250 mg cap Take 1 tablet by mouth once daily. Coenzyme Q10 200 mg cap Take by mouth. LACTOBAC CMB #3/FOS/PANTETHINE (PROBIOTIC & ACIDOPHILUS ORAL) Take by mouth once daily. calcium carbonate-mag oxide 250-155 mg Tab Take 1 tablet by mouth once daily. [place]-3 Fatty Acids (FISH OIL) 500 mg Cap Take 2 capsules by mouth once daily. multivitamin,zq-rkrn-xgmqyggf (THERAGRAN M) tab Take 1 tablet by mouth once daily. Ascorbic Acid 1,000 mg tablet Take 1 tablet by mouth once daily. tamsulosin ER (FLOMAX) 0.4 mg cp24 Take 1 capsule by mouth once daily. No current facility-administered medications on file prior to visit. Social History Social History Tobacco Use Smoking status: Former Packs/day: 0.50 Years: 10.00 Pack years: 5.00 Types: Cigarettes, Cigars Quit date: 09/17/1985 Years since quittin.7 Smokeless tobacco: Never Tobacco comments: quit 1987 Substance Use Topics Alcohol use: Yes Comment: occasionally Drug use: No Types: Marijuana Comment: Past history REVIEW OF SYSTEMS: as above Reviewed relevant PMHx, PSHx, Social Hx, current medications and allergies. Review of Symptoms REVIEW OF SYSTEMS See HPI. All other systems are negative. EXAM: BP 138/78 Pulse 72 Temp 36.6 C (97.8 F) (Temporal) Resp 16 Wt 90.7 kg (200 lb) SpO2 98% BMI 29.75 kg/m General Appearance: Well appearing, alert, in no acute distress, well-hydrated, well nourished.. Skin: Skin color, texture, turgor normal, no suspicious rashes or lesions, Positives: RLE with welldefined redness, pitting edema, and warmth. Redness outlined with pen, foot not red but ankle to knee affected. Head: Normocephalic, no masses, lesions, tenderness or abnormalities. Lungs: Lungs clear to auscultation. No wheezing, rhonchi, rales.. Heart: RRR without murmur, gallop, or rubs. No ectopy. Extremities: No deformities, edema, skin discoloration, clubbing or cyanosis. Good capillary refill. See above. Musculoskeletal: No joint swelling, deformity, or tenderness. Peripheral Pulses: Normal. Neurologic: Gait normal. Reflexes normal and symmetric. Sensation grossly intact. Health Maintenance List HIV SCREENING Never done SHINGRIX VACCINE(1 of 2) Never done COLORECTAL CANCER SCREENING due on 08/21/2021 DEPRESSION ASSESSMENT Never done COVID-19 VACCINE(4 - Booster for Pfizer series) due on 11/30/2021 INFLUENZA(1) due on 05/18/2022 ANNUAL PCP TEAM CHRONIC DISEASE VISIT due on 03/09/2023 BP CONTROLLED (<130/80) due on 03/09/2023 DIABETES SCREEN due on 01/28/2025 LIPID SCREEN due on 09/03/2026 PROSTATE CANCER SCREENING DISCUSSION due on 12/10/2026 DTAP,TDAP,TD(3 - Td or Tdap) due on 02/07/2032 HEPATITIS C SCREENING Completed ASSESSMENT/PLAN: 1. Cellulitis of right lower extremity - ICD9: 682.6, ICD10: L03.115 (primary diagnosis) - Begin treatment with doxycycline BID x 10 days. - US to rule out DVT or clot. Likely cellulitis due to precipitating symptoms of fever/chills and body aches. - No lymphangetic streaking, this was defined for patient to watch for and to seek medical care immediately if appears - Area of cellulitis defined with pen, seek further attention if this area continues to enlarge - in office photos taken and uploaded in to chart for comparison and re-evaluation. - Follow up for recheck in three days - DOXYCYCLINE HYCLATE 100 MG TABLET - US DVT LOWER RT 2. Redness and swelling of lower leg - ICD9: 729.81, 782.9, ICD10: M79.89, R23.8 See above. - DOXYCYCLINE HYCLATE 100 MG TABLET - US DVT LOWER RT RTO in 3 days, sooner if needed. Prescription instructions reviewed with patient as applicable. Potential red flag symptoms discussed with the patient. Reviewed appropriate action plan to take if red flag symptoms occur. Patient agreeable to treatment plan. Carly Hernandez APRN.GILDARDO [address] [place] [address] documented in this encounterF[facility]08-09-2022 Miscellaneous Notes* Telephone Encounter - Donna Aguirre LPN - 04/25/2022 5:09 PM EDT Pt called in and requested a copy of by and office note be faxed to Dr. [facility]. Done. Donna Aguirre LPN documented in this encounterFayette [facility]07-15-2022 Miscellaneous Notes* Telephone Encounter - Finesse Bean LPN - 03/31/2022 12:52 PM EDT LEANDRA 03/09/22 NOV 08/08/22 * Telephone Encounter - Yola Montes Pss - 03/31/2022 12:10 PM EDT Patient has been identified by name and date of : Yes Pending Prescriptions Disp Refills ATORVASTATIN 20 MG TABLET 30 tablet 11 Sig: Take 1 tablet by mouth daily at bedtime. For cholesterol. ANGE: No RX INSTRUCTIONS: would like refill until appointment in Nov Patient aware RX will be sent to pharmacy. No need to notify patient. Yola Rasmussen documented in this encounterFayette [facility]07-07-2022 Miscellaneous Notes* Telephone Encounter - Lilibeth Pickett - 03/23/2022 10:45 AM EDT TC to pt, he is nervous about his ins being oon at the locations available. Pt also stated that he is unable to travel easily. I gave pt the member services number for his insurance and advised that his ins shows it is in network for our location and [facility]. Pt stated he was going to look into it further prior to scheduling. Thank you, Lilibeth Pickett * Telephone Encounter - Finesse Bean LPN - 03/13/2022 5:49 PM EDT Please assist pt with scheduling Derm appt. Finesse Bean LPN * Telephone Encounter - Juan Diego Garcia MD - 03/13/2022 4:48 PM EDT Discussed with patient. Needs follow up with dermatology set up for dysplastic nevus. documented in this encounterFayette County [facility] Hospital06-23-2022 Instructions* Patient Instructions* Juan Diego Garcia MD - 03/09/2022 1:33 PM EDT Wound care: Dressing may be changed and wound may be cleansed with rubbing alcohol or hydrogen peroxide as needed. Keep the wound covered and dry for the first 2 days. Antibiotic ointment may be applied if desired. You may have limited exposure to showering 48 hours after procedure. Apply direct constant pressure to the wound for 10-15 minutes if bleeding occurs. Contact the office if bleeding will not stop, there is spreading redness, foul drainage, or other signs of infectio documented in this encounterFayette County [facility] Hospital06-23-2022 History of Present illness Narrative* Juan Diego Garica MD - 03/09/2022 1:14 PM EDT Patient presents with: shave excision: back HPI: Patient presents today for office visit for follow up. Presents for shave excision of mole on left flank. MEDICATIONS: Current Outpatient Medications Medication Sig levothyroxine (SYNTHROID) 88 mcg tablet Take 1 tablet by mouth once daily. Take on empty stomach. For Thyroid, except 1/2 pill on Sat Cyanocobalamin (VITAMIN B-12) 2,500 mcg subl Dissolve under the tongue. atorvastatin (LIPITOR) 20 mg tablet Take 1 tablet by mouth daily at bedtime. For cholesterol. losartan (COZAAR) 25 mg tablet Take 25 mg by mouth once daily. tamsulosin ER (FLOMAX) 0.4 mg cp24 Take 1 capsule by mouth once daily. cholecalciferol (VITAMIN D3) 1,000 unit tab tablet Take 2,000 Units by mouth once daily. Ginseng 250 mg cap Take 1 tablet by mouth once daily. Coenzyme Q10 (CO Q-10) 200 mg cap Take by mouth. LACTOBAC CMB #3/FOS/PANTETHINE (PROBIOTIC & ACIDOPHILUS ORAL) Take by mouth once daily. calcium carbonate-mag oxide 250-155 mg Tab Take 1 tablet by mouth once daily. [place]-3 Fatty Acids (FISH OIL) 500 mg Cap Take 2 capsules by mouth once daily. multivitamin,sf-csrn-yavvxlgx (COMPLETE MULTIVITAMIN) ORAL Tab Take 1 tablet by mouth once daily. Ascorbic Acid (VITAMIN C) 1,000 mg ORAL tablet Take 1 tablet by mouth once daily. No current facility-administered medications for this visit. ALLERGIES: ALLERGIES Allergen Reactions Sulfa (Sulfonamide * Anaphylaxis PAST MEDICAL HISTORY Diagnosis Date Elevated blood pressure 2011 Hemorrhage of gastrointestinal tract, unspecified Hyperglycemia Hyperlipidemia Internal hemorrhoids without mention of complication Low back pain [address] Queen Temporomandibular joint disorders, unspecified Unspecified asthma(493.90) PAST SURGICAL HISTORY Procedure Laterality Date COLONOSCOPY FLX DX W/COLLJ SPEC WHEN PFRMD 08/21/11 ESOPHAGOGASTRODUODENOSCOPY TRANSORAL DIAGNOSTIC 07/03/2013 EGD INT REPAIR FACE,EAR,EYE <2.5CM 03-09-14 PAST SURGICAL HISTORY OF 01/24/2013 left carpal tunnel release REM LESION FACE,EAR,EYE 0.6-1CM 03-09-14 RPR UMBILICAL HRNA 5 YRS/> REDUCIBLE 03-09-14 UNLISTED PROCEDURE DENTOALVEOLAR STRUCTURES jaw realignment FAMILY HISTORY Problem Relation Age of Onset other (htn, athritis) Mother Heart Father other (dm,) Father Social History Tobacco Use Smoking status: Former Smoker Packs/day: 0.50 Years: 10.00 Pack years: 5.00 Types: Cigarettes, Cigars Quit date: 09/17/1985 Years since quittin.4 Smokeless tobacco: Never Used Tobacco comment: quit 1987 Substance Use Topics Alcohol use: Yes Comment: occasionally Drug use: No Types: Marijuana Comment: Past history Reviewed current medications, allergies, past medical history, surgical history, family history andsocial history today. REVIEW OF SYSTEMS All other reviewed and negative other than HPI. VITALS: BP 102/62 Pulse (!) 56 Wt 88 kg (194 lb) BMI 28.86 kg/m Last 4 Encounter Wt Readings: Date: Wt: 03/09/2022 88 kg (194 lb) 02/06/2022 91.2 kg (201 lb) 01/20/2022 91.6 kg (202 lb) 09/13/2021 91.6 kg (202 lb) PHYSICAL EXAMINATION: General appearance: Well appearing, alert, in no acute distress, well-hydrated, well nourished. Skin: mole as above. Procedure: shave biopsy UNIVERSAL PROTOCOL / SAFETY CHECKLIST Procedure to be Performed: shave excision on left back mole. Sign In: A Moment of CARE was completed. Personnel directly involved with the procedure wore the appropriate PPE (Personal Protective Equipment). Patient/Surrogate Stated/Verified: PATIENT VERIFIED(optional for EMERGENT procedures): Patient name, Date of , Relevant allergies and The intended procedure Time Out Communication: Intended patient and procedure match the source documents. Consent documented and matches the intended procedure. Sign Out: SIGN OUT (optional for EMERGENT procedures): No instruments, equipment or retained foreign bodies applicable. Juan Diego Garcia MD Preop diagnosis: skin lesion Postop diagnosis: Same Consent: Risks and benefits of the procedure were discussed with the patient including bleeding, infection, scarring, and need for further treatment if a malignant process is discovered. The patient understands these risks and wishes to proceed. Site: left back Anesthesia: 0.5 cc 2 % lidocaine with epinephrine Procedure: area was cleansed with betadine and draped in a sterile fashion. A sterile number 11 scalpel blade was used to shave the lesion. Hemostasis was achieved using compression and electrocautery. Patient tolerated well. Lesion sent to pathology. Dressing: sterile bandaid Wound care: Dressing may be changed and wound may be cleansed with rubbing alcohol or hydrogen peroxide as needed. Keep the wound covered and dry for the first 2 days. Antibiotic ointment may be applied if desired. You may have limited exposure to showering 48 hours after procedure. Apply direct constant pressure to the wound for 10-15 minutes if bleeding occurs. Contact the office if bleeding will not stop, there is spreading redness, foul drainage, or other signs of infection. ASSESSMENT/PLAN: 1. Skin lesion - ICD9: 709.9, ICD10: L98.9 - Discussed wound care. - SURGICAL PATHOLOGY Juan Diego Garcia MD documented in this encounterFayette [facility]05-23-2022 History of Present illness Narrative* Juan Diego Garcia MD - 02/06/2022 2:54 PM EDT Patient presents with: 6 Month Exam HPI: Patient presents today for office visit for follow up. HYPERTENSION:no chest pain or shortness of breath. No edema. HLD:no issues with meds. HYPOTHYROID:tsh is stable. URO:sees urology. Overall doing well. psa has been stable. Seeing Dr. Crane. Needs colonoscopy. Also wants to have his back checked. Has noted some occasional blood spots on his t shirt. Component Latest Ref Rng & Units 01/28/2022 T4 5.5 - 10.2 ug/dL 7.2 T4 Uptake 0.91 - 1.19 1.01 FTI 5.3 - 10.8 ug/dL 7.1 Hemoglobin A1C 4.3 - 5.6 % 5.8 (H) Estimated Average Glucose mg/dL 120 TSH 0.270 - 4.200 mIU/L 0.809 Vitamin B12 232-1,245 pg/mL 329 MEDICATIONS: Current Outpatient Medications Medication Sig levothyroxine (SYNTHROID) 88 mcg tablet Take 1 tablet by mouth once daily. Take on empty stomach. For Thyroid, except 1/2 pill on Sat Cyanocobalamin (VITAMIN B-12) 2,500 mcg subl Dissolve under the tongue. atorvastatin (LIPITOR) 20 mg tablet Take 1 tablet by mouth daily at bedtime. For cholesterol. losartan (COZAAR) 25 mg tablet Take 25 mg by mouth once daily. tamsulosin ER (FLOMAX) 0.4 mg cp24 Take 1 capsule by mouth once daily. cholecalciferol (VITAMIN D3) 1,000 unit tab tablet Take 2,000 Units by mouth once daily. Ginseng 250 mg cap Take 1 tablet by mouth once daily. Coenzyme Q10 (CO Q-10) 200 mg cap Take by mouth. LACTOBAC CMB #3/FOS/PANTETHINE (PROBIOTIC & ACIDOPHILUS ORAL) Take by mouth once daily. calcium carbonate-mag oxide 250-155 mg Tab Take 1 tablet by mouth once daily. [place]-3 Fatty Acids (FISH OIL) 500 mg Cap Take 2 capsules by mouth once daily. multivitamin,qi-buij-agtxqmrn (COMPLETE MULTIVITAMIN) ORAL Tab Take 1 tablet by mouth once daily. Ascorbic Acid (VITAMIN C) 1,000 mg ORAL tablet Take 1 tablet by mouth once daily. No current facility-administered medications for this visit. ALLERGIES: ALLERGIES Allergen Reactions Sulfa (Sulfonamide * Anaphylaxis PAST MEDICAL HISTORY Diagnosis Date Elevated blood pressure 2011 Hemorrhage of gastrointestinal tract, unspecified Hyperglycemia Hyperlipidemia Internal hemorrhoids without mention of complication Low back pain [address] Queen Temporomandibular joint disorders, unspecified Unspecified asthma(493.90) PAST SURGICAL HISTORY Procedure Laterality Date COLONOSCOPY FLX DX W/COLLJ SPEC WHEN PFRMD 08/21/11 ESOPHAGOGASTRODUODENOSCOPY TRANSORAL DIAGNOSTIC 07/03/2013 EGD INT REPAIR FACE,EAR,EYE <2.5CM 03-09-14 PAST SURGICAL HISTORY OF 01/24/2013 left carpal tunnel release REM LESION FACE,EAR,EYE 0.6-1CM 03-09-14 RPR UMBILICAL HRNA 5 YRS/> REDUCIBLE 03-09-14 UNLISTED PROCEDURE DENTOALVEOLAR STRUCTURES jaw realignment FAMILY HISTORY Problem Relation Age of Onset other (htn, athritis) Mother Heart Father other (dm,) Father Social History Tobacco Use Smoking status: Former Smoker Packs/day: 0.50 Years: 10.00 Pack years: 5.00 Types: Cigarettes, Cigars Quit date: 09/17/1985 Years since quittin.4 Smokeless tobacco: Never Used Tobacco comment: quit 1987 Substance Use Topics Alcohol use: Yes Comment: occasionally Drug use: No Types: Marijuana Comment: Past history Reviewed current medications, allergies, past medical history, surgical history, family history andsocial history today. REVIEW OF SYSTEMS All other reviewed and negative other than HPI. HEALTH MAINTENANCE: Reviewed health maintenance issues today and recommended the following in detail. SHINGRIX VACCINE(1 of 2) Never done DTAP,TDAP,TD(2 - Td or Tdap) due on 05/24/2021 COLORECTAL CANCER SCREENING due on 08/21/2021 VITALS: BP 110/72 Pulse (!) 56 Wt 91.2 kg (201 lb) BMI 29.90 kg/m Last 4 Encounter Wt Readings: Date: Wt: 02/06/2022 91.2 kg (201 lb) 01/20/2022 91.6 kg (202 lb) 09/13/2021 91.6 kg (202 lb) 07/21/2021 89.8 kg (198 lb) PHYSICAL EXAMINATION: General appearance: Well appearing, alert, in no acute distress, well-hydrated, well nourished. Skin: elongated dark mole on left posterior chest near posterior axillary line in mid chest. Suggested excision Lungs: Lungs clear to auscultation. No wheezing, rhonchi, rales Heart: RRR without murmur, gallop, or rubs. No ectopy Abdomen: Normal abdominal exam, Abdomen soft, non-tender. Bowel sounds normal. No masses, organomegaly Extremities: No deformities, edema, skin discoloration, clubbing or cyanosis. Good capillary refill. Musculoskeletal: No joint swelling, deformity, or tenderness Peripheral pulses: Normal Neuro: Negative. ASSESSMENT/PLAN: 1. Hypothyroidism, acquired - ICD9: 244.9, ICD10: E03.9 (primary diagnosis) - Instructed patient on importance of taking on an empty stomach either first thing in the morning or at bedtime. - LEVOTHYROXINE 88 MCG TABLET 2. Need for vaccination - ICD9: V05.9, ICD10: Z23 - TDAP VACCINE AGE 7+ IM 3. Hyperglycemia - ICD9: 790.29, ICD10: R73.9 - HGB A1C 4. Elevated PSA - ICD9: 790.93, ICD10: R97.20 - per urology. 5. Primary hypertension - ICD9: 401.9, ICD10: I10 - good control - Continue current medication(s) - Goal of BP <130/80 - CBC + DIFF - COMP METABOLIC PANEL 6. Hyperlipidemia, unspecified hyperlipidemia type - ICD9: 272.4, ICD10: E78.5 - good control - Continue current medication. - LIPID PANEL BASIC 7. Screening for colon cancer - ICD9: V76.51, ICD10: Z12.11 - CONSULT TO GASTROENTEROLOGY 8. Return to office for shave excision. Juan Diego Garcia RTO in six months and prn. documented in this encounterFayette [facility]05-06-2022 History of Present illness Narrative* Juan Diego Magana Jr., MD - 01/20/2022 3:22 PM EDT ESTABLISHED PATIENT VISIT CHIEF COMPLAINT: Tremor follow up HISTORY OF PRESENT ILLNESS: Mariano Brown is a 61 year old male, with a PMH significant for and per last office visit note of Kevon Blue CNP on 07/21/21: G25.0 Essential tremor (primary encounter diagnosis) Comment: Patient still with tremor to BUE. No changing or worsening of symptoms since previous visit. Exam with finding of tremor present with upper extremities outstretched. No tremor at rest. No sxof Parkinsonism seen on exam today. Previous blood work obtained and unremarkable except for B12 level of 269. As level is on the low end of normal, will have patient begin B12 supplement. Discussed initiating medication to possibly relieve sx, however, he would prefer to hold off at this time. Will continue to monitor symptoms for any changes or worsening. R40.0 Daytime sleepiness R68.83 Chills Comment: Patient reports feeling tired throughout the day with episodes of awakening due to chills.Chills occur at random over the past five years. Unsure if he snores but does report gasping for air with resolution after sleeping in chair or elevating HOB. Reports he was to have sleep apnea workup in past but this was deferred. Recent blood work all unremarkable. Discussed [facility] for sleep apnea evaluation, however, he declines further workup at this time. Reviewed SE of untreated sleep apnea. Patient aware he can contact office if he wishes to proceed with testing. Feels tremors unchanged since last seen. Primarily in the arms but also notes that his head does tremor every now and then. States B12 has not influenced tremors. Chills noted above, have resolved since on B12. States still feels as soon as he sits down is ready to go to sleep. If working would keep going, but if sits down wants to sleep. Getting about 5 hours of sleep at night. Not snoring. No dry mouth. Stressors including having to inherit 4 cats after father passes away and mother in SNF. States cats wake him up all night long. He does states 8-10 years ago would wake up not being able tobreathe. States everyone I talk to, "its a one way ticket to get you on a CPAP machine". Pt then tells of various regions of paresthesias in arms and legs that appears of positional nature- sitting too long, leaning on elbow to long. Usually present when driving. Not endorsing symptoms with activity. No weakness. No spine/back pain. REVIEW OF SYSTEMS GENERAL:No weight loss, malaise or fevers. HEENT:Negative for frequent or significant headaches, No changes in hearing or vision, no nose bleeds or other nasal problems NECK:Negative for lumps, goiter, pain and significant neck swelling RESPIRATORY: Negative for cough, wheezing or shortness of breath. CARDIOVASCULAR: Negative for chest pain, leg swelling or palpitations. GASTROINTESTINAL: Negative for abdominal discomfort, blood in stools or black stools or change in bowel habits GENITOURINARY: Nocturia x2 MUSCULOSKELETAL: Negative for joint pain or swelling, back pain or muscle pain. NEUROLOGIC:Negative for focal numbness or weakness, headaches and dizziness or syncope, vision changes, speech/languag changes - EXCEPT that as per HPI above. LAB/IMAGING: Those performed since patient's last visit have been reviewed. WBC (k/uL) Date Value 09/03/2021 6.34 RBC (m/uL) Date Value 09/03/2021 4.42 Hemoglobin (g/dL) Date Value 09/03/2021 14.1 Hematocrit (%) Date Value 09/03/2021 42.4 MCV (fL) Date Value 09/03/2021 95.9 MCH (pG) Date Value 09/03/2021 31.9 MCHC (g/dL) Date Value 09/03/2021 33.3 RDW-CV (%) Date Value 09/03/2021 12.3 Platelet Count (k/uL) Date Value 09/03/2021 259 MPV (fL) Date Value 09/03/2021 11.3 Glucose (mg/dL) Date Value 09/03/2021 100 (H) BUN (mg/dL) Date Value 09/03/2021 14 Creatinine (mg/dL) Date Value 09/03/2021 1.01 Sodium (mmol/L) Date Value 09/03/2021 142 Potassium (mmol/L) Date Value 09/03/2021 4.3 Chloride (mmol/L) Date Value 09/03/2021 105 CO2 (mmol/L) Date Value 09/03/2021 27 Protein, Total (g/dL) Date Value 09/03/2021 6.9 Albumin (g/dL) Date Value 09/03/2021 4.5 Calcium (mg/dL) Date Value 09/03/2021 9.7 Alkaline Phosphatase (U/L) Date Value 09/03/2021 54 Bilirubin, Total (mg/dL) Date Value 09/03/2021 1.0 AST (U/L) Date Value 09/03/2021 26 ALT (U/L) Date Value 09/03/2021 25 Hep C Antibody IA (no units) Date Value 08/10/2018 Negative TSH Date Value Ref Range Status 09/03/2021 0.751 0.270 - 4.200 uU/mL Final Vitamin B12 Date Value Ref Range Status 01/21/2021 269 232 - 1,245 pg/mL Final MEDICATIONS: Cyanocobalamin (VITAMIN B-12) 2,500 mcg subl Dissolve under the tongue. atorvastatin (LIPITOR) 20 mg tablet Take 1 tablet by mouth daily at bedtime. For cholesterol. levothyroxine (SYNTHROID) 88 mcg tablet Take 1 tablet by mouth once daily. Take on empty stomach. For Thyroid, except 1/2 pill on Sat losartan (COZAAR) 25 mg tablet Take 25 mg by mouth once daily. tamsulosin ER (FLOMAX) 0.4 mg cp24 Take 1 capsule by mouth once daily. cholecalciferol (VITAMIN D3) 1,000 unit tab tablet Take 2,000 Units by mouth once daily. Ginseng 250 mg cap Take 1 tablet by mouth once daily. Coenzyme Q10 (CO Q-10) 200 mg cap Take by mouth. LACTOBAC CMB #3/FOS/PANTETHINE (PROBIOTIC & ACIDOPHILUS ORAL) Take by mouth once daily. calcium carbonate-mag oxide 250-155 mg Tab Take 1 tablet by mouth once daily. [place]-3 Fatty Acids (FISH OIL) 500 mg Cap Take 2 capsules by mouth once daily. multivitamin,[id number]-xxje-ucwzuayu (COMPLETE MULTIVITAMIN) ORAL Tab Take 1 tablet by mouth once daily. Ascorbic Acid (VITAMIN C) 1,000 mg ORAL tablet Take 1 tablet by mouth once daily. cyanocobalamin, vitamin B-12, (VITAMIN B-12) 5,000 mcg subl Dissolve under the tongue. VITAMIN B COMPLEX NO.12-NIACIN ORAL Take by mouth. HISTORIES PAST MEDICAL HISTORY Diagnosis Date Elevated blood pressure 2012 Hemorrhage of gastrointestinal tract, unspecified Hyperglycemia Hyperlipidemia Internal hemorrhoids without mention of complication Low back pain [address] [facility] [address] Queen Temporomandibular joint disorders, unspecified Unspecified asthma(493.90) FAMILY HISTORY Problem Relation Age of Onset other (htn, athritis) Mother Heart Father other (dm,) Father SOCIAL HISTORY Social History Tobacco Use Smoking status: Former Smoker Packs/day: 0.50 Years: 10.00 Pack years: 5.00 Types: Cigarettes, Cigars Quit date: 09/17/1985 Years since quittin.3 Smokeless tobacco: Never Used Tobacco comment: quit 1987 Substance Use Topics Alcohol use: Yes Comment: occasionally Drug use: No Types: Marijuana Comment: Past history PHYSICAL EXAMINATION Blood pressure 110/68, pulse 67, temperature 37.2 C (99 F), resp. rate 18, weight 91.6 kg (202 lb),SpO2 96 %. GENERAL EXAM: General appearance: NAD, pleasant. HEENT: NC/AT, nasal congestion absent, no oral lesions, membranes moist. No head tremor. Lungs: CTA bilaterally. CV: RRR nl S1, S2 Extr: No cyanosis, clubbing or edema. NEUROLOGICAL EXAM: General: Awake, alert, oriented x3 (person,place,time), speech fluent, no dysarthria. CN: PERRL, EOMI and without nystagmus, VFF to confrontation, facial sensation and strength are normal and symmetric, hearing is intact to finger rub bilaterally, palate and tongue movements are intact and symmetric. SCM and trapezius strength normal. Motor: Normal tone, bulk and strength (5/5) bilaterally (throughout extremities x4). Reflexes: 2/4 and symmetric, plantar stimulation is flexor. Coordination: FNF, GERMAN, HTS intact. Very fine low amp high freq tremors in fingers with hands extended away from body. Sensation: Light touch and pin intact throughout. No evidence of neglect. Gait: Stable with normal stride and arm swing. Assessment and Plan: ASSESSMENT/PLAN: 1. Essential tremor - ICD9: 333.1, ICD10: G25.0 (primary diagnosis) Stable per pt and minimal per objective exam. Again history and exam suggestive of essential tremor. Pt not wanting meds and exam not suggesting a need for medication. Will continue to monitor for now. 2. Daytime sleepiness - ICD9: 780.54, ICD10: R40.0 Patient not wanting sleep study as above, although concern for CORAZON given body habitus, oral airway and prior concerns of CORAZON. Discussed with patient: the physiology of OSAS, medical conditions associated with OSAS (DM, HTN, CAD, Depression, Stroke, Headache...) and treatment options (UPPP, Dental appliances, CPAP...). Pt not wanting sleep study. 3. Paresthesia of skin - ICD9: 782.0, ICD10: R20.2 As noted above. Etiology uncertain. Non focal neuro exam. Possible compression neuropathies(?). D/wpt possible EMG/NCV but declines. Will contact us if worsens. Will continue to follow. Continue to supplement B12. Continue to follow with PCP for thyoid meds. Follow up 6 months. if remains stable/asx, then can follow up yearly. Juan Diego Magana MD I spent a total of 30 minutes on the date of the service which included preparing to see the patient, [id number] patient care, completing clinical documentation, obtaining and/or reviewing separately obtained history, performing a medically appropriate examination, counseling and educating the pat ient/family/caregiver and ordering medications, tests, or procedures. [facility] Past illness Narrative* Problem Noted Date Resolved Date Umbilical hernia without mention of obstruction or gangrene 02/05/2014 02/14/2017 Sebaceous cyst 02/05/2014 02/14/2017 documented as of this encounter (statuses as of 01/20/2022) [facility] illness Narrative* Problem Noted Date Resolved Date Umbilical hernia without mention of obstruction or gangrene 02/05/2014 02/14/2017 Sebaceous cyst 02/05/2014 02/14/2017 documented as of this encounter (statuses as of 02/06/2022) [facility] Narrative* Problem Noted Date Resolved Date Umbilical hernia without mention of obstruction or gangrene 02/05/2014 02/14/2017 Sebaceous cyst 02/05/2014 02/14/2017 documented as of this encounter (statuses as of 03/09/2022) [facility] Narrative* Problem Noted Date Resolved Date Umbilical hernia without mention of obstruction or gangrene 02/05/2014 02/14/2017 Sebaceous cyst 02/05/2014 02/14/2017 documented as of this encounter (statuses as of 03/23/2022) [facility] Narrative* Problem Noted Date Resolved Date Umbilical hernia without mention of obstruction or gangrene 02/05/2014 02/14/2017 Sebaceous cyst 02/05/2014 02/14/2017 documented as of this encounter (statuses as of 03/31/2022) [facility] Narrative* Problem Noted Date Resolved Date Umbilical hernia without mention of obstruction or gangrene 02/05/2014 02/14/2017 Sebaceous cyst 02/05/2014 02/14/2017 documented as of this encounter (statuses as of 04/25/2022) [facility] Narrative* Problem Noted Date Resolved Date Umbilical hernia without mention of obstruction or gangrene 02/05/2014 02/14/2017 Sebaceous cyst 02/05/2014 02/14/2017 documented as of this encounter (statuses as of 06/14/2022) [facility] Narrative* Problem Noted Date Resolved Date Umbilical hernia without mention of obstruction or gangrene 02/05/2014 02/14/2017 Sebaceous cyst 02/05/2014 02/14/2017 documented as of this encounter (statuses as of 06/19/2022) [facility] Narrative* Problem Noted Date Resolved Date Umbilical hernia without mention of obstruction or gangrene 02/05/2014 02/14/2017 Sebaceous cyst 02/05/2014 02/14/2017 documented as of this encounter (statuses as of 06/23/2022) [facility] Narrative* Problem Noted Date Resolved Date Umbilical hernia without mention of obstruction or gangrene 02/05/2014 02/14/2017 Sebaceous cyst 02/05/2014 02/14/2017 documented as of this encounter (statuses as of 08/08/2022) [facility] Narrative* Problem Noted Date Resolved Date Umbilical hernia without mention of obstruction or gangrene 02/05/2014 02/14/2017 Sebaceous cyst 02/05/2014 02/14/2017 documented as of this encounter (statuses as of 11/20/2022) [facility] Narrative* Problem Noted Date Resolved Date Umbilical hernia without mention of obstruction or gangrene 02/05/2014 02/14/2017 Sebaceous cyst 02/05/2014 02/14/2017 documented as of this encounter (statuses as of 02/27/2023) [facility] Narrative* Problem Noted Date Diagnosed Date Resolved Date Umbilical hernia without men tion of obstruction or gangrene 02/05/2014 02/14/2017 Sebaceous cyst 02/05/2014 02/14/2017 documented as of this encounter (statuses as of 08/20/2023) [facility] Narrative* Problem Noted Date Diagnosed Date Resolved Date Umbilical hernia without men tion of obstruction or gangrene 02/05/2014 02/14/2017 Sebaceous cyst 02/05/2014 02/14/2017 documented as of this encounter (statuses as of 09/04/2023) [facility] Narrative* Problem Noted Date Diagnosed Date Resolved Date Umbilical hernia without men tion of obstruction or gangrene 02/05/2014 02/14/2017 Sebaceous cyst 02/05/2014 02/14/2017 documented as of this encounter (statuses as of 10/23/2023) [facility] Narrative* Problem Noted Date Diagnosed Date Resolved Date Umbilical hernia without men tion of obstruction or gangrene 02/05/2014 02/14/2017 Sebaceous cyst 02/05/2014 02/14/2017 documented as of this encounter (statuses as of 11/26/2023) [facility] Appointment Date:09/22/2021 02:40:00 PM Scheduled Provider:RODRIGUEZ CRANE MD Location:[facility] Appointment Type:[facility]O [facility] Future Scheduled Tests Laboratory* PSA, Free 07/08/21 [facility] Evaluation + Plan note Future Appointments Appointment Date:12/23/2021 01:10:00 PM Scheduled Provider:RODRIGUEZ CRANE MD Location:UROLOGY Appointment Type:URO OV Diagnostic Tests Pending * PSA, Free 12/10/21 Future Scheduled Tests Laboratory* PSA, Free 07/08/21 [facility] Evaluation + Plan note Future Appointments Appointment Date:12/25/2022 01:40:00 PM Scheduled Provider:RODRIGUEZ CRANE MD Location:UROLOGY Appointment Type:URO OV Future Scheduled Tests Laboratory* PSA, Free 12/23/22 * PSA, Free 07/08/21 [facility] Evaluation + Plan note Future Appointments Appointment Date:03/05/2023 02:20:00 PM Scheduled Provider:RODRIGUEZ CRANE MD Location:UROLOGY Appointment Type:URO OV [facility] Evaluation + Plan note Future Appointments Appointment Date:03/10/2024 02:00:00 PM Scheduled Provider:RODRIGUEZ CRANE MD Location:UROLOGY Appointment Type:URO OV Future Scheduled Tests Laboratory* PSA, Free 03/05/24 [facility] Evaluation + Plan note Future Appointments Appointment Date:03/10/2024 02:00:00 PM Scheduled Provider:RODRIGUEZ CRANE MD Location:UROLOGY Appointment Type:URO OV Diagnostic Tests Pending * PSA Total+% Free 03/03/24 [facility] Evaluation + Plan note Future Appointments Appointment Date:06/09/2024 02:20:00 PM Scheduled Provider:RODRIGUEZ CRANE MD Location:UROLOGY Appointment Type:URO OV Future Scheduled Tests Laboratory* PSA Total+% Free 06/10/24 [facility] evaluation + Plan note Future Appointments Appointment Date:07/23/2024 09:05:00 AM Scheduled Provider: Location:Main OR Appointment Type:[facility] Urology Appointment Date:08/04/2024 03:40:00 PM Scheduled Provider:RODRIGUEZ CRANE MD Location:UROLOGY Appointment Type:URO OV [facility] evaluation + Plan note Future Appointments Appointment Date:08/04/2024 03:40:00 PM Scheduled Provider:RODRIGUEZ CRANE MD Location:UROLOGY Appointment Type:UR[facility] Evaluation + Plan note Future Appointments Appointment Date:08/03/2025 02:40:00 PM Scheduled Provider:RODRIGUEZ CRANE MD Location:UROLOGY Appointment Type:URO OV Future Scheduled Tests Laboratory* Prostate Specific Antigen 08/04/25 [facility] evaluation + Plan note Future Appointments Appointment Date:06/09/2024 02:20:00 PM Scheduled Provider:RODRIGUEZ CRANE MD Location:UROLOGY Appointment Type:URO OV Diagnostic Tests Pending * PSA Total+% Free 05/31/24 [facility] evaluation + Plan note Future Appointments Appointment Date:08/03/2025 02:40:00 PM Scheduled Provider:RODRIGUEZ CRANE MD Location:UROLOGY Appointment Type:URO OV [facility] evaluation note* Diagnosis Essential tremor- Primary Essential and other specified forms of tremor Daytime sleepiness Paresthesia of skin Disturbance of skin sensation documented in this encounter [facility] note* Diagnosis Hypothyroidism, acquired- Primary Unspecified hypothyroidism Need for vaccination Need for prophylactic vaccination and inoculation against unspecified single disease Hyperglycemia Other abnormal glucose Elevated PSA Elevated prostate specific antigen (PSA) Primary hypertension Unspecified essential hypertension Hyperlipidemia, unspecified hyperlipidemia type Screening for colon cancer Special screening for malignant neoplasms, colon Skin lesion Unspecified disorder of skin and subcutaneous tissue Tremor Abnormal involuntary movements documented in this encounter [facility] note* Diagnosis Skin lesion- Primary Unspecified disorder of skin and subcutaneous tissue documented in this encounter [facility] note* Diagnosis Atypical nevus- Primary Benign neoplasm of skin, site unspecified Dysplastic nevus Benign neoplasm of skin, site unspecified documented in this encounter [facility] note* Diagnosis Hyperlipidemia, unspecified hyperlipidemia type [facility] Cellulitis of right lower extremity- Primary Cellulitis and abscess of leg, except foot Redness and swelling of lower leg [facility] Diagnosis Edema of right lower leg- Primary Encounter for immunization Need for other specified prophylactic vaccination against single bacterial disease [facility] noteNo assessment information availableWUniversity [facility] Work Phone: Evaluation note* Diagnosis Acute right ankle pain- Primary Cellulitis of skin Cellulitis and abscess of unspecified site Tremor Abnormal involuntary movements Primary hypertension Unspecified essential hypertension Hyperlipidemia, unspecified hyperlipidemia type Benign non-nodular prostatic hyperplasia with lower urinary tract symptoms Hyperglycemia Other abnormal glucose Hypothyroidism, acquired Unspecified hypothyroidism Elevated PSA Elevated prostate specific antigen (PSA) Screening for colon cancer Special screening for malignant neoplasms, colon Screening for HIV (human immunodeficiency virus) Special screening examination for other specified viral diseases [facility] Diagnosis Hypothyroidism, acquired Unspecified hypothyroidism [facility]* Diagnosis Onset Date Resolution Status Pure hypercholesterolemia ac michelle Essential hypertension chron ic RBBB chronic [facility] Work Phone: Evaluation note* Diagnosis Hyperlipidemia, unspecified hyperlipidemia type- Primary [facility]* Diagnosis Primary hypertension- Primary Unspecified essential hypertension Hyperlipidemia, unspecified hyperlipidemia type Hypothyroidism, acquired Unspecified hypothyroidism Elevated PSA Elevated prostate specific antigen (PSA) Hyperglycemia Other abnormal glucose Elevated liver enzymes Other nonspecific abnormal serum enzyme levels Bacterial sinusitis Unspecified sinusitis (chronic) [facility]* Diagnosis Primary hypertension- Primary Unspecified essential hypertension Prediabetes Other abnormal glucose Hyperlipidemia, unspecified hyperlipidemia type Hypothyroidism, acquired Unspecified hypothyroidism [facility]* Diagnosis Inguinal hernia without obstruction or gangrene, recurrence not specified, unspecified laterality- Primary [facility]* Diagnosis Onset Date Resolution Status Right inguinal hernia acute [facility] Work Phone: Evaluation note* Diagnosis Cellulitis of left lower leg- Primary Cellulitis and abscess of leg, except foot [facility]* Diagnosis Hypothyroidism, acquired Unspecified hypothyroidism [facility]* Diagnosis Hyperlipidemia, unspecified hyperlipidemia type [facility]* Diagnosis Hyperlipidemia, unspecified hyperlipidemia type- Primary Hypothyroidism, acquired Unspecified hypothyroidism Hyperglycemia Other abnormal glucose [facility]* Diagnosis Acute right ankle pain documented in this encounter [facility] note* Diagnosis Primary hypertension- Primary Unspecified essential hypertension Hyperlipidemia, unspecified hyperlipidemia type Benign non-nodular prostatic hyperplasia with lower urinary tract symptoms Hypothyroidism, acquired Unspecified hypothyroidism Hyperglycemia Other abnormal glucose Elevated PSA Elevated prostate specific antigen (PSA) Prediabetes Other abnormal glucose Tremor Abnormal involuntary movements documented in this encounter [facility] note* Diagnosis Primary hypertension Unspecified essential hypertension documented in this encounter [facility] note* Diagnosis Bacterial pneumonia- Primary Bacterial pneumonia, unspecified documented in this encounter [facility] note* Diagnosis Cough documented in this encounter [facility] note* Diagnosis Well adult exam- Primary Routine general medical examination at a health care facility Screening for depression Primary hypertension Unspecified essential hypertension Hyperlipidemia, unspecified hyperlipidemia type Benign non-nodular prostatic hyperplasia with lower urinary tract symptoms Hypothyroidism, acquired Unspecified hypothyroidism Elevated PSA Elevated prostate specific antigen (PSA) Prediabetes Other abnormal glucose RBBB Right bundle branch block Ptosis of both eyelids Unspecified ptosis of eyelid Raynaud's disease without gangrene Postnasal drip documented in this encounter [facility] note* Diagnosis Hypothyroidism, acquired Unspecified hypothyroidism Hyperlipidemia, unspecified hyperlipidemia type documented in this encounter [facility] course Narrative No data available for this section [facility] Discharge instructions No data available for this section [facility] Discharge instructions Additional Instructions Implant Used?: YesW[facility] Work Phone: Progress note No data available for this section [facility] Reason for referral (narrative)* Diagnostic Procedure Only (Routine) - Pending Review Specialty Diagnoses / Procedures Referred By Rossy espinoza Referred To Contact US IMAGING Diagnoses Cellulitis of right lower extremity Redness and swelling of lower leg Procedures US DVT LOWER RT DUP-SCAN XTR VEINS UNILATERAL/LIMITED STUDY Carly Hernandez, JORGE.[employer] [address] [place] [address] [facility] Referral ID Status Reason Start Date Expiration Date Visits Requested Visits Authorized [id number] Pending Review Auto-Generat ed Referral 06/14/2022 07/14/2023 1 1 [facility] for referral (narrative)* Diagnostic Procedure Only (Urgent) - Pending Review Specialty Diagnoses / Procedures Referred By Contac t Referred To Contact US IMAGING Diagnoses Edema of right lower leg Procedures US DVT LOWER RT DUP-SCAN XTR VEINS UNILATERAL/LIMITED STUDY Carly Hernandez APRN.CNP [id number] [place] [address] [facility] Referral ID Status Reason Start Date Expiration Date Visits Requested Visits Authorized [id number] Pending Review Auto-Generat ed Referral 06/19/2022 07/19/2023 1 1 [facility] for referral (narrative)* Diagnostic Procedure Only (Routine) - Closed Specialty Diagnoses / Procedures Referred By Contac t Referred To Contact XR IMAGING Diagnoses Acute right ankle pain Procedures XR ANKLE GENERAL 3V AP/LAT/OBL RIGHT RADEX ANKLE COMPLETE MINIMUM 3 VIEWS Juan Diego Garcia MD [address] [place] [address] Xr Imaging Referral ID Status Reason Start Date Expiration Date V isits Requested Visits Authorized [id number] Closed Auto-Generate d Referral 08/08/2022 09/07/2023 1 1 [facility] for referral (narrative)* Diagnostic Procedure Only (Routine) - Closed Specialty Diagnoses / Procedures Referred By Contac t Referred To Contact XR IMAGING Diagnoses Acute right ankle pain Procedures XR ANKLE GENERAL 3V AP/LAT/OBL RIGHT RADEX ANKLE COMPLETE MINIMUM 3 VIEWS Juan Diego Garcia MD [address] [place] [address] [place] [address] Referral ID Status Reason Start Date Expiration Date V isits Requested Visits Authorized [id number] Closed Auto-Generate d Referral 08/08/2022 09/07/2023 1 1 [facility] for referral (narrative)No reason for referral information availableWUniversity [facility] Work Phone: Reason for Referral Specialty Diagnoses / Procedures Referred By Contac t Referred To Contact General Surgery Diagnoses Inguinal hernia without obstruction or gangrene, recurrence not specified, unspecified laterality Procedures CONSULT TO GENERAL SURGERY OFFICE/OUTPATIENT [facility] 60 MINUTES Juan Diego Garcia MD [address] [place] [id number] Referral ID Status Reason Start Date Expiration Date Visits Requested Visits Authorized [id number] Pending Review PCP Requested Referral 11/26/2023 11/25/2024 1 1 Specialty Diagnoses / Procedures Referred By Contac t Referred To Contact Dermatology Diagnoses Atypical nevus Dysplastic nevus Procedures CONSULT TO DERMATOLOGY Juan Diego Garcia MD [address] [place] [id number] Referral ID Status Reason Start Date Expiration Date Visits Requested Visits Authorized [id number] Ref Not Required PCP Requested Referral 03/13/2022 03/13/2023 1 1 Specialty Diagnoses / Procedures Referred By Contac t Referred To Contact Gastroenterology Diagnoses Screening for colon cancer Procedures CONSULT TO GASTROENTEROLOGY Juan Diego Garcia MD [address] [place] [address] Referral ID Status Reason Start Date Expiration Date Visits Requested Visits Authorized [id number] Ref Not Required PCP Requested Referral 02/06/2022 02/06/2023 1 1 Chief Complaint and Reason for Visit Chief Complaint CELLULITIS RT LOWER EXTREMITY Chief Complaint 1 y fu DYSPHAGIA Reason for Visit Pure hypercholestero lemia Essential hypertension RBBB Chief Complaint INGUINAL HERNIA Reason for Visit Right inguinal herni a Chief Complaint INGUINAL HERNIA Lap Robotic right poss bilateral In Lap Robotic right poss bilateral In Reason for Visit Right inguinal herni a Chief Complaint Admit Date FEVER, SORE THROAT, COUGH October 05, 2024 10:06am CC RESULTS TO [facility] (O N FILE) January 29, 2025 10:33am Reason for Visit Admit Date URI (upper respiratory infection) Januar y 2024 10:06am Chief Complaint Admit Date CC RESULTS TO [facility] (O N FILE) January 29, 2025 10:33am 1 Y FU March 03, 2025 3:07 pm Family History Relationship Condition Age at Onset Recorded Date/T marco father Myocardial infarction Unknown Diabetes mellitus Unknown Coronary artery disease Unknown mother Lymphoma Unknown sister Chronic lymphocytic leukemia Unknown Advance Directives Advance Directive Response Recorded Date/ Time Advance Directives Yes March 02 8:18am Advance Directive Response Recorded Date/ Time Advance Directives Yes March 02 8:18am Living Will No December 10, 2023 9:36am Power of Packaging Operator No December 09 9:36am Advance Directive Response Recorded Date/ Time Advance Directives Yes December 12, 024 10:52am Summary Purpose Additional Source Comments Care Team (unrecognized sect ion and content) Care Team Personnel Name: RODRIGUEZ CRANE MD Position: P4 Physician - Urologist Member Role: Urologist Address: [address] [place] [id number]- Telecom: Name: JUAN DIEGO GARCIA MD Member Role: Primary Care Physician Address: [facility] [address] [place] [address]- Telecom: Care Team Related Persons Name: MAXIMILIAN HILL Preparole Counseling Aide Relationship Specialty Start Date End Date Juan Diego Garcia MD [address] [place] [address] PCP - General Family Practice 10/16/12 Preparole Counseling Aide Relationship Specialty Start Date End Date Juan Diego Garcia MD [address] [place] [address] PCP - General Family Practice 10/16/12 Preparole Counseling Aide Relationship Specialty Start Date End Date Juan Diego Garcia MD [address] [place] [address] PCP - General Family Practice 10/16/12 Preparole Counseling Aide Relationship Specialty Start Date End Date Juan Diego Garcia MD [address] [place] [address] PCP - General Family Practice 10/16/12 Preparole Counseling Aide Relationship Specialty Start Date End Date Juan Diego Garcia MD [address] [place] [address] PCP - General Family Practice 10/16/12 Preparole Counseling Aide Relationship Specialty Start Date End Date Juan Diego Garcia MD [address] [place] [address] PCP - General Family Medicine 10/16/12 Preparole Counseling Aide Relationship Specialty Start Date End Date Juan Diego Garcia MD [address] [place] [address] PCP - General Family Medicine 10/16/12 Preparole Counseling Aide Relationship Specialty Start Date End Date Juan Diego Garcia MD [address] [place] [address] PCP - General Family Medicine 10/16/12 Preparole Counseling Aide Relationship Specialty Start Date End Date Juan Diego Garcia MD [address] [place] [address] PCP - General Family Medicine 10/16/12 Preparole Counseling Aide Relationship Specialty Start Date End Date Juan Diego Garcia MD [address] [place] [address] PCP - General Family Medicine 10/16/12 Preparole Counseling Aide Relationship Specialty Start Date End Date Juan Diego Garcia MD [address] [place] [address] PCP - General Family Medicine 10/16/12 Team Status: Active Member Role Status Dates Dr. Juan Diego Garcia MD Family Provider Active Dr. Juan Diego Garcia MD Primary Care Provider Active Team Status: Inactive Member Role Status Dates Dr. Juan Diego Garcia MD Primary Care Provider, Referring Provider Active Dr. Gerardo Marx MD Active Eliazar Guzman SYSTEMS CHECKOUT MECHANIC, SYSTEMS CHECKOUT MECHANIC-C Attending Provider Active Team Status: Inactive Member Role Status Dates Dr. Juan Diego Garcia MD Primary Care Provi joe, Attending Provider, Referring Provider Active Preparole Counseling Aide Relationship Specialty Start Date End Date Juan Diego Garcia MD [address] [place], [place] [address] PCP - General Family Medicine 10/16/12 Preparole Counseling Aide Relationship Specialty Start Date End Date Juan Diego Garcia MD [address] [place], [place] [id number] PCP - General Family Medicine 10/16/12 Preparole Counseling Aide Relationship Specialty Start Date End Date Juan Diego Garcia MD [address] [place], [place] [address] PCP - General Family Medicine 10/16/12 Preparole Counseling Aide Relationship Specialty Start Date End Date Juan Diego Garcia MD [address] [place], [place] [address] PCP - General Family Medicine 10/16/12 Team Status: Inactive Member Role Status Dates Dr. Juan Diego Garcia MD Primary Care Provider, Referring Provider Active Dr. Dale Sunshine MD Attending Provider Active Team Status: Inactive Member Role Status Dates Dr. Juan Diego Garcia MD Primary Care Provider Active Dr. Dale Sunshine MD Attending Provider, Referring P christiano Active Team Status: Active Member Role Status Dates Dr. Juan Diego Garcia MD Primary Care Provider, Referring Provider Active Dr. Dale Sunshine MD Attending Provider, Other Provi joe Active Preparole Counseling Aide Relationship Specialty Start Date End Date Juan Diego Garcia MD [address] [place], [place] [address] PCP - General Family Medicine 10/16/12 Preparole Counseling Aide Relationship Specialty Start Date End Date Juan Diego Garcia MD [address] [place] [address] PCP - General Family Medicine 10/16/12 Preparole Counseling Aide Relationship Specialty Start Date End Date Juan Diego Garcia MD [address] [place] [address] PCP - General Family Medicine 10/16/12 Preparole Counseling Aide Relationship Specialty Start Date End Date Juan Diego Garcia MD [address] [place] [address] PCP - General Family Medicine 10/16/12 Preparole Counseling Aide Relationship Specialty Start Date End Date Juan Diego Garcia MD [address] [place] [address] PCP - General Family Medicine 10/16/12 Preparole Counseling Aide Relationship Specialty Start Date End Date Juan Diego Garcia MD [address] [place] [address] PCP - General Family Medicine 10/16/12 Lisa Schulz, 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 [address] [place] [address] Cinetechnician Family Medicine 08/25/24 Clementina Carroll, 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 [address] [place] [address] Cinetechnician Family Medicine 08/25/24 Preparole Counseling Aide Relationship Specialty Start Date End Date Juan Diego Garcia MD [address] [place] [address] PCP - General Family Medicine 10/16/12 Lisa Schulz, 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 [address] [place] [address] Cinetechnician [facility] 08/25/24 Clementina Carroll APRN.CARDROOM PLASTIC CARD GRADER [address] [place] [address] Cinetechnician [facility] 08/25/24 Preparole Counseling Aide Relationship Specialty Start Date End Date Juan Diego Garcia MD [address] [place] [address] PCP - General Family Medicine 10/16/12 Lisa Schulz APRN.CARDROOM PLASTIC CARD GRADER [address] [place] [address] [facility]24 Clementina Carroll APRN.CARDROOM PLASTIC CARD GRADER [address] [place] [address] [facility] 08/[facility]/24 Preparole Counseling Aide Relationship Specialty Start Date End Date Juan Diego Garcia MD [address] [place] [address] PCP - General Family Medicine 10/16/12 Lisa Schulz APRN.CARDROOM PLASTIC CARD GRADER [address] [place] [address] [facility] 08/25/24 Clementina Carroll APRN.CARDROOM PLASTIC CARD GRADER [address] [place] [address] [facility] 08/25/24 Team Status: Inactive Member Role Status Dates Dr. Juan Diego Garcia MD Primary Care Provider Active Start: October 05, 2024 End: October 05, 2024 Dr. Juan Diego Garcia MD Referring Provider Active Start: October 05, 2024 End: October 05, 2024 Eliazar Guzman SYSTEMS CHECKOUT MECHANIC, SYSTEMS CHECKOUT MECHANIC-C Attending Provider Active S tart: October 05, 2024 End: October 05, 2024 Team Status: Inactive Member Role Status Dates Dr. Juan Diego Garcia MD Primary Care Provider Active Start: January 29, 2025 End: January 29, 2025 Dr. Juan Diego Garcia MD Attending Provider Active Start: January 29, 2025 End: January 29, 2025 Dr. Juan Diego Garcia MD Referring Provider Active Start: January 29, 2025 End: January 29, [address] MD Other Provider Active St art: January 29, 2025 End: January 29, 2025 Dr. Rodriguez Crane MD Other Provider Active Start: January 29, 2025 End: January 29, 2025 Team Status: Inactive Member Role Status Dates Dr. Juan Diego Garcia MD Primary Care Provider Active Start: March 03, 2025 End: March 03, 2025 Dr. Juan Diego Garcia MD Referring Provider Active Start: March 03, 2025 End: March 03, 2025 Marilee GUNDERSON, PA Attending Provider Active Start: March 03, 2025 End: March 03, 2025 Preparole Counseling Aide Relationship Specialty Start Date End Date Juan Diego Garcia MD [address] [place], [place] [id number] PCP - General Family Medicine 10/16/12 Lisa Schulz APRN.CARDROOM PLASTIC CARD GRADER [address] [place], [place] [id number] Cinetechnician Family Medicine 08/25/24 Clementina Carroll APRN.CARDROOM PLASTIC CARD GRADER [address] [place], [place] [id number] Cinetechnician Family Medicine 08/25/24 Source Comments (unrecognize d section and content) In the event this informatio n is protected by the [facility] Confidentiality of Alcohol and Drug Abuse Patient Records regulations: The Federal rules restrict any use of the information to criminally investigate or prosecute any alcohol or drug abuse patient.[facility] the event this information is protected by the Federal Confidentiality of Alcohol and Drug Abuse Patient Records regulations: The Federal rules restrict any use of the information to criminally investigate or prosecute any alcohol or drug abuse patient.[facility] the event this information is protected by the Federal Confidentiality of Alcohol and Drug Abuse Patient Records regulations: The Federal rules restrict any use of the information to criminally investigate or prosecute any alcohol or drug abuse patient.[facility]In the event this information is protected by the Federal Confidentiality of Alcohol and Drug Abuse Patient Records regulations: The Federal rules restrict any use of the information to criminally investigate or prosecute any alcohol or drug abuse patient.[facility]In the event this information is protected by the Federal Confidentiality of Alcohol and Drug Abuse Patient Records regulations: The Federal rules restrict any use of the information to criminally investigate or prosecute any alcohol or drug abuse patient.[facility] HospitalIn the event this information is protected by the Federal Confidentiality of Alcohol and Drug Abuse Patient Records regulations: The Federal rules restrict any use of the information to criminally investigate or prosecute any alcohol or drug abuse patient.[facility] HospitalIn the event this information is protected by the Federal Confidentiality of Alcohol and Drug Abuse Patient Records regulations: The Federal rules restrict any use of the information to criminally investigate or prosecute any alcohol or drug abuse patient.[facility]In the event this information is protected by the Federal Confidentiality of Alcohol and Drug Abuse Patient Records regulations: The Federal rules restrict any use of the information to criminally investigate or prosecute any alcohol or drug abuse patient.[facility] HospitalIn the event this information is protected by the Federal Confidentiality of Alcohol and Drug Abuse Patient Records regulations: The Federal rules restrict any use of the information to criminally investigate or prosecute any alcohol or drug abuse patient.[facility] HospitalIn the event this information is protected by the Federal Confidentiality of Alcohol and Drug Abuse Patient Records regulations: The Federal rules restrict any use of the information to criminally investigate or prosecute any alcohol or drug abuse patient.[facility] HospitalIn the event this information is protected by the Federal Confidentiality of Alcohol and Drug Abuse Patient Records regulations: The Federal rules restrict any use of the information to criminally investigate or prosecute any alcohol or drug abuse patient.[facility] HospitalIn the event this information is protected by the Federal Confidentiality of Alcohol and Drug Abuse Patient Records regulations: The Federal rules restrict any use of the information to criminally investigate or prosecute any alcohol or drug abuse patient.[facility] HospitalIn the event this information is protected by the Federal Confidentiality of Alcohol and Drug Abuse Patient Records regulations: The Federal rules restrict any use of the information to criminally investigate or prosecute any alcohol or drug abuse patient.[facility] HospitalIn the event this information is protected by the Federal Confidentiality of Alcohol and Drug Abuse Patient Records regulations: The Federal rules restrict any use of the information to criminally investigate or prosecute any alcohol or drug abuse patient.[facility] HospitalIn the event this information is protected by the Federal Confidentiality of Alcohol and Drug Abuse Patient Records regulations: The Federal rules restrict any use of the information to criminally investigate or prosecute any alcohol or drug abuse patient.[facility] HospitalIn the event this information is protected by the Federal Confidentiality of Alcohol and Drug Abuse Patient Records regulations: The Federal rules restrict any use of the information to criminally investigate or prosecute any alcohol or drug abuse patient.[facility] HospitalIn the event this information is protected by the Federal Confidentiality of Alcohol and Drug Abuse Patient Records regulations: The Federal rules restrict any use of the information to criminally investigate or prosecute any alcohol or drug abuse patient.[facility] HospitalIn the event this information is protected by the Federal Confidentiality of Alcohol and Drug Abuse Patient Records regulations: The Federal rules restrict any use of the information to criminally investigate or prosecute any alcohol or drug abuse patient.[facility] HospitalIn the event this information is protected by the Federal Confidentiality of Alcohol and Drug Abuse Patient Records regulations: The Federal rules restrict any use of the information to criminally investigate or prosecute any alcohol or drug abuse patient.[facility] HospitalIn the event this information is protected by the Federal Confidentiality of Alcohol and Drug Abuse Patient Records regulations: The Federal rules restrict any use of the information to criminally investigate or prosecute any alcohol or drug abuse patient.[facility] HospitalIn the event this information is protected by the Federal Confidentiality of Alcohol and Drug Abuse Patient Records regulations: The Federal rules restrict any use of the information to criminally investigate or prosecute any alcohol or drug abuse patient.[facility] HospitalIn the event this information is protected by the Federal Confidentiality of Alcohol and Drug Abuse Patient Records regulations: The Federal rules restrict any use of the information to criminally investigate or prosecute any alcohol or drug abuse patient.[facility] HospitalIn the event this information is protected by the Federal Confidentiality of Alcohol and Drug Abuse Patient Records regulations: The Federal rules restrict any use of the information to criminally investigate or prosecute any alcohol or drug abuse patient.[facility] HospitalIn the event this information is protected by the Federal Confidentiality of Alcohol and Drug Abuse Patient Records regulations: The Federal rules restrict any use of the information to criminally investigate or prosecute any alcohol or drug abuse patient.[facility] HospitalIn the event this information is protected by the Federal Confidentiality of Alcohol and Drug Abuse Patient Records regulations: The Federal rules restrict any use of the information to criminally investigate or prosecute any alcohol or drug abuse patient.[facility] HospitalIn the event this information is protected by the Federal Confidentiality of Alcohol and Drug Abuse Patient Records regulations: The Federal rules restrict any use of the information to criminally investigate or prosecute any alcohol or drug abuse patient.[facility] HospitalIn the event this information is protected by the Federal Confidentiality of Alcohol and Drug Abuse Patient Records regulations: The Federal rules restrict any use of the information to criminally investigate or prosecute any alcohol or drug abuse patient.[facility] HospitalIn the event this information is protected by the Federal Confidentiality of Alcohol and Drug Abuse Patient Records regulations: The Federal rules restrict any use of the information to criminally investigate or prosecute any alcohol or drug abuse patient.[facility] HospitalIn the event this information is protected by the Federal Confidentiality of Alcohol and Drug Abuse Patient Records regulations: The Federal rules restrict any use of the information to criminally investigate or prosecute any alcohol or drug abuse patient.[facility] Reason for Visit (unrecogniz ed section and content) Reason Comments Physical Specialty Diagnoses / Procedures Referred By Contac t Referred To Contact FAMILY MEDICINE Diagnoses MEDICALLY NECESSARY SERVICES - PCP Procedures MEDICALLY NECESSARY SERVICES - PCP Juan Diego Garcia MD [address] [place] [address] Phone: tel: fax: Family Medicine Anita [address] [place] [address] Phone: tel: Referral ID Status Reason Start Date Expiration Date Visits Requested Visits Authorized [id number] New Request OON/Self Pay Override 11/05/2024 09/10/2025 99 99 Reason Comments Established NI Patient Follow up Specialty Diagnoses / Procedures Referred By Contac t Referred To Contact SLEEP DISORDERS Diagnoses follow up Procedures follow up Shanda Blue, JORGE.CARDROOM PLASTIC CARD GRADER [address] [place] [address] [facility] [address] [place] [address] Referral ID Status Reason Start Date Expiration Date V isits Requested Visits Authorized [id number] Closed OON/Self Pay Override 07/21/2021 10/19/2021 1 1 Reason Comments 6 Month Exam Specialty Diagnoses / Procedures Referred By Contac t Referred To Contact FAMILY MEDICINE Diagnoses 6 month follow up Procedures 6 month follow up Juan Diego Garcia MD [address] [place] [address] [facility] [address] [place] [address] Referral ID Status Reason Start Date Expiration Date V isits Requested Visits Authorized [id number] Closed OON/Self Pay Override 08/03/2021 11/01/2021 1 1 Reason Comments shave excision back Specialty Diagnoses / Procedures Referred By Contac t Referred To Contact FAMILY MEDICINE Diagnoses Shave Excision Procedures 4C EST Juan Diego Garcia MD [address] [place] [address] [facility] [address] [place] [address] Referral ID Status Reason Start Date Expiration Date Visits Requested Visits Authorized [id number] Pending Review OON/Self Pay Override 02/06/2022 05/07/2022 1 1 Reason Comments Results Reason Onset Date Comments Refill Request 03/31/2022 Reason Comments Release Of Medical Records Reason Comments Cellulitis RIGHT lower extremit y x 3 days Specialty Diagnoses / Procedures Referred By Contac t Referred To Contact INTERNAL MEDICINE Diagnoses Right Leg sswollen, recently in emergency room for fever and other symptoms Procedures Established Adult Self Juan Diego Garcia MD [address] [place] [address] Referral ID Status Reason Start Date Expiration Date Visits Requested Visits Authorized [id number] Outside PCP OON/Self Pay Override 06/14/2022 08/13/2022 1 1 Reason Comments Follow Up Left foot ankle ankl e and leg on rt f/up cellulitis Specialty Diagnoses / Procedures Referred By Contac t Referred To Contact FAMILY MEDICINE Diagnoses follow up Procedures est Carly Hernandez APRN.CARDROOM PLASTIC CARD GRADER [address] [place] [address] [facility] [address] [place] [address] Referral ID Status Reason Start Date Expiration Date Visits Requested Visits Authorized [id number] Pending Review OON/Self Pay Override 06/14/2022 09/12/2022 1 1 Reason Comments stat US apt Was to be scheduled thru [facility] Specialty Diagnoses / Procedures Referred By Contac t Referred To Contact FAMILY MEDICINE Diagnoses 6 Month follow-up Procedures 4C EST Juan Diego Garcia MD [address] [place] [address] [facility] [address] [place] [address] Referral ID Status Reason Start Date Expiration Date Visits Requested Visits Authorized [id number] Pending Review OON/Self Pay Override 02/06/2022 08/09/2022 1 [address]atolgy Dr Tuan Clay needs records Reason Onset Date Comments Refill Request 02/27/2023 Reason Comments Results Reason Comments 6 Month Exam Specialty Diagnoses / Procedures Referred By Contac t Referred To Contact FAMILY MEDICINE Diagnoses follow up Procedures follow up Juan Diego Garcia MD [address] [place] [address] [facility] [address] [place] [address] Referral ID Status Reason Start Date Expiration Date Visits Requested Visits Authorized [id number] Pending Review OON/Self Pay Override 03/12/2023 09/08/2023 1 1 Reason Comments Follow Up Specialty Diagnoses / Procedures Referred By Contac t Referred To Contact FAMILY MEDICINE Diagnoses 6 week follow up Procedures office visit Juan Diego Garcia MD [address] [place] [address] [facility] [address] [place] [address] Referral ID Status Reason Start Date Expiration Date Visits Requested Visits Authorized [id number] Pending Review OON/Self Pay Override 12/11/2024 1 1 Reason Comments Hernia / patient question Reason Comments Edema Possible cellulitis on left leg x 1 week Reason Onset Date Comments Refill Request 03/27/2024 Reason Comments Refill Request Reason Comments Orders Specialty Diagnoses / Procedures Referred By Rossy t Referred To Contact XR IMAGING Diagnoses Pain in right ankle and joints of right foot Procedures X-RAY ANKLE MINIMUM 3 VIEWS Juan Diego Garcia MD [address] [place] [address] [place] [id number] Referral ID Status Reason Start Date Expiration Date V isits Requested Visits Authorized [id number] Closed OON/Self Pay Override 08/08/2022 09/16/2022 1 1 Reason Onset Date Comments Refill Request 10/21/2024 Reason Comments Cough Continued cough, wor se at night Reason Onset Date Comments Refill Request 02/12/2025 Reason Onset Date Comments Refill Request 04/16/2025 Goals (unrecognized section and content) Goals may be documented in a n alternate section (unrecognized sect ion and content) No Status Records FoundNo Status Records FoundNo Status Records FoundNo Status Records FoundNo Status Records Found INFORMATION SOURCE (unrecogn ized section and content) DATE CREATED AUTHOR 04/09/2024 [facility] ([place]) DATE CREATED AUTHOR AUTHOR'S ORGANIZ ATION 09/02/2024 [facility] DATE CREATED AUTHOR AUTHOR'S ORGANIZ ATION 02/22/2025 [facility] DATE CREATED AUTHOR AUTHOR'S ORGANIZ ATION 03/06/2025 [facility] DATE CREATED AUTHOR AUTHOR'S ORGANIZ ATION 07/26/2025 [facility] FOR RECORDS PERTAINING TO PATIENTS WHO ARE OR HAVE BEEN ENROLLED IN A CHEMICAL DEPENDENCY/SUBSTANCEABUSE PROGRAM, SOME INFORMATION MAY BE OMITTED. This clinical summary was aggregated from multiple sources. Caution should be exercised in using it in the provision of clinical care. This summary normalizes information from multiple sources, and as a consequence, information in this document may materially change the coding, format and clinical context of patient data. In addition, data may be omitted in some cases. CLINICAL DECISIONS SHOULD BE BASED ON THE PRIMARY CLINICAL RECORDS. [employer] [facility]. provides no warranty or guarantee of the accuracy or completeness of information in this document.
[2025-08-01] MEDS: Lidocaine 2% Viscous15 ML UDC 15 ML PO (02:09)
--- NOTE | 2025-08-01 02:29 | EX.ED.DYSGE1 ---
HPI History of Present Illness Chief Complaint: Foreign Body Narrative Narrative: Patient was seen and examined after presenting to ED for concern because he has rhinorrhea and he felt like there was mucus that went down the back of his throat and into his airway causing him a lot of discomfort when he is trying to breathe he is worried that he cannot breathe because of it he states that he had a couple bites of a vegetable soup but then had the spell where he inhaled his mucous about half an hour after having the soup. [facility] Medical History Wears glasses Enlarged prostate Anxiety Alcohol use History of steroid therapy Thyroid disease Arthritis High cholesterol Back pain Essential tremor Difficulty swallowing History of hiatal hernia Gastric reflux Former smoker Leg cramps Normal stress echocardiogram History of stress test History of echocardiogram Cardiology follow-up encounter History of irregular heartbeat Essential tremor Pure hypercholesterolemia Essential hypertension Internal hemorrhoids Bilateral carpal tunnel syndrome GI bleed TMJ Chest pain, unspecified Home Medications Medication Instructions Recorded Last Taken Type atorvastatin 20 mg tablet 20 mg PO QHS 03/02/14 12/10/23 History levothyroxine 88 mcg tablet 88 mcg PO SUMOTUWETHFR 12/19/21 12/11/23 History betamethasone dipropionate 0.05 % 1 applic topical DAILY PRN itching 02/19/23 Unknown History topical cream levothyroxine 44 mcg capsule 44 mcg PO SA 12/10/23 12/08/23 History losartan 100 mg tablet 100 mg PO DAILY 12/10/23 12/11/23 History fluticasone propionate 50 2 spray intranasal QDAY 03/03/25 Unknown History mcg/actuation nasal spray,suspension ffewmqrgrfvo-Vz-qabf-minerals 1 tab PO QDAY 03/03/25 Unknown History benzocaine 15 mg-menthol 10 mg 1 joey mucous membrane .4 times 07/30/25 Unknown Rx lozenges (Chloraseptic Max) daily PRN sore throat #15 ea ipratropium bromide 21 mcg (0.03 2 spray intranasal BID-TID PRN 07/30/25 Unknown Rx %) nasal spray postnasal drainage #30 mL Allergy/AdvReac Type Severity Reaction Status Date / Time Sulfa (Sulfonamide Allergy Other Verified 08/01/25 01:20 Antibiotics) Family History Father Myocardial infarction Diabetes CAD (coronary artery disease) CABG Mother Lymphoma Sister CLL (chronic lymphocytic leukemia) Surgical History S/P inguinal hernia repair Hx of colonoscopy History of mandibular surgery History of prostate biopsy History of umbilical hernia repair History of carpal tunnel repair Social History Smoking Status: Former smoker quit date: 09/17/85 alcohol intake: current substance use type: former substance user Date of last use: 80s and marijuana ROS ROS ED ROS Narrative Pertinent Positives: Rhinorrhea nausea Pertinent Negatives: Foreign body obstruction to the throat The remainder of review of systems negative unless otherwise stated in the HPI above. Systems reviewed including constitutional, psychiatric, cardiovascular, respiratory, integument, HENT, gastrointestinal. EXAM Physical Exam Narrative Exam Narrative: Patient is afebrile hemodynamically stable he does not appear toxic or in distress he has obvious rhinorrhea he is in the room trying to spit into an emesis bag. His oropharynx is otherwise clear he has no stridor he has no retractions no wheezing no evidence of respiratory distress whatsoever he is oxygenating at 100% on room air he is not tachycardic he is phonating appropriately Const Vital Signs: 08/01/25 01:20 08/01/25 01:23 08/01/25 01:38 Temperature 98.5 F 98.5 F Temperature Source Oral Pulse Rate 94 79 Respiratory Rate 19 H 18 Respiratory Effort Labored Respiratory Pattern Tachypnea Blood Pressure 152/82 H 145/80 H Blood Pressure Mean 105 101 Pulse Ox 100 100 Oxygen Delivery Method Room Air MDM MDM MDM Narrative Medical decision making narrative: Nursing notes, triage notes, available previous documentation, and vital signs were reviewed. Any discrepancies noted were addressed. Differential Diagnoses: Mucus into the back of his throat possibly into his airway but not impending airway Interventions: Viscous lidocaine Imaging Reviewed: Offered chest x-ray declined but not clinically indicated anyways Previous Documentation Reviewed: None available or applicable at this time. ED Course: Patient presenting with foreign body sensation in his throat because of mucus states he took 1 Mucinex earlier in the day never took a second 1 he is oxygenating well at 100% the entire time on room air he stated "what if I code from this mucus?" I informed him Wally forms a giant mucous plug completely occluding his airway or portions of his airway which we would tell by changes in his oxygen saturation level especially by now would be very unlikely that he would code from it patient seems to be rate rather anxious and fixated on this mucus that is going down the back of his throat informed him I am not sure what we can offer him besides decongestions he does not have like a foreign body causing obstruction of some sort imaging would not assist us I informed him that we do not do bronchoscopic evaluation for mucus clearing unless he were to have a significant mucous plug. So patient can be discharged home with return precautions and follow-up recommendations he is stable. This note was made utilizing voice recognition software. All attempts were made to correct spelling or other errors prior to note completion. However, due to the fast-paced nature of emergency medicine, some errors may still be present. Discharge Plan Triage Chief Complaint: Foreign Body ED Provider: Jamilah Stevens Dx/Rx/DC Orders Clinical Impression: Encounter for medical screening examination, Rhinorrhea, Foreign body sensation in throat, Acute viral syndrome Instructions: ED Screening Exam Medical Nonurgent Prescriptions: No Action levothyroxine 88 mcg tablet 88 mcg PO SUMOTUWETHFR Rx Instructions: 88 mcg orally; 88 MCG ROJAS MO FR THEN ON SA 44 MCG betamethasone dipropionate 0.05 % cream 1 applic topical DAILY PRN (Reason: itching) fluticasone propionate 50 mcg/actuation spray,suspension 2 spray intranasal QDAY hievzfomghqe-Kt-bqfy-minerals Tablet 1 tab PO QDAY ipratropium bromide 21 mcg (0.03 %) spray,non-aerosol 2 spray intranasal BID-TID PRN (Reason: postnasal drainage) Qty: 30 0RF Rx Instructions: administer into each nostril Chloraseptic Max 15-10 mg lozenge 1 joey mucous membrane .4 times daily PRN (Reason: sore throat) Qty: 15 0RF atorvastatin 20 MG tablet 20 mg PO QHS Patient Comments: FOR HI CHOL levothyroxine 44 mcg capsule 44 mcg PO SA losartan 100 mg tablet 100 mg PO DAILY Primary Care Provider: Juan Diego Barrera Referrals: Juan Diego Barrera MD [Primary Care Provider, Medical] Activity Restrictions/Additional Instructions: follow up with your doctor. take decongestants like mucinex. Print Language: Georgian Disposition Disposition: Home, Self Care
[2025-08-01 02:35] VITALS: BP 118/66; PULSE 76; RESP 18; O2SAT 99
== END 2025-08-01 02:48 | disposition home or self-care (01) ==
PROVIDERS: Emergency Provider Specialist/Technologist Athletic Trainer; PCP Family Medicine; Visit Provider Specialist/Technologist Athletic Trainer
DX: R09.A2 Foreign body sensation, throat (principal); J34.89 Other specified disorders of nose and nasal sinuses; B34.9 Viral infection, unspecified; E78.00 Pure hypercholesterolemia, unspecified; N40.0 Benign prostatic hyperplasia without lower urinary tract symptoms; E07.9 Disorder of thyroid, unspecified; Z87.19 Personal history of other diseases of the digestive system; Z79.890 Hormone replacement therapy; Z79.899 Other long term (current) drug therapy; Z87.891 Personal history of nicotine dependence
CPT/HCPCS: 99284

== ENCOUNTER → 2025-08-21 | Outpatient (CLI) | payer MEDICARE, SELFPAY | END | disposition home or self-care (01) | PROVIDERS: PCP Family Medicine; Referring Provider Family Medicine; Visit Provider Family Medicine | DX: R73.03 Prediabetes (principal) | CPT/HCPCS: 36415; 83036 ==